=== PATIENT | female | born 1965 | race African-American/Black ===

== ENCOUNTER 2016-07-07 20:03 | Inpatient (IN) | payer MEDICAID, OTHER ==
[~2016-07-07] VITALS: Ht 175.3 cm; Wt 98.4 kg
[~2016-07-07 20:03] MED LIST: 1-ME1LIQ PO; ALBU1AER INH; CARBXR200 PO; ENAL5TAB PO; FURO1TAB93 PO; HYDR100T2 PO; METO50TA PO; SERT-129 PO; SPIRCAP INH; TIOT1AER2 INH; TIZA4CAP PO
[2016-07-07 20:05] VITALS: BP 166/93; PULSE 116; RESP 16; TEMP 98.5; O2SAT 96
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
[2016-07-07 20:49] LABS: AUTOMATED NEUTROPHIL # 5.2 TH/MM3 (1.8-7.7); BASOPHIL # 0.1 TH/MM3 (0-0.2); BASOPHIL % 0.9 % (0.0-2.0); EOSINOPHIL # 0.9 TH/MM3 (0-0.4); EOSINOPHIL % 11.1 % (0.0-4.0); HEMATOCRIT 39.7 % (35.0-46.0); HEMO FLAGS DIFF FINAL; LYMPH % 19.1 % (9.0-44.0); LYMPHOCYTE # 1.6 TH/MM3 (1.0-4.8); MEAN CELL VOLUME 88.8 FL (80.0-100.0); MEAN CORPUSCULAR HEMOGLOBIN 29.5 PG (27.0-34.0); MEAN CORPUSCULAR HGB CONC 33.2 % (32.0-36.0); MONO % 7.2 % (0.0-8.0); NEUT % 61.7 % (16.0-70.0); PLATELET COUNT 237 TH/MM3 (150-450); RED BLOOD COUNT 4.47 MIL/MM3 (4.00-5.30); RED CELL DISTRIBUTION WIDTH 17.1 % (11.6-17.2); WHITE BLOOD COUNT 8.5 TH/MM3 (4.0-11.0)
[2016-07-07 21:16] LABS: ALT (GPT) 31 U/L (10-53); ANION GAP 8 MEQ/L (5-15); AST (GOT) 27 U/L (15-37); BICARBONATE 28.1 MEQ/L (21.0-32.0); BLOOD UREA NITROGEN 19 MG/DL (7-18); CHLORIDE 108 MEQ/L (98-107); GLOMERULAR FILTRATION RATE 41 ML/MIN (>89); POTASSIUM 3.5 MEQ/L (3.5-5.1); SODIUM (NA) 144 MEQ/L (136-145)
[2016-07-07 21:19] LABS: ALKALINE PHOSPHATASE 90 U/L (45-117); TOTAL BILIRUBIN ADULT 0.5 MG/DL (0.2-1.0)
[2016-07-07 21:24] VITALS: BP 157/102; PULSE 110; RESP 16; O2SAT 97
[2016-07-07] MEDS ORDERED: ASPI1TAB91 PO (21:36)
[2016-07-07] MEDS ORDERED: ALBUAER3 INH (21:36)
[2016-07-07] MEDS ORDERED: METO100T9 PO (21:36)
[2016-07-07] MEDS ORDERED: HYDR25TA35 PO (21:36)
[2016-07-07] MEDS ORDERED: POTA10TA8 PO (21:36)
[2016-07-07] MEDS ORDERED: FURO40TA PO (21:36)
[2016-07-07] MEDS ORDERED: SERT-129 PO (21:36)
[2016-07-07] MEDS ORDERED: ASPI81TA81 (21:36)
[2016-07-07] MEDS ORDERED: TRAZ50TA12 PO (21:36)
[2016-07-07] MEDS ORDERED: ENAL5TAB PO (21:36)
[2016-07-07] MEDS ORDERED: LEVO500T3 PO (21:36)
[2016-07-07 21:43] LABS: AMPHETAMINE, URINE NEG (NEG); BARBITURATES, URINE NEG (NEG); COCAINE, URINE POS (NEG)
[2016-07-08] VITALS (8 sets, daily range): BP systolic 151–180; BP diastolic 98–122; PULSE 104–112; RESP 16–24; TEMP 97.6–98.3; O2SAT 95–98
[2016-07-08] MEDS ORDERED: ALBU0.08 NEB (13:33)
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
[2016-07-08] MEDS ORDERED: ALUMINUM/MAGNESIUM/SIMETH 30 ML CUP PO PRN (16:00)
[2016-07-08] MEDS ORDERED: hydrALAZINE HCL 25 MG TAB PO ONE (16:00)
[2016-07-08] MEDS ORDERED: ALBUTEROL SULFATE 90 MCG/ACT HFA 8 GM INHALER INH ONE (16:00)
[2016-07-08] MEDS ORDERED: ACETAMINOPHEN 325 MG TAB PO PRN (16:00)
[2016-07-08] MEDS ORDERED: MAGNESIUM HYDROXIDE SUSP 30 ML CUP PO PRN (16:00)
[2016-07-08] MEDS ORDERED: ALBUTEROL SULFATE 90 MCG/ACT HFA 18 GM INHALER INH ONE (16:15)
[2016-07-08] MEDS ORDERED: cloNIDine HCL 0.2 MG TAB PO ONE (18:15)
[2016-07-09] MEDS: FUROSEMIDE 40 MG TAB PO SCH ×2 (05:50→09:45)
[2016-07-09] MEDS: hydrALAZINE HCL 25 MG TAB PO SCH ×3 (05:50→21:32)
[2016-07-09] MEDS: ENALAPRIL MALEATE 5 MG TAB PO SCH ×3 (05:50→21:32)
[2016-07-09] MEDS: METOPROLOL SUCCINATE 50 MG EXTENDED RELEASE TAB PO SCH ×2 (05:51→09:45)
[2016-07-09 06:00] VITALS: PULSE 104; RESP 20; TEMP 97.4
[2016-07-09 07:03] VITALS: BP 158/115; PULSE 94
[2016-07-09 08:00] VITALS: BP 144/95; PULSE 90; TEMP 98
[2016-07-09] MEDS ORDERED: ALUMINUM/MAGNESIUM/SIMETH 30 ML CUP PO PRN (08:45)
[2016-07-09] MEDS ORDERED: MAGNESIUM HYDROXIDE SUSP 30 ML CUP PO PRN (08:45)
[2016-07-09] MEDS ORDERED: ACETAMINOPHEN 325 MG TAB PO PRN (08:45)
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
[2016-07-09] MEDS ORDERED: NON-FORMULARY DRUG (Metoprolol Succinate ER 24 HR 100 MG) PO SCH (09:00)
[2016-07-09] MEDS ORDERED: ENALAPRIL MALEATE 5 MG TAB PO SCH (09:00)
[2016-07-09] MEDS ORDERED: hydrALAZINE HCL 25 MG TAB PO SCH (09:00)
[2016-07-09] MEDS ORDERED: FUROSEMIDE 40 MG TAB PO SCH (09:00)
[2016-07-09] MEDS: risperiDONE ODT 1 MG TAB PO SCH ×2 (09:45→21:31)
[2016-07-09] MEDS: SERTRALINE HCL 100 MG TAB PO SCH (09:45)
[2016-07-09 10:46] LABS: ANION GAP 8 MEQ/L (5-15); BICARBONATE 28.1 MEQ/L (21.0-32.0); BLOOD UREA NITROGEN 17 MG/DL (7-18); CHLORIDE 107 MEQ/L (98-107); GLOMERULAR FILTRATION RATE 52 ML/MIN (>89); HDL CHOLESTEROL 50.1 MG/DL (40.0-60.0); LDL CHOLESTEROL 74 MG/DL (0-99); POTASSIUM 3.9 MEQ/L (3.5-5.1); SODIUM (NA) 143 MEQ/L (136-145)
[2016-07-09 11:15] LABS: HEMOGLOBIN A1a 1.1 %; HEMOGLOBIN A1b 1.4 %; HEMOGLOBIN Ao 86.3 %; HEMOGLOBIN P3 4.9 %
[2016-07-09] MEDS: ASPIRIN EC 81 MG TABEC PO SCH (13:30)
--- NOTE | 2016-07-09 13:38 | PD.CONS ---
HPI Service [facility] Consult Requested By Dr. Renner Reason for Consult Medical management Primary Care Physician Tony Goldstein Diagnoses: History of Present Illness The patient is a 50-year-old female with a past medical history of CAD and CHF who is presenting to the hospital after her son was concerned about her well- being. The patient says she has been feeling very depressed and has generally been having low energy. Per report she was having homicidal ideation. The patient also states that she is often short of breath when walking around. She says she has heart failure and has been hospitalized for heart failure multiple times in the past. The most recent hospitalization was a few months ago. She says she was also hospitalized for kidney failure. She has not been keeping track of her weight that she has noticed swelling in her lower extremities. She does believe she has some fluid around her lungs. She does not have salt in her diet. She says she has not been good about taking her medications recently. She says she intermittently has chest pain from time to time. She denies any acute symptoms. Review of Systems Except as stated in HPI: all other systems reviewed are Neg Past Family Social History Allergies: Coded Allergies: No Known Allergies (Verified , 07/07/16) Past Medical History Bipolar disorder CAD CHF COPD HTN Poor circulation Chronic kidney disease Past Surgical History Tubal ligation Active Ordered Medications Current Medications Medications (Trade) Dose Ordered Sig/Stanislaw Route Start Time Stop Time Status Last Admin (Tylenol) 650 mg Q4H PRN PO 07/08/16 16:00 (Milk Of Magnesia Liq) 30 ml DAILY PRN PO 07/08/16 16:00 (Mag-Al Plus Susp Liq) 30 ml Q6H PRN PO 07/08/16 16:00 07/09/16 02:55 (Pneumovax-23 Inj) 25 mcg ONCE ONCE IM 07/10/16 10:00 07/10/16 10:01 (Vasotec) 10 mg BID PO 07/09/16 05:45 07/09/16 09:44 (Lasix) 40 mg DAILY PO 07/09/16 05:45 07/09/16 09:45 (Apresoline) 25 mg BID PO 07/09/16 05:45 07/09/16 09:45 (Toprol Xl) 100 mg DAILY PO 07/09/16 05:45 07/09/16 09:45 (Zoloft) 100 mg DAILY PO 07/09/16 09:00 07/09/16 09:45 (risperDAL M-TAB) 1 mg Q12HR PO 07/09/16 09:00 07/09/16 09:45 (Ventolin Hfa Inh) 2 puff Q4H PRN INH 07/09/16 13:30 (Ecotrin Ec) 81 mg DAILY PO 07/09/16 13:30 (KCl) 10 meq DAILY PO 07/10/16 09:00 Family History HTN CKD Social History She smokes 1 PPD. She does not drink. She uses cocaine twice a week. Physical Exam Vital Signs Vital Signs Date Time Temp Pulse Resp B/P Pulse Ox O2 Delivery O2 Flow Rate FiO2 07/09/16 07:03 94 158/115 07/09/16 06:00 97.4 104 20 07/08/16 23:49 105 151/108 07/08/16 23:47 98.3 106 20 167/115 07/08/16 20:15 110 20 154/98 07/08/16 17:35 112 24 165/115 95 Room Air 07/08/16 15:50 110 22 179/122 97 Room Air Physical Exam GENERAL: Middle-aged female in no acute distress. SKIN: Focused skin assessment warm/dry. HEAD: Normocephalic. EYES: No scleral icterus. No injection or drainage. ENT: Mucous membranes pink and moist. CARDIOVASCULAR: Distant heart sounds. No murmur appreciated. RESPIRATORY: No accessory muscle use. Poor respiratory effort. GASTROINTESTINAL: Nontender to palpation. No guarding or rebound. MUSCULOSKELETAL: 1+ bilateral lower extremity edema. NEUROLOGICAL: Awake and alert. Normal speech. PSYCHIATRIC: Flat affect. Laboratory Laboratory Tests Test 07/09/16 09:16 Sodium Level 143 Potassium Level 3.9 Chloride Level 107 Carbon Dioxide Level 28.1 Anion Gap 8 Blood Urea Nitrogen 17 Creatinine 1.31 Estimat Glomerular Filtration 52 Rate Random Glucose 89 Hemoglobin A1c 5.2 Calcium Level 8.4 Triglycerides Level 47 Cholesterol Level 133 LDL Cholesterol 74 HDL Cholesterol 50.1 Cholesterol/HDL Ratio 2.65 Result Diagram: 07/07/16203907/09/1616 Assessment and Plan Assessment and Plan Depression The patient has been depressed recently and was brought in by her family members who were concerned. - Management per psychiatry. CHF/ CAD The patient has a history of CAD. She has a reported ejection fraction of 25-30 % with moderate to severe tricuspid regurgitation. She endorses dyspnea on exertion as well as lower extremity edema. She also endorses intermittent chest pain. - Check an EKG and troponins. - Check a BNP. - Continue by mouth Lasix. - Fluid restriction. - Follow Is and Os. - CXR pending. COPD The pt has WEINSTEIN. - CXR pending. - albuterol and oxygen as needed. - IS. - smoking cessation instruction. HTN Blood pressure has been elevated. - continue home regimen. - clonidine as needed. CKD Creatinine improved overnight. Slightly above baseline. - monitor BMP. Nicotine and cocaine abuse The pt smokes a pack daily and uses cocaine twice per week. - cessation instruction. PPx: Ambulation. Discussed Condition With Pt, nurse. Michael Barboza DO July 09, 2016 13:38
--- NOTE | 2016-07-09 13:41 | RADRPT ---
EXAM DATE/TIME: 07/09/2016 13:30 [place] COMPARISON: No previous studies available for comparison. INDICATIONS : Dyspnea. MEDICAL HISTORY : None. SURGICAL HISTORY : None. ENCOUNTER: Initial ACUITY: 1 day PAIN SCORE: 0/10 LOCATION: Bilateral chest FINDINGS: A single view of the chest demonstrates the lungs to be symmetrically aerated without evidence of mas s, infiltrate or effusion. Moderate cardiomegaly with central pulmonary vascular congestion. The car diomediastinal contours are unremarkable. Osseous structures are intact. CONCLUSION: Cardiomegaly with central pulmonary vascular congestion. Diogo Rodriguez MD on July 09, 2016 at 13:39 Board Certified Radiologist. This report was verified electronically.
[2016-07-09] MEDS: ALBUTEROL SULFATE 90 MCG/ACT HFA 18 GM INHALER INH PRN (18:14)
[2016-07-09 18:26] VITALS: BP 141/102; PULSE 75; RESP 18; TEMP 98.7; O2SAT 99
[2016-07-10 06:17] VITALS: BP 151/96; PULSE 83; RESP 19; TEMP 98; O2SAT 98
[2016-07-10] MEDS: ENALAPRIL MALEATE 5 MG TAB PO SCH ×2 (08:59→20:28)
[2016-07-10] MEDS: METOPROLOL SUCCINATE 50 MG EXTENDED RELEASE TAB PO SCH (08:59)
[2016-07-10] MEDS: ASPIRIN EC 81 MG TABEC PO SCH (08:59)
[2016-07-10] MEDS: SERTRALINE HCL 100 MG TAB PO SCH (08:59)
[2016-07-10] MEDS: FUROSEMIDE 40 MG TAB PO SCH ×2 (09:00→18:05)
[2016-07-10] MEDS: POTASSIUM CHLORIDE 10 MEQ CONTROLLED RELEASE TAB PO SCH (09:00)
[2016-07-10] MEDS: risperiDONE ODT 1 MG TAB PO SCH ×2 (09:00→20:28)
[2016-07-10] MEDS: hydrALAZINE HCL 25 MG TAB PO SCH ×2 (09:00→20:28)
[2016-07-10] MEDS ORDERED: PNEUMOCOCCAL POLYVALENT INJ 25 MCG/0.5 ML SYR IM ONE (10:00)
--- NOTE | 2016-07-10 10:43 | HHI.PYPN ---
Subjective Remarks Patient seen in [place] with nurse Aishwarya Ruiz, chart review, patient compliant with the medications. Today paranoia has somewhat decreased states the voices are gone she does denies suicidality stating that she did sleep better last night there is some decrease in her shortness of breath. She shows slightly increased focus discussing discharge plans for now continue treatment Review of Systems Except as stated in HPI: all other systems reviewed are Neg Objective Alert: Yes [place]: Person (ox4) Mood: Depressed Affect: Restricted Memory Intact: Comment (not impaired) Hallucinations: Auditory (hears persons talking) Delusions: No Delusion Type: Paranoid Suicidal: Ideation (deneis) Homicidal: Ideation (her step sisiter) Insight/Judgment Poor Labs Test 07/09/16 07/09/16 14:32 19:33 Troponin I 0.16 NG/ML 0.16 NG/ML Vitals/IOs Vital Signs Date Time Temp Pulse Resp B/P Pulse Ox O2 Delivery O2 Flow Rate FiO2 07/10/16 06:17 98.0 83 19 151/96 98 07/08/16 17:35 Room Air Assessment & Plan Problem List: (1) Cocaine abuse ICD Code: F14.10 (2) Schizoaffective disorder ICD Code: F25.9 Assessment & Plan Estimated LOS: days patient psychosis is softening, showing some slight increase in processing and insight. Compliant medication. For now continue treatment Justification for Cont. Inpt. At this time patient will decompensate if placed in a lower level of care Discharge Planning To be determined Request HC Surrog/Guard Advoc?: No Problem Qualifiers (1) Schizoaffective disorder: Qualified Code: F25.0 - Schizoaffective disorder, bipolar type Reynold Renner MD July 10, 2016 10:43
--- NOTE | 2016-07-10 14:31 | HHI.PR ---
Subjective Remarks The patient was resting comfortably in bed. She said her breathing was a little bit better. She said her legs were still swollen. She says her mood is still depressed but not worse. She had no acute complaints at this time. She denied any chest pain. Objective Vitals Vital Signs Date Time Temp Pulse Resp B/P Pulse Ox O2 Delivery O2 Flow Rate FiO2 07/10/16 06:17 98.0 83 19 151/96 98 07/09/16 18:26 98.7 75 18 141/102 99 Result Diagram: 07/07/160 07/09/16 0916 Imaging Last Impressions Chest X-Ray 07/09/16 0000 Signed Impressions: Service Date/Time: Saturday, July 09, 2016 13:30 - CONCLUSION: Cardiomegaly with central pulmonary vascular congestion. Diogo Rodriguez MD Objective Remarks GENERAL: Middle-aged female in no acute distress. SKIN: Focused skin assessment warm/dry. HEAD: Normocephalic. EYES: No scleral icterus. No injection or drainage. ENT: Mucous membranes pink and moist. CARDIOVASCULAR: Distant heart sounds. No murmur appreciated. RESPIRATORY: No accessory muscle use. Poor respiratory effort. CTAB. GASTROINTESTINAL: Nontender to palpation. No guarding or rebound. MUSCULOSKELETAL: 1+ bilateral lower extremity edema. NEUROLOGICAL: Awake and alert. Normal speech. PSYCHIATRIC: Flat affect. Medications and IVs Current Medications Medications (Trade) Dose Ordered Sig/Stanislaw Route Start Time Stop Time Status Last Admin (Tylenol) 650 mg Q4H PRN PO 07/08/16 16:00 (Milk Of Magnesia Liq) 30 ml DAILY PRN PO 07/08/16 16:00 (Mag-Al Plus Susp Liq) 30 ml Q6H PRN PO 07/08/16 16:00 07/09/16 02:55 (Vasotec) 10 mg BID PO 07/09/16 05:45 07/10/16 08:59 (Apresoline) 25 mg BID PO 07/09/16 05:45 07/10/16 09:00 (Toprol Xl) 100 mg DAILY PO 07/09/16 05:45 07/10/16 08:59 (Zoloft) 100 mg DAILY PO 07/09/16 09:00 07/10/16 08:59 (risperDAL M-TAB) 1 mg Q12HR PO 07/09/16 09:00 07/10/16 09:00 (Ventolin Hfa Inh) 2 puff Q4H PRN INH 07/09/16 13:30 07/09/16 18:14 (Ecotrin Ec) 81 mg DAILY PO 07/09/16 13:30 07/10/16 08:59 (KCl) 10 meq DAILY PO 07/10/16 09:00 07/10/16 09:00 (Catapres) 0.1 mg Q6H PRN PO 07/09/16 13:30 (Lasix) 40 mg BID PO 07/10/16 21:00 A/P Assessment and Plan Depression The patient has been depressed recently and was brought in by her family members who were concerned. - Management per psychiatry. CHF/ CAD The patient has a history of CAD. She has a reported ejection fraction of 25-30 % with moderate to severe tricuspid regurgitation. She endorses dyspnea on exertion as well as lower extremity edema. She also endorses intermittent chest pain. Trops peaked at 0.16. BNP elevated over 1000. EKG without acute ischemic changes. CXR with pulmonary congestion. Symptoms improved 07/11. - Continue by mouth Lasix. Increase to BID. - Fluid restriction. - SCDs. - Follow Is and Os. - check an updated echo. COPD The pt has WEINSTEIN. Improved. - albuterol and oxygen as needed. Standing nebs added. - IS. - smoking cessation instruction. HTN Blood pressure has been elevated. Stable. - continue home regimen. - clonidine as needed. CKD Creatinine improved overnight. Slightly above baseline. - monitor BMP. Nicotine and cocaine abuse The pt smokes a pack daily and uses cocaine twice per week. - cessation instruction. PPx: Ambulation. Michael Barboza DO July 10, 2016 14:30
--- NOTE | 2016-07-10 15:49 | EKG ---
Date Performed: 07/09/2016 Time Performed: 13:56:41 PTAGE: 50 years EKG: Sinus rhythm POSSIBLE LEFT ATRIAL ENLARGEMENT POSSIBLE ANTERIOR MYOCARDIAL INFARCTION , PROBABLY OLD NONSPECIFIC ST CHANGES PRESENT, NO SIGNIFICANT CHANGE FROM PRIOR. BORDERLINE ECGPREVIOUS TRACING : 11/29/19 06 06.32 DOCTOR: Neptali Haney Interpretating Date/Time 07/10/2016 15:48:11
[2016-07-10] MEDS: RESP: ALBUTEROL 2.5 MG/IPRATROPIUM 0.5 MG NEB (SCH) NEB (17:00)
--- NOTE | 2016-07-10 17:01 | EC ---
Study Study Date:07/10/2016 STUDY CONCLUSIONS SUMMARY - Left ventricle: The cavity size was dilated. Wall thickness was normal. Systolic function was severely reduced. The estimated ejection fraction was in the range of 10% to 15%. Diffuse hypokinesis. Hypokinesis of the entire myocardium. - Mitral valve: Severe regurgitation. - Left atrium: The atrium was dilated. - Tricuspid valve: Moderate-severe regurgitation. If LV function is below 40, please consider prescribing an ACEI or ARB or document rationale for non-use. PROCEDURE DATA STUDY STATUS: Elective. Procedure: Transthoracic echocardiography. Image quality was good. Scanning was performed from the parasternal, apical, and subcostal acoustic windows. Study completion: The patient tolerated the procedure well. Transthoracic echocardiography. M-mode, complete 2D, complete spectral Doppler, and color Doppler. Patient status: Inpatient. CARDIAC ANATOMY LEFT VENTRICLE: The cavity size was dilated. Wall thickness was normal. Systolic function was severely reduced. The estimated ejection fraction was in the range of 10% to 15%. Diffuse hypokinesis. Regional wall motion abnormalities: Hypokinesis of the entire myocardium. AORTIC VALVE: Trileaflet; normal thickness leaflets. Doppler: Transvalvular velocity was within the normal range. There was no stenosis. No regurgitation. AORTA: Aortic root: The aortic root was normal in size. MITRAL VALVE: Structurally normal valve. Doppler: Transvalvular velocity was within the normal range. There was no evidence for stenosis. Severe regurgitation. Mean gradient: 2mm Hg (D). Peak gradient: 6mm Hg (D). LEFT ATRIUM: The atrium was dilated. RIGHT VENTRICLE: The cavity size was normal. Wall thickness was normal. PULMONIC VALVE: Doppler: Transvalvular velocity was within the normal range. There was no evidence for stenosis. No regurgitation. TRICUSPID VALVE: Structurally normal valve. Doppler: Transvalvular velocity was within the normal range. Moderate-severe regurgitation. PULMONARY ARTERY: The main pulmonary artery was normal-sized. Systolic pressure was within the normal range. RIGHT ATRIUM: The atrium was normal in size. PERICARDIUM: There was no pericardial effusion. SYSTEMIC VEINS: Inferior vena cava: The vessel was normal in size. BASIC MEASUREMENTS ADULT Normal Left ventricle LV internal dimension, ED, chordal level, *61.5 mm 43-52 PLAX LV internal dimension, ES, chordal level, *55.9 mm 23-38 PLAX Fractional shortening, chordal level, PLAX *9 % >29 LV posterior wall thickness, ED 9.11 mm IVS/LVPW ratio, ED *1.47 <1.3 Ventricular septum Septal thickness, ED 13.4 mm Aortic valve Leaflet separation 19 mm 15-26 Left atrium Anterior-posterior dimension 35 mm Right ventricle RV internal dimension, ED, PLAX 20.9 mm 19-38 BASIC MEASUREMENTS ADULT Normal Aortic valve Leaflet separation 19 mm 15-26 Aorta Root diameter, ED 26 mm 20-37 DOPPLER MEASUREMENTS ADULT Normal Aortic valve Peak velocity, S 124 cm/s VTI, S 26.7 cm Mitral valve Peak E-wave velocity 103 cm/s Peak A-wave velocity 54.3 cm/s Mean velocity, D 60.3 cm/s Mean gradient, D 2 mm Hg Peak gradient, D 6 mm Hg Peak E/A ratio 1.9 Maximal regurgitant velocity 472 cm/s Tricuspid valve Regurgitant peak velocity 361 cm/s Peak RV-RA gradient, S 52 mm Hg Maximal regurgitant velocity 361 cm/s LEGEND: Mean values are shown as u=mean value. Asterisk (*) fields values outside specified normal range. Prepared and signed by Yasmani Barbour [id number]
[2016-07-10 18:00] VITALS: BP 169/105; PULSE 90; RESP 21; TEMP 98.2; O2SAT 97
[2016-07-10] MEDS: cloNIDine HCL 0.1 MG TAB PO PRN (20:28)
[2016-07-10] MEDS ORDERED: FUROSEMIDE 40 MG TAB PO SCH (21:00)
[2016-07-11] MEDS: cloNIDine HCL 0.1 MG TAB PO PRN (03:12)
[2016-07-11] MEDS: ALBUTEROL SULFATE 90 MCG/ACT HFA 18 GM INHALER INH PRN ×2 (03:12→19:43)
[2016-07-11 06:14] VITALS: BP 155/118; PULSE 88; RESP 17; TEMP 97.3; O2SAT 96
[2016-07-11 06:59] LABS: HEMATOCRIT 37.5 % (35.0-46.0); MEAN CELL VOLUME 88.5 FL (80.0-100.0); MEAN CORPUSCULAR HEMOGLOBIN 29.4 PG (27.0-34.0); MEAN CORPUSCULAR HGB CONC 33.2 % (32.0-36.0); PLATELET COUNT 198 TH/MM3 (150-450); RED BLOOD COUNT 4.23 MIL/MM3 (4.00-5.30); RED CELL DISTRIBUTION WIDTH 17.2 % (11.6-17.2); REVIEW FLAG FINAL; WHITE BLOOD COUNT 6.1 TH/MM3 (4.0-11.0)
[2016-07-11 07:50] LABS: BICARBONATE 29.2 MEQ/L (21.0-32.0); MAGNESIUM 2.3 MG/DL (1.5-2.5); POTASSIUM 3.9 MEQ/L (3.5-5.1)
[2016-07-11] MEDS: POTASSIUM CHLORIDE 10 MEQ CONTROLLED RELEASE TAB PO SCH (07:59)
[2016-07-11] MEDS: FUROSEMIDE 40 MG TAB PO SCH ×2 (07:59→18:00)
[2016-07-11] MEDS: SERTRALINE HCL 100 MG TAB PO SCH (07:59)
[2016-07-11] MEDS: ASPIRIN EC 81 MG TABEC PO SCH (07:59)
[2016-07-11] MEDS: risperiDONE ODT 1 MG TAB PO SCH ×2 (08:00→20:10)
[2016-07-11] MEDS: METOPROLOL SUCCINATE 50 MG EXTENDED RELEASE TAB PO SCH (08:00)
[2016-07-11] MEDS: hydrALAZINE HCL 25 MG TAB PO SCH ×2 (08:00→20:10)
[2016-07-11] MEDS: RESP: ALBUTEROL 2.5 MG/IPRATROPIUM 0.5 MG NEB (SCH) NEB ×2 (08:45→16:00)
--- NOTE | 2016-07-11 11:47 | HHI.PYPN ---
Subjective Remarks Patient seen in her room with nurse Ryann, compliant medications, states she is feeling better though there is persistent auditory hallucinations last night of two men with some vague visual component. Patient does deny suicidality at this time. Also feels the swelling in her legs is also diminishing. Will continue treatment no change Review of Systems Except as stated in HPI: all other systems reviewed are Neg Objective Alert: Yes [place]: Person (ox4) Mood: Depressed Affect: Restricted Memory Intact: Comment (not impaired) Hallucinations: Auditory (hears persons talking) Delusions: No Delusion Type: Paranoid Suicidal: Ideation (deneis) Homicidal: Ideation (her step sisiter) Insight/Judgment Poor Labs Test 07/10/16 07/11/16 13:18 06:20 Troponin I 0.09 NG/ML White Blood Count 6.1 TH/MM3 Red Blood Count 4.23 MIL/MM3 Hemoglobin 12.4 GM/DL Hematocrit 37.5 % Mean Corpuscular Volume 88.5 FL Mean Corpuscular Hemoglobin 29.4 PG Mean Corpuscular Hemoglobin 33.2 % Concent Red Cell Distribution Width 17.2 % Platelet Count 198 TH/MM3 Mean Platelet Volume 8.9 FL Sodium Level 145 MEQ/L Potassium Level 3.9 MEQ/L Chloride Level 108 MEQ/L Carbon Dioxide Level 29.2 MEQ/L Anion Gap 8 MEQ/L Blood Urea Nitrogen 23 MG/DL Creatinine 1.48 MG/DL Estimat Glomerular Filtration 45 ML/MIN Rate Random Glucose 81 MG/DL Calcium Level 8.2 MG/DL Magnesium Level 2.3 MG/DL Vitals/IOs Vital Signs Date Time Temp Pulse Resp B/P Pulse Ox O2 Delivery O2 Flow Rate FiO2 07/11/16 06:14 97.3 88 17 155/118 96 07/08/16 17:35 Room Air Assessment & Plan Problem List: (1) Cocaine abuse ICD Code: F14.10 (2) Schizoaffective disorder ICD Code: F25.9 Assessment & Plan Estimated LOS: days patient psychosis continues but softening, compliant medications, for now continue treatment Justification for Cont. Inpt. This time patient will decompensate if placed in the lower level of care Discharge Planning To be determined Request HC Surrog/Guard Advoc?: No Problem Qualifiers (1) Schizoaffective disorder: Qualified Code: F25.0 - Schizoaffective disorder, bipolar type Reynold Renner MD July 11, 2016 11:47
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
--- NOTE | 2016-07-11 16:37 | MB ---
cc: QUINCY LAI MD DATE OF CONSULTATION 07/11/16 REASON FOR CONSULTATION Cardiomyopathy. HISTORY OF PRESENT ILLNESS Ms. Helen Llanos is a 50-year-old female who has a known history of a nonischemic cardiomyopathy. She in fact underwent cardiac catheterization in May of 2015 at which time she had normal coronary arteries. She has had subsequent issues with polysubstance abuse and was admitted to psychiatry. She has been stabilized from a psychiatric perspective but is now complaining of PND. ALLERGIES NO KNOWN DRUG ALLERGIES. PAST MEDICAL HISTORY Significant for a nonischemic cardiomyopathy with a known EF of less than 20%, CHF, COPD, hypertension and bipolar disorder. CURRENT MEDICATIONS Per the record include: 1. Lasix. 2. Potassium. 3. Albuterol. 4. Aspirin. 5. Sertraline. 6. Risperidone. 7. Enalapril. 8. Hydralazine. 9. Metoprolol. REVIEW OF SYSTEMS Except as mentioned in the HPI all 12 systems are negative. FAMILY HISTORY Negative for CAD. SOCIAL HISTORY The patient does smoke and has used cocaine recently. PHYSICAL EXAMINATION VITAL SIGNS: On physical examination vital signs are 97.3, 88, 17, 155/118. GENERAL: In general she is a morbidly obese female who is in no apparent distress. NECK: Her neck is free from JVD. LUNGS: The lungs are bilaterally clear to auscultation. CARDIOVASCULAR: On examination she has a normal S1-S2. There is a 3/6 systolic murmur. No rubs or gallops are appreciated. ABDOMEN: The abdomen is soft. EXTREMITIES: The extremities are free from edema. CARDIOLOGY STUDIES Echocardiogram from 07/10/2016 does show an EF of 10-15%. There is severe mitral regurgitation and moderate to severe tricuspid regurgitation. LABORATORY FINDINGS Significant for positive cocaine screen. Her BNP is 1953 with serial troponins of 0.16/0.16/0.09 and a creatinine of 1.48. IMPRESSION Acute on chronic systolic failure: The patient has a documented history of nonischemic cardiomyopathy. I suspect that this is secondary to uncontrolled hypertension and/or drug abuse. In any case the patient does report that she has been consistent with her cardiac medications since the beginning of the year. She has a documented nonischemic cardiomyopathy with a persistent low EF. I am going to consult Dr. Gale to consider ICD implantation. In the interim I would like to optimize her medications, cap her fluids at 1.5 liters and cap her sodium at 2000 milligrams a day. Uncontrolled hypertension: I am going to increase her enalapril. Quincy Lai M.D. BAB/EO /3:42 PM /4:27 PM
--- NOTE | 2016-07-11 16:45 | HHI.PR ---
Subjective Remarks The patient was resting comfortably in bed. She said her legs are less swollen. She did have some shortness of breath at times. She said she knew her ejection fraction was 10% for quite some time. She said she had a LifeVest for a while but the insurance company took it back. Objective Vitals Vital Signs Date Time Temp Pulse Resp B/P Pulse Ox O2 Delivery O2 Flow Rate FiO2 07/11/16 06:14 97.3 88 17 155/118 96 07/10/16 18:00 98.2 90 21 169/105 97 Result Diagram: 07/11/16 0620 07/11/16 0620 Imaging Last Impressions Chest X-Ray 07/09/16 0000 Signed Impressions: Service Date/Time: Saturday, July 09, 2016 13:30 - CONCLUSION: Cardiomegaly with central pulmonary vascular congestion. Diogo Rodriguez MD Objective Remarks GENERAL: Middle-aged female in no acute distress. SKIN: Focused skin assessment warm/dry. HEAD: Normocephalic. EYES: No scleral icterus. No injection or drainage. ENT: Mucous membranes pink and moist. CARDIOVASCULAR: Distant heart sounds. No murmur appreciated. RESPIRATORY: No accessory muscle use. Poor respiratory effort. CTAB. GASTROINTESTINAL: Nontender to palpation. No guarding or rebound. MUSCULOSKELETAL: 1+ bilateral lower extremity edema. NEUROLOGICAL: Awake and alert. Normal speech. PSYCHIATRIC: Flat affect. Medications and IVs Current Medications Medications (Trade) Dose Ordered Sig/Stanislaw Route Start Time Stop Time Status Last Admin (Tylenol) 650 mg Q4H PRN PO 07/08/16 16:00 07/11/16 03:13 (Milk Of Magnesia Liq) 30 ml DAILY PRN PO 07/08/16 16:00 (Mag-Al Plus Susp Liq) 30 ml Q6H PRN PO 07/08/16 16:00 07/09/16 02:55 (Apresoline) 25 mg BID PO 07/09/16 05:45 07/11/16 08:00 (Toprol Xl) 100 mg DAILY PO 07/09/16 05:45 07/11/16 08:00 (Zoloft) 100 mg DAILY PO 07/09/16 09:00 07/11/16 07:59 (risperDAL M-TAB) 1 mg Q12HR PO 07/09/16 09:00 07/11/16 08:00 (Ventolin Hfa Inh) 2 puff Q4H PRN INH 07/09/16 13:30 07/11/16 03:12 (Ecotrin Ec) 81 mg DAILY PO 07/09/16 13:30 07/11/16 07:59 (KCl) 10 meq DAILY PO 07/10/16 09:00 07/11/16 07:59 (Catapres) 0.1 mg Q6H PRN PO 07/09/16 13:30 07/11/16 03:12 (Lasix) 40 mg BID@,18 PO 07/10/16 18:00 07/11/16 07:59 (Vasotec) 20 mg BID PO 07/11/16 21:00 A/P Assessment and Plan Depression The patient has been depressed recently and was brought in by her family members who were concerned. - Management per psychiatry. CHF/ CAD The patient has a history of CAD. She has a reported ejection fraction of 25-30 % with moderate to severe tricuspid regurgitation. She endorses dyspnea on exertion as well as lower extremity edema. She also endorses intermittent chest pain. Trops peaked at 0.16. BNP elevated over 1000. EKG without acute ischemic changes. CXR with pulmonary congestion. Symptoms improved. Echo 07/10 shows EF of 10-15%; diffuse hypokinesis; severe mitral regurgitation; moderate to severe tricuspid regurgitation. - Continue by mouth Lasix. Increase to BID. - Fluid restriction. - SCDs. - Follow Is and Os. - Cardial to consult requested. - Transfuse patient to medical floor and monitor on telemetry. COPD The pt has WEINSTEIN. Improved. - albuterol and oxygen as needed. Standing nebs added. - IS. - smoking cessation instruction. HTN Blood pressure has been elevated. Stable. - continue home regimen. Enalapril added by cardiology. - clonidine as needed. CKD Creatinine improved overnight. Slightly above baseline. - monitor BMP. Nicotine and cocaine abuse The pt smokes a pack daily and uses cocaine twice per week. - cessation instruction. PPx: Ambulation. Discharge Planning Transfer to medical floor. Discussed with Dr. Renner. Michael Barboza DO July 11, 2016 16:45
[2016-07-11 20:45] VITALS: BP 142/96; PULSE 82; RESP 18; TEMP 97.6; O2SAT 96
[2016-07-11] MEDS ORDERED: ENALAPRIL MALEATE 10 MG TAB PO SCH (21:00)
[2016-07-12] MEDS ORDERED: ACET325T PO (01:39)
[2016-07-12] MEDS ORDERED: CLON0.1T PO (01:42)
[2016-07-12] MEDS ORDERED: HYDR25TA35 PO (01:45)
[2016-07-12] MEDS ORDERED: RISP1TAB2 PO (01:46)
[2016-07-12] MEDS ORDERED: MILKSUS PO (01:50)
== END 2016-07-11 22:28 | disposition admitted as inpatient to this hospital (09) | DRG 885 ==
LOC: NEPD 20:03 → NEDA 07-08 16:06 → H270 07-08 23:41
PROVIDERS: ADMIT Psychiatry & Neurology Psychiatry; ATTEND Psychiatry & Neurology Psychiatry
DX: F25.1 Schizoaffective disorder, depressive type (principal); I50.23 Acute on chronic systolic (congestive) heart failure; I42.9 Cardiomyopathy, unspecified; I08.1 Rheumatic disorders of both mitral and tricuspid valves; I13.0 Hypertensive heart and chronic kidney disease with heart failure and stage 1 through stage 4 chronic kidney disease, or unspecified chronic kidney disease; F14.10 Cocaine abuse, uncomplicated; J44.9 Chronic obstructive pulmonary disease, unspecified; F17.210 Nicotine dependence, cigarettes, uncomplicated; I25.10 Atherosclerotic heart disease of native coronary artery without angina pectoris; N18.9 Chronic kidney disease, unspecified; Z91.14 Patient's other noncompliance with medication regimen
CPT/HCPCS: 71010; 80048; 80053; 80061; 80307; 83036; 83735; 83880; 84484; 85025; 85027; 93005; 93306; 94640; 94664; 99285

== ENCOUNTER 2016-07-11 23:13 | Inpatient (IN) | payer MEDICAID ==
[~2016-07-11 23:13] MED LIST changes: -1-ME1LIQ PO; +ALBU0.08 NEB; -ALBU1AER INH; +ALBUAER3 INH; +ASPI1TAB91 PO; -CARBXR200 PO; -FURO1TAB93 PO; +FURO40TA PO; -HYDR100T2 PO; +HYDR25TA35 PO; +METO100T9 PO; -METO50TA PO; +POTA10TA8 PO; -SPIRCAP INH; -TIOT1AER2 INH; -TIZA4CAP PO; +TRAZ50TA12 PO
[2016-07-12] VITALS (21 sets, daily range): BP systolic 122–149; BP diastolic 85–113; PULSE 63–94; RESP 16–18; TEMP 97.5–98.1; O2SAT 95–100
[2016-07-12] MEDS ORDERED: ACETAMINOPHEN 325 MG TAB PO PRN (01:00)
[2016-07-12] MEDS ORDERED: ONDANSETRON HCL 4 MG/2 ML VIAL IVP PRN (01:00)
[2016-07-12] MEDS ORDERED: SENNOSIDES 8.6 MG TAB PO PRN (01:00)
[2016-07-12] MEDS ORDERED: SODIUM CHLORIDE 0.9% FLUSH 10 ML FLUSH IV FLUSH PRN (01:00)
[2016-07-12] MEDS ORDERED: NALOXONE HCL 0.4 MG/ML AMP IV PRN (01:00)
[2016-07-12 01:38] LABS: AUTOMATED NEUTROPHIL # 4.5 TH/MM3 (1.8-7.7); BASOPHIL % 0.5 % (0.0-2.0); EOSINOPHIL # 0.5 TH/MM3 (0-0.4); EOSINOPHIL % 6.6 % (0.0-4.0); HEMATOCRIT 37.9 % (35.0-46.0); HEMO FLAGS DIFF FINAL; LYMPH % 26.1 % (9.0-44.0); LYMPHOCYTE # 1.9 TH/MM3 (1.0-4.8); MEAN CELL VOLUME 88.5 FL (80.0-100.0); MEAN CORPUSCULAR HEMOGLOBIN 29.2 PG (27.0-34.0); MONO % 6.6 % (0.0-8.0); NEUT % 60.2 % (16.0-70.0); PLATELET COUNT 222 TH/MM3 (150-450); RED BLOOD COUNT 4.28 MIL/MM3 (4.00-5.30); RED CELL DISTRIBUTION WIDTH 16.9 % (11.6-17.2); WHITE BLOOD COUNT 7.4 TH/MM3 (4.0-11.0)
[2016-07-12] MEDS ORDERED: ACET325T PO (01:39)
[2016-07-12] MEDS ORDERED: CLON0.1T PO (01:42)
[2016-07-12] MEDS ORDERED: HYDR25TA35 PO (01:45)
[2016-07-12] MEDS ORDERED: RISP1TAB2 PO (01:46)
[2016-07-12] MEDS ORDERED: MILKSUS PO (01:50)
[2016-07-12 02:00] LABS: BICARBONATE 30.3 MEQ/L (21.0-32.0); POTASSIUM 3.7 MEQ/L (3.5-5.1)
--- NOTE | 2016-07-12 07:18 | PD.CARD.PN ---
Subjective Subjective Remarks PT reports persistent SHOB, better with N/C and head of bed elevation Objective Medications Current Medications Medications (Trade) Dose Ordered Sig/Stanislaw Route Start Time Stop Time Status Last Admin (NS Flush) 2 ml UNSCH PRN IV FLUSH 07/12/16 01:00 (NS Flush) 2 ml BID IV FLUSH 07/12/16 09:00 (Tylenol) 650 mg Q4H PRN PO 07/12/16 01:00 (Zofran Inj) 4 mg Q6H PRN IVP 07/12/16 01:00 (Senokot) 17.2 mg Q12H PRN PO 07/12/16 01:00 (Narcan Inj) 0.4 mg UNSCH PRN IV 07/12/16 01:00 (Vasotec) 20 mg BID PO 07/12/16 09:00 Vital Signs / I&O Vital Signs Date Time Temp Pulse Resp B/P Pulse Ox O2 Delivery O2 Flow Rate FiO2 07/12/16 06:01 98.1 94 16 135/101 95 07/12/16 02:55 72 07/12/16 02:39 97.5 86 16 149/113 97 07/12/16 02:00 77 07/12/16 01:00 80 07/12/16 00:00 75 I/O 07/11/16 07/11/16 07/11/16 07/12/16 07/12/16 07/12/16 06:59 14:59 22:59 06:59 14:59 22:59 Intake Total 480 ml Output Total 1200 ml Balance -720 ml Intake Oral 480 ml Output Urine Total 1200 ml Physical Exam GENERAL: Well developed, well nourished. No acute distress. HEENT: CHEST: Lungs clear to auscultation bilaterally. Unlabored respiratory effort. CARDIAC: Regular rate and rhythm without S3, S4, or murmur. ABDOMEN: Soft, nontender, no hepatosplenomegaly. Bowel sounds present. EXTREMITIES: No clubbing, cyanosis, or edema. Laboratory Laboratory Tests Test 07/12/16 01:33 White Blood Count 7.4 TH/MM3 Red Blood Count 4.28 MIL/MM3 Hemoglobin 12.5 GM/DL Hematocrit 37.9 % Mean Corpuscular Volume 88.5 FL Mean Corpuscular Hemoglobin 29.2 PG Mean Corpuscular Hemoglobin 33.0 % Concent Red Cell Distribution Width 16.9 % Platelet Count 222 TH/MM3 Mean Platelet Volume 8.6 FL Neutrophils (%) (Auto) 60.2 % Lymphocytes (%) (Auto) 26.1 % Monocytes (%) (Auto) 6.6 % Eosinophils (%) (Auto) 6.6 % Basophils (%) (Auto) 0.5 % Neutrophils # (Auto) 4.5 TH/MM3 Lymphocytes # (Auto) 1.9 TH/MM3 Monocytes # (Auto) 0.5 TH/MM3 Eosinophils # (Auto) 0.5 TH/MM3 Basophils # (Auto) 0.0 TH/MM3 CBC Comment DIFF FINAL Differential Comment Sodium Level 143 MEQ/L Potassium Level 3.7 MEQ/L Chloride Level 106 MEQ/L Carbon Dioxide Level 30.3 MEQ/L Anion Gap 7 MEQ/L Blood Urea Nitrogen 26 MG/DL Creatinine 1.52 MG/DL Estimat Glomerular Filtration 44 ML/MIN Rate Random Glucose 86 MG/DL Calcium Level 8.6 MG/DL Troponin I 0.07 NG/ML Assessment and Plan Assessment and Plan Acute on chronic CHF- -restart meds, -fluid and sodium restrict -consult with EPS pending for ICD eval Hx cocaine use, but compliant with CV meds -BB use controversial, but bene felt to outweigh risk HTN- restart meds Chantell Henderson MD July 12, 2016 07:18
[2016-07-12] MEDS: RESP: ALBUTEROL 2.5 MG/IPRATROPIUM 0.5 MG NEB (SCH) NEB ×3 (07:33→22:36)
[2016-07-12] MEDS ORDERED: MAGNESIUM HYDROXIDE SUSP 30 ML CUP PO PRN (08:30)
[2016-07-12] MEDS: POTASSIUM CHLORIDE 8 MEQ CONTROLLED RELEASE TAB PO SCH ×2 (09:00→21:41)
[2016-07-12] MEDS ORDERED: risperiDONE 1 MG TAB PO SCH (09:00)
[2016-07-12] MEDS: ASPIRIN EC 81 MG TABEC PO SCH (09:00)
[2016-07-12] MEDS: SODIUM CHLORIDE 0.9% FLUSH 10 ML FLUSH IV FLUSH SCH ×2 (09:00→21:41)
[2016-07-12] MEDS: SERTRALINE HCL 100 MG TAB PO SCH (09:00)
[2016-07-12] MEDS: hydrALAZINE HCL 25 MG TAB PO SCH ×2 (09:00→21:41)
[2016-07-12] MEDS ORDERED: ENALAPRIL MALEATE 10 MG TAB PO SCH (09:00)
[2016-07-12] MEDS: ENALAPRIL MALEATE 10 MG TAB PO SCH ×2 (09:05→21:41)
[2016-07-12] MEDS: FUROSEMIDE 40 MG TAB PO SCH ×2 (09:05→18:01)
[2016-07-12] MEDS: METOPROLOL SUCCINATE 50 MG EXTENDED RELEASE TAB PO SCH (09:05)
[2016-07-12] MEDS: cloNIDine HCL 0.1 MG TAB PO SCH ×2 (12:00→18:01)
--- NOTE | 2016-07-12 13:20 | HHI.PYPN ---
Subjective Remarks Patient was seen today for psychiatric reevaluation in the medical floor. Patient reports good mood, denies depressive symptoms, she denies anxiety. She is still endorses visual hallucinations "I am sees stars in the roof right now" , but she denies auditory hallucinations, she denies suicidal and homicidal ideation. Patient is oriented 3, no delirium observed. Patient is compliant with her medications, no significant side effects. Patient clarifies that she has been having visual hallucinations and hearing voices for a long time now. No aggressive behavior, hostility agitation reported. Review of Systems Other No somatic complaints at this moment Objective Alert: Yes [place]: Person, Place, Date, Situation Mood: Calm Affect: Euthymic Memory Intact: Immediate, Recent, Remote Hallucinations: Visual Delusions: No Delusion Type: Other (none elicited) Suicidal: Ideation (she denies) Homicidal: Ideation (she denies) Insight/Judgment Improved Labs Test 07/12/16 01:33 White Blood Count 7.4 TH/MM3 Red Blood Count 4.28 MIL/MM3 Hemoglobin 12.5 GM/DL Hematocrit 37.9 % Mean Corpuscular Volume 88.5 FL Mean Corpuscular Hemoglobin 29.2 PG Mean Corpuscular Hemoglobin 33.0 % Concent Red Cell Distribution Width 16.9 % Platelet Count 222 TH/MM3 Mean Platelet Volume 8.6 FL Neutrophils (%) (Auto) 60.2 % Lymphocytes (%) (Auto) 26.1 % Monocytes (%) (Auto) 6.6 % Eosinophils (%) (Auto) 6.6 % Basophils (%) (Auto) 0.5 % Neutrophils # (Auto) 4.5 TH/MM3 Lymphocytes # (Auto) 1.9 TH/MM3 Monocytes # (Auto) 0.5 TH/MM3 Eosinophils # (Auto) 0.5 TH/MM3 Basophils # (Auto) 0.0 TH/MM3 CBC Comment DIFF FINAL Differential Comment Sodium Level 143 MEQ/L Potassium Level 3.7 MEQ/L Chloride Level 106 MEQ/L Carbon Dioxide Level 30.3 MEQ/L Anion Gap 7 MEQ/L Blood Urea Nitrogen 26 MG/DL Creatinine 1.52 MG/DL Estimat Glomerular Filtration 44 ML/MIN Rate Random Glucose 86 MG/DL Calcium Level 8.6 MG/DL Troponin I 0.07 NG/ML Vitals/IOs Vital Signs Date Time Temp Pulse Resp B/P Pulse Ox O2 Delivery O2 Flow Rate FiO2 07/12/16 08:00 97.9 67 18 122/87 100 07/12/16 07:33 Nasal Cannula 1.50 Assessment & Plan Problem List: (1) Cocaine abuse ICD Code: F14.10 (2) Schizoaffective disorder Assessment & Plan: Patient continues endorsing visual hallucinations. However patient clarifies that she has been having visual hallucination for a long time now. This visual hallucinations does not seem to be dangerous or anxiety provoking. She denies auditory hallucinations, she denies depression, she denies anxiety, she denies suicidal and homicidal ideation. I will increase the Risperdal to 2 mg twice a day to try to decrease this perceptual disturbance. Brief supportive psychotherapy and psychoeducation provided. ICD Code: F25.9 Assessment & Plan Estimated LOS: days Justification for Cont. Inpt. Patient does not meet psychiatric hospitalization at this moment. Sebastian Sun MD July 12, 2016 13:20
--- NOTE | 2016-07-12 15:20 | HHI.HP ---
HPI Service [facility] Primary Care Physician Tony Goldstein Admission Diagnosis Diagnoses: (1) significant cardiac history Diagnosis: Principal Chief Complaint: Shortness of breath Travel History International Travel<30 Days: No Contact w/Intl Traveler <30 Da: No History of Present Illness The patient is a 50-year-old female with a past medical history of CAD and CHF who is presenting to the hospital after her son was concerned about her well- being. The patient says she has been feeling very depressed and has generally been having low energy. Per report she was having homicidal ideation. The patient also states that she is often short of breath when walking around. She says she has heart failure and has been hospitalized for heart failure multiple times in the past. The most recent hospitalization was a few months ago. She says she was also hospitalized for kidney failure. She has not been keeping track of her weight that she has noticed swelling in her lower extremities. She does believe she has some fluid around her lungs. She does not have salt in her diet. She says she has not been good about taking her medications recently. She says she intermittently has chest pain from time to time. She denies any acute symptoms. She was discharged to the medical floor in the setting of an echocardiogram revealing an EF of 10-15% with severe MR and mod-severe. Cardiology saw the pt in psychiatry and recommended an AICD evaluation. The pt's symptoms have improved on her medication regimen. She said the nebulizers were helping and that her legs were no longer swollen. 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 She wanted to know if that would effect the pacemaker placement. Review of Systems Except as stated in HPI: all other systems reviewed are Neg Past Family Social History Past Medical History Bipolar disorder CAD CHF COPD HTN Poor circulation Chronic kidney disease Genital herpes Past Surgical History Tubal ligation Allergies: Coded Allergies: No Known Allergies (Verified , 07/07/16) Active Ordered Medications Current Medications Medications (Trade) Dose Ordered Sig/Stanislaw Route Start Time Stop Time Status Last Admin (NS Flush) 2 ml UNSCH PRN IV FLUSH 07/12/16 01:00 (NS Flush) 2 ml BID IV FLUSH 07/12/16 09:00 07/12/16 09:00 (Tylenol) 650 mg Q4H PRN PO 07/12/16 01:00 (Zofran Inj) 4 mg Q6H PRN IVP 07/12/16 01:00 (Senokot) 17.2 mg Q12H PRN PO 07/12/16 01:00 (Narcan Inj) 0.4 mg UNSCH PRN IV 07/12/16 01:00 (Lasix) 40 mg BID@,18 PO 07/12/16 09:00 07/12/16 09:05 (KCl) 16 meq Q12HR PO 07/12/16 09:00 07/12/16 09:00 (Vasotec) 10 mg BID PO 07/12/16 09:00 07/12/16 09:05 (Toprol Xl) 100 mg DAILY PO 07/12/16 09:00 07/12/16 09:05 (Ecotrin Ec) 81 mg DAILY PO 07/12/16 09:00 07/12/16 09:00 (Catapres) 0.1 mg Q6HR PO 07/12/16 12:00 07/12/16 12:00 (Apresoline) 25 mg BID PO 07/12/16 09:00 07/12/16 09:00 (Milk Of Magnesia Liq) 30 ml DAILY PRN PO 07/12/16 08:30 (Zoloft) 100 mg DAILY PO 07/12/16 09:00 07/12/16 09:00 (risperDAL) 2 mg Q12HR PO 07/12/16 21:00 Family History HTN CKD Social History She smokes 1 PPD. She does not drink. She uses cocaine twice a week. Physical Exam Vital Signs Vital Signs Date Time Temp Pulse Resp B/P Pulse Ox O2 Delivery O2 Flow Rate FiO2 07/12/16 08:00 97.9 67 18 122/87 100 07/12/16 07:33 98 Nasal Cannula 1.50 07/12/16 06:01 98.1 94 16 135/101 95 07/12/16 02:55 72 07/12/16 02:39 97.5 86 16 149/113 97 07/12/16 02:00 77 07/12/16 01:00 80 07/12/16 00:00 75 Physical Exam GENERAL: Middle-aged female in no acute distress. SKIN: Focused skin assessment warm/dry. HEAD: Normocephalic. EYES: No scleral icterus. No injection or drainage. ENT: Mucous membranes pink and moist. CARDIOVASCULAR: Distant heart sounds. No murmur appreciated. RESPIRATORY: No accessory muscle use. Poor respiratory effort. CTAB. GASTROINTESTINAL: Nontender to palpation. No guarding or rebound. MUSCULOSKELETAL: TR lower extremity edema. NEUROLOGICAL: Awake and alert. Normal speech. PSYCHIATRIC: Flat affect. Laboratory Laboratory Tests Test 07/12/16 01:33 White Blood Count 7.4 Red Blood Count 4.28 Hemoglobin 12.5 Hematocrit 37.9 Mean Corpuscular Volume 88.5 Mean Corpuscular Hemoglobin 29.2 Mean Corpuscular Hemoglobin 33.0 Concent Red Cell Distribution Width 16.9 Platelet Count 222 Mean Platelet Volume 8.6 Neutrophils (%) (Auto) 60.2 Lymphocytes (%) (Auto) 26.1 Monocytes (%) (Auto) 6.6 Eosinophils (%) (Auto) 6.6 Basophils (%) (Auto) 0.5 Neutrophils # (Auto) 4.5 Lymphocytes # (Auto) 1.9 Monocytes # (Auto) 0.5 Eosinophils # (Auto) 0.5 Basophils # (Auto) 0.0 CBC Comment DIFF FINAL Differential Comment Sodium Level 143 Potassium Level 3.7 Chloride Level 106 Carbon Dioxide Level 30.3 Anion Gap 7 Blood Urea Nitrogen 26 Creatinine 1.52 Estimat Glomerular Filtration 44 Rate Random Glucose 86 Calcium Level 8.6 Troponin I 0.07 Result Diagram: 07/12/1613207/12/16 0133 Assessment and Plan Assessment and Plan CHF/ CAD The patient has a history of CAD. She has a reported ejection fraction of 25-30 % with moderate to severe tricuspid regurgitation. She endorses dyspnea on exertion as well as lower extremity edema. She also endorses intermittent chest pain. Trops peaked at 0.16. BNP elevated over 1000. EKG without acute ischemic changes. CXR with pulmonary congestion. Symptoms improved. Echo 07/10 shows EF of 10-15%; diffuse hypokinesis; severe mitral regurgitation; moderate to severe tricuspid regurgitation. Cardiology consult appreciated. - Continue by mouth Lasix. Increased to BID. - Continue cardiac regimen and follow-up with cardiology. - Fluid restriction. - SCDs. - Follow Is and Os. - AICD evaluation pending. - Monitor on telemetry. Depression The patient has been depressed recently and was brought in by her family members who were concerned. She was recently admitted to the psychiatry unit however was transferred for further cardiac evaluation. - psychiatry following. COPD The pt has WEINSTEIN. Improved. - albuterol and oxygen as needed. Standing nebs added. - IS. - smoking cessation instruction. HTN Blood pressure has been elevated. - continue cardiac regimen. Enalapril added by cardiology. - clonidine as needed. CKD Creatinine improved overnight. Slightly above baseline. - monitor BMP. Nicotine and cocaine abuse The pt smokes a pack daily and uses cocaine twice per week. - cessation instruction. PPx: Heparin. Discussed Condition With Pt. Physician Certification 2 Midnight Certification Type: Admission for Inpatient Services Order for Inpatient Services The services are ordered in accordance with Medicare regulations or non- Medicare payer requirements, as applicable. In the case of services not specified as inpatient-only, they are appropriately provided as inpatient services in accordance with the 2-midnight benchmark. Estimated LOS (days): 2 days is the estimated time the patient will need to remain in the hospital, assuming treatment plan goals are met and no additional complications. Post-Hospital Plan: Home Michael Barboza DO July 12, 2016 15:20
[2016-07-12] MEDS: HEPARIN SODIUM - SQ 10,000 UNITS/ML VIAL SQ SCH ×2 (15:30→21:40)
[2016-07-12] MEDS: risperiDONE 1 MG TAB PO SCH (21:41)
[2016-07-13] VITALS (17 sets, daily range): BP systolic 108–127; BP diastolic 60–91; PULSE 59–82; RESP 14–18; TEMP 98–98.3; O2SAT 90–100
[2016-07-13] MEDS: cloNIDine HCL 0.1 MG TAB PO SCH ×3 (06:00→12:00)
[2016-07-13] MEDS: HEPARIN SODIUM - SQ 10,000 UNITS/ML VIAL SQ SCH ×3 (06:00→21:48)
[2016-07-13] MEDS: RESP: ALBUTEROL 2.5 MG/IPRATROPIUM 0.5 MG NEB (SCH) NEB ×3 (07:52→23:42)
[2016-07-13] MEDS: ENALAPRIL MALEATE 10 MG TAB PO SCH ×2 (09:00→21:47)
[2016-07-13] MEDS: POTASSIUM CHLORIDE 8 MEQ CONTROLLED RELEASE TAB PO SCH ×2 (09:00→21:48)
[2016-07-13] MEDS: hydrALAZINE HCL 25 MG TAB PO SCH ×2 (09:00→21:47)
[2016-07-13] MEDS: SERTRALINE HCL 100 MG TAB PO SCH (09:00)
[2016-07-13] MEDS: SODIUM CHLORIDE 0.9% FLUSH 10 ML FLUSH IV FLUSH SCH ×2 (09:14→21:00)
[2016-07-13] MEDS: ASPIRIN EC 81 MG TABEC PO SCH (09:30)
[2016-07-13] MEDS: risperiDONE 1 MG TAB PO SCH ×2 (09:30→21:47)
[2016-07-13] MEDS: METOPROLOL SUCCINATE 50 MG EXTENDED RELEASE TAB PO SCH (09:30)
[2016-07-13] MEDS: FUROSEMIDE 40 MG TAB PO SCH (09:31)
[2016-07-13] MEDS ORDERED: DEXTROSE 50% IN WATER 50 ML SYRINGE ONE (11:46)
--- NOTE | 2016-07-13 14:55 | HHI.PR ---
Subjective Remarks Patient denies cp/ sob much improved denies fevers/chills vital signs stable Objective Vitals Vital Signs Date Time Temp Pulse Resp B/P Pulse Ox O2 Delivery O2 Flow Rate FiO2 07/13/16 12:16 98.3 66 18 127/60 98 07/13/16 09:14 98.0 80 16 116/91 96 07/13/16 07:52 99 Nasal Cannula 1.00 07/13/16 06:00 72 07/13/16 05:55 98.3 72 14 124/91 100 07/13/16 05:00 66 07/13/16 04:00 59 07/13/16 03:00 72 07/13/16 02:00 72 07/13/16 01:00 74 07/13/16 00:00 98.0 78 14 108/72 97 07/13/16 00:00 69 07/12/16 23:00 72 07/12/16 22:37 Nasal Cannula 1.50 07/12/16 22:00 64 07/12/16 21:00 78 07/12/16 20:00 66 18 122/85 100 07/12/16 20:00 63 07/12/16 19:00 78 07/12/16 18:00 76 07/12/16 17:00 68 07/12/16 16:00 72 07/12/16 15:00 66 I/O 07/12/16 07/12/16 07/12/16 07/13/16 07/13/16 07/13/16 07:00 15:00 23:00 07:00 15:00 23:00 Intake Total 480 ml 720 ml 0 ml Output Total 1200 ml 500 ml Balance -720 ml 220 ml 0 ml Intake Oral 480 ml 720 ml 0 ml Output Urine Total 1200 ml 500 ml # Bowel Movements 0 Result Diagram: 07/12/16 0133 07/12/16 0133 Objective Remarks GENERAL: Middle-aged female in no acute distress. SKIN: Focused skin assessment warm/dry. HEAD: Normocephalic. EYES: No scleral icterus. No injection or drainage. ENT: Mucous membranes pink and moist. CARDIOVASCULAR: Distant heart sounds. No murmur appreciated. RESPIRATORY: No accessory muscle use. Poor respiratory effort. CTAB. GASTROINTESTINAL: Nontender to palpation. No guarding or rebound. MUSCULOSKELETAL: TR lower extremity edema. NEUROLOGICAL: Awake and alert. Normal speech. PSYCHIATRIC: Flat affect. Medications and IVs Current Medications Medications (Trade) Dose Ordered Sig/Stanislaw Route Start Time Stop Time Status Last Admin (NS Flush) 2 ml UNSCH PRN IV FLUSH 07/12/16 01:00 (NS Flush) 2 ml BID IV FLUSH 07/12/16 09:00 07/13/16 09:14 (Tylenol) 650 mg Q4H PRN PO 07/12/16 01:00 (Zofran Inj) 4 mg Q6H PRN IVP 07/12/16 01:00 (Senokot) 17.2 mg Q12H PRN PO 07/12/16 01:00 (Narcan Inj) 0.4 mg UNSCH PRN IV 07/12/16 01:00 (Lasix) 40 mg BID@,18 PO 07/12/16 09:00 07/13/16 09:31 (KCl) 16 meq Q12HR PO 07/12/16 09:00 07/12/16 21:41 (Vasotec) 10 mg BID PO 07/12/16 09:00 07/12/16 21:41 (Toprol Xl) 100 mg DAILY PO 07/12/16 09:00 07/13/16 09:30 (Ecotrin Ec) 81 mg DAILY PO 07/12/16 09:00 07/13/16 09:30 (Catapres) 0.1 mg Q6HR PO 07/12/16 12:00 07/13/16 06:00 (Apresoline) 25 mg BID PO 07/12/16 09:00 07/12/16 21:41 (Milk Of Magnesia Liq) 30 ml DAILY PRN PO 07/12/16 08:30 (Zoloft) 100 mg DAILY PO 07/12/16 09:00 07/12/16 09:00 (risperDAL) 2 mg Q12HR PO 07/12/16 21:00 07/13/16 09:30 (Heparin Inj) 5,000 units Q8HR SQ 07/12/16 15:30 07/13/16 06:00 Urinary Catheter: No Vascular Central Line Catheter: No A/P Assessment and Plan Acute on chronic systolic CHF exacerbation/ CAD The patient has a history of CAD. She has a reported ejection fraction of 25-30 % with moderate to severe tricuspid regurgitation. She endorses dyspnea on exertion as well as lower extremity edema. She also endorses intermittent chest pain. Trops peaked at 0.16. BNP elevated over 1000. EKG without acute ischemic changes. CXR with pulmonary congestion. Symptoms improved. Echo 07/10 shows EF of 10-15%; diffuse hypokinesis; severe mitral regurgitation; moderate to severe tricuspid regurgitation. Cardiology consult appreciated. - Continue by mouth Lasix. - Continue cardiac regimen and follow-up with cardiology. - Fluid restriction. - SCDs. - Follow Is and Os. - AICD evaluation pending. - Monitor on telemetry. Depression The patient has been depressed recently and was brought in by her family members who were concerned. She was recently admitted to the psychiatry unit however was transferred for further cardiac evaluation. - psychiatry following. COPD The pt has WEINSTEIN. Improved. - albuterol and oxygen as needed. Standing nebs added. - Incentive spirometry. - Advised smoking cessation. HTN BP initially elevated. Enalapril added by cardiology with improvement of the blood pressure. - Continue with clonidine as needed. CKD Creatinine improved overnight. Slightly above baseline. Patient's baseline around 1.4. - monitor BMP. Nicotine and cocaine abuse The pt smokes a pack daily and uses cocaine twice per week. - cessation instruction. PPx: Heparin. Discharge Planning Continue to monitor on the medical floor. Pending AICD placement. Douglas Moralez MD July 13, 2016 14:55
[2016-07-13] MEDS ORDERED: ceFAZolin INJ 1,000 MG VIAL ONE (16:38)
[2016-07-13] MEDS ORDERED: VANCOMYCIN HCL 1000 MG VIAL ONE (16:38)
[2016-07-13] MEDS ORDERED: VANCOMYCIN 500 MG VIAL ONE (16:38)
[2016-07-13] MEDS ORDERED: LIDOCAINE HCL 2% 50 ML VIAL ONE (16:38)
--- NOTE | 2016-07-13 17:26 | CATHPROC ---
[employer] HIS Report Study Information Study Number Scheduled Start Study Start [id number] 07/13/2016 Jul 13 2016 2:10PM Referring Institution Admit Source Facility Department [address] [facility] - Welding Technician Physician and Clinical Staff Initial Judi Mireles Traveling Sales Executive Olivia Robison,RT(R) TECH2 Other Anesthesia, TRAIN BRAKE OPERATOR Recorder Munira Singh,RN Scrub Rey Rangel,RT(R) Procedures Performed Procedure Lead Insertion Equipment Time Boom Tender Description Size Mfg Part Number Used/Scraped DEFIBRILLATOR, Mobile Service Pros 7 VR-T 17:10 BIOTRONIK [id number] Used DX MRI 17:05 BIOTRONIK LEAD, LINOX SMART S DX 65/17 * [id number] Used DERMABOND, ADHESIVE SKIN [id number] 14:13 CORDIS/PACER * Used GLUE MINI *[id number] TP-1103 14:13 MEDLINE INDUSTRIES SUTURE, STRIP PLUS 1/2" * Used *[id number] 14:13 MEDLINE PACER PORTILLO, LIMB * 2530 Used [id number] 14:13 MEDLINE PACER PACK, PACER CUSTOM * Used *[id number] 16:23 Physician Practice [employer] PACER SAFE SHEATH, FR8, 13CM FR 8 [id number] Used 16:50 Needle Sponge Count 2 2 Used 16:50 Needle Sponge Count 2 22 Used 16:50 Needle Sponge Count 20 200 Used SUTURE, 0 ETHIBOND [CT1] (CX21D), 8pk SUTURE, 2-0 VICRYL [CT1] ([id number]) SUTURE, 2-0 VICRYL [CT1] ([id number]) [id number] 14:13 [place] [facility],WARM AIR CCL * Used *[id number] [facility] PAD, ELECTROSURGICAL 14:13 * [id number] Used SURGICAL GROUNDING ORANGE 14:13 [employer] TIFFANIE. ELECTRODE, PRO-PADZ BIPHASIC * [id number] Used Equipment Model, Serial, Lot Number and Expiration Data Description Model Number Serial Number Lot Number Expiration Da te DEFIBRILLATOR, Mobile Service Pros 7 VR-T [id number] 08-25-2017 DX MRI LEAD, LINOX SMART S DX 65/17 [id number] 06-25-2018 Medication Medication Total Dose (Bolus/Oral) Medication Total Dosage/Unit 2% XYLOCAINE 5 mL Medications (Bolus/Oral) Medication Time Given Dosage/Unit Administered By Reason 2% XYLOCAINE 07/13/2016 5:01:46 PM 5 mL Judi Gale 5 mL 2% XYLOCAINE given in lab by Judi Gale via Subcutaneous. Ordered by Judi Gale. left uppe r chest Medication (Drip) Medication Time Given Dosage/Unit Concentration/Unit Diluent (ml) Solution ANCEF 07/13/2016 4:48:00 PM 2 g 2 g ANCEF given in lab by Anesthesia, TRAIN BRAKE OPERATOR via Peripheral IV. Ordered by Judi Gale. VANCOMYCIN DRIP 07/13/2016 4:42:00 PM 1 g 1 g VANCOMYCIN DRIP given in lab by Anesthesia, TRAIN BRAKE OPERATOR via Peripheral IV. Ordered by Judi Gale. Initial Case Assessment Cardiovascular HR Rhythm NIBP Chest Pain 81 regular 134/97 0 Edema Present Skin color Skin Mild Normal Warm Dry Neurological State Oriented to time-place- Alert Moves all extremities person Respiration - General Respiration Rate SpO2 (%) (B/min) 16 91 Final Case Assessment Cardiovascular HR Rhythm NIBP Chest Pain 82 SR 115/70 0 Edema Present Skin color Skin None Normal Warm Dry Circulatory - Right Pulses Dorsalis Pedis 1 Scale (0,1,2,3,4,d) Circulatory - Left Pulses Dorsalis Pedis 1 Scale (0,1,2,3,4,d) Neurological State Oriented to time-place- Alert Moves all extremities person Respiration - General Respiration Rate SpO2 (%) O2 (lpm) (B/min) 18 98 4 Chronological Log Time Study Chronological Log 16:21:23 Patient arrived via Bed. 16:21:45 Patient Name, D.O.B, / Armband Verified By R.N. 16:21:46 Consent signed by the physician and the patient and verified by the Welding Technician staff. 16:21:48 Pre-op and post- op instructions given; patient acknowledges understanding of instructions. 16:22:57 Verbal Stimulation=2 Physical Stimulation=2 Airway=2 Respiration=2 TOTAL=8. (0=absent, 1=li mited, 2=present) 16:23:15 Anesthesia at bedside. Assumes care of patient. 16:23:20 Presedation assessment performed by Welding Technician RN. 16:23:22 Patient has been NPO for More than 6Hrs. 16:32:38 2% CHLORHEXIDINE GLUCONATE WASH AND NASAL SWIPE DONE PRIOR TO PROCEDURE. 16:34:05 Skin Breakdown-none per pt 16:34:29 Patient Warmer Placed on the Table. 16:34:30 Disposable Defibrillator Pads Placed On Patient. 16:34:31 Real Prominences Protected 16:34:36 A # 20 IV was noted in the Forearm (right). Grade = 0 16:34:40 A # 18 IV was noted in the Wrist (left). Grade = 0 16:34:55 History and physical on the chart or being dictated. Assessment: Initial Case, HR=81 BPM, Rhythm=regular, LYEM=581/97 mmhg, Chest Pain=0, Edema=Mild , Color=Normal, Skin = Warm, Dry 16:34:59 Neurological: State=Alert, Ox3, BRISENO Respiration: Resp=16 B/min, SpO2=91 % 16:35:53 Table restraints applied according to hospital policy 16:36:03 Disposable Defibrillator Pads Placed On Patient. 16:36:12 Bovie ground pad applied to: right thigh 16:42:00 1 g VANCOMYCIN DRIP given in lab by Anesthesia, TRAIN BRAKE OPERATOR via Peripheral IV. Ordered by Jeremy Gale. 16:45:11 Left Upper Chest Prepped Times Two. 16:48:00 2 g ANCEF given in lab by Anesthesia, TRAIN BRAKE OPERATOR via Peripheral IV. Ordered by Judi Gale. First Sponge And Instrument Count Done by Rey Rangel, RT(R). 16:49:03 Hypo's: 2, Sponges: 20, Bovie/scratch: 2 Sutures: 10, Blades: 1, Instruments: 26, Syveck Patches: 0 verified with olivia Time Out. Correct patient, procedure, procedure equipment, site and side verified with physicia n present. Time 17:00:10 concurred by MD, individual staff and TRAIN BRAKE OPERATOR. Time Out #2 - Consents verified, patient in correct position, all results are labled and displa yed, safety precautions 17:00:15 taken, antibiotics administered. Time out concurred by , individual staff and TRAIN BRAKE OPERATOR in procedu re 17:00:30 Case Start 17:01:46 5 mL 2% XYLOCAINE given in lab by Judi Gale via Subcutaneous. Ordered by Judi Gale. left upper chest 17:02:06 Vascular access was obtained in the Subclav. Vein (Lft. 17:04:28 Wire inserted 17:06:38 A SAFE SHEATH, FR8, 13CM FR 8 was advanced into the Subclav. Vein (Lft using the Modified S eldinger technique. 17:07:04 A LEAD, LINOX SMART S DX 65/17 * was inserted and positioned in the RV. 17:08:32 Lead placement verified under fluoroscopy 17:08:36 The RV lead impedance and threshold being tested. 17:08:45 The RV lead was sutured to the fascia. 17:13:35 A DEFIBRILLATOR, IMPERIA 7 VR-T DX MRI was connected and placed in the pocket. Second Sponge And Instrument Count Done by Rey Rangel RT(R). 17:14:34 Hypo's: 2, Sponges: 20, Bovie/scratch: 2 Sutures: 10, Blades: 1, Instruments: 26, Syveck Patches: 0 verified with BA Infante 17:15:01 Pocket flushed with antibiotic solution 17:15:13 The pocket was closed. 17:18:31 Case End FINAL Sponge And Instrument Count Done by Rey Rangel RT(R). 17:23:34 Hypo's: 2, Sponges: 20, Bovie/scratch: 2 Sutures: 10, Blades: 1, Instruments: 26, Syveck Patches: 0 verified with olivia 17:23:50 CIC called. Spoke to SAMPLE CHECKER 17:24:41 Steri-strips and a sterile dressing applied to site. Assessment: Final Case, HR=82 BPM, Rhythm=SR, NPWT=712/70 mmhg, Chest Pain=0, Edema=None, Hudson r=Normal, Skin = Warm, Dry Right Pulses: Jorge Ped=1 17:24:47 Left Pulses: Jorge Ped=1 Neurological: State=Alert, Ox3, BRISENO Respiration: Resp=18 B/min, SpO2=98 %, O2=4 lpm 17:25:25 Sterile dressing applied to site 17:25:27 No case complications noted. 17:25:29 Bedside Report will be given. 17:25:30 Implantable Device card placed in patient's chart. 17:25:33 Defibrillator and ground pads removed. Skin intact. 17:29:35 Patient moved to stretcher End Study - Contrast Media Used In Study Contrast Total Opened (mL) Total Used (mL) Total Wasted (mL) Unspecified 0 0 0 End Study - Radiation Exposure Fluoro Time (minutes) 1.6 End Study - Patient Disposition Complications Transferred To Interventional Outcome No Telemetry Bed successful
[2016-07-13] MEDS ORDERED: PROPOFOL 200 MG/20 ML AMP IV PUSH ONE (17:30)
[2016-07-13] MEDS ORDERED: SODIUM CHLOR 0.9% 250 ML INJ 250 ML IV ONE (17:30)
[2016-07-13] MEDS ORDERED: ONDANSETRON HCL 4 MG/2 ML VIAL IV PRN (17:30)
[2016-07-13] MEDS ORDERED: ACETAMINOPHEN/CODEINE 300 MG/30 MG TAB PO PRN (17:30)
[2016-07-13] MEDS ORDERED: MIDAZOLAM HCL 2 MG/2 ML VIAL ONE (17:48)
[2016-07-13] MEDS ORDERED: fentaNYL CITRATE 250 MCG/5 ML AMP ONE (17:48)
--- NOTE | 2016-07-13 17:56 | MB ---
cc: PETRONA HITCHCOCK M.D. DATE OF CONSULTATION 07/13/16 REASON FOR CONSULTATION congestive heart failure for defibrillator implantation. HISTORY OF PRESENT ILLNESS Mrs. Llanos is a 50-year-old -[place] female with history of coronary artery disease, congestive heart failure, cardiomyopathy, renal insufficiency, multiple hospitalization in the past for heart failure. Ejection fraction is around 10-15%. He was admitted due to heart failure. I was consulted for evaluation and device implantation. The chart was reviewed. The patient was evaluated. ALLERGIES None. SOCIAL HISTORY The patient smokes a pack of cigarettes a day, uses to use cocaine twice a week. FAMILY HISTORY Noncontributory to her current medical condition. MEDICATIONS Currently - 1. Acetaminophen. 2. Aspirin. 3. Enalapril 10 mg twice a day 4. Lasix 40 mg twice a day. 5. Apresoline 25 mg twice a day. 6. Metoprolol XL 100 mg a day. 7. Potassium. 8. Risperdal. 9. Zoloft. REVIEW OF SYSTEMS No chest pain, no chest discomfort. No fever. PHYSICAL EXAMINATION GENERAL: Alert, fully oriented in bed. VITAL SIGNS: Blood pressure on evaluation 116/91, pulse 80, respiratory rate 18 LUNGS: Ventilated. CARDIOVASCULAR: S1-S2, no gallop. No murmur. ABDOMEN: Soft. No mass. No bruit. EXTREMITIES: With no edema. CARDIOLOGY STUDIES Electrocardiogram - There was none at this office, but telemetry shows sinus rhythm, diffuse ST changes. LABORATORY DATA Hemoglobin is 12.5, white blood cell 7.4, potassium 3.7, creatinine 1.52, troponin 0.07. ASSESSMENT AND RECOMMENDATIONS Mrs. Llanos has congestive heart failure, cardiomyopathy. She is on optimal medical treatment. The previous echo in November 2015 indicated ejection fraction of 18%. Last echo recently indicated ejection fraction of around 10-15%. I had a long conversation with her, also I discussed the case with Dr. Henderson. The patient has congestive heart failure, cardiomyopathy on optimum medical treatment, high risk of sudden . She will need a defibrillator for sudden prevention. The risks, the nature and the benefit of the procedure are clearly stated to her. Risks include pneumothorax, cardiac perforation, stroke, need for open heart surgery and even . The patient understood and agreed to proceed. Procedure will be performed during hospitalization. MD ROYER Pichardo /4:56 PM /5:44 PM
--- NOTE | 2016-07-13 18:03 | RADRPT ---
EXAM DATE/TIME: 07/13/2016 17:46 [place] COMPARISON: CHEST SINGLE AP, July 09, 2016, 13:30. INDICATIONS : Pneumothorax, post pacemaker. MEDICAL HISTORY : None. SURGICAL HISTORY : None. ENCOUNTER: Initial ACUITY: 1 day PAIN SCORE: 0/10 LOCATION: Bilateral chest FINDINGS: A single view of the chest demonstrates the lungs to be symmetrically aerated without evidence of mas s, infiltrate or effusion. The cardiac silhouette remains enlarged. Left subclavian single lead devic e in good position Osseous structures are intact. CONCLUSION: Heart remains enlarged. Single lead device in good position Ivan Velarde MD on July 13, 2016 at 18:01 Board Certified Radiologist. This report was verified electronically.
[2016-07-13] MEDS ORDERED: GLUCAGON 1 MG/ML VIAL OTHER PRN (19:00)
[2016-07-13] MEDS ORDERED: DEXTROSE 50% IN WATER 50 ML VIAL(D50) IV PRN (19:00)
[2016-07-13] MEDS: ACETAMINOPHEN/CODEINE 300 MG/30 MG TAB PO PRN (21:47)
[2016-07-14] VITALS (25 sets, daily range): BP systolic 105–144; BP diastolic 68–95; PULSE 66–94; RESP 18; TEMP 97.8–99.2; O2SAT 95–98
[2016-07-14] MEDS: cloNIDine HCL 0.1 MG TAB PO SCH ×4 (01:28→18:00)
[2016-07-14] MEDS: ceFAZolin 2 GM PREMIX 50 ML IV SCH ×3 (01:28→18:10)
[2016-07-14] MEDS: HEPARIN SODIUM - SQ 10,000 UNITS/ML VIAL SQ SCH ×3 (06:22→21:24)
[2016-07-14] MEDS: RESP: ALBUTEROL 2.5 MG/IPRATROPIUM 0.5 MG NEB (SCH) NEB ×2 (07:38→16:33)
--- NOTE | 2016-07-14 08:19 | PD.CARD.PN ---
Subjective Subjective Remarks Feels okay Objective Medications Current Medications Medications (Trade) Dose Ordered Sig/Stanislaw Route Start Time Stop Time Status Last Admin (NS Flush) 2 ml UNSCH PRN IV FLUSH 07/12/16 01:00 (NS Flush) 2 ml BID IV FLUSH 07/12/16 09:00 07/13/16 21:00 (Tylenol) 650 mg Q4H PRN PO 07/12/16 01:00 (Senokot) 17.2 mg Q12H PRN PO 07/12/16 01:00 (Narcan Inj) 0.4 mg UNSCH PRN IV 07/12/16 01:00 (Lasix) 40 mg BID@09,18 PO 07/12/16 09:00 07/13/16 09:31 (KCl) 16 meq Q12HR PO 07/12/16 09:00 07/13/16 21:48 (Vasotec) 10 mg BID PO 07/12/16 09:00 07/13/16 21:47 (Toprol Xl) 100 mg DAILY PO 07/12/16 09:00 07/13/16 09:30 (Ecotrin Ec) 81 mg DAILY PO 07/12/16 09:00 07/13/16 09:30 (Catapres) 0.1 mg Q6HR PO 07/12/16 12:00 07/14/16 06:22 (Apresoline) 25 mg BID PO 07/12/16 09:00 07/13/16 21:47 (Milk Of Magnesia Liq) 30 ml DAILY PRN PO 07/12/16 08:30 (Zoloft) 100 mg DAILY PO 07/12/16 09:00 07/12/16 09:00 (risperDAL) 2 mg Q12HR PO 07/12/16 21:00 07/13/16 21:47 Heparin Sodium (Porcine) 5000 units 5,000 units Q8HR SQ 07/12/16 15:30 07/14/16 06:22 (Ancef 2 Gm Premix) 50 ml @ 100 mls/hr Q8H IV 07/14/16 01:00 07/14/16 17:29 07/14/16 01:28 (Zofran Inj) 4 mg Q4H PRN IV 07/13/16 17:30 (Tylenol-Codeine #3) 1 tab Q4H PRN PO 07/13/16 17:30 07/13/16 21:47 (Tylenol-Codeine #3) 2 tab Q4H PRN PO 07/13/16 17:30 (D50w (Vial) Inj) 50 ml UNSCH PRN IV 07/13/16 19:00 (Glucagon Inj) 1 mg UNSCH PRN OTHER 07/13/16 19:00 Vital Signs / I&O Vital Signs Date Time Temp Pulse Resp B/P Pulse Ox O2 Delivery O2 Flow Rate FiO2 07/14/16 07:38 98 21 07/14/16 06:00 75 07/14/16 05:00 83 07/14/16 04:00 98.0 76 18 131/68 96 07/14/16 04:00 68 07/14/16 03:00 74 07/14/16 02:00 69 07/14/16 01:00 82 07/14/16 00:00 88 07/14/16 00:00 97.8 88 18 120/75 97 07/13/16 23:00 82 07/13/16 22:00 76 07/13/16 21:00 77 07/13/16 20:34 90 07/13/16 20:00 98.0 80 18 122/85 95 07/13/16 20:00 81 07/13/16 19:00 78 07/13/16 12:16 98.3 66 18 127/60 98 07/13/16 09:14 98.0 80 16 116/91 96 I/O 07/13/16 07/13/16 07/13/16 07/14/16 07/14/16 07/14/16 07:00 15:00 23:00 07:00 15:00 23:00 Intake Total 720 ml 0 ml 0 ml 350 ml Output Total 500 ml 1400 ml Balance 220 ml 0 ml 0 ml -1050 ml Intake Oral 720 ml 0 ml 0 ml 240 ml IV Total 110 ml Output Urine Total 500 ml 1400 ml # Bowel Movements 0 0 Physical Exam GENERAL: Well-nourished, well-developed patient. SKIN: Warm and dry. Left chest wall incision well approximated without erythema or drainage. HEAD: Normocephalic. EYES: No scleral icterus. No injection or drainage. NECK: Supple, trachea midline. No JVD or lymphadenopathy. CARDIOVASCULAR: Regular rate and rhythm without murmurs, gallops, or rubs. RESPIRATORY: Breath sounds equal bilaterally. No accessory muscle use. GASTROINTESTINAL: Abdomen soft, non-tender, nondistended. EXTREMITIES: No cyanosis, or edema. NEUROLOGICAL: Awake, alert, and oriented x 3. Non-focal. Laboratory Laboratory Tests Test 07/13/16 20:14 Random Glucose 118 MG/DL Imaging Last Impressions Chest X-Ray 07/13/16 0000 Signed Impressions: Service Date/Time: June 17:46 - CONCLUSION: Heart remains enlarged. Single lead device in good position Ivan Velarde MD Assessment and Plan Problem List: (1) S/P ICD (internal cardiac defibrillator) procedure Assessment and Plan: Chest x-ray stable, device will functioning. Stable from electrophysiology standpoint for discharge home. Follow-up with Dr. Gale in 2 weeks, per my discussion with him. (2) Non-ischemic cardiomyopathy Assessment and Plan: Medications optimize with metoprolol and enalapril. Cocaine cessation encouraged. Rolanda Sung July 14, 2016 08:19
[2016-07-14] MEDS: METOPROLOL SUCCINATE 50 MG EXTENDED RELEASE TAB PO SCH (09:00)
[2016-07-14] MEDS: SODIUM CHLORIDE 0.9% FLUSH 10 ML FLUSH IV FLUSH SCH ×2 (09:00→21:25)
[2016-07-14] MEDS: FUROSEMIDE 40 MG TAB PO SCH ×3 (10:09→18:10)
[2016-07-14] MEDS: risperiDONE 1 MG TAB PO SCH ×2 (10:10→21:24)
[2016-07-14] MEDS: SERTRALINE HCL 100 MG TAB PO SCH (10:10)
[2016-07-14] MEDS: POTASSIUM CHLORIDE 8 MEQ CONTROLLED RELEASE TAB PO SCH ×2 (10:10→21:24)
[2016-07-14] MEDS: ASPIRIN EC 81 MG TABEC PO SCH (10:10)
[2016-07-14] MEDS: ENALAPRIL MALEATE 10 MG TAB PO SCH ×2 (10:10→21:23)
[2016-07-14] MEDS: hydrALAZINE HCL 25 MG TAB PO SCH ×2 (10:10→21:23)
[2016-07-14 11:15] LABS: HEMATOCRIT 39.1 % (35.0-46.0); MEAN CORPUSCULAR HEMOGLOBIN 29.1 PG (27.0-34.0); MEAN CORPUSCULAR HGB CONC 33.1 % (32.0-36.0); PLATELET COUNT 210 TH/MM3 (150-450); RED BLOOD COUNT 4.44 MIL/MM3 (4.00-5.30); RED CELL DISTRIBUTION WIDTH 16.8 % (11.6-17.2); REVIEW FLAG FINAL
[2016-07-14] MEDS ORDERED: CEPH500C PO (11:16)
--- NOTE | 2016-07-14 11:17 | HHI.DCPOC ---
Discharge Care Plan Diagnosis: (1) Non-ischemic cardiomyopathy (2) significant cardiac history (3) Schizoaffective disorder (4) Cocaine abuse (5) Depression (6) Bipolar 1 disorder (7) HTN (hypertension) (8) cocaine addiction (9) S/P ICD (internal cardiac defibrillator) procedure (10) chronic mental illness Goals to Promote Your Health * To prevent worsening of your condition and complications * To maintain your health at the optimal level Directions to Meet Your Goals Take your medications as prescribed Follow your dietary instruction Follow activity as directed Keep your appointments as scheduled Take your immunizations and boosters as scheduled If your symptoms worsen call your PCP, if no PCP go to Urgent Care Center or Emergency Room Smoking is Dangerous to Your Health. Avoid second hand smoke Call the 24-hour hour crisis hotline for domestic abuse at Douglas Moralez MD July 14, 2016 11:17
[2016-07-14] MEDS ORDERED: RISP1 PO (11:19)
[2016-07-14 11:44] LABS: BICARBONATE 27.3 MEQ/L (21.0-32.0); MAGNESIUM 2.6 MG/DL (1.5-2.5); POTASSIUM 4.3 MEQ/L (3.5-5.1)
--- NOTE | 2016-07-14 15:54 | HHI.PR ---
Subjective Remarks Patient states that she feels weak States she hasn't gotten out of bed by herself Denies chest pain or shortness of breath Patient status post AICD placement Stable vital signs Objective Vitals Vital Signs Date Time Temp Pulse Resp B/P Pulse Ox O2 Delivery O2 Flow Rate FiO2 07/14/16 12:00 98.5 72 18 105/69 95 07/14/16 08:00 98.7 82 18 125/89 96 07/14/16 07:38 98 21 07/14/16 06:00 75 07/14/16 05:00 83 07/14/16 04:00 98.0 76 18 131/68 96 07/14/16 04:00 68 07/14/16 03:00 74 07/14/16 02:00 69 07/14/16 01:00 82 07/14/16 00:00 88 07/14/16 00:00 97.8 88 18 120/75 97 07/13/16 23:00 82 07/13/16 22:00 76 07/13/16 21:00 77 07/13/16 20:34 90 07/13/16 20:00 98.0 80 18 122/85 95 07/13/16 20:00 81 07/13/16 19:00 78 I/O 07/13/16 07/13/16 07/13/16 07/14/16 07/14/16 07/14/16 07:00 15:00 23:00 07:00 15:00 23:00 Intake Total 720 ml 0 ml 0 ml 350 ml Output Total 500 ml 1400 ml Balance 220 ml 0 ml 0 ml -1050 ml Intake Oral 720 ml 0 ml 0 ml 240 ml IV Total 110 ml Output Urine Total 500 ml 1400 ml # Bowel Movements 0 0 Result Diagram: 07/14/16 1056 07/14/16 1056 Imaging Last Impressions Chest X-Ray 07/13/16 0000 Signed Impressions: Service Date/Time: June 17:46 - CONCLUSION: Heart remains enlarged. Single lead device in good position Ivan Velarde MD Objective Remarks GENERAL: Middle-aged female in no acute distress. SKIN: Focused skin assessment warm/dry. HEAD: Normocephalic. EYES: No scleral icterus. No injection or drainage. ENT: Mucous membranes pink and moist. CARDIOVASCULAR: Distant heart sounds. No murmur appreciated. RESPIRATORY: No accessory muscle use. Poor respiratory effort. CTAB. GASTROINTESTINAL: Nontender to palpation. No guarding or rebound. MUSCULOSKELETAL: No edema in bilateral lower extremities, good pulses in all extremities. There is tenderness to palpation over the left chest with the ICD has been implanted. NEUROLOGICAL: Awake and alert. Normal speech. PSYCHIATRIC: Flat affect. Procedures Status post ICD placement. Medications and IVs Current Medications Medications (Trade) Dose Ordered Sig/Stanislaw Route Start Time Stop Time Status Last Admin (NS Flush) 2 ml UNSCH PRN IV FLUSH 07/12/16 01:00 (NS Flush) 2 ml BID IV FLUSH 07/12/16 09:00 07/14/16 09:00 (Tylenol) 650 mg Q4H PRN PO 07/12/16 01:00 (Senokot) 17.2 mg Q12H PRN PO 07/12/16 01:00 (Narcan Inj) 0.4 mg UNSCH PRN IV 07/12/16 01:00 (Lasix) 40 mg BID@,18 PO 07/12/16 09:00 07/14/16 10:09 (KCl) 16 meq Q12HR PO 07/12/16 09:00 07/14/16 10:10 (Vasotec) 10 mg BID PO 07/12/16 09:00 07/14/16 10:10 (Toprol Xl) 100 mg DAILY PO 07/12/16 09:00 07/13/16 09:30 (Ecotrin Ec) 81 mg DAILY PO 07/12/16 09:00 07/14/16 10:10 (Catapres) 0.1 mg Q6HR PO 07/12/16 12:00 07/14/16 06:22 (Apresoline) 25 mg BID PO 07/12/16 09:00 07/14/16 10:10 (Milk Of Magnesia Liq) 30 ml DAILY PRN PO 07/12/16 08:30 (Zoloft) 100 mg DAILY PO 07/12/16 09:00 07/14/16 10:10 (risperDAL) 2 mg Q12HR PO 07/12/16 21:00 07/14/16 10:10 Heparin Sodium (Porcine) 5000 units 5,000 units Q8HR SQ 07/12/16 15:30 07/14/16 06:22 (Ancef 2 Gm Premix) 50 ml @ 100 mls/hr Q8H IV 07/14/16 01:00 07/14/16 17:29 07/14/16 09:00 (Zofran Inj) 4 mg Q4H PRN IV 07/13/16 17:30 (Tylenol-Codeine #3) 1 tab Q4H PRN PO 07/13/16 17:30 07/13/16 21:47 (Tylenol-Codeine #3) 2 tab Q4H PRN PO 07/13/16 17:30 (D50w (Vial) Inj) 50 ml UNSCH PRN IV 07/13/16 19:00 (Glucagon Inj) 1 mg UNSCH PRN OTHER 07/13/16 19:00 (Keflex) 500 mg Q8H PO 07/15/16 01:00 07/17/16 00:59 Urinary Catheter: No Vascular Central Line Catheter: No A/P Problem List: (1) significant cardiac history Status: Acute Assessment and Plan Acute on chronic systolic CHF exacerbation/ CAD The patient has a history of CAD. She has a reported ejection fraction of 25-30 % with moderate to severe tricuspid regurgitation. She endorses dyspnea on exertion as well as lower extremity edema. She also endorses intermittent chest pain. Trops peaked at 0.16. BNP elevated over 1000. EKG without acute ischemic changes. CXR with pulmonary congestion. Symptoms improved. Echo 07/10 shows EF of 10-15%; diffuse hypokinesis; severe mitral regurgitation; moderate to severe tricuspid regurgitation. Cardiology consult appreciated. - Continue by mouth Lasix. - Continue cardiac regimen and follow-up with cardiology. - Fluid restriction. - SCDs. - Follow Is and Os. Patient is status post ICD placement cleared to be discharged by cardiology, however the patient feels weak. Will consult physical therapy. Depression The patient has been depressed recently and was brought in by her family members who were concerned. She was recently admitted to the psychiatry unit however was transferred for further cardiac evaluation. - psychiatry following. COPD The pt has WEINSTEIN. Improved. - albuterol and oxygen as needed. Standing nebs added. - Incentive spirometry. - Advised smoking cessation. HTN BP initially elevated. Enalapril added by cardiology with improvement of the blood pressure. - Continue with clonidine as needed. CKD Creatinine improved overnight. Slightly above baseline. Patient's baseline around 1.4. - monitor BMP. Nicotine and cocaine abuse The pt smokes a pack daily and uses cocaine twice per week. - cessation instruction. PPx: Heparin. Discharge Planning Discharge pending PT evaluation and recommendations. Douglas Moralez MD July 14, 2016 15:54
--- NOTE | 2016-07-14 20:58 | EKG ---
Date Performed: 07/14/2016 Time Performed: 05:27:40 PTAGE: 50 years EKG: Sinus rhythm Possible left atrial abnormality Left ventricular hypertrophy Lateral T wave changes may be due to h ypertrophy and/or ischemia Abnormal ECG PREVIOUS TRACING : 07/13/2016 19.09 Compared to prior tracing no significant change DOCTOR: Tomás Mariano Interpretating Date/Time 07/14/2016 20:56:38
--- NOTE | 2016-07-14 21:36 | EKG ---
Date Performed: 07/13/2016 Time Performed: 19:09:48 PTAGE: 50 years EKG: Sinus rhythm Possible left atrial abnormality Left ventricular hypertrophy Lateral T wave abnormalities Low QRS v oltages in precordial leads Abnormal ECG PREVIOUS TRACING : 07/09/2016 13.56 Compared to prior tracing no significant change DOCTOR: Tomás Mariano Interpretating Date/Time 07/14/2016 21:34:51
[2016-07-15] VITALS (15 sets, daily range): BP systolic 113–129; BP diastolic 63–69; PULSE 70–93; RESP 18; TEMP 97.6–98.6; O2SAT 93–98
[2016-07-15] MEDS: CEPHALEXIN MONOHYDRATE 500 MG CAP PO SCH ×2 (00:23→08:20)
[2016-07-15] MEDS: RESP: ALBUTEROL 2.5 MG/IPRATROPIUM 0.5 MG NEB (SCH) NEB ×3 (00:29→11:52)
[2016-07-15] MEDS: ACETAMINOPHEN/CODEINE 300 MG/30 MG TAB PO PRN (00:32)
[2016-07-15 04:56] LABS: HEMATOCRIT 43.7 % (35.0-46.0); MEAN CELL VOLUME 89.3 FL (80.0-100.0); MEAN CORPUSCULAR HEMOGLOBIN 28.3 PG (27.0-34.0); MEAN CORPUSCULAR HGB CONC 31.7 % (32.0-36.0); PLATELET COUNT 195 TH/MM3 (150-450); RED CELL DISTRIBUTION WIDTH 16.4 % (11.6-17.2); REVIEW FLAG FINAL; WHITE BLOOD COUNT 7.8 TH/MM3 (4.0-11.0)
[2016-07-15 05:14] LABS: BICARBONATE 26.8 MEQ/L (21.0-32.0)
[2016-07-15] MEDS: cloNIDine HCL 0.1 MG TAB PO SCH ×3 (05:16→10:58)
[2016-07-15] MEDS: HEPARIN SODIUM - SQ 10,000 UNITS/ML VIAL SQ SCH (06:13)
[2016-07-15] MEDS: risperiDONE 1 MG TAB PO SCH (08:20)
[2016-07-15] MEDS: FUROSEMIDE 40 MG TAB PO SCH (08:20)
[2016-07-15] MEDS: POTASSIUM CHLORIDE 8 MEQ CONTROLLED RELEASE TAB PO SCH (08:20)
[2016-07-15] MEDS: ASPIRIN EC 81 MG TABEC PO SCH (08:20)
[2016-07-15] MEDS: SERTRALINE HCL 100 MG TAB PO SCH (08:20)
[2016-07-15] MEDS: ENALAPRIL MALEATE 10 MG TAB PO SCH (08:21)
[2016-07-15] MEDS: METOPROLOL SUCCINATE 50 MG EXTENDED RELEASE TAB PO SCH (08:21)
[2016-07-15] MEDS: hydrALAZINE HCL 25 MG TAB PO SCH (08:21)
[2016-07-15] MEDS: SODIUM CHLORIDE 0.9% FLUSH 10 ML FLUSH IV FLUSH SCH (08:21)
--- NOTE | 2016-07-15 12:27 | HHI.DS ---
Discharge Summary Admission Date July 11, 2016 at 23:13 Discharge Date: July 15, 2016 Admitting Diagnosis (1) Non-ischemic cardiomyopathy ICD Code: I42.8 Diagnosis: Principal (2) HTN (hypertension) ICD Code: I10 Diagnosis: Secondary (3) chronic mental illness Diagnosis: Secondary (4) Cocaine addiction ICD Code: F14.20 Diagnosis: Secondary (5) Bipolar 1 disorder ICD Code: F31.9 Diagnosis: Principal (6) Cocaine abuse ICD Code: F14.10 Diagnosis: Principal (7) Depression ICD Code: F32.9 Diagnosis: Principal (8) CHF (congestive heart failure) ICD Code: I50.9 Diagnosis: Principal (9) S/P ICD (internal cardiac defibrillator) procedure ICD Code: Z95.810 Diagnosis: Principal Procedures Status post ICD placement. Brief History - From Admission The patient is a 50-year-old female with a past medical history of CAD and CHF who is presenting to the hospital after her son was concerned about her well- being. The patient says she has been feeling very depressed and has generally been having low energy. Per report she was having homicidal ideation. The patient also states that she is often short of breath when walking around. She says she has heart failure and has been hospitalized for heart failure multiple times in the past. The most recent hospitalization was a few months ago. She says she was also hospitalized for kidney failure. She has not been keeping track of her weight that she has noticed swelling in her lower extremities. She does believe she has some fluid around her lungs. She does not have salt in her diet. She says she has not been good about taking her medications recently. She says she intermittently has chest pain from time to time. She denies any acute symptoms. She was discharged to the medical floor in the setting of an echocardiogram revealing an EF of 10-15% with severe MR and mod-severe. Cardiology saw the pt in psychiatry and recommended an AICD evaluation. The pt's symptoms have improved on her medication regimen. She said the nebulizers were helping and that her legs were no longer swollen. 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 She wanted to know if that would effect the pacemaker placement. CBC/BMP: 07/15/16 0344 07/15/16 0344 Significant Findings Laboratory Tests Test 07/13/16 07/14/16 07/15/16 20:14 10:56 03:44 Random Glucose 118 MG/DL 116 MG/DL (74-106) (74-106) Blood Urea Nitrogen 19 MG/DL (7-18) Creatinine 1.56 MG/DL 1.56 MG/DL (0.50-1.00) (0.50-1.00) Estimat Glomerular Filtration 43 ML/MIN (>89) 43 ML/MIN (>89) Rate Magnesium Level 2.6 MG/DL (1.5-2.5) Mean Corpuscular Hemoglobin 31.7 % Concent (32.0-36.0) Imaging Last Impressions Chest X-Ray 07/13/16 0000 Signed Impressions: Service Date/Time: June 17:46 - CONCLUSION: Heart remains enlarged. Single lead device in good position Ivan Velarde MD PE at Discharge GENERAL: Middle-aged female in no acute distress. SKIN: Focused skin assessment warm/dry. HEAD: Normocephalic. EYES: No scleral icterus. No injection or drainage. ENT: Mucous membranes pink and moist. CARDIOVASCULAR: Distant heart sounds. No murmur appreciated. RESPIRATORY: No accessory muscle use. Poor respiratory effort. CTAB. GASTROINTESTINAL: Nontender to palpation. No guarding or rebound. MUSCULOSKELETAL: No edema in bilateral lower extremities, good pulses in all extremities. There is tenderness to palpation over the left chest with the ICD has been implanted. NEUROLOGICAL: Awake and alert. Normal speech. PSYCHIATRIC: Flat affect. Pt update on day of discharge The patient denies shortness of breath, mild chest pain over the left chest at the ICD insertion site. Denies fevers or chills, denies cough. Hospital Course 1. Acute on chronic systolic CHF exacerbation/CAD Patient has history of CAD and cardiomyopathy. Echocardiogram done on 07/10/16 showed an EF of 10-15% with diffuse hypokinesis, severe mitral regurgitation, moderate to severe tricuspid regurgitation. Cardiology consulted and patient treated with oral Lasix for diureses, cardiac regimen continued which included aspirin, metoprolol, enalapril, Lasix. Patient was also placed on fluid restriction. Cardiology recommended ICD placement. Patient is status post ICD placement and cleared to discharge by cardiology. Acute on chronic systolic CHF exacerbation/ CAD The patient has a history of CAD. She has a reported ejection fraction of 25-30 % with moderate to severe tricuspid regurgitation. She endorses dyspnea on exertion as well as lower extremity edema. She also endorses intermittent chest pain. Trops peaked at 0.16. BNP elevated over 1000. EKG without acute ischemic changes. CXR with pulmonary congestion. Symptoms improved. Echo 07/10 shows EF of 10-15%; diffuse hypokinesis; severe mitral regurgitation; moderate to severe tricuspid regurgitation. Cardiology consult appreciated. 2. Depression. Patient depressed recently and brought in by family members were concerned. Recently admitted to psychiatric unit however was transferred to the medical floor for cardiac evaluation. Psychiatry was consulted and deemed that the patient did not meet criteria for psychiatric hospitalization. Patient's home medications including sertraline were continued, risperidone dose was increased from 1 mg by mouth every 12 hours to 2 mg by mouth every 12 hours as per psychiatry recommendations 3. COPD COPD seems to be stable during hospitalization. Patient was placed on incentive spirometry, DuoNeb's as needed and standing, advised smoking cessation. The pt has WEINSTEIN. Improved. 4. HTN BP initially elevated. Enalapril added by cardiology with improvement of the blood pressure. - Continue with clonidine as needed. 5. CKD Abdomen seems to be at baseline which is 1.4-1.5. BMP monitored throughout hospital stay. 6. Nicotine and cocaine abuse The pt smokes a pack daily and uses cocaine twice per week. - cessation instruction. PPx: Heparin. Pt Condition on Discharge: Stable Discharge Disposition: Disch w/ Home Health Serv Discharge Time: > 30 minutes Discharge Instructions DIET: Follow Instructions for: Heart Healthy Diet Activities you can perform: Regular-No Restrictions Activities to Avoid: Strenuous Activity Follow up Referrals: Cardiology - 2 Weeks with Judi Gale MD PCP Follow-up - 1 Week New Medications: Cephalexin (Cephalexin) 500 Mg Cap 500 MG PO Q8H infection prevention #9 CAP Risperidone (Risperdal) 1 Mg Tab 2 MG PO Q12HR bipolas dis #62 TAB Continued Medications: Acetaminophen (Acetaminophen) 325 Mg Tab 650 MG PO Q4-6H PRN Pain 1-5 and/or temp >101F Ref 0 TAB Albuterol 8.5 GM Inh (Proair Hfa 8.5 GM Inh) 90 Mcg/Act Aer 2 PUFF INH Q4-6H 108 mcg/actuation PRN SHORTNESS OF BREATH #1 Ref 0 INHALER Albuterol Neb (Albuterol Neb) 2.5 Mg/3 Ml Neb 2.5 MG NEB ONCE Shortness Of Breath #1 Ref [address] (Aspirin Adult Low Strength) 81 Mg Tabdr 81 MG PO DAILY TAB Clonidine (Clonidine) 0.1 Mg Tab 0.1 MG PO Q6HR SBP>OR =180 DBP > SE=139 #60 Ref 0 TAB Enalapril (Enalapril) 5 Mg Tab 10 MG PO BID #60 Ref 0 TAB Furosemide (Furosemide) 40 Mg Tab 40 MG PO DAILY #30 Ref 0 TAB Magnesium Hydroxide Liq (Milk of Magnesia Liq) 400 Mg/5 Ml Susp 30 ML PO DAILY PRN INDIGESTION OR UPSET STOMACH #1 Ref 0 BOTTLE Metoprolol Succinate ER 24 HR (Metoprolol Succinate ER 24 HR) 100 Mg Tab 100 MG PO DAILY #30 Ref 0 TAB Potassium Chloride ER (Potassium Chloride CR) 10 Meq Tab 10 MEQ PO DAILY TAB Sertraline (Sertraline) 100 Mg Tab 100 MG PO DAILY #30 Ref 0 TAB Trazodone (Trazodone) 50 Mg Tab 50 MG PO HS Control Depression #30 Ref 0 TAB Discontinued Medications: Hydralazine (Hydralazine) 25 Mg Tab 25 MG PO BID Take with a meal Blood Pressure Management #60 Ref 0 TAB Risperidone (Risperidone) 1 Mg Tab 1 MG PO Q12HR #60 Ref 0 TAB Douglas Moralez MD July 15, 2016 12:27
--- NOTE | 2016-07-15 12:27 | HHI.FF ---
Face to Face Verification Diagnosis: (1) chronic mental illness (2) Cocaine abuse (3) Depression (4) Schizoaffective disorder (5) HTN (hypertension) (6) S/P ICD (internal cardiac defibrillator) procedure (7) Non-ischemic cardiomyopathy (8) CHF (congestive heart failure) Physical Therapy Order: Improve ambulation, Strength and gait training Home Health Nursing Order: CHF education Wound care and dressing changes Nursing assessment with vital signs I have seen patient Helen Llanos on 07/15/16. My clinical findings support the need for the requested home health care services because: Patient has SOB Deconditioned w/ increased weakness Need for psychosocial assistance Impaired cognition/judgement High risk of falls I certify that my clinical findings support that this patient is homebound because: Hx COPD- exertion dyspnea/weakness Unsteady gait/balance Unsafe to leave home unassisted Unable to use public transportation Douglas Moralez MD July 15, 2016 12:27
--- NOTE | 2016-07-17 10:17 | PD.CARD ---
SINGLE CHAMBER DEFIB IMPLANT PROCEDURE DATE: July 13, 2016 NYHA Classification: Class III (Moderate) Prevention: Primary Single Chamber Defib Implant PROCEDURE: Single chamber defibrillator implantation and device testing. INDICATIONS: Ms. Llanos is a 50 -year-old female hx of with congestive heart failure, ejection fraction 10-15%, coronary artery disease, who undergo defibrillator implantation for sudden primary prevention. The risks, the nature and the benefit of the procedure are clearly stated to her . Risks include pneumothorax, cardiac perforation, stroke and even . She understood and agreed to proceed. PROCEDURE: After written, informed consent was obtained, the patient was brought to the EP Lab where she was prepped and draped in the sterile fashion. Conscious sedation was initiated and maintained throughout the procedure by anesthesiologist. Once sedation was verified, the left infraclavicular area was anesthetized with 2% Xylocaine. Using modified Seldinger technique, the left subclavian vein was cannulated on one occasion and one guide wire was advanced. Then, using #11 blade scalpel, a 3-cm incision was made two fingerbreadths below left clavicle. This incision was then taken down to the deep fascial layer using Bovie cautery and blunt dissection. Into the inferomedial direction, a device pocket was dissected, then the wire was dissected into the pocket. A 2-0 Vicryl suture was placed around the wires to prevent bleeding. At this point, over the wire, the 8- Togolese dilator and introducer was advanced. As dilator and wire were removed, an active fixation right ventricular pacing, sensing and defibrillatory lead was advanced. After adequate pacing and sensing thresholds were obtained, the lead was secured in the pocket with #2 Ethibond suture. At that point, the pocket was copiously irrigated with antibiotic solution. The leads were connected to the generator and placed into the pocket. I decided not to proceed with NIPS. I did proceed with wound closure. The deep fascial layer was approximated with 2-0 Vicryl suture in a continuous fashion. The subcutaneous layer was approximated with 2-0 Vicryl suture in a continuous fashion. The subcuticular layer was approximated with 2-0 Vicryl suture in a continuous fashion. Dermabond adhesive was applied to the wound, followed by a sterile pressure dressing. There was no complication. The patient tolerated procedure. Blood loss minimal. 1. Implanted Hardware: The implanted defibrillator generator is a [employer], model number 073243, serial number [id number]. The right ventricular pacing, sensing and defibrillatory lead is a [employer] model number 082641, serial number [id number]. 2. Thresholds: The right ventricular pacing threshold in the bipolar mode was .6 volts at 0.5 milliseconds, lead impedance 660 ohms and R-wave at 4.6 mV. 3. Settings: The device set in VVI40 defibrillatory portion for two zones, one zone for ventricular tachycardia between 160 and 240 beats per minute. Initial therapy consists of one burst of ATP, one ramp, 81%, 10 pulse, 10 millisecond decremental, followed by 20, then 30 and all subsequent shocks at 40 joules defibrillatory shock, the second zone for ventricular fibrillation above 240 beats per minute, first therapy at 30 and all subsequent shocks at 40 joules defibrillatory shock. CONCLUSIONS: Successful defibrillator implantation. COMMENT AND RECOMMENDATIONS: The patient will be transferred to the telemetry unit, will be observed and when stable can be discharged home. Judi Gale MD July 17, 2016 10:17
== END 2016-07-15 14:11 | disposition home health service (06) | DRG 226 ==
LOC: HCIS 23:13
PROVIDERS: ADMIT Hospitalist; ATTEND Hospitalist
PROC: 02HK3KZ Insertion of Defibrillator Lead into Right Ventricle, Percutaneous Approach (ICD-10-PCS; 2016-07-13)
PROC: 0JH608Z Insertion of Defibrillator Generator into Chest Subcutaneous Tissue and Fascia, Open Approach (ICD-10-PCS; principal; 2016-07-13 14:15)
DX: I13.0 Hypertensive heart and chronic kidney disease with heart failure and stage 1 through stage 4 chronic kidney disease, or unspecified chronic kidney disease (principal); I50.23 Acute on chronic systolic (congestive) heart failure; I42.9 Cardiomyopathy, unspecified; F14.20 Cocaine dependence, uncomplicated; I08.1 Rheumatic disorders of both mitral and tricuspid valves; J44.9 Chronic obstructive pulmonary disease, unspecified; I25.10 Atherosclerotic heart disease of native coronary artery without angina pectoris; F17.210 Nicotine dependence, cigarettes, uncomplicated; N18.9 Chronic kidney disease, unspecified; F25.9 Schizoaffective disorder, unspecified; F31.9 Bipolar disorder, unspecified; A60.00 Herpesviral infection of urogenital system, unspecified
CPT/HCPCS: 33249; 71010; 76937; 80048; 82947; 82948; 83735; 84100; 84484; 85025; 85027; 93005; 94640; 94664; C1722; C1777; J0690; J1644; J2250; J3010; J3370; J7050

== ENCOUNTER 2017-04-19 19:21 | Inpatient (IN) | payer MEDICAID, OTHER ==
[~2017-04-19] VITALS: Ht 175.3 cm; Wt 85.5 kg
[~2017-04-19 19:21] MED LIST changes: +ACET325T PO; +AMLO5 PO; -ASPI1TAB91 PO; +ASPI81 CHEW; +ASPI81TA16 PO; +Albuterol Hfa Inh INH; +CEPH-460 PO; +CEPH500C PO; +CLON0.1T PO; +DOCU1CAP66; +HYDR-3799 PO; -HYDR25TA35 PO; +KLOR10TA PO; -METO100T9 PO; +METO1TAB43 PO; +METO1TAB9 PO; +MILKSUS PO; +MULT1TAB46; +RISP1 PO; +RISP2TAB2 PO; +RISP2TAB37 PO; +SPIR25 PO; +SPIRCAP INH; +ZOLO25TA PO
[2017-04-19 19:24] VITALS: BP 171/103; PULSE 65; RESP 20; O2SAT 97
--- NOTE | 2017-04-19 19:26 | PD ---
HPI Chief Complaint: Chest Pain Time Seen by Provider: 19:22 Travel History International Travel<30 days: No Contact w/Intl Traveler<30days: No History of Present Illness HPI 51-year-old female complains of shortness of breath for 2-3 days in a very intermittent brief sharp left-sided chest pain. She reports a history of fluid along the patient might have the same today. She denies fever and cough however was diaphoretic at one point. Severity moderate. Location of chest pain is in left chest. No cough. EMS reports pt has history of cocaine abuse. PFSH Past Medical History Arthritis: No Asthma: Yes Autoimmune Disease: No Blood Disorders: No Bipolar Disorder: Yes Anxiety: Yes Depression: Yes Heart Rhythm Problems: Yes Cancer: No (per pt) Cardiovascular Problems: Yes (per pt heart pacemaker in 09/11) Chemotherapy: No Chest Pain: Yes Congestive Heart Failure: Yes COPD: Yes Cerebrovascular Accident: Yes Diabetes: No (per pt) Diminished Hearing: Yes Endocrine: No Genitourinary: Yes Headaches: No (per pt) Hiatal Hernia: No Hypertension: Yes Immune Disorder: No Kidney Stones: No Musculoskeletal: No Neurologic: No Psychiatric: Yes (Schizoaffective D/O) Reproductive: No Respiratory: Yes Migraines: No Radiation Therapy: No Renal Failure: No Seizures: No (per pt) Sickle Cell Disease: No Sleep Apnea: Yes Thyroid Disease: No Ulcer: No Tubal Ligation: Yes Past Surgical History Abdominal Surgery: No AICD: Yes Arteriovenous Shunt: No Cardiac Surgery: No Ear Surgery: No Endocrine Surgery: No Eye Surgery: No Gynecologic Surgery: Yes (TUBAL LIGATION) Insulin Pump: No Joint Replacement: No Neurologic Surgery: No Oral Surgery: No Pacemaker: No Thoracic Surgery: No Social History Alcohol Use: No Tobacco Use: Yes Substance Use: Yes (HX of cocaine) Allergies-Medications (Allergen,Severity, Reaction): Coded Allergies: No Known Allergies (Verified Allergy, Unknown, 04/19/17) Reported Meds & Prescriptions Reported Meds & Active Scripts Active Spiriva Handihaler (Tiotropium Inh) 18 Mcg Cap 18 Mcg INH DAILY 1 capsule = 18 mcg Aldactone (Spironolactone) 25 Mg Tab 25 Mg PO BIDPC Klor-Con 10 (Potassium Chloride) 10 Meq Tab 10 Meq PO DAILY Hydralazine HCl 25 Mg Tablet 25 Mg PO BID Norvasc (Amlodipine Besylate) 5 Mg Tab 5 Mg PO DAILY [Albuterol Hfa Inh] 60 PUFF/8 GM Aero 2 Puff INH Q6HR Risperdal (Risperidone) 1 Mg Tab 2 Mg PO Q12HR Reported Sertraline (Sertraline HCl) 100 Mg Tab 100 Mg PO DAILY Multi Vitamin Daily (Multiple Vitamin) 1 Tab Tab DAILY Stool Softener (Docusate Sodium) 100 Mg Cap PRN Milk of Magnesia Liq (Magnesium Hydroxide) 400 Mg/5 Ml Susp 30 Ml PO DAILY PRN Clonidine (Clonidine HCl) 0.1 Mg Tab 0.1 Mg PO Q6HR Albuterol Neb (Albuterol Sulfate) 2.5 Mg/3 Ml Neb 2.5 Mg NEB ONCE Proair Hfa 8.5 GM Inh (Albuterol Sulfate) 90 Mcg/Act Aer 2 Puff INH Q4-6H PRN 108 mcg/actuation Aspirin Adult Low Strength (Aspirin) 81 Mg Tabdr 81 Mg PO DAILY Enalapril (Enalapril Maleate) 5 Mg Tab 10 Mg PO BID Metoprolol Succinate ER 24 HR (Metoprolol Succinate) 100 Mg Tab 100 Mg PO DAILY Trazodone (Trazodone HCl) 50 Mg Tab 50 Mg PO HS Furosemide 40 Mg Tab 40 Mg PO DAILY Review of Systems Except as stated in HPI: all other systems reviewed are Neg General / Constitutional: No: Fever Physical Exam Narrative GENERAL: 51 yo F, mild distress 2/2 pain and/or anxiety SKIN: Warm and dry. HEAD: Atraumatic. Normocephalic. EYES: Pupils equal and round. No scleral icterus. No injection or drainage. ENT: No nasal bleeding or discharge. Mucous membranes pink and moist. NECK: Trachea midline. No JVD. CARDIOVASCULAR: Regular rate and rhythm. RESPIRATORY: No accessory muscle use. Clear to auscultation. Breath sounds equal bilaterally. GASTROINTESTINAL: Abdomen soft, non-tender, nondistended. Hepatic and splenic margins not palpable. MUSCULOSKELETAL: Extremities without clubbing, cyanosis, or edema. No obvious deformities. NEUROLOGICAL: Awake and alert. No obvious cranial nerve deficits. Motor grossly within normal limits. Five out of 5 muscle strength in the arms and legs. Normal speech. PSYCHIATRIC: Appropriate mood and affect; insight and judgment normal. Data Data Last Documented VS Vital Signs Date Time Temp Pulse Resp B/P (MAP) Pulse Ox O2 Delivery O2 Flow Rate FiO2 2/22/18 19:28 100 Nasal Cannula 2.00 04/19/17 19:24 65 20 171/103 (125) Orders Orders Electrocardiogram (04/19/17:) Basic Metabolic Panel (Bmp) (04/19/17 19:22) Ckmb (Isoenzyme) Profile (04/19/17:) Complete Blood Count With Diff (04/19/17:) Magnesium (Mg) (04/19/17:) Prothrombin Time / Inr (Pt) (04/19/17:) Act Partial Throm Time (Ptt) (04/19/17:) Troponin I (04/19/17:) Ecg Monitoring (04/19/17:) Iv Access Insert/Monitor (04/19/17:) Oximetry (04/19/17:) Oxygen Administration (04/19/17:) Aspirin (Aspirin) (04/19/17 19:30) Sodium Chloride 0.9% Flush (Ns Flush) (04/19/17 19:30) Nitroglycerin Sl (Nitrostat Sl) (04/19/17 19:30) Chest, Single Ap (04/19/17 ) B-Type Natriuretic Peptide (04/19/17 19:26) Drug Screen, Random Urine (04/19/17 19:26) CKMB (04/19/17 19:30) CKMB% (04/19/17 19:30) Admit Order (Ed Use Only) (04/19/17 ) Road Service Locksmith / Telemetry [id number] (04/19/17 21:38) Vital Signs (Adult) Q4H (04/19/17 21:38) Activity Bed Rest (04/19/17 21:38) Labs Laboratory Tests Test 04/19/17 19:30 White Blood Count 7.5 TH/MM3 Red Blood Count 4.93 MIL/MM3 Hemoglobin 14.6 GM/DL Hematocrit 42.9 % Mean Corpuscular Volume 87.0 FL Mean Corpuscular Hemoglobin 29.6 PG Mean Corpuscular Hemoglobin Concent 34.0 % Red Cell Distribution Width 15.3 % Platelet Count 184 TH/MM3 Mean Platelet Volume 8.8 FL Neutrophils (%) (Auto) 56.1 % Lymphocytes (%) (Auto) 26.6 % Monocytes (%) (Auto) 8.5 % Eosinophils (%) (Auto) 8.1 % Basophils (%) (Auto) 0.7 % Neutrophils # (Auto) 4.2 TH/MM3 Lymphocytes # (Auto) 2.0 TH/MM3 Monocytes # (Auto) 0.6 TH/MM3 Eosinophils # (Auto) 0.6 TH/MM3 Basophils # (Auto) 0.1 TH/MM3 CBC Comment DIFF FINAL Differential Comment Prothrombin Time 12.3 SEC Prothromb Time International Ratio 1.2 RATIO Activated Partial Thromboplast Time 23.1 SEC Blood Urea Nitrogen 34 MG/DL Creatinine 2.26 MG/DL Random Glucose 92 MG/DL Calcium Level 8.3 MG/DL Magnesium Level 2.0 MG/DL Sodium Level 141 MEQ/L Potassium Level 3.3 MEQ/L Chloride Level 107 MEQ/L Carbon Dioxide Level 24.1 MEQ/L Anion Gap 10 MEQ/L Estimat Glomerular Filtration Rate 28 ML/MIN Total Creatine Kinase 333 U/L Creatine Kinase MB 9.8 NG/ML Creatine Kinase MB % 2.9 % Troponin I 0.58 NG/ML B-Type Natriuretic Peptide 2719 PG/ML MDM Medical Decision Making Medical Screen Exam Complete: Yes Emergency Medical Condition: Yes Medical Record Reviewed: Yes Differential Diagnosis NSTEMI, unstable angina, coronary vasospasm, PE, PTX, aortic dissection, pericarditis, myocarditis, endocarditis, PNA, esophageal disease, aneurysm, musculoskeletal etiologies, anxiety, cocaine/sympathomimetic abuse Narrative Course CBC & BMP Diagram 04/19/17 19:30 Calcium Level 8.3 L, Magnesium Level 2.0 EKG: Sinus, rate 106, no ST elevation BNP 2719 Tn 0.58 CXR: cardiomegaly with minimal central pulmonary vascular congestion admission for CHF exacerbation d/w Dr Gerard for [facility] elevated troponin consider to be nonspecific in the setting of CHF exacerbation with a BNP of 2719 Diagnosis Primary Impression: CHF (congestive heart failure) Qualified Codes: I50.9 - Heart failure, unspecified Admitting Information Admitting Physician Requests: Admit Duy Logan MD Apr 19, 2017 19:26
[2017-04-19] MEDS ORDERED: ASPIRIN 325 MG TAB PO ONE (19:30)
[2017-04-19] MEDS ORDERED: SODIUM CHLORIDE 0.9% FLUSH 10 ML FLUSH IVF PRN (19:30)
[2017-04-19] MEDS: NITROGLYCERIN 0.4 MG SL 25 TABS/BTL SL SCH ×3 (19:49→20:06)
--- NOTE | 2017-04-19 20:02 | RADRPT ---
EXAM DATE/TIME: 04/19/2017 19:28 [facility] COMPARISON: CHEST SINGLE AP, January 30, 2017, 11:17. INDICATIONS : Chest pain MEDICAL HISTORY : Congestive heart failure. Chronic obstructive pulmonary disease. SURGICAL HISTORY : Pacemaker. ENCOUNTER: Initial ACUITY: 2 days PAIN SCORE: 3/10 LOCATION: Bilateral chest FINDINGS: Single lead AICD device with battery pack obscuring portion of the left hemithorax. Cardiac silhouett e is enlarged and central pulmonary vascularity is prominent. No new focal pleural or parenchymal opa cities. Remainder of the exam is unchanged. CONCLUSION: 1. Cardiomegaly with minimal central pulmonary vascular congestion. Per Diallo MD on April 19, 2017 at 19:59 Board Certified Radiologist. This report was verified electronically.
[2017-04-19 20:09] LABS: AUTOMATED NEUTROPHIL # 4.2 TH/MM3 (1.8-7.7); BASOPHIL # 0.1 TH/MM3 (0-0.2); BASOPHIL % 0.7 % (0.0-2.0); EOSINOPHIL # 0.6 TH/MM3 (0-0.4); EOSINOPHIL % 8.1 % (0.0-4.0); HEMATOCRIT 42.9 % (35.0-46.0); HEMOGLOBIN 14.6 GM/DL (11.6-15.3); LYMPH % 26.6 % (9.0-44.0); MEAN CORPUSCULAR HEMOGLOBIN 29.6 PG (27.0-34.0); MEAN PLATELET VOLUME 8.8 FL (7.0-11.0); MONO % 8.5 % (0.0-8.0); MONOCYTE # 0.6 TH/MM3 (0-0.9); NEUT % 56.1 % (16.0-70.0); PLATELET COUNT 184 TH/MM3 (150-450); RED BLOOD COUNT 4.93 MIL/MM3 (4.00-5.30); RED CELL DISTRIBUTION WIDTH 15.3 % (11.6-17.2); WHITE BLOOD COUNT 7.5 TH/MM3 (4.0-11.0)
[2017-04-19 20:18] LABS: INTERNATIONAL NORMALIZED RATIO 1.2 RATIO; PROTHROMBIN TIME - PATIENT 12.3 SEC (9.8-11.6)
[2017-04-19 20:34] LABS: BICARBONATE 24.1 MEQ/L (21.0-32.0); CALCIUM 8.3 MG/DL (8.5-10.1); CREATININE 2.26 MG/DL (0.50-1.00)
[2017-04-19 20:39] LABS: TROPONIN I 0.58 NG/ML (0.02-0.05)
[2017-04-19] MEDS ORDERED: MORPHINE SULFATE 4 MG/ML INJ IV PUSH PRN (22:45)
[2017-04-19] MEDS ORDERED: POTASSIUM CHLORIDE 20 MEQ CONTROLLED RELEASE TAB PO ONE ×2 (22:45)
[2017-04-19] MEDS ORDERED: RESP: ALBUTEROL 2.5 MG/IPRATROPIUM 0.5 MG NEB (PRN) NEB ×2 (22:45)
[2017-04-19] MEDS ORDERED: FUROSEMIDE 40 MG/4 ML VIAL IV PUSH ONE (22:45)
[2017-04-19] MEDS ORDERED: SODIUM CHLORIDE 0.9% FLUSH 10 ML FLUSH IV FLUSH PRN (22:45)
[2017-04-19] MEDS ORDERED: NITROGLYCERIN 0.4 MG SL 25 TABS/BTL SL PRN (22:45)
--- NOTE | 2017-04-19 22:51 | HHI.HP ---
HPI Service [facility] Primary Care Physician Tony Goldstein D.O. Admission Diagnosis CHF; CRI; Nonspecific Tn elevation Diagnoses: Travel History International Travel<30 Days: No Contact w/Intl Traveler <30 Da: No Traveled to Known Affected Are: No History of Present Illness 51-year-old female with a past medical history significant for hypertension, COPD, chronic kidney disease, hyperlipidemia and CHF (last echo 07/10/16 showed an EF of 10-15%) and AICD presents to the emergency department with a chief complaint of chest pain. The patient reports that her chest pain started 2-3 days ago and is substernal. She describes it as a "hard pressure." She also endorses shortness of breath with exertion. She denies any lower extremity edema. Patient also states that she feels as though she may have a urinary tract infection. She denies any nausea/vomiting. Review of Systems Except as stated in HPI: all other systems reviewed are Neg Past Family Social History Past Medical History CHF (EF of 10-15%) Hypertension excellent COPD Chronic kidney disease Hyperlipidemia CHF Past Surgical History AICD placement Bilateral tubal ligation Reported Medications Reported Meds & Active Scripts Active Risperdal (Risperidone) 1 Mg Tab 2 Mg PO Q12HR Cephalexin 500 Mg Cap 500 Mg PO Q8H Trazodone (Trazodone HCl) 50 Mg Tab 50 Mg PO HS Spiriva Handihaler (Tiotropium Inh) 18 Mcg Cap 18 Mcg INH DAILY 1 capsule = 18 mcg Aldactone (Spironolactone) 25 Mg Tab 25 Mg PO BIDPC Zoloft (Sertraline HCl) 25 Mg Tab 25 Mg PO DAILY Risperdal (Risperidone) 2 Mg Tab 2 Mg PO BID Klor-Con 10 (Potassium Chloride) 10 Meq Tab 10 Meq PO DAILY Metoprolol Succinate ER 24 HR (Metoprolol Succinate) 50 Mg Tab 100 Mg PO 2 PO DAILY Hydralazine HCl 25 Mg Tablet 25 Mg PO BID Furosemide 40 Mg Tab 40 Mg PO DAILY Enalapril (Enalapril Maleate) 5 Mg Tab 5 Mg PO BID Cephalexin 500 Mg Cap 500 Mg PO Q8HR Tgt Aspirin (Aspirin) 81 Mg Chw 81 Mg CHEW DAILY Norvasc (Amlodipine Besylate) 5 Mg Tab 5 Mg PO DAILY [Albuterol Hfa Inh] 60 PUFF/8 GM Aero 2 Puff INH Q6HR Keflex (Cephalexin) 500 Mg Capsule 500 Mg PO Q8H 7 Days Reported Milk of Magnesia Liq (Magnesium Hydroxide) 400 Mg/5 Ml Susp 30 Ml PO DAILY PRN Clonidine (Clonidine HCl) 0.1 Mg Tab 0.1 Mg PO Q6HR Acetaminophen 325 Mg Tab 650 Mg PO Q4-6H PRN Albuterol Neb (Albuterol Sulfate) 2.5 Mg/3 Ml Neb 2.5 Mg NEB ONCE Proair Hfa 8.5 GM Inh (Albuterol Sulfate) 90 Mcg/Act Aer 2 Puff INH Q4-6H PRN 108 mcg/actuation Aspirin Adult Low Strength (Aspirin) 81 Mg Tabdr 81 Mg PO DAILY Potassium Chloride CR (Potassium Chloride) 10 Meq Tab 10 Meq PO DAILY Enalapril (Enalapril Maleate) 5 Mg Tab 10 Mg PO BID Metoprolol Succinate ER 24 HR (Metoprolol Succinate) 100 Mg Tab 100 Mg PO DAILY Trazodone (Trazodone HCl) 50 Mg Tab 50 Mg PO HS Furosemide 40 Mg Tab 40 Mg PO DAILY Sertraline (Sertraline HCl) 100 Mg Tab 100 Mg PO DAILY Sertraline (Sertraline HCl) 100 Mg Tab 100 Mg PO DAILY Risperidone 2 Mg Tab 2 Mg PO DAILY Multi Vitamin Daily (Multiple Vitamin) 1 Tab Tab DAILY Stool Softener (Docusate Sodium) 100 Mg Cap PRN Allergies: Coded Allergies: No Known Allergies (Verified , 07/07/16) Family History Father with kidney disease Social History Smokes approximately 4 cigarettes per day. Denies alcohol. Smokes crack cocaine "as often as possible," last use 4 days ago. Physical Exam Vital Signs Vital Signs Date Time Temp Pulse Resp B/P (MAP) Pulse Ox O2 Delivery O2 Flow Rate FiO2 04/19/17 19:28 100 Nasal Cannula 2.00 04/19/17 19:24 65 20 171/103 (125) 97 Physical Exam GENERAL: female, lying in bed, shaking back and forth SKIN: No rashes, ecchymoses or lesions. Cool and dry. HEAD: Atraumatic. Normocephalic. No temporal or scalp tenderness. EYES: Pupils equal round and reactive. Extraocular motions intact. No scleral icterus. No injection or drainage. ENT: Nose without bleeding, purulent drainage or septal hematoma. Throat without erythema, tonsillar hypertrophy or exudate. Uvula midline. Airway patent. NECK: Trachea midline. No JVD or lymphadenopathy. Supple, nontender, no meningeal signs. CARDIOVASCULAR: Regular rate and rhythm without murmurs, gallops, or rubs. RESPIRATORY: Bilateral crackles in the bases. GASTROINTESTINAL: Abdomen soft, non-tender, nondistended. No hepato-splenomegaly , or palpable masses. No guarding. MUSCULOSKELETAL: Extremities without clubbing, cyanosis, or edema. No joint tenderness, effusion, or edema noted. No calf tenderness. NEUROLOGICAL: Awake and alert. Cranial nerves II through XII intact. Motor and sensory grossly within normal limits. Normal speech. Laboratory Laboratory Tests Test 04/19/17 19:30 White Blood Count 7.5 Red Blood Count 4.93 Hemoglobin 14.6 Hematocrit 42.9 Mean Corpuscular Volume 87.0 Mean Corpuscular Hemoglobin 29.6 Mean Corpuscular Hemoglobin Concent 34.0 Red Cell Distribution Width 15.3 Platelet Count 184 Mean Platelet Volume 8.8 Neutrophils (%) (Auto) 56.1 Lymphocytes (%) (Auto) 26.6 Monocytes (%) (Auto) 8.5 Eosinophils (%) (Auto) 8.1 Basophils (%) (Auto) 0.7 Neutrophils # (Auto) 4.2 Lymphocytes # (Auto) 2.0 Monocytes # (Auto) 0.6 Eosinophils # (Auto) 0.6 Basophils # (Auto) 0.1 CBC Comment DIFF FINAL Differential Comment Prothrombin Time 12.3 Prothromb Time International Ratio 1.2 Activated Partial Thromboplast Time 23.1 Blood Urea Nitrogen 34 Creatinine 2.26 Random Glucose 92 Calcium Level 8.3 Magnesium Level 2.0 Sodium Level 141 Potassium Level 3.3 Chloride Level 107 Carbon Dioxide Level 24.1 Anion Gap 10 Estimat Glomerular Filtration Rate 28 Total Creatine Kinase 333 Creatine Kinase MB 9.8 Creatine Kinase MB % 2.9 Troponin I 0.58 B-Type Natriuretic Peptide 2719 Result Diagram: 04/19/17192904/19/171929 Caprini VTE Risk Assessment Caprini VTE Risk Assessment: No/Low Risk (score <= 1) Caprini Risk Assessment Model Point Value = 1 Point Value = 2 Point Value = 3 Point Value = 5 Age 41-60 Minor surgery BMI > 25 kg/m2 Swollen legs Varicose veins or History of unexplained or recurrent spontaneous Oral contraceptives or hormone replacement Sepsis (< 1 month) Serious lung disease, including pneumonia (< 1 month) Abnormal pulmonary function Acute myocardial infarction Congestive heart failure (< 1 month) History of inflammatory bowel disease Medical patient at bed rest Age 61-74 Arthroscopic surgery Major open surgery (> 45 min) Laparoscopic surgery (> 45 min) Malignancy Confined to bed (> 72 hours) Immobilizing plaster cast Central venous access Age >= 75 History of VTE Family history of VTE Factor V Leiden Prothrombin [id number] Lupus anticoagulant Anticardiolipin antibodies Elevated serum homocysteine Heparin-induced thrombocytopenia Other congenital or acquired thrombophilia Stroke (< 1 month) Elective arthroplasty Hip, pelvis, or leg fracture Acute spinal cord injury (< 1 month) Prophylaxis Regimen Total Risk Factor Score Risk Level Prophylaxis Regimen 0-1 Low Early ambulation 2 Moderate Order ONE of the following: *Sequential Compression Device (SCD) *Heparin 5000 units SQ BID 3-4 Higher Order ONE of the following medications: *Heparin 5000 units SQ TID *Enoxaparin/Lovenox 40 mg SQ daily (WT < 150 kg, CrCl > 30 mL/min) *Enoxaparin/Lovenox 30 mg SQ daily (WT < 150 kg, CrCl > 10-29 mL/min) *Enoxaparin/Lovenox 30 mg SQ BID (WT < 150 kg, CrCl > 30 mL/min) AND/OR *Sequential Compression Device (SCD) 5 or more Highest Order ONE of the following medications: *Heparin 5000 units SQ TID (Preferred with Epidurals) *Enoxaparin/Lovenox 40 mg SQ daily (WT < 150 kg, CrCl > 30 mL/min) *Enoxaparin/Lovenox 30 mg SQ daily (WT < 150 kg, CrCl > 10-29 mL/min) *Enoxaparin/Lovenox 30 mg SQ BID (WT < 150 kg, CrCl > 30 mL/min) AND *Sequential Compression Device (SCD) Assessment and Plan Assessment and Plan Assessment/plan: 1. CHF exacerbation BNP 2719, chest x-ray with prominent pulmonary vasculature, personally reviewed IV Lasix Supplemental oxygen as needed 2. Acute on chronic renal insufficiency BUN/creatinine 34/2.26, baseline 1.5-2.0 Monitor renal function 3. Chest pain/elevated troponin EKG significant for sinus tachycardia without ST segment elevations or depressions, personally reviewed Troponin elevated at 0.58 - may be secondary to renal function ACS rule out pending; serial troponin/EKGs 4. Hypertension/hyperlipidemia/COPD DuoNeb's Continue home medications once reconciled 5. Cocaine abuse Cessation counseling provided FEN Heart healthy diet Electrolytes: PO potassium given, f/u BMP Heparin Physician Certification 2 Midnight Certification Type: Admission for Inpatient Services Order for Inpatient Services The services are ordered in accordance with Medicare regulations or non- Medicare payer requirements, as applicable. In the case of services not specified as inpatient-only, they are appropriately provided as inpatient services in accordance with the 2-midnight benchmark. Estimated LOS (days): 2 2 days is the estimated time the patient will need to remain in the hospital, assuming treatment plan goals are met and no additional complications. Post-Hospital Plan: Not yet determined Teodora Gerard MD Apr 19, 2017 22:51
[2017-04-19 22:55] VITALS: O2SAT 98
[2017-04-19] MEDS: HEPARIN SODIUM - SQ 10,000 UNITS/ML VIAL SQ SCH (23:04)
[2017-04-19 23:09] VITALS: BP 176/125; PULSE 100; RESP 22; O2SAT 98
[2017-04-19 23:58] VITALS: BP 167/121; PULSE 100; RESP 20; O2SAT 98
[2017-04-20] VITALS (26 sets, daily range): BP systolic 101–157; BP diastolic 82–120; PULSE 78–141; RESP 14–22; TEMP 96.8–99; O2SAT 93–99
[2017-04-20] MEDS ORDERED: cloNIDine HCL 0.1 MG TAB PO PRN (00:15)
[2017-04-20] MEDS ORDERED: cloNIDine HCL 0.1 MG TAB PO ONE (00:15)
[2017-04-20] MEDS: SPIRONOLACTONE 25 MG TAB PO SCH ×3 (00:37→17:30)
[2017-04-20] MEDS: hydrALAZINE HCL 25 MG TAB PO SCH ×3 (00:38→20:34)
[2017-04-20] MEDS: traZODone HCL 50 MG TAB PO SCH ×2 (00:39→20:34)
[2017-04-20] MEDS: risperiDONE 1 MG TAB PO SCH ×3 (00:39→20:34)
[2017-04-20 02:23] LABS: BACTERIA, URINE RARE /hpf; BILIRUBIN, URINE NEG (NEG); BLOOD, URINE SMALL (NEG); GLUCOSE,URINE NEG (NEG); HYALINE CAST, URINE 1 /lpf (RARE); KETONE, URINE NEG (NEG); NITRITE,URINE NEG (NEG); PH, URINE 5.5 (5.0-8.5); SQUAMOUS EPITHELIAL CELL URINE 1 /hpf (0-5); URINE COLOR COLORLESS (YELLW/STRAW); URINE LEUKOCYTE ESTERASE LARGE (NEG)
[2017-04-20 03:14] LABS: TROPONIN I 2.07 NG/ML (0.02-0.05)
[2017-04-20] MEDS ORDERED: HEPARIN SODIUM - IV 10,000 UNITS/10 ML VIAL IV PUSH ONE (03:30)
[2017-04-20] MEDS: HEPARIN-D5W 25,000 U/250 ML 250 ML IV PRN (04:41)
[2017-04-20] MEDS: HEPARIN SODIUM - SQ 10,000 UNITS/ML VIAL SQ SCH ×2 (04:42→11:27)
--- NOTE | 2017-04-20 07:36 | HHI.PR ---
Subjective Remarks f/u; NSTEMI/ CHF in no acute distress. denies chest pain or sob. d/w the RN. Objective Vitals Vital Signs Date Time Temp Pulse Resp B/P (MAP) Pulse Ox O2 Delivery O2 Flow Rate FiO2 04/20/17 06:34 97 16 153/93 (113) 99 04/20/17 05:13 85 04/20/17 04:19 97.5 78 16 133/97 (109) 95 04/20/17 04:00 97.5 78 16 133/97 (109) 95 04/20/17 03:19 96.9 106 22 157/120 (132) 98 04/20/17 03:00 141 04/20/17 01:30 04/20/17 01:20 96.8 104 20 157/102 (120) 98 04/19/17 23:58 100 20 167/121 (136) 98 Nasal Cannula 2.00 04/19/17 23:09 100 22 176/125 (142) 98 Nasal Cannula 2.00 04/19/17 22:55 98 Nasal Cannula 2.00 04/19/17 19:28 100 Nasal Cannula 2.00 04/19/17 19:24 65 20 171/103 (125) 97 I/O 04/19/17 04/19/17 04/19/17 04/20/17 04/20/17 04/20/17 07:00 15:00 23:00 07:00 15:00 23:00 Intake Total 118.5 ml Output Total 450 ml Balance -331.5 ml Intake Oral 100 ml IV Total 18.5 ml Output Urine Total 450 ml Result Diagram: 04/19/17192904/19/171929 Imaging Last Impressions Chest X-Ray 04/19/17 0000 Signed Impressions: Service Date/Time: March 19:28 - CONCLUSION: 1. Cardiomegaly with minimal central pulmonary vascular congestion. Per Diallo MD Objective Remarks GENERAL: This is a well-nourished, well-developed patient, in no apparent distress. CARDIOVASCULAR: Regular rate and regular rhythm without murmurs, gallops, or rubs. RESPIRATORY: Clear to auscultation. Breath sounds equal bilaterally. No wheezes , rales, or rhonchi. GASTROINTESTINAL: Abdomen soft, non-tender, nondistended. Normal, active bowel sounds MUSCULOSKELETAL: Extremities without clubbing, cyanosis, or edema. NEURO: Alert & Oriented x4 to person, place, time, situation. Moves all ext x4 Medications and IVs Inpatient Medications Albuterol/ Ipratropium (Duoneb Neb) 1 ampule Q4HR NEB PRN NEB SOB/WHEEZING; Start 04/19/17 at 22:45 Amlodipine Besylate (Norvasc) 5 mg DAILY PO ; Start 04/20/17 at 09:00 Aspirin (Aspirin) 325 mg DAILY PO ; Start 04/20/17 at 09:00 Aspirin (Ecotrin Ec) 81 mg DAILY PO ; Start 04/20/17 at 09:00 Clonidine (Catapres) 0.1 mg Q6H PRN PO SEE LABEL COMMENTS; Start 04/20/17 at 00 :15 Furosemide (Lasix Inj) 40 mg ONCE ONCE IV PUSH Last administered on 04/19/17at 23:03; Start 04/19/17 at 22:45; Stop 04/19/17 at 22:53; Status DC Furosemide (Lasix) 40 mg DAILY PO ; Start 04/20/17 at 09:00 Heparin Sodium (Porcine) (Heparin Inj) 2,500 units UNSCH PRN IV PUSH APTT 25 TO 39; Start 04/20/17 at 09:30 Heparin Sodium/ Dextrose 250 ml @ 10 mls/hr TITRATE PRN IV Coagulation Management Last administered on 04/20/17at 04:41; Start 04/20/17 at 03:30 Hydralazine HCl (Apresoline) 25 mg BID PO Last administered on 04/20/17at 00:38 ; Start 04/20/17 at 00:15 Morphine Sulfate (Morphine Inj) 2 mg Q3H PRN IV PUSH PAIN SCALE 6 TO 10; Start 04/19/17 at 22:45 Nitroglycerin (Nitrostat Sl) 0.4 mg Q5M PRN SL ANGINA; Start 04/19/17 at 22:45 Potassium Chloride (KCl) 10 meq DAILY PO ; Start 04/20/17 at 09:00 Risperidone (risperDAL) 2 mg Q12HR PO Last administered on 04/20/17at 00:39; Start 04/20/17 at 00:15 Sertraline HCl (Zoloft) 100 mg DAILY PO ; Start 04/20/17 at 09:00 Sodium Chloride (NS Flush) 2 ml UNSCH PRN IV FLUSH FLUSH AFTER USING IV ACCESS ; Start 04/19/17 at 22:45 Spironolactone (Aldactone) 25 mg BIDPC PO Last administered on 04/20/17at 00:37 ; Start 04/20/17 at 00:15 Tiotropium [place] (Spiriva Inh) 18 mcg DAILY INH ; Start 04/20/17 at 09:00 Trazodone HCl (Desyrel) 50 mg HS PO Last administered on 04/20/17at 00:39; Start 04/20/17 at 00:15 A/P Assessment and Plan 1. acute on chronic systolic CHF BNP 2719, chest x-ray with prominent pulmonary vasculature, personally reviewed continue IV Lasix no JANETH-I at this time due to renal insufficiency. Supplemental oxygen as needed monitor I/O and renal function. 2. Acute on chronic renal insufficiency BUN/creatinine 34/2.26, baseline 1.5-2.0 Monitor renal function 3. NSTEMI continue with heparin drip and aspirin- no BB due to cocaine abuse NPO for now. awaiting cardiology evaluation. 4. Hypertension/hyperlipidemia/COPD DuoNeb's Continue home medications once reconciled 5. Cocaine abuse Cessation counseling provided DVT prophylaxis; on Heparin drip. Discharge Planning awaiting cardiology evaluation. Yahir Hathaway MD Apr 20, 2017 07:36
[2017-04-20] MEDS: POTASSIUM CHLORIDE 10 MEQ CONTROLLED RELEASE TAB PO SCH (08:02)
[2017-04-20] MEDS: FUROSEMIDE 40 MG/4 ML VIAL IV PUSH SCH ×2 (08:02→17:30)
[2017-04-20] MEDS: ASPIRIN 325 MG TAB PO SCH (08:03)
[2017-04-20] MEDS: amLODIPine BESYLATE 5 MG TAB PO SCH (08:03)
[2017-04-20] MEDS: SODIUM CHLORIDE 0.9% FLUSH 10 ML FLUSH IV FLUSH SCH ×2 (08:04→20:31)
[2017-04-20] MEDS ORDERED: POTASSIUM CHLORIDE 20 MEQ CONTROLLED RELEASE TAB PO SCH (09:00)
[2017-04-20] MEDS ORDERED: FUROSEMIDE 40 MG TAB PO SCH (09:00)
[2017-04-20] MEDS: TIOTROPIUM BROMIDE 18 MCG INH INH SCH (09:00)
[2017-04-20] MEDS ORDERED: ASPIRIN EC 81 MG TABEC PO SCH (09:00)
[2017-04-20] MEDS ORDERED: HEPARIN SODIUM - IV 10,000 UNITS/10 ML VIAL IV PUSH PRN (09:30)
[2017-04-20 09:59] LABS: HEMATOCRIT 47.6 % (35.0-46.0); HEMOGLOBIN 15.6 GM/DL (11.6-15.3); MEAN CELL VOLUME 88.4 FL (80.0-100.0); MEAN CORPUSCULAR HGB CONC 32.8 % (32.0-36.0); MEAN PLATELET VOLUME 8.8 FL (7.0-11.0); PLATELET COUNT 207 TH/MM3 (150-450); RED BLOOD COUNT 5.39 MIL/MM3 (4.00-5.30); RED CELL DISTRIBUTION WIDTH 15.6 % (11.6-17.2); WHITE BLOOD COUNT 7.1 TH/MM3 (4.0-11.0)
[2017-04-20 10:04] LABS: INTERNATIONAL NORMALIZED RATIO 1.2 RATIO; PROTHROMBIN TIME - PATIENT 12.3 SEC (9.8-11.6)
[2017-04-20 10:30] LABS: TROPONIN I 3.49 NG/ML (0.02-0.05)
[2017-04-20] MEDS: SERTRALINE HCL 100 MG TAB PO SCH (11:38)
--- NOTE | 2017-04-20 14:31 | EKG ---
Date Performed: 04/19/2017 Time Performed: 19:25:27 PTAGE: 51 years EKG: SINUS TACHYCARDIA WITH OCCASIONAL VENTRICULAR PREMATURE COMPLEXES LEFT ATRIAL ENLARGEMENT P OSSIBLE LEFT VENTRICULAR HYPERTROPHY POSSIBLE ANTERIOR MYOCARDIAL INFARCTION MODERATE T-WAVE ABNORMAL ITY, CONSIDER LATERAL ISCHEMIA ABNORMAL ECG PREVIOUS TRACING : 01/30/2017 10.39 Since the previous tracing, there has been a reduction in l ateral R-wave voltage, but improvement in the lateral T-wave abnormalities. The frequent PVCs are new . DOCTOR: Yelena Mayers Interpretating Date/Time 04/20/2017 14:30:46
--- NOTE | 2017-04-20 15:02 | MB ---
cc: BHUPINDER PAZ M.D. DATE OF CONSULTATION 04/20/2017 HISTORY OF PRESENT ILLNESS Helen is a 51-year-old lady who presents to the emergency room complaining of 2-3 days of shortness of breath and sharp left-sided chest pain. She is a poor historian. I had to ask her simple questions multiple times to get responses and many times she does not respond. She does know she is at [facility]. Otherwise denies any fevers, chills, cough, GI or bleeding, PND, orthopnea, syncope or dizziness. PAST MEDICAL HISTORY 1. Per history of present illness. 2. Asthma. 3. Bipolar disorder. 4. Depression. 5. Arrhythmia. 6. Pacemaker August 2016. 7. Congestive heart failure. 8. History of CVA. 9. Schizoaffective affective disorder. SOCIAL HISTORY She smokes tobacco. She uses cocaine. Denies alcohol use. ALLERGIES None. MEDICATIONS Medications prior to admission: 1. Spiriva. 2. Aldactone. 3. Klor-Con, 10. 4. Hydralazine 25, b.i.d. 5. Norvasc 5, daily. 6. Albuterol. 7. Risperdal. 8. Sertraline. 9. Multivitamin. 10.Stool sotener. 11.Milk of Magnesia. 12.Clonidine 0.1, q.6h. 13.ProAir. 14.Aspirin 81 mg daily. 15.Enalapril 5 mg b.i.d. 16.Metoprolol extended release 100 mg daily. 17.Trazodone 50 mg h.s. 18.Lasix 40 mg daily. Medications in the hospital: 1. IV heparin. 2. Aspirin 325 daily. 3. Furosemide 40, IV b.i.d. 4. Amlodipine 5 mg daily. 5. Potassium 10 mEq daily. 6. Sertraline 100 mg daily. 7. Spiriva. 8. Risperidone 2 mg q.12h. 9. Aldactone 25, b.i.d. PHYSICAL EXAMINATION VITAL SIGNS: Blood pressure 153/93, pulse 97, respiratory rate 16, temperature 97.5. GENERAL: She is alert and oriented x3, in no acute distress. NECK: Supple. No JVD. No bruit. CARDIOVASCULAR: S1, S2. No murmurs, rubs or gallops. LUNGS: Clear to auscultation bilaterally. ABDOMEN: Soft, nontender, nondistended. Positive bowel sounds. EXTREMITIES: No lower extremity edema. IMAGING Chest x-ray: Cardiomegaly with minimal central pulmonary vascular congestion. EKG EKG with sinus tachycardia at 106 beats per minute, PVCs, late R-wave transition. LABORATORY White count 7.1, hemoglobin 15.6, hematocrit 47.6, platelet count 207. Sodium 141, potassium 3.3, chloride 107, bicarb 24.1, BUN 34, creatinine 2.26, calcium 8.3, magnesium 2.0. Troponin is 0.58 followed by 2.07 and 3.49. BNP is 2719. Urine tox screen is positive for cocaine. DIAGNOSIS 1. Non-STEMI. 2. Acute renal failure. 3. Chronic renal insufficiency. 4. Cocaine abuse. 5. Tobacco abuse. 6. Hypokalemia. 7. Decompensated congestive heart failure. 8. History of CVA. 9. Bipolar disorder. 10.Status post permanent pacemaker placement. 11.Schizoaffective disorder. DISCUSSION At this point the patient is having active chest pain with elevated troponin that has not peaked yet, therefore I have recommended left heart catheterization to the patient. I do think the patient understands what I am telling her. I have explained to her the details of the procedure. The patient is uncertain about doing the procedure. Will get a neurology consult and also a case management consult to determine if she has a surrogate decision-maker. Otherwise agree with aspirin, heparin and diuresis. I have explained to the patient that she has a potentially life-threatening condition and without revascularization her risk of mortality is higher than without revascularization. MD ADIS Mcknight/NIC /11:00 AM /2:36 PM
[2017-04-20] MEDS ORDERED: amLODIPine BESYLATE 5 MG TAB PO ONE (16:15)
--- NOTE | 2017-04-20 16:36 | EKG ---
Date Performed: 04/20/2017 Time Performed: 03:50:02 PTAGE: 51 years EKG: Sinus rhythm with PVC(s) Leftward axis Left ventricular hypertrophy Lateral T wave changes are nonspecific Abnorm al ECG PREVIOUS TRACING : 04/19/2017 19.25 No significant change from previous tracing noted. DOCTOR: Geovanny Sykes Interpretating Date/Time 04/20/2017 16:34:18
--- NOTE | 2017-04-20 16:42 | MB ---
cc: VIKKI STOCK M.D. DATE OF CONSULTATION: 04/20/2017. REASON FOR CONSULTATION: She is a 51-year-old seen in neurological consultation in regards to altered mentation. HISTORY OF PRESENT ILLNESS: She came in because of shortness of breath and chest pain. She has a history of some chronic kidney disease, congestive heart failure with a low ejection fraction, AICD. She apparently has a history of cocaine abuse as well. She is in need of a heart catheterization. There is a question about consenting. NEUROLOGICAL EXAMINATION: The neurological exam showed the patient to be asleep. With strong stimulation, she awakened briefly and followed simple commands and verbalized simple matters. She knows she is in the hospital and says she came in for tests. She cannot stay awake. She moves all four extremities. There is a hint of some right facial weakness. Pupils are about the same size and reactive. Unable to stay away for more detailed exam. Reflexes are trace versus absent throughout. Plantar responses appears to be flexor. LABORATORY DATA: CBC with white count 7.1, hemoglobin 15.6, platelets 207,000. BUN 34, creatinine 2.26, sodium 141, glucose 92. Troponin elevation. Positive cocaine in the urine toxicology. ASSESSMENT: Encephalopathy, acute, possibly related to multiple medical problems and cocaine use. The possibility of associated ischemic stroke are considerations. Unfortunately an MRI is not feasible. Therefore as discussed with the staff, a CT brain without contrast will be obtained. At this point, due to her obtundation, she is not capable of providing a full consent for the procedure. I will follow the patient with you. Thank you for asking us to assist in her care. MD ARA Walter/STEPHANIE /3:03 PM /4:30 PM
[2017-04-20] MEDS: HEPARIN SODIUM - IV 10,000 UNITS/10 ML VIAL IV PUSH PRN (20:34)
[2017-04-20] MEDS ORDERED: EPINEPHrine HCL (1:10,000) 1 MG/10 ML SYRINGE ONE (21:06)
[2017-04-20] MEDS ORDERED: ATROPINE SULFATE 1 MG/10 ML SYRINGE ONE (21:07)
--- NOTE | 2017-04-20 22:03 | RADRPT ---
EXAM DATE/TIME: 04/20/2017 21:20 [place] COMPARISON: No previous studies available for comparison. INDICATIONS : General weakness and lethargic. RADIATION DOSE: 47.12 CTDIvol (mGy) MEDICAL HISTORY : Cardiovascular disease. Cerebrovascular disease. Hypertension.CHF SURGICAL HISTORY : Tubal ligation. ENCOUNTER: Initial ACUITY: 1 day PAIN SCALE: 2/10 LOCATION: Bilateral cranial TECHNIQUE: Multiple contiguous axial images were obtained of the head. Using automated exposure control and adj ustment of the mA and/or kV according to patient size, radiation dose was kept as low as reasonably a chievable to obtain optimal diagnostic quality images. DICOM format image data is available electro nically for review and comparison. FINDINGS: CEREBRUM: Mild encephalomalacia of the right medial occipital mid convexities. The ventricles are normal for ag e. No evidence of midline shift, mass lesion, hemorrhage or acute infarction. No extra-axial fluid collections are seen. POSTERIOR FOSSA: The cerebellum and brainstem are intact. The 4th ventricle is midline. The cerebellopontine angle i s unremarkable. EXTRACRANIAL: The visualized portion of the orbits is intact. SKULL: The calvaria is intact. No evidence of skull fracture. CONCLUSION: 1. Mild focal encephalomalacia defect in the right medial occipital mid convexities consistent with p rior [employer] territory infarction. 2. No acute intracranial normality. Per Diallo MD on April 20, 2017 at 22:01 Board Certified Radiologist. This report was verified electronically.
[2017-04-21] VITALS (30 sets, daily range): BP systolic 101–142; BP diastolic 58–87; PULSE 82–108; RESP 16–18; TEMP 98.1–98.7; O2SAT 91–98
[2017-04-21 03:48] LABS: BICARBONATE 30.4 MEQ/L (21.0-32.0); CALCIUM 8.1 MG/DL (8.5-10.1); CREATININE 2.08 MG/DL (0.50-1.00)
[2017-04-21 03:50] LABS: CHOLESTEROL/ HDL RATIO 3.79 RATIO; HDL CHOLESTEROL 32.9 MG/DL (40.0-60.0)
--- NOTE | 2017-04-21 07:40 | HHI.PR ---
Subjective Remarks in no acute distress. is more alert today. denies chest pain. complaining of some dysuria. Objective Vitals Vital Signs Date Time Temp Pulse Resp B/P (MAP) Pulse Ox O2 Delivery O2 Flow Rate FiO2 04/21/17 06:00 89 04/21/17 05:00 104 04/21/17 04:00 90 04/21/17 04:00 98.4 97 16 101/73 (82) 97 04/21/17 03:00 92 04/21/17 02:00 106 04/21/17 01:00 106 04/21/17 00:23 82 04/21/17 00:00 98.5 98 18 118/58 (78) 98 04/20/17 23:00 93 04/20/17 22:00 92 04/20/17 21:00 92 04/20/17 20:20 93 Nasal Cannula 2.00 04/20/17 20:20 93 04/20/17 20:00 97.9 90 18 101/82 (88) 96 04/20/17 19:00 101 04/20/17 19:00 95 Nasal Cannula 2.00 04/20/17 18:00 92 04/20/17 18:00 118/97 (104) 04/20/17 17:00 104 04/20/17 16:00 96 04/20/17 16:00 98.6 89 22 155/110 (125) 95 04/20/17 16:00 Nasal Cannula 2.00 04/20/17 15:00 110 04/20/17 14:00 96 04/20/17 13:00 94 04/20/17 12:00 100 04/20/17 12:00 100 04/20/17 12:00 98.4 95 16 147/107 (120) 94 04/20/17 11:00 94 04/20/17 10:00 90 04/20/17 09:00 86 04/20/17 08:23 95 Nasal Cannula 2.00 04/20/17 08:00 99.0 92 14 150/108 (122) 98 04/20/17 08:00 92 I/O 04/20/17 04/20/17 04/20/17 04/21/17 04/21/17 04/21/17 07:00 15:00 23:00 07:00 15:00 23:00 Intake Total 118.5 ml 704 ml 599.4 ml Output Total 450 ml 2200 ml 650 ml Balance -331.5 ml -1496 ml -50.6 ml Intake Oral 100 ml 620 ml 520 ml IV Total 18.5 ml 84 ml 79.4 ml Output Urine Total 450 ml 2200 ml 650 ml # Voids 1 # Bowel Movements 0 0 Result Diagram: 04/20/17 0857 04/21/17 0312 Imaging Last Impressions Head CT 04/20/17 0000 Signed Impressions: Service Date/Time: Thursday, April 20, 2017 21:20 - CONCLUSION: 1. Mild focal encephalomalacia defect in the right medial occipital mid convexities consistent with prior ELECT[employer]IC[employer] territory infarction. 2. No acute intracranial normality. Per Diallo MD Chest X-Ray 04/19/17 0000 Signed Impressions: Service Date/Time: March 19:28 - CONCLUSION: 1. Cardiomegaly with minimal central pulmonary vascular congestion. Per Diallo MD Objective Remarks GENERAL: This is a well-nourished, well-developed patient, in no apparent distress. CARDIOVASCULAR: Regular rate and regular rhythm without murmurs, gallops, or rubs. RESPIRATORY: Clear to auscultation. Breath sounds equal bilaterally. No wheezes , rales, or rhonchi. GASTROINTESTINAL: Abdomen soft, non-tender, nondistended. Normal, active bowel sounds MUSCULOSKELETAL: Extremities without clubbing, cyanosis, or edema. NEURO: Alert & Oriented x4 to person, place, time, situation. Moves all ext x4 Medications and IVs Inpatient Medications Albuterol/ Ipratropium (Duoneb Neb) 1 ampule Q4HR NEB PRN NEB SOB/WHEEZING; Start 04/19/17 at 22:45 Amlodipine Besylate (Norvasc) 5 mg ONCE ONCE PO Last administered on at 16:15; Start 04/20/17 at 16:15; Stop 04/20/17 at 16:16; Status DC Aspirin (Aspirin) 325 mg DAILY PO Last administered on 04/20/17at 08:03; Start 04/20/17 at 09:00 Aspirin (Ecotrin Ec) 81 mg DAILY PO ; Start 04/20/17 at 09:00; Status Future Hold Clonidine (Catapres) 0.1 mg Q6H PRN PO SEE LABEL COMMENTS Last administered on 04/20/17 12:16; Start 04/20/17 at 00:15 Furosemide (Lasix Inj) 40 mg ONCE ONCE IV PUSH Last administered on 04/19/17 23:03; Start 04/19/17 at 22:45; Stop 04/19/17 at 22:53; Status DC Furosemide (Lasix) 40 mg DAILY PO ; Start 04/20/17 at 09:00; Status Future Hold Heparin Sodium (Porcine) (Heparin Inj) 2,500 units UNSCH PRN IV PUSH APTT 25 TO 39 Last administered on 04/20/17 20:34; Start 04/20/17 at 09:30 Heparin Sodium/ Dextrose 250 ml @ 10 mls/hr TITRATE PRN IV Coagulation Management Last administered on 04/20/17 04:41; Start 04/20/17 at 03:30 Hydralazine HCl (Apresoline) 25 mg BID PO Last administered on 04/20/17 20:34 ; Start 04/20/17 at 00:15 Morphine Sulfate (Morphine Inj) 2 mg Q3H PRN IV PUSH PAIN SCALE 6 TO 10; Start 04/19/17 at 22:45 Nitroglycerin (Nitrostat Sl) 0.4 mg Q5M PRN SL ANGINA; Start 04/19/17 at 22:45 Potassium Chloride (KCl) 10 meq DAILY PO Last administered on 04/20/17 08:02; Start 04/20/17 at 09:00 Risperidone (risperDAL) 2 mg Q12HR PO Last administered on 04/20/17 20:34; Start 04/20/17 at 00:15 Sertraline HCl (Zoloft) 100 mg DAILY PO Last administered on 04/20/17 11:38; Start 04/20/17 at 09:00 Sodium Chloride (NS Flush) 2 ml UNSCH PRN IV FLUSH FLUSH AFTER USING IV ACCESS ; Start 04/19/17 at 22:45 Spironolactone (Aldactone) 25 mg BIDPC PO Last administered on 04/20/17 17:30 ; Start 04/20/17 at 00:15 Tiotropium [place] (Spiriva Inh) 18 mcg DAILY INH Last administered on 2/23/ 18at 09:00; Start 04/20/17 at 09:00 Trazodone HCl (Desyrel) 50 mg HS PO Last administered on 04/20/17at 20:34; Start 04/20/17 at 00:15 A/P Assessment and Plan 1. acute on chronic systolic CHF BNP 2719, chest x-ray with prominent pulmonary vasculature, personally reviewed continue IV Lasix no JANETH-I at this time due to renal insufficiency. Supplemental oxygen as needed monitor I/O and renal function. 2. Acute on chronic renal insufficiency Monitor renal function 3. NSTEMI continue with heparin drip and aspirin- no BB due to cocaine abuse cardiology following- patient reportedly refused the cardiac cath. 4- acute encephalopathy- due to cocaine?- improving CT head with no acute abnormality. neurology consult appreciated. 5-UTI start on antibiotic- follow the UC. 6. Hypertension/hyperlipidemia/COPD DuoNeb's Continue home medications once reconciled 7. Cocaine abuse Cessation counseling provided DVT prophylaxis; on Heparin drip. Discharge Planning awaiting cardiology follow-up and recommendations. Yahir Hathaway MD Apr 21, 2017 07:40
[2017-04-21] MEDS ORDERED: POTASSIUM CHLORIDE 20 MEQ CONTROLLED RELEASE TAB PO ONE (07:45)
[2017-04-21] MEDS: POTASSIUM CHLORIDE 10 MEQ CONTROLLED RELEASE TAB PO SCH (08:44)
[2017-04-21] MEDS: cefTRIAXone INJ 1,000 MG in SODIUM CHLORIDE 0.9% INJ 100 ML IV SCH (08:44)
[2017-04-21] MEDS: hydrALAZINE HCL 25 MG TAB PO SCH ×2 (08:45→21:14)
[2017-04-21] MEDS: risperiDONE 1 MG TAB PO SCH ×2 (08:45→21:15)
[2017-04-21] MEDS: SPIRONOLACTONE 25 MG TAB PO SCH ×2 (08:46→18:20)
[2017-04-21] MEDS: ASPIRIN 325 MG TAB PO SCH (08:46)
[2017-04-21] MEDS: FUROSEMIDE 40 MG/4 ML VIAL IV PUSH SCH ×2 (08:46→18:25)
[2017-04-21] MEDS: SERTRALINE HCL 100 MG TAB PO SCH (08:46)
[2017-04-21] MEDS: SODIUM CHLORIDE 0.9% FLUSH 10 ML FLUSH IV FLUSH SCH ×2 (08:47→21:15)
[2017-04-21] MEDS: amLODIPine BESYLATE 5 MG TAB PO SCH (10:32)
--- NOTE | 2017-04-21 10:35 | PD.CARD.PN ---
Subjective Subjective Remarks more lucid, denies chest pain Objective Medications Current Medications Medications (Trade) Dose Ordered Sig/Stanislaw Route Start Time Stop Time Status Last Admin (NS Flush) 2 ml BID IV FLUSH 04/20/17 09:00 04/21/17 08:47 (NS Flush) 2 ml UNSCH PRN IV FLUSH 04/19/17 22:45 (Aspirin) 325 mg DAILY PO 04/20/17 09:00 04/21/17 08:46 (Nitrostat Sl) 0.4 mg Q5M PRN SL 04/19/17 22:45 (Morphine Inj) 2 mg Q3H PRN IV PUSH 04/19/17 22:45 (Lasix Inj) 40 mg BID@ IV PUSH 04/20/17 09:00 04/21/17 08:46 (Duoneb Neb) 1 ampule Q4HR NEB PRN NEB 04/19/17 22:45 (Catapres) 0.1 mg Q6H PRN PO 04/20/17 00:15 04/20/17 12:16 (Norvasc) 5 mg DAILY PO 04/20/17 09:00 04/20/17 08:03 (Ecotrin Ec) 81 mg DAILY PO 04/20/17 09:00 Future Hold (Lasix) 40 mg DAILY PO 04/20/17 09:00 Future Hold (Apresoline) 25 mg BID PO 04/20/17 00:15 04/21/17 08:45 (KCl) 10 meq DAILY PO 04/20/17 09:00 04/21/17 08:44 (risperDAL) 2 mg Q12HR PO 04/20/17 00:15 04/21/17 08:45 (Zoloft) 100 mg DAILY PO 04/20/17 09:00 04/21/17 08:46 (Aldactone) 25 mg BIDPC PO 04/20/17 00:15 04/21/17 08:46 (Spiriva Inh) 18 mcg DAILY INH 04/20/17 09:00 04/20/17 09:00 (Desyrel) 50 mg HS PO 04/20/17 00:15 04/20/17 20:34 (Heparin Inj) 5,000 units UNSCH PRN IV PUSH 04/20/17 09:30 (Heparin Inj) 2,500 units UNSCH PRN IV PUSH 04/20/17 09:30 04/20/17 20:34 Heparin Sodium/ Dextrose 250 ml @ 10 mls/hr TITRATE PRN IV 04/20/17 03:30 04/20/17 04:41 Ceftriaxone Sodium 1000 mg/ Sodium Chloride 100 ml @ 200 mls/hr Q24H IV 04/21/17 08:00 04/21/17 08:44 Vital Signs / I&O Vital Signs Date Time Temp Pulse Resp B/P (MAP) Pulse Ox O2 Delivery O2 Flow Rate FiO2 04/21/17 09:13 96 04/21/17 08:57 98.5 98 18 135/79 (97) 94 04/21/17 08:57 98 Nasal Cannula 2.00 04/21/17 08:57 98 04/21/17 06:00 89 04/21/17 05:00 104 04/21/17 04:00 90 04/21/17 04:00 98.4 97 16 101/73 (82) 97 04/21/17 03:00 92 04/21/17 02:00 106 04/21/17 01:00 106 04/21/17 00:23 82 04/21/17 00:00 98.5 98 18 118/58 (78) 98 04/20/17 23:00 93 04/20/17 22:00 92 04/20/17 21:00 92 04/20/17 20:20 93 Nasal Cannula 2.00 04/20/17 20:20 93 04/20/17 20:00 97.9 90 18 101/82 (88) 96 04/20/17 19:00 101 04/20/17 19:00 95 Nasal Cannula 2.00 04/20/17 18:00 92 04/20/17 18:00 118/97 (104) 04/20/17 17:00 104 04/20/17 16:00 96 04/20/17 16:00 98.6 89 22 155/110 (125) 95 04/20/17 16:00 Nasal Cannula 2.00 04/20/17 15:00 110 04/20/17 14:00 96 04/20/17 13:00 94 04/20/17 12:00 100 04/20/17 12:00 100 04/20/17 12:00 98.4 95 16 147/107 (120) 94 04/20/17 11:00 94 I/O 04/20/17 04/20/17 04/20/17 04/21/17 04/21/17 04/21/17 07:00 15:00 23:00 07:00 15:00 23:00 Intake Total 118.5 ml 704 ml 599.4 ml Output Total 450 ml 2200 ml 650 ml Balance -331.5 ml -1496 ml -50.6 ml Intake Oral 100 ml 620 ml 520 ml IV Total 18.5 ml 84 ml 79.4 ml Output Urine Total 450 ml 2200 ml 650 ml # Voids 1 # Bowel Movements 0 0 Physical Exam GENERAL: SKIN: Warm and dry. HEAD: Normocephalic. EYES: No scleral icterus. No injection or drainage. NECK: Supple, trachea midline. No JVD or lymphadenopathy. CARDIOVASCULAR: Regular rate and rhythm without murmurs, gallops, or rubs. RESPIRATORY: Breath sounds equal bilaterally. No accessory muscle use. GASTROINTESTINAL: Abdomen soft, non-tender, nondistended. MUSCULOSKELETAL: No cyanosis, or edema. BACK: Nontender without obvious deformity. No CVA tenderness. Laboratory Laboratory Tests Test 04/20/17 13:25 04/20/17 18:56 04/21/17 03:12 Activated Partial Thromboplast Time 41.1 SEC 34.5 SEC 40.9 SEC Blood Urea Nitrogen 33 MG/DL Creatinine 2.08 MG/DL Random Glucose 116 MG/DL Calcium Level 8.1 MG/DL Sodium Level 143 MEQ/L Potassium Level 3.4 MEQ/L Chloride Level 105 MEQ/L Carbon Dioxide Level 30.4 MEQ/L Anion Gap 8 MEQ/L Estimat Glomerular Filtration Rate 30 ML/MIN Triglycerides Level 46 MG/DL Cholesterol Level 125 MG/DL LDL Cholesterol 83 MG/DL HDL Cholesterol 32.9 MG/DL Cholesterol/HDL Ratio 3.79 RATIO Assessment and Plan Problem List: (1) NSTEMI (non-ST elevated myocardial infarction) ICD Codes: I21.4 - Non-ST elevation (NSTEMI) myocardial infarction (2) CRI (chronic renal insufficiency) ICD Codes: N18.9 - Chronic kidney disease, unspecified (3) ARF (acute renal failure) ICD Codes: N17.9 - Acute kidney failure, unspecified (4) Cocaine abuse ICD Codes: F14.10 - Cocaine abuse Status: Acute (5) Schizoaffective disorder ICD Codes: F25.9 - Schizoaffective disorder, unspecified Status: Acute (6) Non-ischemic cardiomyopathy ICD Codes: I42.8 - Other cardiomyopathies Status: Acute (7) Cocaine addiction ICD Codes: F14.20 - Cocaine addiction Status: Acute (8) Bipolar 1 disorder ICD Codes: F31.9 - Bipolar I disorder Status: Acute (9) Schizoaffective disorder, bipolar type ICD Codes: F25.0 - Schizoaffective disorder, bipolar type (10) S/P ICD (internal cardiac defibrillator) procedure ICD Codes: Z95.810 - Presence of automatic (implantable) cardiac defibrillator Status: Acute (11) CHF (congestive heart failure) ICD Codes: I50.9 - Heart failure, unspecified Status: Acute Assessment and Plan 1.) NSTEMI - assymptomatic, continue aspirin, heparin drip; rec cath if cleared by renal, neuro and patient consents; check lfts 2.) Cardiomyopathy - beta eleni held due to cocaine use, jono held due to arf/ cri, clinically improving on lasix and aldactone 3.) Advised patient to dc cocaine and tobacco Problem Qualifiers (1) CHF (congestive heart failure): Qualified Codes: I50.9 - Heart failure, unspecified Joao Archibald MD Apr 21, 2017 10:35
[2017-04-21] MEDS: HEPARIN SODIUM - IV 10,000 UNITS/10 ML VIAL IV PUSH PRN (13:37)
[2017-04-21] MEDS: TIOTROPIUM BROMIDE 18 MCG INH INH SCH (15:41)
--- NOTE | 2017-04-21 21:09 | MB ---
cc: INO KENNEY MD DATE OF CONSULTATION: 04/21/2017. REASON FOR CONSULTATION: Acute on chronic kidney disease management. HISTORY OF PRESENT ILLNESS: This is a 51-year-old female with a history of hypertension, COPD and apparent chronic kidney disease as well as CHF with an ejection fraction of 10% to 15% in June of 2016. The patient had been scheduled to see a special education preschool teacher as an outpatient; however, never followed up with this. The patient presented here with symptoms of chest pain and positive cocaine use. She last used cocaine five days ago. The patient was admitted and was seen with cardiology. She was assessed with a non-S-T elevation VT and the patient was started on medical treatment with heparin drip. Beta blockers were held given cocaine use and the patient was also given Lasix for apparent CHF exacerbation. The patient had some initial confusion and somnolence and encephalopathy. She was seen with neurology and symptoms have been attributed to possible cocaine use. Her symptoms apparently have improved today. At this point, the patient is resting in bed comfortably and is awake and alert. Nephrology was consulted for further evaluation of renal issues. Her creatinine has ranged between 1.9 and 2.1 over the last three months. She presented here with a creatinine level of 2.2, which improved to a level of 2.0 today. Nephrology was consulted for further evaluation. REVIEW OF SYSTEMS: The patient reports no chest pains at this time; however, had significant chest pains yesterday. No nausea. No vomiting. No diarrhea. No dizziness. No loss of consciousness. Otherwise, the review of systems is negative. PAST MEDICAL HISTORY: The past medical history includes: 1. Congestive heart failure with an ejection fraction of 10% to 15% with AICD. 2. Hypertension. 3. COPD. 4. Chronic kidney disease. 5. Dyslipidemia. 6. Congestive heart failure. PAST SURGICAL HISTORY: The past surgical history includes: 1. AICD. 2. Bilateral tubal ligation. MEDICATIONS AT HOME: 1. Risperdal. 2. Cephalexin. 3. Trazodone. 4. Spiriva. 5. Aldactone. 6. Zoloft. 7. Potassium with Klor-Con 10. 8. Metoprolol 100 milligrams p.o. twice a day. 9. Hydralazine. 10. Lasix 40 milligrams daily. 11. Enalapril. 12. Cephalexin. 13. Norvasc. 14. Keflex. ALLERGIES: NO KNOWN DRUG ALLERGIES. FAMILY HISTORY: Father with kidney disease. SOCIAL HISTORY: The patient smokes four cigarettes per day. No alcohol use. The patient smokes crack cocaine frequently, and last used it five days ago. PHYSICAL EXAMINATION: VITAL SIGNS: At the time of evaluation, temperature 98.7, pulse 108, blood pressure 139/72, pulse oximetry 97% on two liters nasal cannula. GENERAL: Awake, alert and oriented and in no apparent distress. HEAD, EYES, EARS, NOSE, THROAT: Neck soft supple. CARDIAC: Regular rate and rhythm. PULMONARY: Lungs clear to auscultation. ABDOMEN: The abdomen is soft, nontender and nondistended. EXTREMITIES: No edema. LABORATORY FINDINGS: Sodium 143, potassium 3.4, chloride 105, bicarbonate 30, BUN 33, creatinine 2.08, glucose of 116. Troponin trended up to 3.49. ASSESSMENT AND PLAN: 1. Chronic kidney disease stage III: The patient has a baseline creatinine between 1.9 and 2.1 corresponding to chronic kidney disease stage III. She has no significant findings of any proteinuria on her urinalysis. She likely has chronic kidney disease secondary to hypertension. At this point, I will go ahead and order a renal ultrasound to further evaluate the kidneys. The urinalysis was negative for any protein. There is a question here if the patient needs possible cardiac interventions with a cardiac catheterization. Should a cardiac catheterization be necessary, would recommend to start IV fluids with normal saline at 75 cc per hour for 24-48 hours prior to a cardiac catheterization to help minimize any contrast nephrotoxicity. I discussed this at length with the patient and discussed the pros and cons of possible cardiac catheterization with risks of possible kidney issues. Should cardiac catheterization not be necessary, continue with current medical management as it appears that her creatinine is otherwise stabilizing. 2. Congestive heart failure exacerbation: The patient presented with initial congestive heart failure exacerbation in the setting of non-S-T myocardial infarction. She is on Lasix and Aldactone. She has had good urine output and her renal function is stable. Continue at this point unless cardiac catheterization is needed - then can stop diuretics and continue with IV fluids to prepare for any potential contrast nephropathy. 3. Non-S-T elevation myocardial infarction: The patient is currently on a heparin drip and is being treated with diuretics. Continue to follow up with cardiology. Patient with non-S-T myocardial infarction in the setting of cocaine use. 4. Encephalopathy. The patient had some initial encephalopathy. Clinically it appears to be improved now. This may have been secondary to cocaine. The patient was seen with neurology. Continue to monitor. MD MAGUE Daniels/STEPHANIE /8:43 PM /8:52 PM MTDMat
[2017-04-21] MEDS: traZODone HCL 50 MG TAB PO SCH (21:15)
--- NOTE | 2017-04-21 22:31 | RADRPT ---
EXAM DATE/TIME: 04/21/2017 22:10 [facility] COMPARISON: No previous studies available for comparison. INDICATIONS : Increased BUN/creatinine. MEDICAL HISTORY : Stroke. Myocardial infarction. Hypertension. Hearing loss. Glasses. Congestive heart failure. COPD. A sthma. Sleep apnea. Dyspnea. Renal disease. Anxiety. Depression. SURGICAL HISTORY : Pacemaker. Tubal ligation. ENCOUNTER: Initial ACUITY: 1 day PAIN SCORE: 0/10 LOCATION: Bilateral flank MEASUREMENTS: RIGHT KIDNEY: 10.1 x 3.5 x 3.8 cm LEFT KIDNEY: 10.0 x 3.6 x 3.8 cm FINDINGS: RIGHT KIDNEY: Renal cortex is normal in thickness and echotexture. No hydronephrosis, stone, or mass. LEFT KIDNEY: Renal cortex is normal in thickness and echotexture. No hydronephrosis, stone, or mass. BLADDER: Within normal limits given the degree of distension. CONCLUSION: No hydronephrosis or other abnormality is identified to explain the elevated laboratory values. Reynold Bolton MD on April 21, 2017 at 22:29 Board Certified Radiologist. This report was verified electronically.
[2017-04-22] VITALS (26 sets, daily range): BP systolic 114–136; BP diastolic 75–88; PULSE 87–106; RESP 16–20; TEMP 98–99.1; O2SAT 94–99
[2017-04-22 03:44] LABS: ALBUMIN 2.5 GM/DL (3.4-5.0); BICARBONATE 30.6 MEQ/L (21.0-32.0); CALCIUM 8.5 MG/DL (8.5-10.1); CREATININE 1.9 MG/DL (0.50-1.00); DIRECT BILIRUBIN ADULT 0.1 MG/DL (0.0-0.2)
[2017-04-22 03:47] LABS: INDIRECT BILIRUBIN 0.4 MG/DL (0.0-0.8); TOTAL BILIRUBIN ADULT 0.5 MG/DL (0.2-1.0); TOTAL PROTEIN 6.1 GM/DL (6.4-8.2)
[2017-04-22] MEDS ORDERED: CARVEDILOL 3.125 MG TAB PO ONE (08:00)
[2017-04-22] MEDS ORDERED: ATORVASTATIN 10 MG TAB PO ONE (08:00)
[2017-04-22] MEDS: cefTRIAXone INJ 1,000 MG in SODIUM CHLORIDE 0.9% INJ 100 ML IV SCH (08:11)
--- NOTE | 2017-04-22 08:43 | HHI.PR ---
Review/Management Daily Summary 04/22 alert and oriented this am stable neuro ct brain old right medial infarct improved encephalopathy prn neuro Subjective Active Medications Current Medications Medications (Trade) Dose Ordered Sig/Stanislaw Route Start Time Stop Time Status Last Admin (NS Flush) 2 ml BID IV FLUSH 04/20/17 09:00 04/21/17 21:15 (NS Flush) 2 ml UNSCH PRN IV FLUSH 04/19/17 22:45 (Aspirin) 325 mg DAILY PO 04/20/17 09:00 04/21/17 08:46 (Nitrostat Sl) 0.4 mg Q5M PRN SL 04/19/17 22:45 (Morphine Inj) 2 mg Q3H PRN IV PUSH 04/19/17 22:45 (Lasix Inj) 40 mg BID@ IV PUSH 04/20/17 09:00 04/21/17 18:25 (Duoneb Neb) 1 ampule Q4HR NEB PRN NEB 04/19/17 22:45 (Catapres) 0.1 mg Q6H PRN PO 04/20/17 00:15 04/20/17 12:16 (Norvasc) 5 mg DAILY PO 04/20/17 09:00 04/21/17 10:32 (Ecotrin Ec) 81 mg DAILY PO 04/20/17 09:00 Future Hold (Lasix) 40 mg DAILY PO 04/20/17 09:00 Future Hold (Apresoline) 25 mg BID PO 04/20/17 00:15 04/21/17 21:14 (KCl) 10 meq DAILY PO 04/20/17 09:00 04/21/17 08:44 (risperDAL) 2 mg Q12HR PO 04/20/17 00:15 04/21/17 21:15 (Zoloft) 100 mg DAILY PO 04/20/17 09:00 04/21/17 08:46 (Aldactone) 25 mg BIDPC PO 04/20/17 00:15 04/21/17 18:20 (Spiriva Inh) 18 mcg DAILY INH 04/20/17 09:00 04/21/17 15:41 (Desyrel) 50 mg HS PO 04/20/17 00:15 04/21/17 21:15 (Heparin Inj) 5,000 units UNSCH PRN IV PUSH 04/20/17 09:30 (Heparin Inj) 2,500 units UNSCH PRN IV PUSH 04/20/17 09:30 04/21/17 13:37 Heparin Sodium/ Dextrose 250 ml @ 10 mls/hr TITRATE PRN IV 04/20/17 03:30 04/20/17 04:41 Ceftriaxone Sodium 1000 mg/ Sodium Chloride 100 ml @ 200 mls/hr Q24H IV 04/21/17 08:00 04/22/17 08:11 (Lipitor) 10 mg HS PO 04/22/17 21:00 (Coreg) 3.125 mg Q12HR PO 04/22/17 09:00 Allergies Allergies Coded Allergies No Known Allergies (Verified Allergy, Unknown, 04/19/17) Exam I&O / VS Vital Signs Date Time Temp Pulse Resp B/P (MAP) Pulse Ox O2 Delivery O2 Flow Rate FiO2 04/22/17 08:00 98.2 92 18 129/88 (102) 96 04/22/17 08:00 93 04/22/17 07:52 99 Nasal Cannula 2.00 04/22/17 07:29 93 Room Air 04/22/17 07:00 92 04/22/17 06:00 93 04/22/17 06:00 98.2 93 16 122/85 (97) 96 04/22/17 05:00 88 04/22/17 04:00 92 04/22/17 03:00 93 04/22/17 02:00 94 04/22/17 01:00 96 04/22/17 00:00 92 04/22/17 00:00 98.2 90 16 121/75 (90) 94 04/21/17 23:00 99 04/21/17 22:00 98 04/21/17 21:00 98 04/21/17 20:00 98.1 91 16 142/87 (105) 91 04/21/17 20:00 92 Nasal Cannula 04/21/17 20:00 98 04/21/17 19:40 97 Nasal Cannula 2.00 04/21/17 19:00 103 04/21/17 18:30 139/72 (94) 04/21/17 18:00 108 04/21/17 17:00 98 04/21/17 16:10 98 04/21/17 16:10 98.7 97 18 112/74 (87) 95 04/21/17 16:00 90 04/21/17 15:02 90 04/21/17 14:00 96 04/21/17 13:00 95 04/21/17 12:00 98.1 94 18 105/74 (84) 94 04/21/17 12:00 98 04/21/17 11:36 98 04/21/17 11:00 98 04/21/17 10:00 108 04/21/17 09:13 96 04/21/17 08:57 98.5 98 18 135/79 (97) 94 04/21/17 08:57 98 Nasal Cannula 2.00 04/21/17 08:57 98 Objective Radiology Results Laboratory Tests Test 04/19/17 19:30 04/20/17 02:10 04/20/17 02:13 04/20/17 08:57 Monocytes (%) (Auto) 8.5 % (0.0-8.0) Eosinophils (%) (Auto) 8.1 % (0.0-4.0) Eosinophils # (Auto) 0.6 TH/MM3 (0-0.4) Prothrombin Time 12.3 SEC (9.8-11.6) 12.3 SEC (9.8-11.6) Activated Partial Thromboplast Time 23.1 SEC (24.3-30.1) 114.3 SEC (24.3-30.1) Blood Urea Nitrogen 34 MG/DL (7-18) Creatinine 2.26 MG/DL (0.50-1.00) Calcium Level 8.3 MG/DL (8.5-10.1) Potassium Level 3.3 MEQ/L (3.5-5.1) Estimat Glomerular Filtration Rate 28 ML/MIN (>89) Total Creatine Kinase 333 U/L (26-192) 365 U/L (26-192) 308 U/L (26-192) Creatine Kinase MB 9.8 NG/ML (0.5-3.6) 17.6 NG/ML (0.5-3.6) 17.4 NG/ML (0.5-3.6) Troponin I 0.58 NG/ML (0.02-0.05) 2.07 NG/ML (0.02-0.05) 3.49 NG/ML (0.02-0.05) B-Type Natriuretic Peptide 2719 PG/ML (0-100) Urine Occult Blood SMALL (NEG) Urine Leukocyte Esterase LARGE (NEG) Urine RBC 15 /hpf (0-3) Urine WBC 32 /hpf (0-5) Urine Bacteria RARE /hpf (NONE) Urine Cocaine Screen POS (NEG) Creatine Kinase MB % 4.8 % (0.0-4.0) 5.6 % (0.0-4.0) Red Blood Count 5.39 MIL/MM3 (4.00-5.30) Hemoglobin 15.6 GM/DL (11.6-15.3) Hematocrit 47.6 % (35.0-46.0) Test 04/20/17 13:25 04/20/17 18:56 04/21/17 03:12 04/21/17 11:48 Activated Partial Thromboplast Time 41.1 SEC (24.3-30.1) 34.5 SEC (24.3-30.1) 40.9 SEC (24.3-30.1) 34.7 SEC (24.3-30.1) Blood Urea Nitrogen 33 MG/DL (7-18) Creatinine 2.08 MG/DL (0.50-1.00) Random Glucose 116 MG/DL (74-106) Calcium Level 8.1 MG/DL (8.5-10.1) Potassium Level 3.4 MEQ/L (3.5-5.1) Estimat Glomerular Filtration Rate 30 ML/MIN (>89) HDL Cholesterol 32.9 MG/DL (40.0-60.0) Test 04/21/17 19:23 04/22/17 02:50 Activated Partial Thromboplast Time 44.7 SEC (24.3-30.1) 42.2 SEC (24.3-30.1) Blood Urea Nitrogen 27 MG/DL (7-18) Creatinine 1.90 MG/DL (0.50-1.00) Total Protein 6.1 GM/DL (6.4-8.2) Albumin 2.5 GM/DL (3.4-5.0) Estimat Glomerular Filtration Rate 34 ML/MIN (>89) Last 48 hours Impressions Renal Ultrasound 04/21/17 0000 Signed Impressions: Service Date/Time: Friday, April 21, 2017 22:10 - CONCLUSION: No hydronephrosis or other abnormality is identified to explain the elevated laboratory values. Reynold Bolton MD Micro and Labs Laboratory Tests Test 04/21/17 11:48 04/21/17 19:23 04/22/17 02:50 Activated Partial Thromboplast Time 34.7 44.7 42.2 Potassium Level 3.8 3.7 Blood Urea Nitrogen 27 Creatinine 1.90 Random Glucose 91 Total Protein 6.1 Albumin 2.5 Calcium Level 8.5 Alkaline Phosphatase 80 Aspartate Amino Transf (AST/SGOT) 26 Alanine Aminotransferase (ALT/SGPT) 33 Total Bilirubin 0.5 Direct Bilirubin 0.1 Sodium Level 139 Chloride Level 100 Carbon Dioxide Level 30.6 Anion Gap 8 Estimat Glomerular Filtration Rate 34 Indirect Bilirubin 0.4 Total Creatine Kinase 91 Date/Time Source Procedure Growth Status 04/20/17 02:10 Urine Clean Catch Urine Culture - Final 50-100,000 CFU/ML MIXED ARMIN... Complete Abraham Perry MD Apr 22, 2017 08:43
--- NOTE | 2017-04-22 09:26 | PD.CARD.PN ---
Subjective Subjective Remarks more lucid, denies chest pain Objective Medications Current Medications Medications (Trade) Dose Ordered Sig/Stanislaw Route Start Time Stop Time Status Last Admin (NS Flush) 2 ml BID IV FLUSH 04/20/17 09:00 04/21/17 21:15 (NS Flush) 2 ml UNSCH PRN IV FLUSH 04/19/17 22:45 (Aspirin) 325 mg DAILY PO 04/20/17 09:00 04/21/17 08:46 (Nitrostat Sl) 0.4 mg Q5M PRN SL 04/19/17 22:45 (Morphine Inj) 2 mg Q3H PRN IV PUSH 04/19/17 22:45 (Lasix Inj) 40 mg BID@ IV PUSH 04/20/17 09:00 04/21/17 18:25 (Duoneb Neb) 1 ampule Q4HR NEB PRN NEB 04/19/17 22:45 (Catapres) 0.1 mg Q6H PRN PO 04/20/17 00:15 04/20/17 12:16 (Norvasc) 5 mg DAILY PO 04/20/17 09:00 04/21/17 10:32 (Ecotrin Ec) 81 mg DAILY PO 04/20/17 09:00 Future Hold (Lasix) 40 mg DAILY PO 04/20/17 09:00 Future Hold (Apresoline) 25 mg BID PO 04/20/17 00:15 04/21/17 21:14 (KCl) 10 meq DAILY PO 04/20/17 09:00 04/21/17 08:44 (risperDAL) 2 mg Q12HR PO 04/20/17 00:15 04/21/17 21:15 (Zoloft) 100 mg DAILY PO 04/20/17 09:00 04/21/17 08:46 (Aldactone) 25 mg BIDPC PO 04/20/17 00:15 04/21/17 18:20 (Spiriva Inh) 18 mcg DAILY INH 04/20/17 09:00 04/21/17 15:41 (Desyrel) 50 mg HS PO 04/20/17 00:15 04/21/17 21:15 (Heparin Inj) 5,000 units UNSCH PRN IV PUSH 04/20/17 09:30 (Heparin Inj) 2,500 units UNSCH PRN IV PUSH 04/20/17 09:30 04/21/17 13:37 Heparin Sodium/ Dextrose 250 ml @ 10 mls/hr TITRATE PRN IV 04/20/17 03:30 04/20/17 04:41 Ceftriaxone Sodium 1000 mg/ Sodium Chloride 100 ml @ 200 mls/hr Q24H IV 04/21/17 08:00 04/22/17 08:11 (Lipitor) 10 mg HS PO 04/22/17 21:00 (Coreg) 3.125 mg Q12HR PO 04/22/17 09:00 Vital Signs / I&O Vital Signs Date Time Temp Pulse Resp B/P (MAP) Pulse Ox O2 Delivery O2 Flow Rate FiO2 04/22/17 08:00 98.2 92 18 129/88 (102) 96 04/22/17 08:00 93 04/22/17 07:52 99 Nasal Cannula 2.00 04/22/17 07:29 93 Room Air 04/22/17 07:00 92 04/22/17 06:00 93 04/22/17 06:00 98.2 93 16 122/85 (97) 96 04/22/17 05:00 88 04/22/17 04:00 92 04/22/17 03:00 93 04/22/17 02:00 94 04/22/17 01:00 96 04/22/17 00:00 92 04/22/17 00:00 98.2 90 16 121/75 (90) 94 04/21/17 23:00 99 04/21/17 22:00 98 04/21/17 21:00 98 04/21/17 20:00 98.1 91 16 142/87 (105) 91 04/21/17 20:00 92 Nasal Cannula 04/21/17 20:00 98 04/21/17 19:40 97 Nasal Cannula 2.00 04/21/17 19:00 103 04/21/17 18:30 139/72 (94) 04/21/17 18:00 108 04/21/17 17:00 98 04/21/17 16:10 98 04/21/17 16:10 98.7 97 18 112/74 (87) 95 04/21/17 16:00 90 04/21/17 15:02 90 04/21/17 14:00 96 04/21/17 13:00 95 04/21/17 12:00 98.1 94 18 105/74 (84) 94 04/21/17 12:00 98 04/21/17 11:36 98 04/21/17 11:00 98 04/21/17 10:00 108 I/O 04/21/17 04/21/17 04/21/17 04/22/17 04/22/17 04/22/17 07:00 15:00 23:00 07:00 15:00 23:00 Intake Total 599.4 ml 159 ml 800 ml 600 ml Output Total 650 ml 1800 ml 980 ml Balance -50.6 ml 159 ml -1000 ml -380 ml Intake Oral 520 ml 700 ml 600 ml IV Total 79.4 ml 159 ml 100 ml Output Urine Total 650 ml 1800 ml 980 ml Stool Total 0 ml 0 ml # Voids 1 # Bowel Movements 0 Physical Exam GENERAL: SKIN: Warm and dry. HEAD: Normocephalic. EYES: No scleral icterus. No injection or drainage. NECK: Supple, trachea midline. No JVD or lymphadenopathy. CARDIOVASCULAR: Regular rate and rhythm without murmurs, gallops, or rubs. RESPIRATORY: Breath sounds equal bilaterally. No accessory muscle use. GASTROINTESTINAL: Abdomen soft, non-tender, nondistended. MUSCULOSKELETAL: No cyanosis, or edema. BACK: Nontender without obvious deformity. No CVA tenderness. Laboratory Laboratory Tests Test 04/21/17 11:48 04/21/17 19:23 04/22/17 02:50 Activated Partial Thromboplast Time 34.7 SEC 44.7 SEC 42.2 SEC Potassium Level 3.8 MEQ/L 3.7 MEQ/L Blood Urea Nitrogen 27 MG/DL Creatinine 1.90 MG/DL Random Glucose 91 MG/DL Total Protein 6.1 GM/DL Albumin 2.5 GM/DL Calcium Level 8.5 MG/DL Alkaline Phosphatase 80 U/L Aspartate Amino Transf (AST/SGOT) 26 U/L Alanine Aminotransferase (ALT/SGPT) 33 U/L Total Bilirubin 0.5 MG/DL Direct Bilirubin 0.1 MG/DL Sodium Level 139 MEQ/L Chloride Level 100 MEQ/L Carbon Dioxide Level 30.6 MEQ/L Anion Gap 8 MEQ/L Estimat Glomerular Filtration Rate 34 ML/MIN Indirect Bilirubin 0.4 MG/DL Total Creatine Kinase 91 U/L Assessment and Plan Problem List: (1) NSTEMI (non-ST elevated myocardial infarction) ICD Codes: I21.4 - Non-ST elevation (NSTEMI) myocardial infarction (2) CRI (chronic renal insufficiency) ICD Codes: N18.9 - Chronic kidney disease, unspecified (3) ARF (acute renal failure) ICD Codes: N17.9 - Acute kidney failure, unspecified (4) Cocaine abuse ICD Codes: F14.10 - Cocaine abuse Status: Acute (5) Schizoaffective disorder ICD Codes: F25.9 - Schizoaffective disorder, unspecified Status: Acute (6) Non-ischemic cardiomyopathy ICD Codes: I42.8 - Other cardiomyopathies Status: Acute (7) Cocaine addiction ICD Codes: F14.20 - Cocaine addiction Status: Acute (8) Bipolar 1 disorder ICD Codes: F31.9 - Bipolar I disorder Status: Acute (9) Schizoaffective disorder, bipolar type ICD Codes: F25.0 - Schizoaffective disorder, bipolar type (10) S/P ICD (internal cardiac defibrillator) procedure ICD Codes: Z95.810 - Presence of automatic (implantable) cardiac defibrillator Status: Acute (11) CHF (congestive heart failure) ICD Codes: I50.9 - Heart failure, unspecified Status: Acute Assessment and Plan 1.) NSTEMI - assymptomatic, continue aspirin, heparin drip; start lipitor 10 mg hs, cath tomorrow, start ns @ 100 cc/hr, hold diuretics 2.) Cardiomyopathy - start coreg 3.125 mg bid, jono held due to arf/cri, clinically improving on lasix and aldactone 3.) Advised patient to dc cocaine and tobacco Problem Qualifiers (1) CHF (congestive heart failure): Qualified Codes: I50.9 - Heart failure, unspecified Joao Archibald MD Apr 22, 2017 09:26
[2017-04-22] MEDS: POTASSIUM CHLORIDE 10 MEQ CONTROLLED RELEASE TAB PO SCH (10:34)
[2017-04-22] MEDS: amLODIPine BESYLATE 5 MG TAB PO SCH (10:34)
[2017-04-22] MEDS: ASPIRIN 325 MG TAB PO SCH (10:34)
[2017-04-22] MEDS: hydrALAZINE HCL 25 MG TAB PO SCH ×2 (10:34→20:37)
[2017-04-22] MEDS: SERTRALINE HCL 100 MG TAB PO SCH (10:34)
[2017-04-22] MEDS: risperiDONE 1 MG TAB PO SCH ×2 (10:34→20:37)
[2017-04-22] MEDS: SODIUM CHLORIDE 0.9% FLUSH 10 ML FLUSH IV FLUSH SCH ×2 (10:35→20:38)
--- NOTE | 2017-04-22 10:35 | HHI.PR ---
Subjective Remarks in no acute distress. more alert today. denies chest pain or sob. d/w the RN and no acute issues over night. Objective Vitals Vital Signs Date Time Temp Pulse Resp B/P (MAP) Pulse Ox O2 Delivery O2 Flow Rate FiO2 04/22/17 08:00 98.2 92 18 129/88 (102) 96 04/22/17 08:00 93 04/22/17 07:52 99 Nasal Cannula 2.00 04/22/17 07:29 93 Room Air 04/22/17 07:00 92 04/22/17 06:00 93 04/22/17 06:00 98.2 93 16 122/85 (97) 96 04/22/17 05:00 88 04/22/17 04:00 92 04/22/17 03:00 93 04/22/17 02:00 94 04/22/17 01:00 96 04/22/17 00:00 92 04/22/17 00:00 98.2 90 16 121/75 (90) 94 04/21/17 23:00 99 04/21/17 22:00 98 04/21/17 21:00 98 04/21/17 20:00 98.1 91 16 142/87 (105) 91 04/21/17 20:00 92 Nasal Cannula 04/21/17 20:00 98 04/21/17 19:40 97 Nasal Cannula 2.00 04/21/17 19:00 103 04/21/17 18:30 139/72 (94) 04/21/17 18:00 108 04/21/17 17:00 98 04/21/17 16:10 98 04/21/17 16:10 98.7 97 18 112/74 (87) 95 04/21/17 16:00 90 04/21/17 15:02 90 04/21/17 14:00 96 04/21/17 13:00 95 04/21/17 12:00 98.1 94 18 105/74 (84) 94 04/21/17 12:00 98 04/21/17 11:36 98 04/21/17 11:00 98 I/O 04/21/17 04/21/17 04/21/17 04/22/17 04/22/17 04/22/17 07:00 15:00 23:00 07:00 15:00 23:00 Intake Total 599.4 ml 159 ml 800 ml 600 ml Output Total 650 ml 1800 ml 980 ml Balance -50.6 ml 159 ml -1000 ml -380 ml Intake Oral 520 ml 700 ml 600 ml IV Total 79.4 ml 159 ml 100 ml Output Urine Total 650 ml 1800 ml 980 ml Stool Total 0 ml 0 ml # Voids 1 # Bowel Movements 0 Result Diagram: 04/20/17 0857 04/22/17 0250 Imaging Last Impressions Renal Ultrasound 04/21/17 0000 Signed Impressions: Service Date/Time: Friday, April 21, 2017 22:10 - CONCLUSION: No hydronephrosis or other abnormality is identified to explain the elevated laboratory values. Reynold Bolton MD Head CT 04/20/17 0000 Signed Impressions: Service Date/Time: Thursday, April 20, 2017 21:20 - CONCLUSION: 1. Mild focal encephalomalacia defect in the right medial occipital mid convexities consistent with prior [employer]ER[employer]AIL [employer] territory infarction. 2. No acute intracranial normality. Per Diallo MD Chest X-Ray 04/19/17 0000 Signed Impressions: Service Date/Time: March 19:28 - CONCLUSION: 1. Cardiomegaly with minimal central pulmonary vascular congestion. Per Diallo MD Objective Remarks GENERAL: This is a well-nourished, well-developed patient, in no apparent distress. CARDIOVASCULAR: Regular rate and regular rhythm without murmurs, gallops, or rubs. RESPIRATORY: Clear to auscultation. Breath sounds equal bilaterally. No wheezes , rales, or rhonchi. GASTROINTESTINAL: Abdomen soft, non-tender, nondistended. Normal, active bowel sounds MUSCULOSKELETAL: Extremities without clubbing, cyanosis, or edema. NEURO: Alert & Oriented x4 to person, place, time, situation. Moves all ext x4 Medications and IVs Inpatient Medications Albuterol/ Ipratropium (Duoneb Neb) 1 ampule Q4HR NEB PRN NEB SOB/WHEEZING; Start 04/19/17 at 22:45 Amlodipine Besylate (Norvasc) 5 mg ONCE ONCE PO Last administered on at 16:15; Start 04/20/17 at 16:15; Stop 04/20/17 at 16:16; Status DC Aspirin (Aspirin) 325 mg DAILY PO Last administered on 04/21/17at 08:46; Start 04/20/17 at 09:00 Aspirin (Ecotrin Ec) 81 mg DAILY PO ; Start 04/20/17 at 09:00; Status Future Hold Atorvastatin Calcium (Lipitor) 10 mg HS PO ; Start 04/22/17 at 21:00 Carvedilol (Coreg) 3.125 mg Q12HR PO ; Start 04/22/17 at 09:00 Ceftriaxone Sodium 1000 mg/ Sodium Chloride 100 ml @ 200 mls/hr Q24H IV Last administered on 04/22/17at 08:11; Start 04/21/17 at 08:00 Clonidine (Catapres) 0.1 mg Q6H PRN PO SEE LABEL COMMENTS Last administered on 04/20/17at 12:16; Start 04/20/17 at 00:15 Furosemide (Lasix Inj) 40 mg ONCE ONCE IV PUSH Last administered on 04/19/17at 23:03; Start 04/19/17 at 22:45; Stop 04/19/17 at 22:53; Status DC Furosemide (Lasix) 40 mg DAILY PO ; Start 04/20/17 at 09:00; Status Future Hold Heparin Sodium (Porcine) (Heparin Inj) 2,500 units UNSCH PRN IV PUSH APTT 25 TO 39 Last administered on 04/21/17at 13:37; Start 04/20/17 at 09:30 Heparin Sodium/ Dextrose 250 ml @ 10 mls/hr TITRATE PRN IV Coagulation Management Last administered on 04/20/17at 04:41; Start 04/20/17 at 03:30 Hydralazine HCl (Apresoline) 25 mg BID PO Last administered on 04/21/17at 21:14 ; Start 04/20/17 at 00:15 Morphine Sulfate (Morphine Inj) 2 mg Q3H PRN IV PUSH PAIN SCALE 6 TO 10; Start 04/19/17 at 22:45 Nitroglycerin (Nitrostat Sl) 0.4 mg Q5M PRN SL ANGINA; Start 04/19/17 at 22:45 Potassium Chloride (KCl) 20 meq ONCE ONCE PO Last administered on 04/21/17at 08 :44; Start 04/21/17 at 07:45; Stop 04/21/17 at 07:46; Status DC Risperidone (risperDAL) 2 mg Q12HR PO Last administered on 04/21/17 21:15; Start 04/20/17 at 00:15 Sertraline HCl (Zoloft) 100 mg DAILY PO Last administered on 04/21/17at 08:46; Start 04/20/17 at 09:00 Sodium Chloride (NS Flush) 2 ml UNSCH PRN IV FLUSH FLUSH AFTER USING IV ACCESS ; Start 04/19/17 at 22:45 Spironolactone (Aldactone) 25 mg BIDPC PO Last administered on 04/21/17 18:20 ; Start 04/20/17 at 00:15 Tiotropium [place] (Spiriva Inh) 18 mcg DAILY INH Last administered on 15:41; Start 04/20/17 at 09:00 Trazodone HCl (Desyrel) 50 mg HS PO Last administered on 04/21/17 21:15; Start 04/20/17 at 00:15 A/P Assessment and Plan 1. acute on chronic systolic CHF BNP 2719, chest x-ray with prominent pulmonary vasculature, personally reviewed hold IV Lasix today in preparation for cardiac cath. no JANETH-I at this time due to renal insufficiency. Supplemental oxygen as needed monitor I/O and renal function. 2. Acute on chronic renal insufficiency- improving. kidney US with no hydronephrosis start on gentle IV hydration and hold diuretics today for cardiac cath tomorrow. nephrology consult appreciated. Monitor renal function 3. NSTEMI continue with heparin drip and aspirin- started on Coreg. cardiology following- for cardiac cath tomorrow. 4- acute encephalopathy- due to cocaine?- improving CT head with no acute abnormality. neurology consult appreciated. 5-abnormal UA- UC with mixed lovely. stop antibiotics. 6. Hypertension/hyperlipidemia/COPD started on Coreg- continue statin and neb treatments. 7. Cocaine abuse Cessation counseling provided DVT prophylaxis; on Heparin drip. Discharge Planning awaiting cardiac cath. Yahir Hathaway MD Apr 22, 2017 10:35
[2017-04-22] MEDS: CARVEDILOL 3.125 MG TAB PO SCH ×2 (10:36→22:42)
[2017-04-22] MEDS: TIOTROPIUM BROMIDE 18 MCG INH INH SCH (10:36)
[2017-04-22] MEDS: SODIUM CHLOR 0.9% 1000 ML INJ 1,000 ML IV SCH ×2 (10:58→20:49)
--- NOTE | 2017-04-22 11:48 | HHI.NPPN ---
Subjective Additional Remarks No acute complaints Objective Data Data Vital Signs Date Time Temp Pulse Resp B/P (MAP) Pulse Ox O2 Delivery O2 Flow Rate FiO2 04/22/17 08:00 98.2 92 18 129/88 (102) 96 04/22/17 08:00 93 04/22/17 07:52 99 Nasal Cannula 2.00 04/22/17 07:29 93 Room Air 04/22/17 07:00 92 04/22/17 06:00 93 04/22/17 06:00 98.2 93 16 122/85 (97) 96 04/22/17 05:00 88 04/22/17 04:00 92 04/22/17 03:00 93 04/22/17 02:00 94 04/22/17 01:00 96 04/22/17 00:00 92 04/22/17 00:00 98.2 90 16 121/75 (90) 94 04/21/17 23:00 99 04/21/17 22:00 98 04/21/17 21:00 98 04/21/17 20:00 98.1 91 16 142/87 (105) 91 04/21/17 20:00 92 Nasal Cannula 04/21/17 20:00 98 04/21/17 19:40 97 Nasal Cannula 2.00 04/21/17 19:00 103 04/21/17 18:30 139/72 (94) 04/21/17 18:00 108 04/21/17 17:00 98 04/21/17 16:10 98 04/21/17 16:10 98.7 97 18 112/74 (87) 95 04/21/17 16:00 90 04/21/17 15:02 90 04/21/17 14:00 96 04/21/17 13:00 95 04/21/17 12:00 98.1 94 18 105/74 (84) 94 04/21/17 12:00 98 -: 04/20/17 0857 04/22/17 0250 Physical Exam General Appearance: Well Developed, Well Nourished, No Acute Distress Throat Throat Exam: Oral Mucosa [place] & Moist Neck Neck Exam: Neck Supple Pulmonary Resp Exam: Decreased Bases Cardiology CV Exam: Regular, Normal Sinus Rhythm Gastrointestinal/Abdomen GI Exam: Soft, Non-Tender, Bowel Sounds Present Extremeties Extremities Exam: No Edema Neurologic Neuro Exam: Alert, Awake, Oriented, Speech Clear Assessment/Plan Problem List: (1) ARF (acute renal failure) ICD Codes: N17.9 - Acute kidney failure, unspecified Plan: Baseline creatinine 1.9 - 2.1 corresponding to chronic kidney disease stage III. CKD likely due to HTN, no proteinuria. Creatinine improved to 1.9 today. On IVFs with NS @100cc/hour in preparation for cardiac cath. Continue IVFs for 24 hours post cath I discussed this at length with the patient and discussed the pros and cons of possible cardiac catheterization with risks of possible kidney issues. 2. Congestive heart failure exacerbation: The patient presented with initial congestive heart failure exacerbation in the setting of non-S-T myocardial infarction. Diuretics on hold now, in preparation for cardiac cath. 3. Non-S-T elevation myocardial infarction: The patient is currently on a heparin drip and planned cardiac cath tomorrow. NSTMI in setting of cocaine use - encouraged cessation. (2) NSTEMI (non-ST elevated myocardial infarction) ICD Codes: I21.4 - Non-ST elevation (NSTEMI) myocardial infarction (3) Cocaine abuse ICD Codes: F14.10 - Cocaine abuse, uncomplicated Duy Joseph MD Apr 22, 2017 11:48
[2017-04-22] MEDS: ATORVASTATIN 10 MG TAB PO SCH (20:37)
[2017-04-22] MEDS: traZODone HCL 50 MG TAB PO SCH (20:37)
[2017-04-22] MEDS: HEPARIN-D5W 25,000 U/250 ML 250 ML IV PRN (22:51)
[2017-04-23] VITALS (26 sets, daily range): BP systolic 93–147; BP diastolic 60–91; PULSE 71–101; RESP 18–20; TEMP 98–98.9; O2SAT 93–96
[2017-04-23 05:52] LABS: HEMOGLOBIN 14.7 GM/DL (11.6-15.3); MEAN CELL VOLUME 87.5 FL (80.0-100.0); MEAN CORPUSCULAR HEMOGLOBIN 29.2 PG (27.0-34.0); MEAN CORPUSCULAR HGB CONC 33.3 % (32.0-36.0); MEAN PLATELET VOLUME 8.4 FL (7.0-11.0); PLATELET COUNT 203 TH/MM3 (150-450); RED BLOOD COUNT 5.02 MIL/MM3 (4.00-5.30); RED CELL DISTRIBUTION WIDTH 15.2 % (11.6-17.2); WHITE BLOOD COUNT 5.1 TH/MM3 (4.0-11.0)
[2017-04-23 06:16] LABS: BICARBONATE 25.7 MEQ/L (21.0-32.0); CALCIUM 8.4 MG/DL (8.5-10.1); CREATININE 1.53 MG/DL (0.50-1.00)
[2017-04-23] MEDS: SODIUM CHLOR 0.9% 1000 ML INJ 1,000 ML IV SCH ×2 (06:17→21:19)
[2017-04-23] MEDS: TIOTROPIUM BROMIDE 18 MCG INH INH SCH (08:54)
[2017-04-23] MEDS: hydrALAZINE HCL 25 MG TAB PO SCH ×2 (08:55→21:17)
[2017-04-23] MEDS: cefTRIAXone INJ 1,000 MG in SODIUM CHLORIDE 0.9% INJ 100 ML IV SCH (08:55)
[2017-04-23] MEDS: ASPIRIN 325 MG TAB PO SCH (08:56)
[2017-04-23] MEDS: CARVEDILOL 3.125 MG TAB PO SCH ×2 (08:56→21:17)
[2017-04-23] MEDS: SODIUM CHLORIDE 0.9% FLUSH 10 ML FLUSH IV FLUSH SCH ×2 (08:56→21:20)
[2017-04-23] MEDS: SERTRALINE HCL 100 MG TAB PO SCH (08:57)
[2017-04-23] MEDS: amLODIPine BESYLATE 5 MG TAB PO SCH (08:57)
[2017-04-23] MEDS: risperiDONE 1 MG TAB PO SCH ×2 (08:57→21:17)
[2017-04-23] MEDS: POTASSIUM CHLORIDE 10 MEQ CONTROLLED RELEASE TAB PO SCH (08:57)
--- NOTE | 2017-04-23 10:08 | HHI.PR ---
Subjective Remarks in no acute distress. denies chest pain or sob. d/w the RN and no acute issues over night. awaiting cardiac cath. Objective Vitals Vital Signs Date Time Temp Pulse Resp B/P (MAP) Pulse Ox O2 Delivery O2 Flow Rate FiO2 04/23/17 09:00 97 04/23/17 08:00 85 04/23/17 08:00 96 Room Air 04/23/17 08:00 98.9 74 20 147/91 (109) 96 04/23/17 07:00 82 04/23/17 06:00 85 04/23/17 05:00 81 04/23/17 04:00 83 04/23/17 03:00 98.4 90 18 128/82 (97) 95 04/23/17 03:00 82 04/23/17 02:00 84 04/23/17 01:00 82 04/23/17 00:00 90 04/22/17 23:00 99 04/22/17 23:00 99.0 99 19 136/80 (98) 94 04/22/17 22:00 102 04/22/17 21:00 96 04/22/17 20:59 96 Nasal Cannula 2.00 04/22/17 20:00 96 04/22/17 19:00 96 Room Air 04/22/17 19:00 99.1 101 20 122/86 (98) 96 04/22/17 19:00 91 04/22/17 18:00 96 04/22/17 17:00 93 04/22/17 16:00 91 04/22/17 15:00 97 04/22/17 15:00 98.0 87 20 114/84 (94) 98 04/22/17 14:00 96 04/22/17 13:00 88 04/22/17 12:00 92 04/22/17 11:00 98.4 95 16 123/85 (98) 98 04/22/17 11:00 96 I/O 04/22/17 04/22/17 04/22/17 04/23/17 04/23/17 04/23/17 07:00 15:00 23:00 07:00 15:00 23:00 Intake Total 600 ml 100 ml 1491 ml 480 ml Output Total 980 ml 500 ml 400 ml Balance -380 ml 100 ml 991 ml 80 ml Intake Oral 600 ml 720 ml 480 ml IV Total 100 ml 771 ml Output Urine Total 980 ml 500 ml 400 ml Stool Total 0 ml # Bowel Movements 0 Result Diagram: 04/23/17 0451 04/23/17 0451 Imaging Last Impressions Renal Ultrasound 04/21/17 0000 Signed Impressions: Service Date/Time: Friday, April 21, 2017 22:10 - CONCLUSION: No hydronephrosis or other abnormality is identified to explain the elevated laboratory values. Reynold Bolton MD Head CT 04/20/17 0000 Signed Impressions: Service Date/Time: Thursday, April 20, 2017 21:20 - CONCLUSION: 1. 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 2. No acute intracranial normality. Per Diallo MD Chest X-Ray 04/19/17 0000 Signed Impressions: Service Date/Time: March 19:28 - CONCLUSION: 1. Cardiomegaly with minimal central pulmonary vascular congestion. Per Diallo MD Objective Remarks GENERAL: This is a well-nourished, well-developed patient, in no apparent distress. CARDIOVASCULAR: Regular rate and regular rhythm without murmurs, gallops, or rubs. RESPIRATORY: Clear to auscultation. Breath sounds equal bilaterally. No wheezes , rales, or rhonchi. GASTROINTESTINAL: Abdomen soft, non-tender, nondistended. Normal, active bowel sounds MUSCULOSKELETAL: Extremities without clubbing, cyanosis, or edema. NEURO: Alert & Oriented x4 to person, place, time, situation. Moves all ext x4 Medications and IVs Inpatient Medications Albuterol/ Ipratropium (Duoneb Neb) 1 ampule Q4HR NEB PRN NEB SOB/WHEEZING; Start 04/19/17 at 22:45 Amlodipine Besylate (Norvasc) 5 mg ONCE ONCE PO Last administered on at 16:15; Start 04/20/17 at 16:15; Stop 04/20/17 at 16:16; Status DC Aspirin (Aspirin) 325 mg DAILY PO Last administered on 04/23/17at 08:56; Start 04/20/17 at 09:00 Aspirin (Ecotrin Ec) 81 mg DAILY PO ; Start 04/20/17 at 09:00; Status Future Hold Atorvastatin Calcium (Lipitor) 10 mg HS PO Last administered on 04/22/17 20:37 ; Start 04/22/17 at 21:00 Carvedilol (Coreg) 3.125 mg Q12HR PO Last administered on 04/23/17 08:56; Start 04/22/17 at 09:00 Ceftriaxone Sodium 1000 mg/ Sodium Chloride 100 ml @ 200 mls/hr Q24H IV Last administered on 04/23/17 08:55; Start 04/21/17 at 08:00 Clonidine (Catapres) 0.1 mg Q6H PRN PO SEE LABEL COMMENTS Last administered on 04/20/17 12:16; Start 04/20/17 at 00:15 Furosemide (Lasix Inj) 40 mg ONCE ONCE IV PUSH Last administered on 04/19/17at 23:03; Start 04/19/17 at 22:45; Stop 04/19/17 at 22:53; Status DC Furosemide (Lasix) 40 mg DAILY PO ; Start 04/20/17 at 09:00; Status Future Hold Heparin Sodium (Porcine) (Heparin Inj) 2,500 units UNSCH PRN IV PUSH APTT 25 TO 39 Last administered on 04/21/17 13:37; Start 04/20/17 at 09:30 Heparin Sodium/ Dextrose 250 ml @ 10 mls/hr TITRATE PRN IV Coagulation Management Last administered on 04/22/17 22:51; Start 04/20/17 at 03:30 Hydralazine HCl (Apresoline) 25 mg BID PO Last administered on 04/23/17 08:55 ; Start 04/20/17 at 00:15 Morphine Sulfate (Morphine Inj) 2 mg Q3H PRN IV PUSH PAIN SCALE 6 TO 10; Start 04/19/17 at 22:45 Nitroglycerin (Nitrostat Sl) 0.4 mg Q5M PRN SL ANGINA; Start 04/19/17 at 22:45 Potassium Chloride (KCl) 20 meq ONCE ONCE PO Last administered on 04/21/17 08 :44; Start 04/21/17 at 07:45; Stop 04/21/17 at 07:46; Status DC Risperidone (risperDAL) 2 mg Q12HR PO Last administered on 04/23/17at 08:57; Start 04/20/17 at 00:15 Sertraline HCl (Zoloft) 100 mg DAILY PO Last administered on 04/23/17at 08:57; Start 04/20/17 at 09:00 Sodium Chloride 1,000 ml @ 100 mls/hr Q10H IV Last administered on 04/22/17at 20:49; Start 04/22/17 at 10:30 Sodium Chloride (NS Flush) 2 ml UNSCH PRN IV FLUSH FLUSH AFTER USING IV ACCESS ; Start 04/19/17 at 22:45 Spironolactone (Aldactone) 25 mg BIDPC PO Last administered on 04/21/17at 18:20 ; Start 04/20/17 at 00:15; Status Future Hold Tiotropium [place] (Spiriva Inh) 18 mcg DAILY INH Last administered on at 08:54; Start 04/20/17 at 09:00 Trazodone HCl (Desyrel) 50 mg HS PO Last administered on 04/22/17at 20:37; Start 04/20/17 at 00:15 A/P Assessment and Plan 1. acute on chronic systolic CHF BNP 2719, chest x-ray with prominent pulmonary vasculature, personally reviewed hold IV Lasix today in preparation for cardiac cath. no JANETH-I at this time due to renal insufficiency. Supplemental oxygen as needed monitor I/O and renal function. 2. Acute on chronic renal insufficiency- improving. kidney US with no hydronephrosis started on gentle IV hydration and hold diuretics today for cardiac cath. will continue with IV fluid- 24 hrs post-cath. Monitor renal function. nephrology following. 3. NSTEMI continue with heparin drip and aspirin- started on Coreg. cardiology following- for cardiac cath tomorrow. 4- acute encephalopathy- due to cocaine?- improving CT head with no acute abnormality. neurology consult appreciated. 5-abnormal UA- UC with mixed lovely. stop antibiotics. 6. Hypertension/hyperlipidemia/COPD started on Coreg- continue statin and neb treatments. 7. Cocaine abuse Cessation counseling provided DVT prophylaxis; on Heparin drip. Discharge Planning awaiting cardiac cath/ cardiology recommendations. Yahir Hathwaay MD Apr 23, 2017 10:08
[2017-04-23] MEDS ORDERED: HEPARIN-NS/PF FLUSH BAG 2,000 ML IV FLUSH ONE (14:35)
[2017-04-23] MEDS ORDERED: MIDAZOLAM HCL 2 MG/2 ML VIAL ONE (15:20)
[2017-04-23] MEDS ORDERED: MIDAZOLAM HCL 2 MG/2 ML VIAL IV ONE (15:20)
[2017-04-23] MEDS ORDERED: FUROSEMIDE 40 MG/4 ML VIAL ONE (15:43)
[2017-04-23] MEDS ORDERED: FUROSEMIDE 40 MG/4 ML VIAL IV PUSH ONE (15:48)
[2017-04-23] MEDS ORDERED: SODIUM CHLORIDE 0.9% FLUSH 10 ML FLUSH IV FLUSH PRN (16:00)
[2017-04-23] MEDS ORDERED: MISC INFORMATION XX ONE (16:00)
[2017-04-23] MEDS ORDERED: BACITRACIN OINT 0.9 GM PKT TOP ONE (16:00)
--- NOTE | 2017-04-23 16:10 | CATHPROC ---
[employer] HIS Report Study Information Study Number Admission Scheduled Start Study Start [id number] Apr 19 2017 9:40PM 04/23/2017 Apr 23 2017 2:46PM [place] [facility] Cardiac Catheterization Admit Source Facility Department Other [facility] - Research Rn Spec Physician and Clinical Staff Initial MD Archibald, Joao Packaging Assembler Soto Landin,RN Recorder Daniel MICHAELS, Terrance Morrow, Sherin,TUBE COREMAKER TECH2 Procedures Performed Procedure Location (Site) Vessel Name Coronary Angiograms LCA Left Coronary Coronary Angiograms RCA Right Coronary Equipment Time Developer Relations Manager Description Size Mfg Part Number Used/Scraped CATHETER, FR5 SWAN CAMERON 14:52 [employer] CRABTREE FR 5 [id number] *[id number] Used MONITOR TRANSDUCER, TRUWAVE [id number] 14:52 EVANS CRABTREE * Used W/STOCKCOCK *[id number] [id number] *[id number] [id number] *[id number] 14:52 MEDLINE [employer] PACK, CCL CUSTOM * Used *[id number] 14:52 [employer] Systems PACER PEN, SKIN DUAL W/ RULER * Used *[id number] 14:52 June [employer] MEDICAL SHEATH, FR5.5 PRELUDE 11CM FR 5.5 Used 038ACT# [id number] 14:52 June [employer] MEDICAL WIRE, 3MMJ .035 180CM 180CM Used *[id number] 14:52 NAMIC MANIFOLD, 4 PORT * Used *[id number] 14:52 NYCOMED OMNIPAQUE, 350 MG, 150ML 150ML [id number] Used [id number] 14:52 YIN MEDICAL BLANKET,WARM AIR CCL * Used *[id number] 14:52 TERUMO MEDICAL SHEATH, FR4 TERUMO (10CM) FR 4 Used *[id number] 15:27 TERUMO MEDICAL SHEATH, FR6 TERUMO (10CM) FR 6 Used *[id number] History: Current Medications Medication Dosage/Unit Route Frequency Last Date/Time Taken Statins (any) 04/23/2017 ASA 04/23/2017 NORVASC 04/23/2017 CARVEDILOL 04/23/2017 History: Allergies Allergy Reaction NKDA History: Risk Factors Family History of Hypertension Dyslipidemia Previous AL Previous Heart Failure Premature CAD Yes Yes No Yes Yes Prior Valve Prior PCI Prior CABG Surgery No No No Cerebrovascular Peripheral Artery Chronic Lung On Dialysis Diabetes Disease Disease Disease No Yes No Yes No History: Risk Factors Selection Items Current Smoker History: Stress Tests Stress or Imaging Studies Performed No History: Other Current Smoker Method Packs a Day Years Used Pack Years Yes Cigarettes 1 25 25 Labs Hgb (g/dl) Hct (%) WBC (l/cumm) Platelets (thousands) 11.60-17.00 35.00-51.00 4.00-11.00 150.00-450.00 14.7 44 5.1 203 Glucose (mg/dl) BUN (mg/dl) Creatinine (mg/dl) BUN:Creatinine (1:x) 74.00-106.00 7.00-18.00 0.50-1.30 10.00-20.00 83 21 1.5 14 Na (meq/l) K (meq/l) 136.00-145.00 3.50-5.10 140 3.9 INR (PTT:PT) 0.90-1.10 1.2 Troponin I (ng/ml) CPK (u/l) CPK-MB (ng/ML) 0.02-0.05 26.00-308.00 0.50-3.60 3.49 308 17.4 Medication Medication Total Dose (Bolus/Oral) Medication Total Dosage/Unit 1% XYLOCAINE 20 mL LASIX 40 mg VERSED 1 mg Medications (Bolus/Oral) Medication Time Given Dosage/Unit Administered By Reason VERSED 04/23/2017 3:20:20 PM 1 mg Soto Landin For sedation 1 mg VERSED given in lab by Soto Landin RN via Peripheral IV. Ordered by Joao Archibald. Reason: For sedation. 1% XYLOCAINE 04/23/2017 3:21:04 PM 20 mL Joao Archibald 20 mL 1% XYLOCAINE given in lab by Joao Archibald in Right Groin via Subcutaneous. LASIX 04/23/2017 3:48:30 PM 40 mg Soto Landin 40 mg LASIX given in lab by Soto Landin, RN via Peripheral IV. Ordered by Joao Archibald. Initial Case Assessment Cardiovascular HR NIBP Chest Pain 82 98/77 0 Edema Present Skin color Skin None Normal Warm Dry Circulatory - Right Pulses Dorsalis Pedis Femoral 1 2 Scale (0,1,2,3,4,d) Circulatory - Left Pulses Dorsalis Pedis Femoral 1 2 Scale (0,1,2,3,4,d) Neurological State Oriented to time-place- Alert Moves all extremities person Respiration - General Respiration Rate SpO2 (%) (B/min) 18 97 Chronological Log Time Study Chronological Log 14:46:14 Patient arrived via Bed. 14:47:09 Patient Name, D.O.B, / Armband Verified By R.N. 14:47:45 Consent signed by the physician and the patient and verified by the Research Rn Spec staff. 14:47:46 Pre-op and post- op instructions given; patient acknowledges understanding of instructions. Vitals capture started with the following parameters, Patient=Adult, Interval=5 min, Initial Pr cltsgu=545 mmHg, 14:52:20 Deflation Rate=5 mmHg, Cuff placed on Left Arm 14:52:29 Patient has been NPO for More than 6Hrs. 14:52:51 NIBP=98/77 mmhg, SpO2=98.0 %, Pain=0, Maxime=10, Nelson=2 14:58:23 CS=385 bpm, MOPQ=466/102 mmhg, SpO2=95.0 %, Resp=16 B/min, Pain=0, Nelson=2 15:03:30 ID=455 bpm, IMNF=080/105 mmhg, SpO2=97 %, Resp=16 B/min, Pain=0, Nelson=2 15:07:00 Skin Breakdown- 15:07:33 Real Prominences Protected 15:07:37 A # 20 IV was noted in the Wrist (left). Grade = 0 15:08:21 HR=97 bpm, MAPW=424/117 mmhg, SpO2=96.0 %, Resp=16 B/min, Pain=0, Nelson=2 15:08:33 A # 20 IV was noted in the Hand (right). Grade = 0 15:08:50 History and physical on the chart or being dictated. 15:08:54 Bilateral groins prepped with 2% chlorhexidine, and draped after a 3 min. waiting time. Assessment: Initial Case, HR=82 BPM, NIBP=98/77 mmhg, Chest Pain=0, Edema=None, Color=Normal, S kin = Warm, Dry Right Pulses: Jorge Ped=1, Femoral=2 15:09:10 Left Pulses: Jorge Ped=1, Femoral=2 Neurological: State=Alert, Ox3, BRISENO Respiration: Resp=18 B/min, SpO2=97 % 15:10:16 Pressure channel 1 zeroed. 15:11:54 MD paged 15:12:55 RB=826 bpm, KBHL=598/107 mmhg, SpO2=95.0 %, Resp=15 B/min, Pain=0, Nelson=2 15:17:56 HR=80 bpm, ZPXE=621/98 mmhg, SpO2=98.0 %, Resp=20 B/min, Pain=0, Nelson=2 15:19:23 MD arrived. Time Out. Correct patient, correct procedure, correct physician, power injector loaded, or not loaded with contrast with 15:19:34 surgical team present. Time Out Concurred by MD and individual staff in procedure. 15:20:20 1 mg VERSED given in lab by Soto Landin RN via Peripheral IV. Ordered by Koki Archibald Reason: For sedation. 15:21:00 Case Start 15:21:04 20 mL 1% XYLOCAINE given in lab by Joao Archibald in Right Groin via Subcutaneous. 15:22:18 Access site was Right Femoral Artery. 15:22:28 A SHEATH, FR4 TERUMO (10CM) FR 4 was advanced into the Fem Art (right) using the Modified S eldinger technique. 15:22:57 OL=652 bpm, BNPJ=737/104 mmhg, SpO2=95.0 %, Resp=15 B/min, Pain=0, Nelson=2 A SHEATH, FR5.5 PRELUDE 11CM FR 5.5 was advanced into the Fem Vein (right) using the Modified S eldinger 15:23:07 technique. 15:23:21 A CATHETER, FR5 SWAN CAMERON MONITOR FR 5 was inserted via Fem Vein (right) 15:24:59 Saturation: Site=Ao (Aorta) , O2=93.4 %, Hgb=14.7 gm/dl, Condition=Condition 1. Used in jazlyn culation. 15:25:29 Saturation: Site=PA (Pulmonary Artery) , O2=70.7 %, Hgb=14.7 gm/dl, Condition=Condition 1. Used in calculation. A SHEATH, FR6 TERUMO (10CM) FR 6 was exchanged in the Fem Vein (right). This was necessary in o rder to 15:27:12 accomodate a larger catheter. 15:28:01 KT=157 bpm, NYBX=491/94 mmhg, SpO2=94.0 %, Resp=15 B/min, Pain=0, Nelson=2 Recorded Pressure: MPA, HR=86, Condition=Condition 1 15:29:44 (Main Pulmonary Artery) MPA 60/32/42 Recorded Pressure: PCW, HR=99, Condition=Condition 1 15:30:00 (Pulmonary Capillary Wedge) PCW 56/62/47 Recorded Pressure: RV, HR=94, Condition=Condition 1 15:31:18 (Right Ventricle) RV 58/8/12 Recorded Pressure: RA, HR=97, Condition=Condition 1 15:31:32 (Right Atrium) RA 15/11 15:32:04 Saturation: Site=RA (Right Atrium) , O2=72.2 %, Hgb=14.7 gm/dl, Condition=Condition 1. Used in calculation. 15:32:21 [place] Catheter Removed A JR 4.0 INFINITI CATHETER FR 4 was advanced over a wire. OMNIPAQUE, 350 MG, 150ML 150ML was us ed for 15:32:34 injections. 15:33:00 HR=98 bpm, BILL=068/101 mmhg, SpO2=95.0 %, Resp=20 B/min, Pain=0, Nelson=2 Recorded Pressure: LV, HR=86, Condition=Condition 1 15:33:20 (Left Ventricle) LV 117/14/17 Recorded Pressure: LV, Ao, TZ=056, Condition=Condition 1 15:33:39 (Left Ventricle) LV 123/22/32, (Aorta) Ao 124/101/111 15:34:21 The RCA was injected and visualized at various angles. OMNIPAQUE, 350 MG, 150ML 150ML used . After removing the current catheter a JL 4.0 INFINITI CATHETER FR 4 was advanced over a WIRE, 3 MMJ .035 180CM 15:34:32 180CM. 15:36:03 The LCA was injected and visualized at various angles. OMNIPAQUE, 350 MG, 150ML 150ML used . 15:37:31 Catheter was removed ::36 Case End 15:38:29 HR=92 bpm, KJBN=745/94 mmhg, SpO2=95.0 %, Resp=16 B/min, Pain=0, Nelson=2 15:40:55 Arterial Sheath removed; pressure applied to access site. 15:42:58 HR=84 bpm, YDVB=382/93 mmhg, SpO2=94.0 %, Resp=19 B/min, Pain=0, Nelson=2 15:47:59 SO=903 bpm, RZIE=712/99 mmhg, SpO2=97.0 %, Resp=21 B/min, Pain=0, Nelson=2 15:48:30 40 mg LASIX given in lab by Soto Landin, RN via Peripheral IV. Ordered by Koki Archibald 15:53:04 OE=956 bpm, PKUC=436/94 mmhg, SpO2=97.0 %, Resp=16 B/min, Pain=0, Nelson=2 15:53:51 Right Femoral Venous Sheath removed; pressure applied to access site. 15:57:59 HR=97 bpm, HILB=102/102 mmhg, SpO2=98.0 %, Resp=15 B/min, Pain=0, Nelson=2 16:03:00 HR=95 bpm, CAZM=003/95 mmhg, SpO2=98.0 %, Resp=16 B/min, Pain=0, Nelson=2 16:03:41 Sterile dressing applied to site 16:03:45 No case complications noted. 16:03:55 Cine recording checked. 16:04:01 Bedside Report will be given. 16:04:05 A Left and Right Heart Cath was performed. 16:05:43 Vitals capture stopped. 16:07:53 [facility] called. Spoke to RN 16:11:43 Patient moved to carrier clinic End Study - Contrast Media Used In Study Contrast Total Opened (mL) Total Used (mL) Total Wasted (mL) Omnipaque 50 25 25 End Study - Maximum Contrast Load Max Contrast Load (mL) 286.7 End Study - Radiation Exposure Fluoro Time (minutes) 3.5 End Study - Patient Disposition Complications Transferred To Interventional Outcome No Telemetry Bed No attempt made
[2017-04-23] MEDS ORDERED: IOHEXOL 350 MG/ML 50 ML BTL (for Cath Lab) OTHER ONE (16:57)
--- NOTE | 2017-04-23 17:16 | HHI.NPPN ---
Subjective Additional Remarks No acute complaints Objective Data Data 04/23/17 04/24/17 19:00 07:00 Intake Total 100 ml Balance 100 ml IV Total 100 ml Vital Signs Date Time Temp Pulse Resp B/P (MAP) Pulse Ox O2 Delivery O2 Flow Rate FiO2 04/23/17 16:48 98.4 74 20 145/88 (107) 96 04/23/17 16:00 88 04/23/17 14:00 78 04/23/17 13:00 96 04/23/17 12:00 88 04/23/17 11:12 98.6 74 20 121/88 (99) 96 04/23/17 11:00 79 04/23/17 10:20 96 21 04/23/17 10:00 88 04/23/17 09:00 97 04/23/17 08:00 85 04/23/17 08:00 96 Room Air 04/23/17 08:00 98.9 74 20 147/91 (109) 96 04/23/17 07:00 82 04/23/17 06:00 85 04/23/17 05:00 81 04/23/17 04:00 83 04/23/17 03:00 98.4 90 18 128/82 (97) 95 04/23/17 03:00 82 04/23/17 02:00 84 04/23/17 01:00 82 04/23/17 00:00 90 04/22/17 23:00 99 04/22/17 23:00 99.0 99 19 136/80 (98) 94 04/22/17 22:00 102 04/22/17 21:00 96 04/22/17 20:59 96 Nasal Cannula 2.00 04/22/17 20:00 96 04/22/17 19:00 96 Room Air 04/22/17 19:00 99.1 101 20 122/86 (98) 96 04/22/17 19:00 91 04/22/17 18:00 96 -: 04/23/17 0451 04/23/17 0451 Physical Exam General Appearance: Well Developed, Well Nourished, No Acute Distress Throat Throat Exam: Oral Mucosa [place] & Moist Neck Neck Exam: Neck Supple Pulmonary Resp Exam: Decreased Bases Cardiology CV Exam: Regular, Normal Sinus Rhythm Gastrointestinal/Abdomen GI Exam: Soft, Non-Tender, Bowel Sounds Present Extremeties Extremities Exam: No Edema Neurologic Neuro Exam: Alert, Awake, Oriented, Speech Clear Assessment/Plan Problem List: (1) ARF (acute renal failure) ICD Codes: N17.9 - Acute kidney failure, unspecified Plan: Baseline creatinine 1.9 - 2.1 corresponding to chronic kidney disease stage III. CKD likely due to HTN, no proteinuria. Creatinine improved to 1.5 today. On IVFs with NS @100cc/hour Continue IVFs for 24 hours post cath post cath today 2. Congestive heart failure exacerbation: The patient presented with initial congestive heart failure exacerbation in the setting of non-S-T myocardial infarction. Diuretics on hold now, in preparation for cardiac cath. 3. Non-S-T elevation myocardial infarction: T NSTMI in setting of cocaine use - encouraged cessation. (2) NSTEMI (non-ST elevated myocardial infarction) ICD Codes: I21.4 - Non-ST elevation (NSTEMI) myocardial infarction (3) Cocaine abuse ICD Codes: F14.10 - Cocaine abuse, uncomplicated Nancy Turcios MD Apr 23, 2017 17:16
--- NOTE | 2017-04-23 17:51 | MR ---
cc: Joao Archibald MD 04/23/2017 Right heart catheterization, left heart catheterization, left ventriculography, coronary angiography. INDICATION: Cardiomyopathy, non-STEMI, pulmonary hypertension. Patient was brought to the cardiac catheterization laboratory, prepped and draped in the usual sterile fashion. Ten mL of 1% lidocaine was used locally anesthetize the right common femoral artery. A 4 [place] Islander sheath placed in the right common femoral artery. A 6 [place] Island[place] sheath placed in the right common femoral vein as there was no 5.5 [place] Islander sheath available in inventory. Right heart catheterization was performed first with the following findings. I was not able to wedge a balloon tipped catheter. The PA pressure was 60/32-42, RV pressure 56/8-12, RA pressure 15/12-11. On room air, the femoral artery sat was 93.4%, PA sat 70.7%, RA sat 72.2%. Cardiac output by Constantine is 5.6 L/minute, cardiac index by Constantine is 2.8 L/m2 per minute, SVR is 1467 dynes. Left heart catheterization was then performed with a 4 [place] Island[place] JR4 and JL4 catheter with the following findings. LV pressure was 120/18-19, ejection fraction was 25%. The left ventricle appears to be at least moderately dilated fluoroscopically, global hypokinesis. Right coronary artery is dominant. No significant obstructive disease. The left main coronary artery has mild disease, up to 20% angiographically. LAD is large and transapical with no significant obstructive disease. Left circumflex vessel has no significant obstructive disease. First obtuse marginal vessel has a high takeoff. It is a medium to large sized vessel with a proximal bifurcation with no significant disease. CONCLUSION: 1. Mild left main disease as detailed above. 2. Nonischemic cardiomyopathy of 25%. 3. Moderate to severe pulmonary hypertension. 4. Intravenous Lasix 40 given in the record label internship. 5. Recommend continue beta eleni, diuresed until patient euvolemic. Optimally, the patient should be on an anterior cruciate ligament inhibitor if her renal function is stabilized and she is cleared by renal to be on an JANETH inhibitor. I have strongly advised her to abstain from any tobacco, cocaine use or illicit drug use in the future. Patient understands and agrees. MD ADIS Mcknight/MAGED , 03:45 PM , 05:50 PM
[2017-04-23] MEDS: ATORVASTATIN 10 MG TAB PO SCH (21:17)
[2017-04-23] MEDS: traZODone HCL 50 MG TAB PO SCH (21:17)
[2017-04-24] VITALS (30 sets, daily range): BP systolic 104–123; BP diastolic 66–95; PULSE 68–102; RESP 14–18; TEMP 97.8–99.3; O2SAT 96–98
[2017-04-24 06:58] LABS: AUTOMATED NEUTROPHIL # 3.1 TH/MM3 (1.8-7.7); BASOPHIL % 0.6 % (0.0-2.0); EOSINOPHIL # 0.6 TH/MM3 (0-0.4); EOSINOPHIL % 10.7 % (0.0-4.0); HEMATOCRIT 45.1 % (35.0-46.0); HEMOGLOBIN 14.8 GM/DL (11.6-15.3); LYMPH % 23.3 % (9.0-44.0); LYMPHOCYTE # 1.3 TH/MM3 (1.0-4.8); MEAN CELL VOLUME 87.5 FL (80.0-100.0); MEAN CORPUSCULAR HEMOGLOBIN 28.6 PG (27.0-34.0); MEAN CORPUSCULAR HGB CONC 32.7 % (32.0-36.0); MEAN PLATELET VOLUME 8.4 FL (7.0-11.0); MONO % 10.8 % (0.0-8.0); MONOCYTE # 0.6 TH/MM3 (0-0.9); NEUT % 54.6 % (16.0-70.0); PLATELET COUNT 211 TH/MM3 (150-450); RED BLOOD COUNT 5.16 MIL/MM3 (4.00-5.30); WHITE BLOOD COUNT 5.7 TH/MM3 (4.0-11.0)
[2017-04-24 07:27] LABS: BICARBONATE 25.6 MEQ/L (21.0-32.0); CALCIUM 8.7 MG/DL (8.5-10.1); CREATININE 1.58 MG/DL (0.50-1.00)
[2017-04-24] MEDS: ASPIRIN 325 MG TAB PO SCH (08:48)
[2017-04-24] MEDS: SERTRALINE HCL 100 MG TAB PO SCH (08:48)
[2017-04-24] MEDS: POTASSIUM CHLORIDE 10 MEQ CONTROLLED RELEASE TAB PO SCH (08:48)
[2017-04-24] MEDS: risperiDONE 1 MG TAB PO SCH ×2 (08:48→20:13)
[2017-04-24] MEDS: hydrALAZINE HCL 25 MG TAB PO SCH ×2 (08:48→20:13)
[2017-04-24] MEDS: amLODIPine BESYLATE 5 MG TAB PO SCH (08:49)
[2017-04-24] MEDS: CARVEDILOL 3.125 MG TAB PO SCH ×2 (08:49→20:14)
[2017-04-24] MEDS: TIOTROPIUM BROMIDE 18 MCG INH INH SCH (08:49)
[2017-04-24] MEDS: SODIUM CHLOR 0.9% 1000 ML INJ 1,000 ML IV SCH ×2 (08:54→12:49)
[2017-04-24] MEDS: SODIUM CHLORIDE 0.9% FLUSH 10 ML FLUSH IV FLUSH SCH ×2 (08:54→20:16)
--- NOTE | 2017-04-24 12:02 | HHI.PR ---
Subjective Remarks Follow up CHF exacerbation/NSTEMI/CKD 04/24/17-patient seen and examined, denies SOB/CP. s/p C Objective Vitals Vital Signs Date Time Temp Pulse Resp B/P (MAP) Pulse Ox O2 Delivery O2 Flow Rate FiO2 04/24/17 11:00 85 04/24/17 11:00 97.8 84 14 107/66 (80) 98 04/24/17 10:13 88 04/24/17 10:00 87 04/24/17 09:26 90 04/24/17 09:00 94 04/24/17 08:32 100 04/24/17 08:11 96 21 04/24/17 08:00 91 04/24/17 07:52 99.3 93 17 110/80 (90) 96 04/24/17 07:00 96 Room Air 04/24/17 07:00 85 04/24/17 06:00 102 04/24/17 05:00 82 04/24/17 04:00 82 04/24/17 03:00 78 04/24/17 03:00 98.3 85 18 108/72 (84) 98 04/24/17 02:30 83 04/24/17 01:00 87 04/24/17 00:00 82 04/23/17 23:00 82 04/23/17 23:00 98.1 71 20 93/60 (71) 93 04/23/17 22:00 82 04/23/17 21:00 82 04/23/17 20:00 86 04/23/17 19:00 101 04/23/17 19:00 93 Room Air 04/23/17 19:00 98.0 86 18 99/65 (76) 93 04/23/17 18:00 88 04/23/17 17:22 94 04/23/17 16:48 98.4 74 20 145/88 (107) 96 04/23/17 16:00 88 04/23/17 14:00 78 04/23/17 13:00 96 04/23/17 12:00 88 I/O 04/23/17 04/23/17 04/23/17 04/24/17 04/24/17 04/24/17 07:00 15:00 23:00 07:00 15:00 23:00 Intake Total 480 ml 100 ml 1838 ml 1580 ml 156 ml Output Total 400 ml 1280 ml 1150 ml Balance 80 ml 100 ml 558 ml 430 ml 156 ml Intake Oral 480 ml 875 ml 460 ml IV Total 100 ml 963 ml 1120 ml 156 ml Output Urine Total 400 ml 1280 ml 1150 ml # Bowel Movements 0 1 0 Result Diagram: 04/24/17 0616 04/24/17 0616 Imaging Last Impressions Renal Ultrasound 04/21/17 0000 Signed Impressions: Service Date/Time: Friday, April 21, 2017 22:10 - CONCLUSION: No hydronephrosis or other abnormality is identified to explain the elevated laboratory values. Reynold Bolton MD Head CT 04/20/17 0000 Signed Impressions: Service Date/Time: Thursday, April 20, 2017 21:20 - CONCLUSION: 1. Mild focal encephalomalacia defect in the right medial occipital mid convexities consistent with prior MANAGER CONTINUOUS IMPROVEMENT territory infarction. 2. No acute intracranial normality. Per Diallo MD Chest X-Ray 04/19/17 0000 Signed Impressions: Service Date/Time: March 19:28 - CONCLUSION: 1. Cardiomegaly with minimal central pulmonary vascular congestion. Per Diallo MD Objective Remarks GENERAL: NAD SKIN: Warm and dry. HEAD: Normocephalic. EYES: No scleral icterus. No injection or drainage. NECK: Supple, trachea midline. No JVD or lymphadenopathy. CARDIOVASCULAR: Regular rate and rhythm without murmurs, gallops, or rubs. RESPIRATORY: Breath sounds equal bilaterally. No accessory muscle use. GASTROINTESTINAL: Abdomen soft, non-tender, nondistended. MUSCULOSKELETAL: No cyanosis, or edema. BACK: Nontender without obvious deformity. No CVA tenderness. A/P Problem List: (1) NSTEMI (non-ST elevated myocardial infarction) ICD Code: I21.4 - Non-ST elevation (NSTEMI) myocardial infarction (2) Cocaine addiction ICD Code: F14.20 - Cocaine addiction Status: Acute (3) CRI (chronic renal insufficiency) ICD Code: N18.9 - Chronic kidney disease, unspecified (4) HTN (hypertension) ICD Code: I10 - Hypertension Status: Acute (5) Schizoaffective disorder, bipolar type ICD Code: F25.0 - Schizoaffective disorder, bipolar type Assessment and Plan 51-year-old female with 1. Acute on chronic systolic CHF Resume Lasix 40 mg IV every 12 hours Secondary to elevated creatinine, JANETH inhibitor on hold 2. Acute on chronic renal insufficiency- improving. kidney US with no hydronephrosis Continue fluid- 24 hrs post-cath. Monitor BUN and creatinine, appreciate input from nephrology 3. NSTEMI Status post left heart catheterization Continue with Coreg 3.125 mg twice a day, aspirin 81 mg daily, Lipitor 10 mg at bedtime. JANETH inhibitor on hold secondary to elevated creatinine 4- acute toxic encephalopathy-secondary to cocaine. Improved CT head with no acute abnormality. neurology consult appreciated. 5-Abnormal UA- UC with mixed lovely. 6. Hypertension/hyperlipidemia/COPD Continue with outpatient medications, except Norvasc due to low BP 7. Cocaine abuse Cessation counseling provided DVT prophylaxis; on Heparin Diogo Browne MD Apr 24, 2017 12:02
--- NOTE | 2017-04-24 12:56 | PD.CARD.PN ---
Subjective Subjective Remarks alert in nad Objective Medications Current Medications Medications (Trade) Dose Ordered Sig/Stanislaw Route Start Time Stop Time Status Last Admin (Aspirin) 325 mg DAILY PO 04/20/17 09:00 04/24/17 08:48 (Nitrostat Sl) 0.4 mg Q5M PRN SL 04/19/17 22:45 (Morphine Inj) 2 mg Q3H PRN IV PUSH 04/19/17 22:45 (Lasix Inj) 40 mg BID@18 IV PUSH 04/20/17 09:00 Future hold 04/21/17 18:25 (Duoneb Neb) 1 ampule Q4HR NEB PRN NEB 04/19/17 22:45 (Catapres) 0.1 mg Q6H PRN PO 04/20/17 00:15 04/20/17 12:16 (Norvasc) 5 mg DAILY PO 04/20/17 09:00 Future Hold 04/24/17 08:49 (Ecotrin Ec) 81 mg DAILY PO 04/20/17 09:00 Future Hold (Lasix) 40 mg DAILY PO 04/20/17 09:00 Future Hold (Apresoline) 25 mg BID PO 04/20/17 00:15 04/24/17 08:48 (KCl) 10 meq DAILY PO 04/20/17 09:00 04/24/17 08:48 (risperDAL) 2 mg Q12HR PO 04/20/17 00:15 04/24/17 08:48 (Zoloft) 100 mg DAILY PO 04/20/17 09:00 04/24/17 08:48 (Aldactone) 25 mg BIDPC PO 04/20/17 00:15 Future Hold 04/21/17 18:20 (Spiriva Inh) 18 mcg DAILY INH 04/20/17 09:00 04/24/17 08:49 (Desyrel) 50 mg HS PO 04/20/17 00:15 04/23/17 21:17 (Lipitor) 10 mg HS PO 04/22/17 21:00 04/23/17 21:17 (Coreg) 3.125 mg Q12HR PO 04/22/17 09:00 04/24/17 08:49 Sodium Chloride 1,000 ml @ 100 mls/hr Q10H IV 04/22/17 10:30 04/24/17 08:54 (NS Flush) 2 ml BID IV FLUSH 04/23/17 21:00 04/24/17 08:54 (NS Flush) 2 ml UNSCH PRN IV FLUSH 04/23/17 16:00 Vital Signs / I&O Vital Signs Date Time Temp Pulse Resp B/P (MAP) Pulse Ox O2 Delivery O2 Flow Rate FiO2 04/24/17 12:12 68 04/24/17 12:00 85 04/24/17 11:00 85 04/24/17 11:00 97.8 84 14 107/66 (80) 98 04/24/17 10:13 88 04/24/17 10:00 87 04/24/17 09:26 90 04/24/17 09:00 94 04/24/17 08:32 100 04/24/17 08:11 96 21 04/24/17 08:00 91 04/24/17 07:52 99.3 93 17 110/80 (90) 96 04/24/17 07:00 96 Room Air 04/24/17 07:00 85 04/24/17 06:00 102 04/24/17 05:00 82 04/24/17 04:00 82 04/24/17 03:00 78 04/24/17 03:00 98.3 85 18 108/72 (84) 98 04/24/17 02:30 83 04/24/17 01:00 87 04/24/17 00:00 82 04/23/17 23:00 82 04/23/17 23:00 98.1 71 20 93/60 (71) 93 04/23/17 22:00 82 04/23/17 21:00 82 04/23/17 20:00 86 04/23/17 19:00 101 04/23/17 19:00 93 Room Air 04/23/17 19:00 98.0 86 18 99/65 (76) 93 04/23/17 18:00 88 04/23/17 17:22 94 04/23/17 16:48 98.4 74 20 145/88 (107) 96 04/23/17 16:00 88 04/23/17 14:00 78 04/23/17 13:00 96 I/O 04/23/17 04/23/17 04/23/17 04/24/17 04/24/1704/24/18 07:00 15:00 23:00 07:00 15:00 23:00 Intake Total 480 ml 100 ml 1838 ml 1580 ml 156 ml Output Total 400 ml 1280 ml 1150 ml Balance 80 ml 100 ml 558 ml 430 ml 156 ml Intake Oral 480 ml 875 ml 460 ml IV Total 100 ml 963 ml 1120 ml 156 ml Output Urine Total 400 ml 1280 ml 1150 ml # Bowel Movements 0 1 0 Physical Exam GENERAL: SKIN: Warm and dry. HEAD: Normocephalic. EYES: No scleral icterus. No injection or drainage. NECK: Supple, trachea midline. No JVD or lymphadenopathy. CARDIOVASCULAR: Regular rate and rhythm without murmurs, gallops, or rubs. RESPIRATORY: Breath sounds equal bilaterally. No accessory muscle use. GASTROINTESTINAL: Abdomen soft, non-tender, nondistended. MUSCULOSKELETAL: No cyanosis, or edema. BACK: Nontender without obvious deformity. No CVA tenderness. Laboratory Laboratory Tests Test 04/24/17 06:16 White Blood Count 5.7 TH/MM3 Red Blood Count 5.16 MIL/MM3 Hemoglobin 14.8 GM/DL Hematocrit 45.1 % Mean Corpuscular Volume 87.5 FL Mean Corpuscular Hemoglobin 28.6 PG Mean Corpuscular Hemoglobin Concent 32.7 % Red Cell Distribution Width 15.0 % Platelet Count 211 TH/MM3 Mean Platelet Volume 8.4 FL Neutrophils (%) (Auto) 54.6 % Lymphocytes (%) (Auto) 23.3 % Monocytes (%) (Auto) 10.8 % Eosinophils (%) (Auto) 10.7 % Basophils (%) (Auto) 0.6 % Neutrophils # (Auto) 3.1 TH/MM3 Lymphocytes # (Auto) 1.3 TH/MM3 Monocytes # (Auto) 0.6 TH/MM3 Eosinophils # (Auto) 0.6 TH/MM3 Basophils # (Auto) 0.0 TH/MM3 CBC Comment DIFF FINAL Differential Comment Blood Urea Nitrogen 18 MG/DL Creatinine 1.58 MG/DL Random Glucose 83 MG/DL Calcium Level 8.7 MG/DL Sodium Level 139 MEQ/L Potassium Level 4.0 MEQ/L Chloride Level 106 MEQ/L Carbon Dioxide Level 25.6 MEQ/L Anion Gap 7 MEQ/L Estimat Glomerular Filtration Rate 42 ML/MIN Assessment and Plan Problem List: (1) NSTEMI (non-ST elevated myocardial infarction) ICD Codes: I21.4 - Non-ST elevation (NSTEMI) myocardial infarction (2) CRI (chronic renal insufficiency) ICD Codes: N18.9 - Chronic kidney disease, unspecified (3) ARF (acute renal failure) ICD Codes: N17.9 - Acute kidney failure, unspecified (4) Cocaine abuse ICD Codes: F14.10 - Cocaine abuse Status: Acute (5) Schizoaffective disorder ICD Codes: F25.9 - Schizoaffective disorder, unspecified Status: Acute (6) Non-ischemic cardiomyopathy ICD Codes: I42.8 - Other cardiomyopathies Status: Acute (7) Cocaine addiction ICD Codes: F14.20 - Cocaine addiction Status: Acute (8) Bipolar 1 disorder ICD Codes: F31.9 - Bipolar I disorder Status: Acute (9) Schizoaffective disorder, bipolar type ICD Codes: F25.0 - Schizoaffective disorder, bipolar type (10) S/P ICD (internal cardiac defibrillator) procedure ICD Codes: Z95.810 - Presence of automatic (implantable) cardiac defibrillator Status: Acute (11) CHF (congestive heart failure) ICD Codes: I50.9 - Heart failure, unspecified Status: Acute Assessment and Plan 1.) NSTEMI - assymptomatic, continue aspirin, heparin drip; start lipitor 10 mg hs, cath tomorrow, start ns @ 100 cc/hr, hold diuretics 2.) Cardiomyopathy - start coreg 3.125 mg bid, jono held due to arf/cri, clinically improving on lasix and aldactone, recheck bnp 3.) Advised patient to dc cocaine and tobacco Problem Qualifiers (1) CHF (congestive heart failure): Qualified Codes: I50.9 - Heart failure, unspecified Joao Archibald MD Apr 24, 2017 12:56
--- NOTE | 2017-04-24 14:51 | HHI.NPPN ---
Subjective Additional Remarks No acute complaints Objective Data Data 04/24/17 04/25/17 19:00 07:00 Intake Total 156 ml Balance 156 ml IV Total 156 ml Vital Signs Date Time Temp Pulse Resp B/P (MAP) Pulse Ox O2 Delivery O2 Flow Rate FiO2 04/24/17 14:00 78 04/24/17 13:00 94 04/24/17 12:12 68 04/24/17 12:00 85 04/24/17 11:00 85 04/24/17 11:00 97.8 84 14 107/66 (80) 98 04/24/17 10:13 88 04/24/17 10:00 87 04/24/17 09:26 90 04/24/17 09:00 94 04/24/17 08:32 100 04/24/17 08:11 96 21 04/24/17 08:00 91 04/24/17 07:52 99.3 93 17 110/80 (90) 96 04/24/17 07:00 96 Room Air 04/24/17 07:00 85 04/24/17 06:00 102 04/24/17 05:00 82 04/24/17 04:00 82 04/24/17 03:00 78 04/24/17 03:00 98.3 85 18 108/72 (84) 98 04/24/17 02:30 83 04/24/17 01:00 87 04/24/17 00:00 82 04/23/17 23:00 82 04/23/17 23:00 98.1 71 20 93/60 (71) 93 04/23/17 22:00 82 04/23/17 21:00 82 04/23/17 20:00 86 04/23/17 19:00 101 04/23/17 19:00 93 Room Air 04/23/17 19:00 98.0 86 18 99/65 (76) 93 04/23/17 18:00 88 04/23/17 17:22 94 04/23/17 16:48 98.4 74 20 145/88 (107) 96 04/23/17 16:00 88 -: 04/24/17 0616 04/24/17 0616 Physical Exam General Appearance: Well Developed, Well Nourished, No Acute Distress Throat Throat Exam: Oral Mucosa Tatums & Moist Neck Neck Exam: Neck Supple Pulmonary Resp Exam: Decreased Bases Cardiology CV Exam: Regular, Normal Sinus Rhythm Gastrointestinal/Abdomen GI Exam: Soft, Non-Tender, Bowel Sounds Present Extremeties Extremities Exam: No Edema Neurologic Neuro Exam: Alert, Awake, Oriented, Speech Clear Assessment/Plan Problem List: (1) ARF (acute renal failure) ICD Codes: N17.9 - Acute kidney failure, unspecified Plan: Baseline creatinine 1.9 - 2.1 corresponding to chronic kidney disease stage III. CKD likely due to HTN, no proteinuria. Creatinine stable 1.5 today. post cath yesterday stop IVF restart Lasix , ACEI, follow BMP has EF 25% Pum HTN 2. Congestive heart failure exacerbation: The patient presented with initial congestive heart failure exacerbation in the setting of non-S-T myocardial infarction. Diuretics on hold now, can restart 3. Non-S-T elevation myocardial infarction: NSTMI in setting of cocaine use - encouraged cessation. (2) NSTEMI (non-ST elevated myocardial infarction) ICD Codes: I21.4 - Non-ST elevation (NSTEMI) myocardial infarction (3) Cocaine abuse ICD Codes: F14.10 - Cocaine abuse, uncomplicated Nancy Turcios MD Apr 24, 2017 14:51
[2017-04-24] MEDS: ATORVASTATIN 10 MG TAB PO SCH (20:13)
[2017-04-24] MEDS: traZODone HCL 50 MG TAB PO SCH (20:13)
--- NOTE | 2017-04-24 22:03 | EKG ---
Date Performed: 04/24/2017 Time Performed: 05:53:06 PTAGE: 51 years EKG: Sinus rhythm Poor R wave progression - probable normal variant Lateral T wave changes may be due to myocardial is chemia Abnormal ECG PREVIOUS TRACING : 04/23/2017 17.53 Since the prior tracing, there has been no significant bojoruqez DOCTOR: Paris Peguero Interpretating Date/Time 04/24/2017 22:02:29
--- NOTE | 2017-04-24 22:38 | EKG ---
Date Performed: 04/23/2017 Time Performed: 17:53:44 PTAGE: 51 years EKG: Sinus rhythm . Possible left atrial abnormality Poor R wave progression - probable normal variant Lateral T wave c hanges Abnormal ECG PREVIOUS TRACING : 04/20/2017 03.50 Since the prior tracing, there has been no significant bojorquez DOCTOR: Paris Peguero Interpretating Date/Time 04/24/2017 22:36:44
[2017-04-25] VITALS (10 sets, daily range): BP systolic 101–128; BP diastolic 68–95; PULSE 73–101; RESP 16–18; TEMP 96.1–97.5; O2SAT 96–98
[2017-04-25 07:17] LABS: AUTOMATED NEUTROPHIL # 2.5 TH/MM3 (1.8-7.7); BASOPHIL % 0.8 % (0.0-2.0); EOSINOPHIL # 0.7 TH/MM3 (0-0.4); EOSINOPHIL % 13.1 % (0.0-4.0); HEMATOCRIT 44.8 % (35.0-46.0); HEMOGLOBIN 14.7 GM/DL (11.6-15.3); LYMPH % 29.5 % (9.0-44.0); LYMPHOCYTE # 1.6 TH/MM3 (1.0-4.8); MEAN CELL VOLUME 88.6 FL (80.0-100.0); MEAN CORPUSCULAR HEMOGLOBIN 29.1 PG (27.0-34.0); MEAN CORPUSCULAR HGB CONC 32.9 % (32.0-36.0); MEAN PLATELET VOLUME 8.4 FL (7.0-11.0); MONO % 9.4 % (0.0-8.0); MONOCYTE # 0.5 TH/MM3 (0-0.9); NEUT % 47.2 % (16.0-70.0); PLATELET COUNT 206 TH/MM3 (150-450); RED BLOOD COUNT 5.06 MIL/MM3 (4.00-5.30); RED CELL DISTRIBUTION WIDTH 15.5 % (11.6-17.2); WHITE BLOOD COUNT 5.4 TH/MM3 (4.0-11.0)
[2017-04-25 07:33] LABS: BICARBONATE 26.6 MEQ/L (21.0-32.0); CALCIUM 9.1 MG/DL (8.5-10.1); CREATININE 1.46 MG/DL (0.50-1.00)
[2017-04-25] MEDS: FUROSEMIDE 40 MG/4 ML VIAL IV PUSH SCH ×3 (09:00→18:07)
[2017-04-25] MEDS: ASPIRIN 325 MG TAB PO SCH (09:17)
[2017-04-25] MEDS: CARVEDILOL 3.125 MG TAB PO SCH ×2 (09:17→19:52)
[2017-04-25] MEDS: SERTRALINE HCL 100 MG TAB PO SCH (09:17)
[2017-04-25] MEDS: hydrALAZINE HCL 25 MG TAB PO SCH ×2 (09:18→21:00)
[2017-04-25] MEDS: risperiDONE 1 MG TAB PO SCH ×2 (09:18→19:52)
[2017-04-25] MEDS: POTASSIUM CHLORIDE 10 MEQ CONTROLLED RELEASE TAB PO SCH (09:18)
[2017-04-25] MEDS: SODIUM CHLORIDE 0.9% FLUSH 10 ML FLUSH IV FLUSH SCH ×2 (09:20→19:54)
[2017-04-25] MEDS: RAMIPRIL 2.5 MG CAP PO SCH (10:54)
[2017-04-25] MEDS: TIOTROPIUM BROMIDE 18 MCG INH INH SCH (10:55)
--- NOTE | 2017-04-25 14:09 | HHI.PR ---
Subjective Remarks Follow up CHF exacerbation/NSTEMI/CKD 04/24/17-patient seen and examined, denies SOB/CP. s/p LHC 04/25/17-patient seen and examined, no acute event overnight. states SOB has improved currently on IV Lasix Objective Vitals Vital Signs Date Time Temp Pulse Resp B/P (MAP) Pulse Ox O2 Delivery O2 Flow Rate FiO2 04/25/17 11:32 96.2 87 18 111/74 (86) 96 04/25/17 07:41 97.4 101 18 128/95 (106) 98 04/25/17 04:25 96.9 94 18 117/85 (96) 98 04/25/17 00:35 80 04/25/17 00:00 97.4 84 18 117/82 (94) 97 04/24/17 23:00 Room Air 04/24/17 22:00 86 04/24/17 21:00 92 04/24/17 20:10 98 21 04/24/17 20:00 96 Room Air 04/24/17 20:00 98.0 96 17 123/95 (104) 96 04/24/17 20:00 94 04/24/17 19:00 94 04/24/17 18:00 93 04/24/17 17:00 82 04/24/17 16:00 84 04/24/17 15:00 98.0 77 16 104/72 (83) 98 04/24/17 15:00 82 I/O 04/24/17 04/24/17 04/24/17 04/25/17 04/25/17 04/25/17 07:00 15:00 23:00 07:00 15:00 23:00 Intake Total 1580 ml 156 ml 1210 ml 240 ml 800 ml Output Total 1150 ml Balance 430 ml 156 ml 1210 ml 240 ml 800 ml Intake Oral 460 ml 1210 ml 240 ml 800 ml IV Total 1120 ml 156 ml Output Urine Total 1150 ml # Voids 2 1 4 # Bowel Movements 0 0 Result Diagram: 04/25/17 0647 04/25/17 0647 Objective Remarks GENERAL: NAD SKIN: Warm and dry. HEAD: Normocephalic. EYES: No scleral icterus. No injection or drainage. NECK: Supple, trachea midline. No JVD or lymphadenopathy. CARDIOVASCULAR: Regular rate and rhythm without murmurs, gallops, or rubs. RESPIRATORY: Breath sounds equal bilaterally. No accessory muscle use. GASTROINTESTINAL: Abdomen soft, non-tender, nondistended. MUSCULOSKELETAL: No cyanosis, or edema. BACK: Nontender without obvious deformity. No CVA tenderness. A/P Problem List: (1) NSTEMI (non-ST elevated myocardial infarction) ICD Code: I21.4 - Non-ST elevation (NSTEMI) myocardial infarction (2) Cocaine addiction ICD Code: F14.20 - Cocaine addiction Status: Acute (3) CRI (chronic renal insufficiency) ICD Code: N18.9 - Chronic kidney disease, unspecified (4) HTN (hypertension) ICD Code: I10 - Hypertension Status: Acute (5) Schizoaffective disorder, bipolar type ICD Code: F25.0 - Schizoaffective disorder, bipolar type Assessment and Plan 51-year-old female with 1. Acute on chronic systolic CHF Continue Lasix 40 mg IV every 12 hours. Will change to by mouth Lasix in a.m. Continue JANETH inhibitor 2. Acute on chronic renal insufficiency- renal indices improving. kidney US with no hydronephrosis Monitor BUN and creatinine, appreciate input from nephrology 3. NSTEMI Status post left heart catheterization Continue with Coreg 3.125 mg twice a day, aspirin 81 mg daily, Lipitor 10 mg at bedtime and JANETH inhibitor 4- acute toxic encephalopathy-secondary to cocaine. Improved CT head with no acute abnormality. neurology consult appreciated. 5-Abnormal UA- UC with mixed lovely. 6. Hypertension/hyperlipidemia/COPD Continue with outpatient medications, 7. Cocaine abuse Cessation counseling provided DVT prophylaxis; on Heparin Diogo Browne MD Apr 25, 2017 14:08
--- NOTE | 2017-04-25 19:37 | PD.CARD.PN ---
Subjective Subjective Remarks alert in nad Objective Medications Current Medications Medications (Trade) Dose Ordered Sig/Stanislaw Route Start Time Stop Time Status Last Admin (Aspirin) 325 mg DAILY PO 04/20/17 09:00 04/25/17 09:17 (Nitrostat Sl) 0.4 mg Q5M PRN SL 04/19/17 22:45 (Morphine Inj) 2 mg Q3H PRN IV PUSH 04/19/17 22:45 (Lasix Inj) 40 mg BID@,18 IV PUSH 04/20/17 09:00 Future hold 04/25/17 18:07 (Duoneb Neb) 1 ampule Q4HR NEB PRN NEB 04/19/17 22:45 (Catapres) 0.1 mg Q6H PRN PO 04/20/17 00:15 04/20/17 12:16 (Norvasc) 5 mg DAILY PO 04/20/17 09:00 Future Hold 04/24/17 08:49 (Ecotrin Ec) 81 mg DAILY PO 04/20/17 09:00 Future Hold (Lasix) 40 mg DAILY PO 04/20/17 09:00 Future Hold (Apresoline) 25 mg BID PO 04/20/17 00:15 04/25/17 09:18 (KCl) 10 meq DAILY PO 04/20/17 09:00 04/25/17 09:18 (risperDAL) 2 mg Q12HR PO 04/20/17 00:15 04/25/17 09:18 (Zoloft) 100 mg DAILY PO 04/20/17 09:00 04/25/17 09:17 (Aldactone) 25 mg BIDPC PO 04/20/17 00:15 Future Hold 04/21/17 18:20 (Spiriva Inh) 18 mcg DAILY INH 04/20/17 09:00 04/25/17 10:55 (Desyrel) 50 mg HS PO 04/20/17 00:15 04/24/17 20:13 (Lipitor) 10 mg HS PO 04/22/17 21:00 04/24/17 20:13 (Coreg) 3.125 mg Q12HR PO 04/22/17 09:00 04/25/17 09:17 (NS Flush) 2 ml BID IV FLUSH 04/23/17 21:00 04/25/17 09:20 (NS Flush) 2 ml UNSCH PRN IV FLUSH 04/23/17 16:00 (Altace) 2.5 mg DAILY PO 04/25/17 09:00 04/25/17 10:54 Vital Signs / I&O Vital Signs Date Time Temp Pulse Resp B/P (MAP) Pulse Ox O2 Delivery O2 Flow Rate FiO2 04/25/17 17:48 98 21 04/25/17 15:45 96.1 73 18 106/76 (86) 98 04/25/17 11:32 96.2 87 18 111/74 (86) 96 04/25/17 07:41 97.4 101 18 128/95 (106) 98 04/25/17 04:25 96.9 94 18 117/85 (96) 98 04/25/17 00:35 80 04/25/17 00:00 97.4 84 18 117/82 (94) 97 04/24/17 23:00 Room Air 04/24/17 22:00 86 04/24/17 21:00 92 04/24/17 20:10 98 21 04/24/17 20:00 96 Room Air 04/24/17 20:00 98.0 96 17 123/95 (104) 96 04/24/17 20:00 94 I/O 04/24/17 04/24/17 04/24/17 04/25/17 04/25/17 04/25/17 06:59 14:59 22:59 06:59 14:59 22:59 Intake Total 1580 ml 156 ml 1210 ml 240 ml 800 ml Output Total 1150 ml Balance 430 ml 156 ml 1210 ml 240 ml 800 ml Intake Oral 460 ml 1210 ml 240 ml 800 ml IV Total 1120 ml 156 ml Output Urine Total 1150 ml # Voids 2 1 4 # Bowel Movements 0 0 Physical Exam GENERAL: SKIN: Warm and dry. HEAD: Normocephalic. EYES: No scleral icterus. No injection or drainage. NECK: Supple, trachea midline. No JVD or lymphadenopathy. CARDIOVASCULAR: Regular rate and rhythm without murmurs, gallops, or rubs. RESPIRATORY: Breath sounds equal bilaterally. No accessory muscle use. GASTROINTESTINAL: Abdomen soft, non-tender, nondistended. MUSCULOSKELETAL: No cyanosis, or edema. BACK: Nontender without obvious deformity. No CVA tenderness. Laboratory Laboratory Tests Test 04/25/17 06:47 White Blood Count 5.4 TH/MM3 Red Blood Count 5.06 MIL/MM3 Hemoglobin 14.7 GM/DL Hematocrit 44.8 % Mean Corpuscular Volume 88.6 FL Mean Corpuscular Hemoglobin 29.1 PG Mean Corpuscular Hemoglobin Concent 32.9 % Red Cell Distribution Width 15.5 % Platelet Count 206 TH/MM3 Mean Platelet Volume 8.4 FL Neutrophils (%) (Auto) 47.2 % Lymphocytes (%) (Auto) 29.5 % Monocytes (%) (Auto) 9.4 % Eosinophils (%) (Auto) 13.1 % Basophils (%) (Auto) 0.8 % Neutrophils # (Auto) 2.5 TH/MM3 Lymphocytes # (Auto) 1.6 TH/MM3 Monocytes # (Auto) 0.5 TH/MM3 Eosinophils # (Auto) 0.7 TH/MM3 Basophils # (Auto) 0.0 TH/MM3 CBC Comment DIFF FINAL Differential Comment Blood Urea Nitrogen 18 MG/DL Creatinine 1.46 MG/DL Random Glucose 89 MG/DL Calcium Level 9.1 MG/DL Sodium Level 140 MEQ/L Potassium Level 4.4 MEQ/L Chloride Level 109 MEQ/L Carbon Dioxide Level 26.6 MEQ/L Anion Gap 4 MEQ/L Estimat Glomerular Filtration Rate 46 ML/MIN B-Type Natriuretic Peptide 333 PG/ML Assessment and Plan Problem List: (1) NSTEMI (non-ST elevated myocardial infarction) ICD Codes: I21.4 - Non-ST elevation (NSTEMI) myocardial infarction (2) CRI (chronic renal insufficiency) ICD Codes: N18.9 - Chronic kidney disease, unspecified (3) ARF (acute renal failure) ICD Codes: N17.9 - Acute kidney failure, unspecified (4) Cocaine abuse ICD Codes: F14.10 - Cocaine abuse Status: Acute (5) Schizoaffective disorder ICD Codes: F25.9 - Schizoaffective disorder, unspecified Status: Acute (6) Non-ischemic cardiomyopathy ICD Codes: I42.8 - Other cardiomyopathies Status: Acute (7) Cocaine addiction ICD Codes: F14.20 - Cocaine addiction Status: Acute (8) Bipolar 1 disorder ICD Codes: F31.9 - Bipolar I disorder Status: Acute (9) Schizoaffective disorder, bipolar type ICD Codes: F25.0 - Schizoaffective disorder, bipolar type (10) S/P ICD (internal cardiac defibrillator) procedure ICD Codes: Z95.810 - Presence of automatic (implantable) cardiac defibrillator Status: Acute (11) CHF (congestive heart failure) ICD Codes: I50.9 - Heart failure, unspecified Status: Acute Assessment and Plan 1.) NSTEMI - assymptomatic, continue aspirin, normal coros, suspect due to spasm from cocaine and/or cardiomyopathy 2.) Cardiomyopathy - start coreg 3.125 mg bid, altace 2.5 mg qd, clinically improving on lasix and aldactone, recheck bnp 3.) Advised patient to dc cocaine and tobacco Problem Qualifiers (1) CHF (congestive heart failure): Qualified Codes: I50.9 - Heart failure, unspecified Joao Archibald MD Apr 25, 2017 19:36
[2017-04-25] MEDS: traZODone HCL 50 MG TAB PO SCH (19:52)
[2017-04-25] MEDS: ATORVASTATIN 10 MG TAB PO SCH (19:52)
[2017-04-26] VITALS: PULSE 76
[2017-04-26 04:00] VITALS: PULSE 67
[2017-04-26 06:39] VITALS: BP 108/84; PULSE 81; RESP 16; TEMP 98.3; O2SAT 96
[2017-04-26 06:56] LABS: HEMATOCRIT 45.9 % (35.0-46.0); HEMOGLOBIN 15.1 GM/DL (11.6-15.3); MEAN CELL VOLUME 87.5 FL (80.0-100.0); MEAN CORPUSCULAR HEMOGLOBIN 28.9 PG (27.0-34.0); MEAN PLATELET VOLUME 8.6 FL (7.0-11.0); PLATELET COUNT 218 TH/MM3 (150-450); RED BLOOD COUNT 5.24 MIL/MM3 (4.00-5.30); WHITE BLOOD COUNT 5.7 TH/MM3 (4.0-11.0)
[2017-04-26 07:31] VITALS: BP 113/86; PULSE 87; RESP 18; TEMP 95.8; O2SAT 97
[2017-04-26] MEDS: TIOTROPIUM BROMIDE 18 MCG INH INH SCH (09:00)
[2017-04-26] MEDS: SODIUM CHLORIDE 0.9% FLUSH 10 ML FLUSH IV FLUSH SCH (09:00)
[2017-04-26] MEDS: FUROSEMIDE 40 MG/4 ML VIAL IV PUSH SCH (09:00)
[2017-04-26] MEDS: ASPIRIN 325 MG TAB PO SCH (09:02)
[2017-04-26] MEDS: RAMIPRIL 2.5 MG CAP PO SCH (09:02)
[2017-04-26] MEDS: SERTRALINE HCL 100 MG TAB PO SCH (09:03)
[2017-04-26] MEDS: POTASSIUM CHLORIDE 10 MEQ CONTROLLED RELEASE TAB PO SCH (09:03)
[2017-04-26] MEDS: risperiDONE 1 MG TAB PO SCH (09:03)
[2017-04-26] MEDS: hydrALAZINE HCL 25 MG TAB PO SCH (09:04)
[2017-04-26] MEDS: CARVEDILOL 3.125 MG TAB PO SCH (09:04)
[2017-04-26 11:43] VITALS: BP 110/74; PULSE 80; RESP 18; TEMP 95.9; O2SAT 98
--- NOTE | 2017-04-26 12:15 | HHI.PR ---
Subjective Remarks Follow up CHF exacerbation/NSTEMI/CKD 04/24/17-patient seen and examined, denies SOB/CP. s/p LHC 04/25/17-patient seen and examined, no acute event overnight. states SOB has improved currently on IV Lasix 04/26/17-patient seen and examined, reports significant improvement of shortness of breath, patient ambulated without any complication. Objective Vitals Vital Signs Date Time Temp Pulse Resp B/P (MAP) Pulse Ox O2 Delivery O2 Flow Rate FiO2 04/26/17 11:43 95.9 80 18 110/74 (86) 98 04/26/17 07:31 95.8 87 18 113/86 (95) 97 04/26/17 06:39 98.3 81 16 108/84 (92) 96 04/26/17 04:00 67 04/26/17 00:00 76 04/25/17 23:18 97.5 73 18 101/68 (79) 97 04/25/17 20:42 84 04/25/17 20:20 96.8 81 16 108/86 (93) 97 04/25/17 20:00 Room Air 04/25/17 17:48 98 21 04/25/17 15:45 96.1 73 18 106/76 (86) 98 I/O 04/25/17 04/25/17 04/25/17 04/26/17 04/26/17 04/26/17 07:00 15:00 23:00 07:00 15:00 23:00 Intake Total 240 ml 800 ml Output Total 2 ml Balance 240 ml 800 ml -2 ml Intake Oral 240 ml 800 ml Output Urine Total 2 ml # Voids 1 4 # Bowel Movements 0 Result Diagram: 04/26/17 0610 04/25/17 0647 Imaging Last Impressions Renal Ultrasound 04/21/17 0000 Signed Impressions: Service Date/Time: Friday, April 21, 2017 22:10 - CONCLUSION: No hydronephrosis or other abnormality is identified to explain the elevated laboratory values. Reynold Bolton MD Head CT 04/20/17 0000 Signed Impressions: Service Date/Time: Thursday, April 20, 2017 21:20 - CONCLUSION: 1. Mild focal encephalomalacia defect in the right medial occipital mid convexities consistent with prior ROOF TILE LAYER territory infarction. 2. No acute intracranial normality. Per Diallo MD Chest X-Ray 04/19/17 0000 Signed Impressions: Service Date/Time: March 19:28 - CONCLUSION: 1. Cardiomegaly with minimal central pulmonary vascular congestion. Per Diallo MD Objective Remarks GENERAL: NAD SKIN: Warm and dry. HEAD: Normocephalic. EYES: No scleral icterus. No injection or drainage. NECK: Supple, trachea midline. No JVD or lymphadenopathy. CARDIOVASCULAR: Regular rate and rhythm without murmurs, gallops, or rubs. RESPIRATORY: Breath sounds equal bilaterally. No accessory muscle use. GASTROINTESTINAL: Abdomen soft, non-tender, nondistended. MUSCULOSKELETAL: No cyanosis, or edema. BACK: Nontender without obvious deformity. No CVA tenderness. A/P Problem List: (1) NSTEMI (non-ST elevated myocardial infarction) ICD Code: I21.4 - Non-ST elevation (NSTEMI) myocardial infarction (2) Cocaine addiction ICD Code: F14.20 - Cocaine addiction Status: Acute (3) CRI (chronic renal insufficiency) ICD Code: N18.9 - Chronic kidney disease, unspecified (4) HTN (hypertension) ICD Code: I10 - Hypertension Status: Acute (5) Schizoaffective disorder, bipolar type ICD Code: F25.0 - Schizoaffective disorder, bipolar type Assessment and Plan 51-year-old female with 1. Acute on chronic systolic CHF Continue Lasix 40 mg IV every 12 hours. Change to by mouth Lasix in a.m. 20mg PO BID Continue JANETH inhibitor 2. Acute on chronic renal insufficiency- renal indices improving. kidney US with no hydronephrosis Monitor BUN and creatinine, appreciate input from nephrology 3. NSTEMI Status post left heart catheterization Continue with Coreg 3.125 mg twice a day, aspirin 81 mg daily, Lipitor 10 mg at bedtime and JANETH inhibitor 4- acute toxic encephalopathy-secondary to cocaine. Improved CT head with no acute abnormality. neurology consult appreciated. 5-Abnormal UA- UC with mixed lovely. 6. Hypertension/hyperlipidemia/COPD Continue with outpatient medications, 7. Cocaine abuse Cessation counseling provided DVT prophylaxis; on Heparin Diogo Browne MD Apr 26, 2017 12:15
[2017-04-26] MEDS ORDERED: CARV3.125 PO (12:20)
[2017-04-26] MEDS ORDERED: LIPI10TA PO (12:20)
[2017-04-26] MEDS ORDERED: ASA325 PO (12:20)
[2017-04-26] MEDS ORDERED: RAMI2.5C PO (12:20)
[2017-04-26] MEDS ORDERED: FURO20TA PO (12:20)
[2017-04-26] MEDS ORDERED: HYDR-3799 PO (12:20)
--- NOTE | 2017-04-26 12:23 | HHI.DS ---
Discharge Summary Admission Date Apr 19, 2017 at 21:40 Discharge Date: Apr 26, 2017 Admitting Diagnosis CHF; CRI; Nonspecific Tn elevation (1) NSTEMI (non-ST elevated myocardial infarction) ICD Code: I21.4 - Non-ST elevation (NSTEMI) myocardial infarction (2) Cocaine addiction ICD Code: F14.20 - Cocaine addiction Status: Acute (3) CRI (chronic renal insufficiency) ICD Code: N18.9 - Chronic kidney disease, unspecified (4) HTN (hypertension) ICD Code: I10 - Hypertension Status: Acute (5) Schizoaffective disorder, bipolar type ICD Code: F25.0 - Schizoaffective disorder, bipolar type Procedures Left heart catheterization Brief History - From Admission 51-year-old female with a past medical history significant for hypertension, COPD, chronic kidney disease, hyperlipidemia and CHF (last echo 07/10/16 showed an EF of 10-15%) and AICD presents to the emergency department with a chief complaint of chest pain. The patient reports that her chest pain started 2-3 days ago and is substernal. She describes it as a "hard pressure." She also endorses shortness of breath with exertion. She denies any lower extremity edema. Patient also states that she feels as though she may have a urinary tract infection. She denies any nausea/vomiting. CBC/BMP: 04/26/17 0610 04/25/17 0647 Significant Findings Laboratory Tests Test 04/24/17 06:16 04/25/17 06:47 04/26/17 06:10 Monocytes (%) (Auto) 10.8 % (0.0-8.0) 9.4 % (0.0-8.0) Eosinophils (%) (Auto) 10.7 % (0.0-4.0) 13.1 % (0.0-4.0) Eosinophils # (Auto) 0.6 TH/MM3 (0-0.4) 0.7 TH/MM3 (0-0.4) Creatinine 1.58 MG/DL (0.50-1.00) 1.46 MG/DL (0.50-1.00) Estimat Glomerular Filtration Rate 42 ML/MIN (>89) 46 ML/MIN (>89) Chloride Level 109 MEQ/L (98-107) Anion Gap 4 MEQ/L (5-15) B-Type Natriuretic Peptide 333 PG/ML (0-100) 227 PG/ML (0-100) Imaging Last Impressions Renal Ultrasound 04/21/17 0000 Signed Impressions: Service Date/Time: Friday, April 21, 2017 22:10 - CONCLUSION: No hydronephrosis or other abnormality is identified to explain the elevated laboratory values. Reynold Bolton MD Head CT 04/20/17 0000 Signed Impressions: Service Date/Time: Thursday, April 20, 2017 21:20 - CONCLUSION: 1. Mild focal encephalomalacia defect in the right medial occipital mid convexities consistent with prior [employer] territory infarction. 2. No acute intracranial normality. Per Diallo MD Chest X-Ray 04/19/17 0000 Signed Impressions: Service Date/Time: March 19:28 - CONCLUSION: 1. Cardiomegaly with minimal central pulmonary vascular congestion. Per Diallo MD PE at Discharge GENERAL: NAD SKIN: Warm and dry. HEAD: Normocephalic. EYES: No scleral icterus. No injection or drainage. NECK: Supple, trachea midline. No JVD or lymphadenopathy. CARDIOVASCULAR: Regular rate and rhythm without murmurs, gallops, or rubs. RESPIRATORY: Breath sounds equal bilaterally. No accessory muscle use. GASTROINTESTINAL: Abdomen soft, non-tender, nondistended. MUSCULOSKELETAL: No cyanosis, or edema. BACK: Nontender without obvious deformity. No CVA tenderness. Hospital Course While in the hospital, patient was treated for: 1. Acute on chronic systolic CHF Initially treated with Lasix 40 mg IV every 12 hours however was switched to by mouth Lasix in a.m. 20mg PO BID Continued on JANETH inhibitor 2. Acute on chronic renal insufficiency- renal indices improving. kidney US with no hydronephrosis Monitor BUN and creatinine, appreciate input from nephrology 3. NSTEMI Status post left heart catheterization performed by cardiology Treated with Coreg 3.125 mg twice a day, aspirin 81 mg daily, Lipitor 10 mg at bedtime and JANETH inhibitor 4- acute toxic encephalopathy-secondary to cocaine. Improved CT head with no acute abnormality. neurology consult appreciated. 5-Abnormal UA- UC with mixed lovely. 6. Hypertension/hyperlipidemia/COPD Continued with outpatient medications, 7. Cocaine abuse Cessation counseling provided DVT prophylaxis; on Heparin Pt Condition on Discharge: Good Discharge Disposition: Discharge Home Discharge Time: <= 30 minutes Discharge Instructions DIET: Follow Instructions for: Heart Healthy Diet Activities you can perform: Regular-No Restrictions Follow up Referrals: Cardiology PCP Follow-up - 1 Week New Medications: Aspirin (Px Aspirin) 325 Mg Tab 325 MG PO DAILY for Prevent Blood Clot, #30 TAB Atorvastatin (Lipitor) 10 Mg Tab 10 MG PO HS for Cholesterol Management, #30 TAB 3 Refills Carvedilol (Coreg) 3.125 Mg Tab 3.125 MG PO Q12HR for Blood Pressure Management, #60 TAB 3 Refills Furosemide (Furosemide) 20 Mg Tab 20 MG PO BID@09,18 for Prevent Heart Failure, #60 TAB 3 Refills Hydralazine HCl (Hydralazine HCl) 25 Mg Tablet 25 MG PO BID for Bowel Management, #60 MG 3 Refills Ramipril (Ramipril) 2.5 Mg Cap 2.5 MG PO DAILY for Blood Pressure Management, #30 CAP 3 Refills Continued Medications: Albuterol 8.5 GM Inh (Proair Hfa 8.5 GM Inh) 90 Mcg/Act Aer 2 PUFF INH Q4-6H PRN for SHORTNESS OF BREATH, #1 INHALER 0 Refills 108 mcg/actuation Albuterol Neb (Albuterol Neb) 2.5 Mg/3 Ml Neb 2.5 MG NEB ONCE for Shortness Of Breath, #1 NEBULE 0 Refills Clonidine (Clonidine) 0.1 Mg Tab 0.1 MG PO Q6HR for SBP>OR =180 DBP > SR=044, #60 TAB 0 Refills Multiple Vitamin (Multi Vitamin Daily) 1 Tab Tab DAILY Potassium Chloride ER (Klor-Con 10) 10 Meq Tab 10 MEQ PO DAILY for health, #30 TAB 0 Refills Risperidone (Risperdal) 1 Mg Tab 2 MG PO Q12HR for bipolas dis, #62 TAB Sertraline (Sertraline) 100 Mg Tab 100 MG PO DAILY, #30 TAB 0 Refills Tiotropium Inh (Spiriva Handihaler) 18 Mcg Cap 18 MCG INH DAILY for health, #30 CAP 0 Refills 1 capsule = 18 mcg Trazodone (Trazodone) 50 Mg Tab 50 MG PO HS for Control Depression, #30 TAB 0 Refills [Albuterol Hfa Inh] () 60 PUFF/8 GM AERO 2 PUFF INH Q6HR for health, #1 INHALER 0 Refills Discontinued Medications: Amlodipine (Norvasc) 5 Mg Tab 5 MG PO DAILY for health, #31 TAB [address] (Aspirin Adult Low Strength) 81 Mg Tabdr 81 MG PO DAILY, TAB Docusate Sodium (Stool Softener) 100 Mg Cap PRN for PRN Enalapril (Enalapril) 5 Mg Tab 10 MG PO BID, #60 TAB 0 Refills Furosemide (Furosemide) 40 Mg Tab 40 MG PO DAILY, #30 TAB 0 Refills Hydralazine HCl (Hydralazine HCl) 25 Mg Tablet 25 MG PO BID for health, #60 TAB 0 Refills Magnesium Hydroxide Liq (Milk of Magnesia Liq) 400 Mg/5 Ml Susp 30 ML PO DAILY PRN for INDIGESTION OR UPSET STOMACH, #1 BOTTLE 0 Refills Metoprolol Succinate ER 24 HR (Metoprolol Succinate ER 24 HR) 100 Mg Tab 100 MG PO DAILY, #30 TAB 0 Refills Diogo Browne MD Apr 26, 2017 12:23
[2017-04-26] MEDS ORDERED: FUROSEMIDE 20 MG TAB PO SCH (18:00)
== END 2017-04-26 14:35 | disposition home or self-care (01) | DRG 280 ==
LOC: NEPE 19:21 → NEDA 21:40 → N06A 04-20 01:16 → HCPC 04-20 04:23 → N06A 04-24 22:54
PROVIDERS: ADMIT Hospitalist; ATTEND Hospitalist
PROC: B2111ZZ Fluoroscopy of Multiple Coronary Arteries using Low Osmolar Contrast (ICD-10-PCS; 2017-04-23)
PROC: B2151ZZ Fluoroscopy of Left Heart using Low Osmolar Contrast (ICD-10-PCS; 2017-04-23)
PROC: 4A023N8 Measurement of Cardiac Sampling and Pressure, Bilateral, Percutaneous Approach (ICD-10-PCS; principal; 2017-04-23 15:00)
DX: I21.4 Non-ST elevation (NSTEMI) myocardial infarction (principal); I50.23 Acute on chronic systolic (congestive) heart failure; G92 Toxic encephalopathy; N17.9 Acute kidney failure, unspecified; N18.3 Chronic kidney disease, stage 3 (moderate); F14.20 Cocaine dependence, uncomplicated; I42.8 Other cardiomyopathies; I27.20 Pulmonary hypertension, unspecified; I13.0 Hypertensive heart and chronic kidney disease with heart failure and stage 1 through stage 4 chronic kidney disease, or unspecified chronic kidney disease; F25.0 Schizoaffective disorder, bipolar type; J44.9 Chronic obstructive pulmonary disease, unspecified; G47.30 Sleep apnea, unspecified; T40.5X1A Poisoning by cocaine, accidental (unintentional), initial encounter; E78.5 Hyperlipidemia, unspecified; E87.6 Hypokalemia; R29.810 Facial weakness; R30.0 Dysuria; H91.90 Unspecified hearing loss, unspecified ear; F17.210 Nicotine dependence, cigarettes, uncomplicated; Z86.73 Personal history of transient ischemic attack (TIA), and cerebral infarction without residual deficits; Z95.0 Presence of cardiac pacemaker
CPT/HCPCS: 70450; 71045; 76775; 80048; 80061; 80076; 80307; 81001; 82550; 82552; 82810; 83735; 83880; 84132; 84484; 85025; 85027; 85610; 85730; 87086; 93005; 93460; 99152; 99153; 99285; C1769; C1893; J0171; J0461; J0696; J1644; J1940; J2250; J7030; Q9967

== ENCOUNTER 2017-06-29 21:40 | Emergency (ER) | payer MEDICAID ==
[~2017-06-29] VITALS: Ht 175.3 cm; Wt 85.0 kg
[~2017-06-29 21:40] MED LIST changes: -ACET325T PO; -AMLO5 PO; +ASA325 PO; -ASPI81 CHEW; -ASPI81TA16 PO; +CARV3.125 PO; -CEPH-460 PO; -CEPH500C PO; -DOCU1CAP66; -ENAL5TAB PO; +FURO20TA PO; -FURO40TA PO; +LIPI10TA PO; -METO1TAB43 PO; -METO1TAB9 PO; -MILKSUS PO; -POTA10TA8 PO; +RAMI2.5C PO; -RISP2TAB2 PO; -RISP2TAB37 PO; -ZOLO25TA PO
[2017-06-29 22:12] VITALS: BP 132/91; PULSE 88; RESP 18; TEMP 97.5; O2SAT 99
[2017-06-30 00:18] VITALS: BP 152/105; PULSE 86; RESP 18; O2SAT 99
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
[2017-06-30] MEDS ORDERED: CARVEDILOL 3.125 MG TAB PO ONE (00:45)
[2017-06-30] MEDS ORDERED: risperiDONE 1 MG TAB PO ONE (00:45)
[2017-06-30] MEDS ORDERED: traZODone HCL 50 MG TAB PO ONE (00:45)
[2017-06-30 01:14] LABS: AUTOMATED NEUTROPHIL # 2.8 TH/MM3 (1.8-7.7); BASOPHIL % 0.8 % (0.0-2.0); EOSINOPHIL # 0.6 TH/MM3 (0-0.4); EOSINOPHIL % 9.9 % (0.0-4.0); HEMATOCRIT 46.6 % (35.0-46.0); HEMOGLOBIN 15.4 GM/DL (11.6-15.3); LYMPH % 32.4 % (9.0-44.0); MEAN CELL VOLUME 87.7 FL (80.0-100.0); MONO % 11.7 % (0.0-8.0); MONOCYTE # 0.7 TH/MM3 (0-0.9); NEUT % 45.2 % (16.0-70.0); PLATELET COUNT 213 TH/MM3 (150-450); RED BLOOD COUNT 5.31 MIL/MM3 (4.00-5.30); RED CELL DISTRIBUTION WIDTH 16.5 % (11.6-17.2); WHITE BLOOD COUNT 6.1 TH/MM3 (4.0-11.0)
[2017-06-30 01:46] LABS: AST (GOT) 18 U/L (15-37); BICARBONATE 26.1 MEQ/L (21.0-32.0); BLOOD UREA NITROGEN 22 MG/DL (7-18); CHLORIDE 105 MEQ/L (98-107); GLOMERULAR FILTRATION RATE 44 ML/MIN (>89); GLUCOSE,RANDOM 94 MG/DL (74-106); SODIUM (NA) 139 MEQ/L (136-145)
[2017-06-30 01:55] LABS: ACETAMINOPHEN LESS THAN 2.0 MCG/ML (10.0-30.0); ALKALINE PHOSPHATASE 81 U/L (45-117); ALT (GPT) 23 U/L (10-53); TOTAL BILIRUBIN ADULT 0.3 MG/DL (0.2-1.0); TOTAL PROTEIN 6.6 GM/DL (6.4-8.2)
[2017-06-30] MEDS ORDERED: CARV3.125 PO (02:47)
[2017-06-30] MEDS ORDERED: KLOR10TA PO (02:47)
[2017-06-30] MEDS ORDERED: ASA325 PO (02:47)
[2017-06-30] MEDS ORDERED: HYDR-3799 PO (02:47)
[2017-06-30] MEDS ORDERED: SPIRCAP INH (02:47)
[2017-06-30] MEDS ORDERED: LIPI10TA PO (02:47)
[2017-06-30] MEDS ORDERED: RAMI2.5C PO (02:47)
[2017-06-30] MEDS ORDERED: Albuterol Hfa Inh INH (02:47)
[2017-06-30] MEDS ORDERED: FURO20TA PO (02:47)
[2017-06-30 09:33] LABS: BILIRUBIN, URINE NEG (NEG); BLOOD, URINE NEG (NEG); GLUCOSE,URINE NEG (NEG); KETONE, URINE NEG (NEG); NITRITE,URINE NEG (NEG); PH, URINE 7.5 (5.0-8.5); URINE LEUKOCYTE ESTERASE MOD (NEG)
[2017-06-30 09:44] LABS: BACTERIA, URINE OCC /hpf; SQUAMOUS EPITHELIAL CELL URINE 2 /hpf (0-5); URINE COLOR STRAW (YELLW/STRAW)
[2017-06-30 09:57] VITALS: BP 142/82
--- NOTE | 2017-06-30 09:59 | PD ---
Data Data Last Documented VS Vital Signs Date Time Temp Pulse Resp B/P (MAP) Pulse Ox O2 Delivery O2 Flow Rate FiO2 06/30/17 00:18 86 18 152/105 (121) 99 Room Air 06/29/17 22:12 97.5 Orders Orders Complete Blood Count With Diff (06/30/17 00:20) Comprehensive Metabolic Panel (06/30/17 00:20) Thyroid Stimulating Hormone (06/30/17 00:20) Urinalysis - C+S If Indicated (06/30/17 00:20) Psych Screen (06/30/17 00:20) Drug Screen, Random Urine (06/30/17 00:20) Alcohol (Ethanol) (06/30/17 00:20) Salicylates (Aspirin) (06/30/17 00:20) Tylenol (Acetaminophen) (06/30/17 00:20) Carvedilol (Coreg) (06/30/17 00:45) Risperidone (Risperdal) (06/30/17 00:45) Trazodone (Desyrel) (06/30/17 00:45) Diet Regular Basic (06/30/17 Breakfast) Urine Culture (06/30/17 09:00) Labs Laboratory Tests Test 06/30/17 00:56 06/30/17 09:00 White Blood Count 6.1 TH/MM3 Red Blood Count 5.31 MIL/MM3 Hemoglobin 15.4 GM/DL Hematocrit 46.6 % Mean Corpuscular Volume 87.7 FL Mean Corpuscular Hemoglobin 29.0 PG Mean Corpuscular Hemoglobin Concent 33.0 % Red Cell Distribution Width 16.5 % Platelet Count 213 TH/MM3 Mean Platelet Volume 9.0 FL Neutrophils (%) (Auto) 45.2 % Lymphocytes (%) (Auto) 32.4 % Monocytes (%) (Auto) 11.7 % Eosinophils (%) (Auto) 9.9 % Basophils (%) (Auto) 0.8 % Neutrophils # (Auto) 2.8 TH/MM3 Lymphocytes # (Auto) 2.0 TH/MM3 Monocytes # (Auto) 0.7 TH/MM3 Eosinophils # (Auto) 0.6 TH/MM3 Basophils # (Auto) 0.0 TH/MM3 CBC Comment DIFF FINAL Differential Comment Blood Urea Nitrogen 22 MG/DL Creatinine 1.50 MG/DL Random Glucose 94 MG/DL Total Protein 6.6 GM/DL Albumin 3.0 GM/DL Calcium Level 9.0 MG/DL Alkaline Phosphatase 81 U/L Aspartate Amino Transf (AST/SGOT) 18 U/L Alanine Aminotransferase (ALT/SGPT) 23 U/L Total Bilirubin 0.3 MG/DL Sodium Level 139 MEQ/L Potassium Level 4.4 MEQ/L Chloride Level 105 MEQ/L Carbon Dioxide Level 26.1 MEQ/L Anion Gap 8 MEQ/L Estimat Glomerular Filtration Rate 44 ML/MIN Thyroid Stimulating Hormone 3rd Gen 3.110 uIU/ML Salicylates Level LESS THAN 1.7 MG/DL Acetaminophen Level LESS THAN 2.0 MCG/ML Ethyl Alcohol Level LESS THAN 3 MG/DL Urine Color STRAW Urine Turbidity CLEAR Urine pH 7.5 Urine Specific [place] 1.006 Urine Protein NEG mg/dL Urine Glucose (UA) NEG mg/dL Urine Ketones NEG mg/dL Urine Occult Blood NEG Urine Nitrite NEG Urine Bilirubin NEG Urine Urobilinogen 0.2 MG/DL Urine Leukocyte Esterase MOD Urine RBC 2 /hpf Urine WBC 15 /hpf Urine Squamous Epithelial Cells 2 /hpf Urine Bacteria OCC /hpf Microscopic Urinalysis Comment CULTURE INDICATED Urine Opiates Screen NEG Urine Barbiturates Screen NEG Urine Amphetamines Screen NEG Urine Benzodiazepines Screen NEG Urine Cocaine Screen POS Urine Cannabinoids Screen NEG MDM Medical Record Reviewed: Yes Supervised Visit with TAMANNA: No Narrative Course Please see previous providers notes. This patient has been seen by psychiatry and cleared by psychiatry. She has no medical issues that warrant further hospitalization. She is currently calm, cooperative, eating a meal. She will be given outpatient resources for follow-up purposes. Previous provider has written her refills of several of her chronic use medications. Diagnosis Primary Impression: Medical clearance for psychiatric admission Additional Impressions: Schizoaffective disorder, bipolar type HTN (hypertension) Qualified Codes: I10 - Essential (primary) hypertension CRI (chronic renal insufficiency) Qualified Codes: N18.9 - Chronic kidney disease, unspecified Med/Other Pt SpecificInfo: Prescription(s) given Scripts Furosemide (Furosemide) 20 Mg Tab 20 MG PO BID@ for Prevent Heart Failure, #60 TAB 3 Refills Prov: Jessie Wilburn 06/30/17 Aspirin (Px Aspirin) 325 Mg Tab 325 MG PO DAILY for Prevent Blood Clot, #30 TAB Prov: Jessie Wilburn 06/30/17 Ramipril (Ramipril) 2.5 Mg Cap 2.5 MG PO DAILY for Blood Pressure Management, #30 CAP 3 Refills Prov: Jessie Wilburn 06/30/17 Carvedilol (Coreg) 3.125 Mg Tab 3.125 MG PO Q12HR for Blood Pressure Management, #60 TAB 3 Refills Prov: Jessie Wilburn 06/30/17 Hydralazine HCl (Hydralazine HCl) 25 Mg Tablet 25 MG PO BID for Bowel Management, #60 MG 3 Refills Prov: Jessie Wilburn 06/30/17 Atorvastatin (Lipitor) 10 Mg Tab 10 MG PO HS for Cholesterol Management, #30 TAB 3 Refills Prov: Jessie Wilburn 06/30/17 Tiotropium Inh (Spiriva Handihaler) 18 Mcg Cap 18 MCG INH DAILY for health, #30 CAP 0 Refills 1 capsule = 18 mcg Prov: Jessie Wilburn 06/30/17 Potassium Chloride ER (Klor-Con 10) 10 Meq Tab 10 MEQ PO DAILY for health, #30 TAB 0 Refills Prov: Jessie Wilburn 06/30/17 [Albuterol Hfa Inh] 60 PUFF/8 GM AERO No Conflict Check 2 PUFF INH Q6HR for health, #1 INHALER 0 Refills Prov: Jessie Wilburn 06/30/17 Disposition: 01 DISCHARGE HOME Condition: Stable Maxx Joyce June 30, 2017 09:59
--- NOTE | 2017-06-30 10:25 | PD ---
History of Present Illness Chief Complaint: Psychiatric Symptoms Time Seen by Provider: 09:15 Travel History International Travel<30 Days: No Contact w/Intl Traveler<30days: No Known affected area: No Legal Status Legal Status: Voluntary History of Present Illness: This is a 51-year-old -I[place]ian female who presents voluntarily to the emergency room. She states that she is here because she "does not want to hurt her cousin". Patient is well-known to this facility and has had multiple inpatient admissions previously. Reviewed electronic medical record, labs, discuss case with staff. Patient was seen ambulating in the hallway without difficulty. Interviewed patient in her room in the main ED. She is awake, alert, and oriented 4. Her speech is clear , logical, and organized. There is no indication of internal stimulation. She denies being suicidal, homicidal, hearing voices, having visual hallucinations. She reports that she has not used drugs and "5 days". She denies any previous suicide attempts. She states that she has not had her medications for several days now. She advises that she is upset with her cousin and is fearful that she would hurt him. She does state that she is fully aware of the consequences of such action would be fpc time and she admits that she does not want to go to fpc. Patient is homeless presently due to her causing taking her out of her house. She does report that she receives disability. [facility]LY [facility] Past Medical History Asthma: Yes Bipolar Disorder: Yes Anxiety: Yes Depression: Yes Chest Pain: Yes Congestive Heart Failure: Yes COPD: Yes Cerebrovascular Accident: Yes (TIA) Diminished Hearing: Yes Genitourinary: Yes Hypertension: Yes Implanted Vascular Access Dvce: Yes Neurologic: Yes Psychiatric: Yes (Schizoaffective D/O) Renal Failure: No Seizures: No Sickle Cell Disease: No Sleep Apnea: Yes Thyroid Disease: No Ulcer: No Influenza Vaccination: Yes ?: Not Tubal Ligation: Yes Past Surgical History Abdominal Surgery: No AICD: Yes Arteriovenous Shunt: No Cardiac Surgery: No Ear Surgery: No Endocrine Surgery: No Eye Surgery: No Gynecologic Surgery: Yes (TUBAL LIGATION) Insulin Pump: No Joint Replacement: No Neurologic Surgery: No Oral Surgery: No Pacemaker: No Thoracic Surgery: No Psychiatric History Psychiatric History History of multiple inpatient visits and ongoing mental health illness as well as polysubstance abuse. Hx Psychiatric Treatment: Patient reports being here at [facility] 5 months ago. No record was found. Patient also reports being hospitalized for inpatient at [facility] and [facility]. Patient reports also having outpatient services through [facility]. Patient is a poor historian and does not remember names or dates. History of Inpatient Treatment: Yes Social History Hx Alcohol Use: No Hx Tobacco Use: Yes (4 CIG/DAY) Hx Substance Use: Yes (cocaine) Substance Use Type: Crack, Cocaine Other Substances Used: Admits she relapsed 1 week ago Hx of Substance Use Treatment: Yes Allergies-Medications (Allergen,Severity, Reaction): Coded Allergies: No Known Allergies (Verified Allergy, Unknown, 06/30/17) Reported Meds & Prescriptions Reported Meds & Active Scripts Active Furosemide 20 Mg Tab 20 Mg PO BID@,18 Px Aspirin (Aspirin) 325 Mg Tab 325 Mg PO DAILY Ramipril 2.5 Mg Cap 2.5 Mg PO DAILY Coreg (Carvedilol) 3.125 Mg Tab 3.125 Mg PO Q12HR Hydralazine HCl 25 Mg Tablet 25 Mg PO BID Lipitor (Atorvastatin Calcium) 10 Mg Tab 10 Mg PO HS Spiriva Handihaler (Tiotropium Inh) 18 Mcg Cap 18 Mcg INH DAILY 1 capsule = 18 mcg Klor-Con 10 (Potassium Chloride) 10 Meq Tab 10 Meq PO DAILY [Albuterol Hfa Inh] 60 PUFF/8 GM Aero 2 Puff INH Q6HR Aldactone (Spironolactone) 25 Mg Tab 25 Mg PO BIDPC Risperdal (Risperidone) 1 Mg Tab 2 Mg PO Q12HR Reported Sertraline (Sertraline HCl) 100 Mg Tab 100 Mg PO DAILY Multi Vitamin Daily (Multiple Vitamin) 1 Tab Tab DAILY Clonidine (Clonidine HCl) 0.1 Mg Tab 0.1 Mg PO Q6HR Albuterol Neb (Albuterol Sulfate) 2.5 Mg/3 Ml Neb 2.5 Mg NEB ONCE Proair Hfa 8.5 GM Inh (Albuterol Sulfate) 90 Mcg/Act Aer 2 Puff INH Q4-6H PRN 108 mcg/actuation Trazodone (Trazodone HCl) 50 Mg Tab 50 Mg PO HS Mental Status Examination Appearance: Dirty, Disheveled Consciousness: Alert Orientation: x4 Motor Activity: Normal gait Speech: Unremarkable Language: Adequate Fund of Knowledge: Adequate Attention and Concentration: Adequate Memory: Unremarkable Mood: Appropriate, Good Affect: Appropriate, Euthymic Thought Process & Associations: Intact Thought Content: Appropriate Hallucination Type: None Suicidal Ideation: No Suicidal Plan: No Suicidal Intention: No Homicidal Ideation: No Homicidal Plan: No Homicidal Intention: No Insight: Fair Judgment: Impulsive MDM Medical Decision Making Medical Record Reviewed: Yes Assessment/Plan This is a 51-year-old -I[place]ian female who presents voluntarily to this facility for reportedly having thoughts of harming her cousin. Upon examination this morning patient is awake, alert, and oriented 4. She is observed ambulating in hallways without difficulty. Her speech is clear, logical, and organized. There is no indication of internal stimulation or thought blocking. I can elicit no delusional material. She denies being suicidal, homicidal, experiencing auditory or visual hallucinations. She admits that she understands the possible consequences should she harm her cousin. She states "I will go to fpc". When asked if she wanted to go to fpc the patient responded in the negative. At this time patient does not meet inpatient criteria. She will be advised to follow-up with her already established outpatient provider. She is advised that she needs to get back on her medications and continue taking them as prescribed. She will be advised to return to this facility if her condition worsens. Orders Orders Complete Blood Count With Diff (06/30/17:20) Comprehensive Metabolic Panel (06/30/17:20) Thyroid Stimulating Hormone (06/30/17:20) Urinalysis - C+S If Indicated (06/30/17:20) Psych Screen (06/30/17:20) Drug Screen, Random Urine (06/30/17:20) Alcohol (Ethanol) (06/30/17:20) Salicylates (Aspirin) (06/30/17:20) Tylenol (Acetaminophen) (06/30/17:20) Carvedilol (Coreg) (06/30/17:45) Risperidone (Risperdal) (06/30/17:45) Trazodone (Desyrel) (5/5/18 00:45) Diet Regular Basic (06/30/17 Breakfast) Urine Culture (06/30/17 09:00) Ed Discharge Order (06/30/17 09:59) Results Vital Signs Date Time Temp Pulse Resp B/P (MAP) Pulse Ox O2 Delivery O2 Flow Rate FiO2 06/30/17 09:57 74 16 142/82 (102) 99 06/30/17 00:18 86 18 152/105 (121) 99 Room Air 06/29/17 22:12 97.5 88 18 132/91 (105) 99 Laboratory Tests Test 06/30/17 00:56 06/30/17 09:00 White Blood Count 6.1 Red Blood Count 5.31 Hemoglobin 15.4 Hematocrit 46.6 Mean Corpuscular Volume 87.7 Mean Corpuscular Hemoglobin 29.0 Mean Corpuscular Hemoglobin Concent 33.0 Red Cell Distribution Width 16.5 Platelet Count 213 Mean Platelet Volume 9.0 Neutrophils (%) (Auto) 45.2 Lymphocytes (%) (Auto) 32.4 Monocytes (%) (Auto) 11.7 Eosinophils (%) (Auto) 9.9 Basophils (%) (Auto) 0.8 Neutrophils # (Auto) 2.8 Lymphocytes # (Auto) 2.0 Monocytes # (Auto) 0.7 Eosinophils # (Auto) 0.6 Basophils # (Auto) 0.0 CBC Comment DIFF FINAL Differential Comment Blood Urea Nitrogen 22 Creatinine 1.50 Random Glucose 94 Total Protein 6.6 Albumin 3.0 Calcium Level 9.0 Alkaline Phosphatase 81 Aspartate Amino Transf (AST/SGOT) 18 Alanine Aminotransferase (ALT/SGPT) 23 Total Bilirubin 0.3 Sodium Level 139 Potassium Level 4.4 Chloride Level 105 Carbon Dioxide Level 26.1 Anion Gap 8 Estimat Glomerular Filtration Rate 44 Thyroid Stimulating Hormone 3rd Gen 3.110 Salicylates Level LESS THAN 1.7 Acetaminophen Level LESS THAN 2.0 Ethyl Alcohol Level LESS THAN 3 Urine Color STRAW Urine Turbidity CLEAR Urine pH 7.5 Urine Specific [place] 1.006 Urine Protein NEG Urine Glucose (UA) NEG Urine Ketones NEG Urine Occult Blood NEG Urine Nitrite NEG Urine Bilirubin NEG Urine Urobilinogen 0.2 Urine Leukocyte Esterase MOD Urine RBC 2 Urine WBC 15 Urine Squamous Epithelial Cells 2 Urine Bacteria OCC Microscopic Urinalysis Comment CULTURE INDICATED Urine Opiates Screen NEG Urine Barbiturates Screen NEG Urine Amphetamines Screen NEG Urine Benzodiazepines Screen NEG Urine Cocaine Screen POS Urine Cannabinoids Screen NEG Date/Time Source Procedure Growth Status 06/30/17 09:00 Urine Random Urine Urine Culture Pending Received Diagnosis Primary Impression: Cocaine abuse with unspecified cocaine-induced disorder Additional Impression: Malingering Psychiatrically Cleared: Yes Departure Forms: Tests/Procedures Patient Instructions: General Instructions, Chronic Kidney Disease (ED), Schizophrenia (ED), Hypertension (ED) Prescriptions Furosemide (Furosemide) 20 Mg Tab 20 MG PO BID@ for Prevent Heart Failure, #60 TAB 3 Refills Prov: Jessie Wilburn 06/30/17 Aspirin (Px Aspirin) 325 Mg Tab 325 MG PO DAILY for Prevent Blood Clot, #30 TAB Prov: Jessie Wilburn 06/30/17 Ramipril (Ramipril) 2.5 Mg Cap 2.5 MG PO DAILY for Blood Pressure Management, #30 CAP 3 Refills Prov: Jessie Wilburn 06/30/17 Carvedilol (Coreg) 3.125 Mg Tab 3.125 MG PO Q12HR for Blood Pressure Management, #60 TAB 3 Refills Prov: Jessie Wilburn 06/30/17 Hydralazine HCl (Hydralazine HCl) 25 Mg Tablet 25 MG PO BID for Bowel Management, #60 MG 3 Refills Prov: Jessie Wilburn 06/30/17 Atorvastatin (Lipitor) 10 Mg Tab 10 MG PO HS for Cholesterol Management, #30 TAB 3 Refills Prov: Jessie Wilburn 06/30/17 Tiotropium Inh (Spiriva Handihaler) 18 Mcg Cap 18 MCG INH DAILY for health, #30 CAP 0 Refills 1 capsule = 18 mcg Prov: Jessie Wilburn 06/30/17 Potassium Chloride ER (Klor-Con 10) 10 Meq Tab 10 MEQ PO DAILY for health, #30 TAB 0 Refills Prov: Jessie Wilburn 06/30/17 [Albuterol Hfa Inh] 60 PUFF/8 GM AERO No Conflict Check 2 PUFF INH Q6HR for health, #1 INHALER 0 Refills Prov: Jessie Wilburn 06/30/17 Disposition: 01 DISCHARGE HOME Condition: Stable Problem Qualifiers Shanet Muñoz June 30, 2017 10:25
== END 2017-06-30 10:11 | disposition home or self-care (01) ==
LOC: NEPD 21:40
DX: F14.19 Cocaine abuse with unspecified cocaine-induced disorder (principal); J45.909 Unspecified asthma, uncomplicated; F31.9 Bipolar disorder, unspecified; F41.9 Anxiety disorder, unspecified; I11.0 Hypertensive heart disease with heart failure; I50.9 Heart failure, unspecified; J44.9 Chronic obstructive pulmonary disease, unspecified; Z76.5 Malingerer [conscious simulation]; Z59.0 Homelessness
CPT/HCPCS: 80053; 80307; 81001; 84443; 85025; 87086; 99283

== ENCOUNTER 2017-11-26 15:15 | Inpatient (IN) ==
--- NOTE | 2017-11-26 16:30 | XR ---
EXAM DATE: 11/26/2017 3:56 PM EDT AGE/SEX: 52 years / Female INDICATIONS: Shortness of breath. CLINICAL DATA: This is the patient's initial encounter. Patient reports that signs and symptoms have been present for 1 day and indicates a pain score of 0/10. MEDICAL/SURGICAL HISTORY: . Congestive heart failure. Chronic obstructive pulmonary disease. . Pacemaker. COMPARISON: [facility] [place] S[place], 04/19/2017. . FINDINGS: A single AP view of the chest demonstrates cardiomegaly. Increase in pulmonary vascularity. Left-side d pacemaker intact. No pulmonary edema or pleural effusions. The cardiomediastinal contours are unre markable. Osseous structures are intact. CONCLUSION: Cardiomegaly with increase in pulmonary vascularity. Electronically signed by: Diogo Rodriguez MD 11/26/2017 4:28 PM EDT
--- NOTE | 2017-11-26 17:04 | ED ---
HPI General Chief Complaint: Shortness of Breath/Dyspnea Stated Complaint: SOB Time Seen by Provider: 11/26/17 15:39 Source: patient Mode of arrival: ambulatory Limitations: no limitations History of Present Illness 52-year-old female with PMH of MD, CVA, HTN, CHF, bipolar, schizophrenia, current cocaine abuse, current smoker presents to the ED for evaluation of 5- hour history of shortness of breath. Patient states she last smoked cocaine yesterday. She endorses palpitations. She denies chest pain, nausea, vomiting , diaphoresis. She denies history of IVDA. Patient states that she was discharged "a few days ago" from "[facility]." She states that she has not taken any of her medications for the last few days. She does not know what medications she is prescribed. She states that she came to [facility] to " get my son to help me out." Related Data Allergies Allergy/AdvReac Type Severity Reaction Status Date / Time No Known Allergies Allergy Unverified 11/26/17 15:39 Review of Systems ROS: all other systems reviewed are negative [facility] Medical History Medical History CHF (congestive heart failure) (Acute) Chronic kidney disease (CKD) stage G2/A2, mildly decreased glomerular filtration rate (GFR) between 60-89 mL/min/1.73 square meter and albuminuria creatinine ratio between 30-299 mg/g (Acute) History of CVA in adulthood (Acute) History of crack cocaine use (Acute) Hx of myocardial infarction (Acute) Hypertension (Acute) Schizoaffective disorder (Acute) Tobacco abuse (Acute) Surgical History Surgical History History of implantable cardioverter-defibrillator (ICD) placement (Acute) History of tubal ligation (Acute) Family History Family History Father Kidney disease Social History Social History Substance History: Active Abuse Second Hand Smoke Exposure: Yes Smoking Status: Current every day smoker Tobacco Type: Cigarettes How Often Do You Have a Drink Containing Alcohol: 4 or more times a week Recent Travel in [facility] within the Last 8 Weeks: No Recent Out of Country Travel within the Last 8 Weeks: No Exam Narrative Exam Narrative: GENERAL: Well-nourished, well-developed -Malaysian female no acute distress. SKIN: Focused skin assessment warm/dry. HEAD: Atraumatic. Normocephalic. EYES: Pupils equal and round. No scleral icterus. No injection or drainage. ENT: No nasal bleeding or discharge. Mucous membranes pink and moist. NECK: Trachea midline. No JVD. CARDIOVASCULAR: Tachycardic. Regular rate and rhythm. No murmur appreciated. RESPIRATORY: No accessory muscle use. Clear to auscultation. Breath sounds equal bilaterally. GASTROINTESTINAL: Abdomen soft, non-tender, nondistended. Hepatic and splenic margins not palpable. MUSCULOSKELETAL: No obvious deformities. No clubbing. No cyanosis. No edema. NEUROLOGICAL: Awake and alert. No obvious cranial nerve deficits. Motor grossly within normal limits. Normal speech. PSYCHIATRIC: Appropriate mood and affect; insight and judgment normal. Course Initial Documented Vital Signs Pulse Oximetry 100 11/26/17 16:03 Last Documented Vital Signs Temperature 99.2 F 11/26/17 16:29 Pulse Rate 102 H 11/26/17 19:30 Respiratory Rate 24 11/26/17 21:08 Blood Pressure 183/127 H 11/26/17 19:30 Pulse Oximetry 95 11/26/17 19:30 Medical Decision Making TAMANNA Attestation TAMANNA supervised visit: Yes Attestation: I, Dr. Pratt, have reviewed the advance practice practitioner's documentation and am in agreement, met with the patient face to face, made the diagnosis, and the medical decision making was done by me. *My assessment and Findings: Patient seen and examined by me in addition to Alejandro Thrasher, this is a 52-year-old female who has bilateral small volume PEs but does have evidence of right ventricular strain as well of elevated troponin and is in acute pulmonary edema from congestive heart failure. Hypertensive emergency as well. Discussed with Dr. Tafoya for admission to [facility] [place] Narrative Medical decision making narrative: 52-year-old female with PMH of MD, CVA, HTN, CHF, bipolar, schizophrenia, current cocaine abuse, current smoker presents to the ED for evaluation of 5-hour history of shortness of breath. Noncompliant with medications. Patient is hypertensive, tachycardic on presentation. Lung sounds clear and equal bilaterally. No lower extremity edema. Patient was administered an aspirin, 1 dose of sublingual nitroglycerin and 1 inch of nitroglycerin paste was applied to the chest. No acute changes on the EKG. Troponin elevated. BNP 2000+. CTA reveals small PEs bilaterally. Patient was administered 40 mg of Lasix, heparin bolus and drip initiated. I spoke with Dr. Biga who agrees to accept the patient to the ICU. Please see medicine notes for disposition. Medical Screen Exam Complete: Yes Emergency Medical Condition: Yes Differential Diagnosis Differential Diagnosis: CHF exacerbation versus hypertensive urgency versus noncompliance versus PE versus less likely ACS versus other Lab Data Result diagrams: 11/26/17 17:32 11/26/17 17:32 Lab Results 11/26/17 11/26/17 11/26/17 Range/Units 17:32 17:32 17:32 WBC 5.5 (4.0-11.0) th/mm3 RBC 4.83 (4.00-5.30) mil/mm3 Hgb 14.3 (11.6-15.3) gm/dL Hct 42.8 (35.0-46.0) % MCV 88.6 (80.0-100.0) fL MCH 29.6 (27.0-34.0) pg MCHC 33.4 (32.0-36.0) % RDW 17.2 (11.6-17.2) % Plt Count 232 (150-450) th/mm3 MPV 8.8 (7.0-11.0) fL Neut % (Auto) 63.3 (16.0-70.0) % Lymph % (Auto) 22.5 (9.0-44.0) % [place] % (Auto) 10.1 H (0.0-8.0) % Eos % (Auto) 3.3 (0.0-4.0) % Baso % (Auto) 0.8 (0.0-2.0) % Neut # (Auto) 3.5 (1.8-7.7) th/mm3 Lymph # (Auto) 1.2 (1.0-4.8) th/mm3 [place] # (Auto) 0.6 (0.0-0.9) th/mm3 Eos # (Auto) 0.2 (0.0-0.4) th/mm3 Baso # (Auto) 0.0 (0.0-0.2) th/mm3 WBC Differential . Differential Comment Auto diff final PT (9.8-11.6) sec INR Ratio APTT (24.3-30.1) sec Sodium 148 H (136-145) meq/L Potassium 3.3 L (3.5-5.1) meq/L Chloride 111 H (98-107) meq/L Carbon Dioxide 23.9 (21.0-32.0) meq/L Anion Gap 13 (5-15) meq/L BUN 23 H (7-18) mg/dL Creatinine 1.79 H (0.50-1.00) mg/dL Estimated GFR 36 L (>89) mL/min Random Glucose 87 (74-106) mg/dL Calcium 8.6 (8.5-10.1) mg/dL Total Bilirubin 1.1 H (0.2-1.0) mg/dL AST 25 (15-37) U/L ALT 29 (10-53) U/L Alkaline Phosphatase 105 (45-117) U/L Troponin I 0.08 H (0.02-0.05) ng/mL B-Natriuretic Peptide 2827 H (0-100) pg/mL Total Protein 6.3 L (6.4-8.2) g/dL Albumin 2.9 L (3.4-5.0) g/dL Urine Opiates Screen (Neg) Ur Barbiturates Screen (Neg) Ur Amphetamines Screen (Neg) U Benzodiazepines Scrn (Neg) Urine Cocaine Screen (Neg) U Cannabinoids Screen (Neg) Serum Alcohol (0-5) mg/dL 11/26/17 11/26/17 11/26/17 Range/Units 17:32 17:32 19:08 WBC (4.0-11.0) th/mm3 RBC (4.00-5.30) mil/mm3 Hgb (11.6-15.3) gm/dL Hct (35.0-46.0) % MCV (80.0-100.0) fL MCH (27.0-34.0) pg MCHC (32.0-36.0) % RDW (11.6-17.2) % Plt Count (150-450) th/mm3 MPV (7.0-11.0) fL Neut % (Auto) (16.0-70.0) % Lymph % (Auto) (9.0-44.0) % [place] % (Auto) (0.0-8.0) % Eos % (Auto) (0.0-4.0) % Baso % (Auto) (0.0-2.0) % Neut # (Auto) (1.8-7.7) th/mm3 Lymph # (Auto) (1.0-4.8) th/mm3 [place] # (Auto) (0.0-0.9) th/mm3 Eos # (Auto) (0.0-0.4) th/mm3 Baso # (Auto) (0.0-0.2) th/mm3 WBC Differential Differential Comment PT (9.8-11.6) sec INR Ratio APTT (24.3-30.1) sec Sodium (136-145) meq/L Potassium (3.5-5.1) meq/L Chloride (98-107) meq/L Carbon Dioxide (21.0-32.0) meq/L Anion Gap (5-15) meq/L BUN (7-18) mg/dL Creatinine (0.50-1.00) mg/dL Estimated GFR (>89) mL/min Random Glucose (74-106) mg/dL Calcium (8.5-10.1) mg/dL Total Bilirubin (0.2-1.0) mg/dL AST (15-37) U/L ALT (10-53) U/L Alkaline Phosphatase (45-117) U/L Troponin I 0.08 H (0.02-0.05) ng/mL B-Natriuretic Peptide (0-100) pg/mL Total Protein (6.4-8.2) g/dL Albumin (3.4-5.0) g/dL Urine Opiates Screen Neg (Neg) Ur Barbiturates Screen Neg (Neg) Ur Amphetamines Screen Neg (Neg) U Benzodiazepines Scrn Pos H (Neg) Urine Cocaine Screen Pos H (Neg) U Cannabinoids Screen Neg (Neg) Serum Alcohol Less than 3 (0-5) mg/dL 11/26/17 Range/Units 19:38 WBC (4.0-11.0) th/mm3 RBC (4.00-5.30) mil/mm3 Hgb (11.6-15.3) gm/dL Hct (35.0-46.0) % MCV (80.0-100.0) fL MCH (27.0-34.0) pg MCHC (32.0-36.0) % RDW (11.6-17.2) % Plt Count (150-450) th/mm3 MPV (7.0-11.0) fL Neut % (Auto) (16.0-70.0) % Lymph % (Auto) (9.0-44.0) % [place] % (Auto) (0.0-8.0) % Eos % (Auto) (0.0-4.0) % Baso % (Auto) (0.0-2.0) % Neut # (Auto) (1.8-7.7) th/mm3 Lymph # (Auto) (1.0-4.8) th/mm3 [place] # (Auto) (0.0-0.9) th/mm3 Eos # (Auto) (0.0-0.4) th/mm3 Baso # (Auto) (0.0-0.2) th/mm3 WBC Differential Differential Comment PT 12.8 H (9.8-11.6) sec INR 1.3 Ratio APTT 26.1 (24.3-30.1) sec Sodium (136-145) meq/L Potassium (3.5-5.1) meq/L Chloride (98-107) meq/L Carbon Dioxide (21.0-32.0) meq/L Anion Gap (5-15) meq/L BUN (7-18) mg/dL Creatinine (0.50-1.00) mg/dL Estimated GFR (>89) mL/min Random Glucose (74-106) mg/dL Calcium (8.5-10.1) mg/dL Total Bilirubin (0.2-1.0) mg/dL AST (15-37) U/L ALT (10-53) U/L Alkaline Phosphatase (45-117) U/L Troponin I (0.02-0.05) ng/mL B-Natriuretic Peptide (0-100) pg/mL Total Protein (6.4-8.2) g/dL Albumin (3.4-5.0) g/dL Urine Opiates Screen (Neg) Ur Barbiturates Screen (Neg) Ur Amphetamines Screen (Neg) U Benzodiazepines Scrn (Neg) Urine Cocaine Screen (Neg) U Cannabinoids Screen (Neg) Serum Alcohol (0-5) mg/dL Imaging Data Radiologist's impression: Venous Doppler Study 11/26/17 00:00 CONCLUSION: No venous thrombosis of either lower extremity. Chest X-Ray 11/26/17 15:56 CONCLUSION: Cardiomegaly with increase in pulmonary vascularity. Chest CTA 11/26/17 17:00 CONCLUSION: 1. Small bilateral pulmonary emboli. 2. Enlarged left ventricle and left atrium. Mild acute congestive heart failure present. Discharge Plan Discharge Disposition Patient Disposition: 30 Still Patient Physicians Team ED Provider: Anthony Pratt ED Midlevel Provider: Jackie Thrasher Primary Care Provider: Tony Goldstein Attending Provider: Khai Chapa Other Providers: Teodora Gerard Discharge Interventions Interventions: ED Discharge Assessment Last Done: 11/26/17 21:08 Status ED Status: Admitted Patient
[2017-11-26 17:58] LABS: Baso % (Auto) 0.8 % (0.0-2.0); Eos # (Auto) 0.2 th/mm3 (0.0-0.4); Eos % (Auto) 3.3 % (0.0-4.0); Hematocrit 42.8 % (35.0-46.0); Hemoglobin 14.3 gm/dL (11.6-15.3); Lymph # (Auto) 1.2 th/mm3 (1.0-4.8); Lymph % (Auto) 22.5 % (9.0-44.0); Mean Corpuscular HGB Conc 33.4 % (32.0-36.0); Mean Corpuscular Hemoglobin 29.6 pg (27.0-34.0); Mean Corpuscular Volume 88.6 fL (80.0-100.0); Mean Platelet Volume 8.8 fL (7.0-11.0); Mono # (Auto) 0.6 th/mm3 (0.0-0.9); Mono % (Auto) 10.1 % (0.0-8.0); Neut # (Auto) 3.5 th/mm3 (1.8-7.7); Neut % (Auto) 63.3 % (16.0-70.0); Platelet Count 232 th/mm3 (150-450); Red Blood Count 4.83 mil/mm3 (4.00-5.30); Red Cell Distribution Width 17.2 % (11.6-17.2); White Blood Count 5.5 th/mm3 (4.0-11.0)
[2017-11-26 18:18] LABS: Alanine Aminotransferase 29 U/L (10-53); Albumin 2.9 g/dL (3.4-5.0); Anion Gap 13 meq/L (5-15); Aspartate Aminotransferase 25 U/L (15-37); Blood Urea Nitrogen 23 mg/dL (7-18); Calcium 8.6 mg/dL (8.5-10.1); Carbon Dioxide 23.9 meq/L (21.0-32.0); Chloride 111 meq/L (98-107); Glomerular Filtration Rate 36 mL/min (>89); Glucose,Random 87 mg/dL (74-106); Potassium 3.3 meq/L (3.5-5.1); Sodium 148 meq/L (136-145)
[2017-11-26 18:22] LABS: Alkaline Phosphatase 105 U/L (45-117); Total Protein 6.3 g/dL (6.4-8.2); Troponin I 0.08 ng/mL (0.02-0.05)
[2017-11-26] MEDS ORDERED: Aspirin 325 MG Tablet PO ONE (18:26)
--- NOTE | 2017-11-26 19:25 | CT ---
EXAM DATE: 11/26/2017 6:36 PM EDT AGE/SEX: 52 years / Female INDICATIONS: Shortness of breath. CLINICAL DATA: This is the patient's initial encounter. Patient reports that signs and symptoms have been present for 1 day and indicates a pain score of 0/10. MEDICAL/SURGICAL HISTORY: Congestive heart failure. None. RADIATION DOSE: 22.67 CTDI (mGy) COMPARISON: No prior exams available for comparison. TECHNIQUE: Volumetric scanning was performed using a multi-row detector CT scanner during bolus infu michael of 50 ml Visipaque 320 (iodixanol) nonionic water-soluble contrast as a single exam dose. The d javy was post processed with a variety of visualization algorithms including full volume maximum inten sity projection and sliding thin slab reformation. Using automated exposure control and adjustment o f the mA and/or kV according to patient size, radiation dose was kept as low as reasonably achievable to obtain optimal diagnostic quality images. DICOM format image data is available electronically fo r review and comparison. FINDINGS: Small bilateral pulmonary emboli are present, primarily involving the lower lobes but both upper lobe s are also involved. No large/central pulmonary emboli. There is marked enlargement of the left ventricle and left atrium. Mild thickening of the interlobular septa of both lungs with small effusions. No pneumonic infiltrate . No pneumothorax. CONCLUSION: 1. Small bilateral pulmonary emboli. 2. Enlarged left ventricle and left atrium. Mild acute congestive heart failure present. Electronically signed by: Reynold Chapman MD 11/26/2017 7:24 PM EDT
[2017-11-26] MEDS ORDERED: Heparin 10,000 UNITS/10 ML Vial (for IV use) IV.PUSH STA (19:31)
[2017-11-26] MEDS: Heparin Drip 25,000 UNIT/250 ML BAG IV.CONT PRN (19:40)
[2017-11-26 19:49] LABS: Amphetamine Screen,Urine Neg (Neg); Barbiturate Screen,Urine Neg (Neg); Cannabinoid Screen,Urine Neg (Neg); Cocaine Screen,Urine Pos (Neg)
[2017-11-26 19:59] LABS: Opiate Screen,Urine Neg (Neg)
--- NOTE | 2017-11-26 20:04 | P.HPCC ---
History of Present Illness Service: Critical care medicine Primary Care Physician: Tony Goldstein DO Chief Complaint: Shortness of breath History of Present Illness: Is a 52-year-old AA female. Date of admission 11/26/2017. Past medical history includes chronic systolic heart failure ejection of 10-50%. Polysubstance abuse including cocaine at least since 2005, severe TR and MR. Hypertension, history of right PROBATION COUNSELOR CVA, schizoaffective disorder. Patient presents to [facility] with multiple somatic complaint including a swollen left leg which she attributes to sleeping on a table for 2 days, recent crack cocaine use , and shortness of breath and dyspnea. She was discharged from [facility]". She is run out of her medications. She does not know which medication she currently takes. She states that she came to [facility] to "get my son to help me out." Baseline vitals revealed sinus tachycardia and hypertension. Initial troponin was 0.08. BNP is elevated. Creatinine was slightly elevated from baseline of 1.5 at 1.7. Sodium was 140. Potassium 3.3. CT pulmonary revealed bilateral small upper and lower pulmonary was not. Patient started heparin drip. Patient received aspirin and was started on Nitropaste 1 inch x1. We are asked to admit the patient. She is currently medically stable. Denies chest pain or shortness of breath currently. Inpatient Certification: I certify that the inpatient services were ordered in accordance with Medicare regulations governing the order. This includes certification that hospital inpatient services are reasonable and necessary and in the case of services not specified as inpatient-only under 42 CFR 419.22(n), that they are appropriately provided as inpatient services in accordance to with the 2-midnight benchmark under 43 CFR 412.3(e) Estimated Total Length of Stay (Days): 5 Plans for Post Hospital Care: Not yet determined Review of Systems Constitutional: Reports weakness, Denies anorexia, Denies body ache(s), Denies chills, Denies daytime sleepiness Eyes: Denies blurry vision, Denies bulging eyes Ears, Nose, Mouth, and Throat: Denies abnormal hearing, Denies headache(s) Cardiovascular: Denies chest pain, Denies chest pain at rest, Denies chest pain with activity Respiratory: Denies change in phlegm color Gastrointestinal: Denies abdominal pain, Denies change in stools, Denies vomiting Genitourinary: Denies vaginal odor, Denies vaginal itching Musculoskeletal: Reports back pain, Denies abnormal walking, Denies body aches Skin/Breast: Denies acne, Denies bleeding lesions Neurologic: Denies abnormal hearing, Denies abnormal walking Psychiatric: Reports anxiety, Reports irritability, Denies confusion Endocrine: Denies cold intolerance, Denies excessive sweating Hematologic/Lymphatic: Denies easy bleeding Allergic/Immunologic: Denies GI upset with certain foods PMFSH - History History Provided By: Patient - Medical History Medical History: Medical History (Last Updated 11/26/17 @ 20:07 by Khai Chapa MD) CHF (congestive heart failure) Chronic kidney disease (CKD) stage G2/A2, mildly decreased glomerular filtration rate (GFR) between 60-89 mL/min/1.73 square meter and albuminuria creatinine ratio between 30-299 mg/g History of CVA in adulthood History of crack cocaine use Hx of myocardial infarction Hypertension Schizoaffective disorder Tobacco abuse - Surgical History Surgical History: Surgical History (Last Updated 11/26/17 @ 20:07 by Khai Chapa MD) History of implantable cardioverter-defibrillator (ICD) placement History of tubal ligation - Family History Family History: Family History (Last Updated 11/26/17 @ 20:07 by Khai Chapa MD) Father Kidney disease - Tobacco History Second Hand Smoke Exposure: Yes Tobacco Use In Past 30 Days: Yes Smoking Status: Current every day smoker Tobacco Type: Cigarettes - Alcohol History How Often Do You Have a Drink Containing Alcohol: 4 or more times a week - Substance Use History Substance History: Active Abuse - Substance Use Type Crack/Cocaine Route Used: Inhalation - Travel History Recent Travel in the [place] Within the Last 8 Weeks: No Recent Travel Out of the Country Within the Last 8 Weeks: No - Immunization History Tetanus Immunization: <5 Years Hx Influenza Vaccine This Season: No Medications and Allergies Active Medications: Active Medications Heparin Sodium/Dextrose (Heparin/D5w 25,000 U/250 Ml) 25,000 unit in 250 mls @ 0 mls/hr IV.CONT TITRATE PRN; Protocol PRN Reason: Per Protocol Allergies Allergy/AdvReac Type Severity Reaction Status Date / Time No Known Allergies Allergy Unverified 11/26/17 15:39 Results - Labs CBC & Chem 7: 11/26/17 17:32 11/26/17 17:32 Labs: Short CBC 11/26/17 Range/Units 17:32 WBC 5.5 (4.0-11.0) th/mm3 Hgb 14.3 (11.6-15.3) gm/dL Hct 42.8 (35.0-46.0) % Plt Count 232 (150-450) th/mm3 BMP 11/26/17 17:32 Sodium 148 H Potassium 3.3 L Chloride 111 H Carbon Dioxide 23.9 BUN 23 H Creatinine 1.79 H Calcium 8.6 Cardiac Enzymes 11/26/17 11/26/17 Range/Units 17:32 17:32 Troponin I 0.08 H 0.08 H (0.02-0.05) ng/mL Liver Function 11/26/17 Range/Units 17:32 Total Bilirubin 1.1 H (0.2-1.0) mg/dL AST 25 (15-37) U/L ALT 29 (10-53) U/L Alkaline Phosphatase 105 (45-117) U/L Albumin 2.9 L (3.4-5.0) g/dL - Imaging Impressions Chest X-Ray 11/26/17 15:56 CONCLUSION: Cardiomegaly with increase in pulmonary vascularity. Chest CTA 11/26/17 17:00 CONCLUSION: 1. Small bilateral pulmonary emboli. 2. Enlarged left ventricle and left atrium. Mild acute congestive heart failure present. Exam Vital signs: Vital Signs 11/26/17 16:03 11/26/17 16:29 11/26/17 19:30 Temperature 99.2 F Pulse Rate 120 H 102 H Respiratory Rate 28 H 16 Blood Pressure 190/128 H 183/127 H Pulse Oximetry 100 96 95 Intake & Output 11/26/17 11/26/17 11/27/17 06:59 18:59 06:59 Weight 70.307 kg - Constitutional no acute distress - Routine HEENT Exam Head: Present: normocephalic, atraumatic Eye: Present: EOMI, PERRL, normal accommodation ENT: Present: mucous membranes moist - Routine Neck Exam Present: supple, full ROM. Absent: JVD, carotid bruit - Routine Chest/Breast/Axilla Exam Chest wall: Absent: tenderness Breast: Absent: tenderness Axillae: Absent: lymphadenopathy - Routine Respiratory Exam Present: CTA bilaterally. Absent: accessory muscle use, rhonchi, stridor - Routine Cardiovascular Exam Present: S1, S2, murmur, tachycardia - Routine Abdominal Exam Present: soft, normoactive bowel sounds - Routine Extremities Exam Present: edema. Absent: cyanosis, clubbing - Routine Skin Exam Present: intact - Routine Neurological Exam Present: alert, oriented X3, CN II-XII intact. Absent: sensory deficit, motor deficit Septic Shock Reassessment Septic shock perfusion: reassessment completed Caprini VTE Risk Assessment Caprini VTE Risk Assessment: Moderate/High Risk (score >= 2) Caprini Risk Assessment Model: Point Value = 1 Point Value = 2 Point Value = 3 Point Value = 5 Age 41-60 Minor surgery BMI > 25 kg/m2 Swollen legs Varicose veins or History of unexplained or recurrent spontaneous Oral contraceptives or hormone replacement Sepsis (< 1 month) Serious lung disease, including pneumonia (< 1 month) Abnormal pulmonary function Acute myocardial infarction Congestive heart failure (< 1 month) History of inflammatory bowel disease Medical patient at bed rest Age 61-74 Arthroscopic surgery Major open surgery (> 45 min) Laparoscopic surgery (> 45 min) Malignancy Confined to bed (> 72 hours) Immobilizing plaster cast Central venous access Age >= 75 History of VTE Family history of VTE Factor V Leiden Prothrombin [id number] Lupus anticoagulant Anticardiolipin antibodies Elevated serum homocysteine Heparin-induced thrombocytopenia Other congenital or acquired thrombophilia Stroke (< 1 month) Elective arthroplasty Hip, pelvis, or leg fracture Acute spinal cord injury (< 1 month) Prophylaxis Regimen: Total Risk Factor Score Risk Level Prophylaxis Regimen 0-1 Low Early ambulation 2 Moderate Order ONE of the following: *Sequential Compression Device (SCD) *Heparin 5000 units SQ BID 3-4 Higher Order ONE of the following medications: *Heparin 5000 units SQ TID *Enoxaparin/Lovenox 40 mg SQ daily (WT < 150 kg, CrCl > 30 mL/min) *Enoxaparin/Lovenox 30 mg SQ daily (WT < 150 kg, CrCl > 10-29 mL/min) *Enoxaparin/Lovenox 30 mg SQ BID (WT < 150 kg, CrCl > 30 mL/min) AND/OR *Sequential Compression Device (SCD) 5 or more Highest Order ONE of the following medications: *Heparin 5000 units SQ TID (Preferred with Epidurals) *Enoxaparin/Lovenox 40 mg SQ daily (WT < 150 kg, CrCl > 30 mL/min) *Enoxaparin/Lovenox 30 mg SQ daily (WT < 150 kg, CrCl > 10-29 mL/min) *Enoxaparin/Lovenox 30 mg SQ BID (WT < 150 kg, CrCl > 30 mL/min) AND *Sequential Compression Device (SCD) Assessment and Plan - Assessment and Plan Plan: Neuro/Psych: Schizoaffective disorder Crack cocaine use History of right PROBATION COUNSELOR CVA Resume home medications of trazodone 100 mg at night, Risperdal 2 mg daily and sertraline 25 mg daily. Obtain actual home medications Acetaminophen 650 p.o. every 6 hours as needed fever Hydrocodone/acetaminophen 5/325 1 tablet every 4 hours as needed pain 1-5 Morphine sulfate 2 mg IV every 2 hours as needed pain 6 - 10 CV: Sinus tachycardia Essential hypertension Hyperlipidemia Chronic systolic heart failure ejection fraction 10-15 History of hyperlipidemia Elevated troponin History of [place] secondary to coronary vasospasm secondary to cocaine use 2D echocardiogram 07/12 revealed severe TR/MR. EF 10-15%. Diffuse hypokinesis. Resume home medication clonidine 0.1 mg every 6 hours As needed Nitropaste Serial troponins. Currently 0.08 Continue aspirin 81 mg daily Obtain home medications. Previously on furosemide 40 mg daily Aldactone 25 mg daily. Previously on metoprolol succinate 100 mg daily. Resp: Small bilateral upper and lower pulmonary embolism Ongoing tobaccoism Nasal cannula to maintain saturations greater than equal to 92% Incentive spirometry while awake As needed albuterol aerosols every [address] pulmonary revealed small bilateral upper and lower pulmonary lobes. Enlarged left atrium. Currently heparin drip Tobacco cessation self education booklet will be provided GI: Cardiac diet Pantoprazole for GI prophylaxis Docusate sodium/senna 1 tablet twice daily for bowel regimen : Indication for Martinez catheter Endo: Sliding scale insulin Accu-Cheks to maintain euglycemia Check TSH Renal: Chronic kidney disease stage III a Monitor urine output Accurate I's and O's recheck BMP in a.m. 11/27 Most recent 04/15 renal ultrasound revealed no hydronephrosis or medical renal disease. Heme: PT evaluate CBC currently within normal limits No indication for transfusion of blood products at this time ID: Monitor for signs and symptomatology infection MSK: History of L4/L5 and L5/S1 central disc bulging PT evaluate and treat FEN: Hypernatremia Hypokalemia Currently receiving 20 mg potassium chloride. Recheck in a.m. Access -Utilize peripheral IV. Central line if indicated PROphylaxis -GI -pantoprazole -DVT - heparin drip subcu Level 3 admission. Assign care to hospitalist in a.m. 11/27 Code Status: Full code Discussed Condition With: ED physician Dr Canela. Patient. Care plan discussed and all questions answered per
[2017-11-26] MEDS ORDERED: Dextrose 50% in Water 50 ML Vial IV.PUSH PRN (20:21)
[2017-11-26 20:29] LABS: Activated Partial Thrombo Time 26.1 sec (24.3-30.1); INR 1.3 Ratio; Prothrombin Time 12.8 sec (9.8-11.6)
[2017-11-26] MEDS ORDERED: Morphine Sulfate Inj 2 MG/ML Vial IV.PUSH PRN (21:00)
[2017-11-26] MEDS ORDERED: Bisacodyl 10 MG Supp RECTAL PRN (21:00)
--- NOTE | 2017-11-26 21:13 | US ---
EXAM DATE: 11/26/2017 12:00 AM EDT AGE/SEX: 52 years / Female INDICATIONS: Bilateral leg swelling. CLINICAL DATA: This is the patient's initial encounter. Patient reports that signs and symptoms have been present for 1 day and indicates a pain score of 0/10. MEDICAL/SURGICAL HISTORY: Congestive heart failure. Hypertension. Chronic kidney disease. Subs tance use. CVA. Myocardial infarction. Tubal ligation. ICD placement. COMPARISON: No prior exams available for comparison. TECHNIQUE: Venous ultrasound of both lower extremities was performed from the inguinal ligament to t he proximal calf. Real-time, color Doppler and spectral tracing, compression and augmentation techni ques were used. FINDINGS: Right Leg: Normal compression of the deep venous system from the inguinal region to the proximal jazlyn f. No echogenic clot is seen. Normal response of the venous system to augmentation and respiration. Left Leg: Normal compression of the deep venous system from the inguinal region to the proximal calf . No echogenic clot is seen. Normal response of the venous system to augmentation and respiration. Other: None. CONCLUSION: No venous thrombosis of either lower extremity. Electronically signed by: Reynold Chapman MD 11/26/2017 9:11 PM EDT
[2017-11-26] MEDS: Senna/Docusate Sodium 8.6/50 MG Tablet PO SCH (22:03)
[2017-11-26] MEDS: traZODone 100 MG Tablet PO SCH (22:03)
[2017-11-26 22:30] LABS: Chol/HDL Ratio 2.86 Ratio; HDL Cholesterol 53.1 mg/dL (40.0-60.0); Thyroid Stimulating Hormone 0.902 uIU/mL (0.358-3.740)
[2017-11-27] MEDS: Insulin NovoLOG Aspart Correctional Sugar Inj SQ SCH ×5 (01:21→23:26)
[2017-11-27 02:25] LABS: Troponin I 0.1 ng/mL (0.02-0.05)
[2017-11-27] MEDS ORDERED: Chlorhexidine Gluconate 2% 1 Pack (2 Cloths) TOPICAL PRN (04:00)
[2017-11-27] MEDS: Chlorhexidine Gluconate 2% 1 Pack (2 Cloths) TOPICAL SCH (04:20)
[2017-11-27 05:57] LABS: Baso # (Auto) 0.1 th/mm3 (0.0-0.2); Baso % (Auto) 1.6 % (0.0-2.0); Eos # (Auto) 0.3 th/mm3 (0.0-0.4); Eos % (Auto) 5.4 % (0.0-4.0); Hematocrit 41.2 % (35.0-46.0); Hemoglobin 13.6 gm/dL (11.6-15.3); Lymph # (Auto) 2.1 th/mm3 (1.0-4.8); Lymph % (Auto) 33.6 % (9.0-44.0); Mean Corpuscular HGB Conc 32.9 % (32.0-36.0); Mean Corpuscular Hemoglobin 28.7 pg (27.0-34.0); Mean Corpuscular Volume 87.4 fL (80.0-100.0); Mean Platelet Volume 9.2 fL (7.0-11.0); Mono # (Auto) 0.7 th/mm3 (0.0-0.9); Mono % (Auto) 10.8 % (0.0-8.0); Neut % (Auto) 48.6 % (16.0-70.0); Platelet Count 232 th/mm3 (150-450); Red Blood Count 4.72 mil/mm3 (4.00-5.30); Red Cell Distribution Width 17.5 % (11.6-17.2); White Blood Count 6.2 th/mm3 (4.0-11.0)
[2017-11-27 06:11] LABS: Activated Partial Thrombo Time 60.2 sec (24.3-30.1); INR 1.3 Ratio; Prothrombin Time 12.9 sec (9.8-11.6)
[2017-11-27 06:20] LABS: Alanine Aminotransferase 26 U/L (10-53); Albumin 2.4 g/dL (3.4-5.0); Anion Gap 12 meq/L (5-15); Aspartate Aminotransferase 18 U/L (15-37); Blood Urea Nitrogen 22 mg/dL (7-18); Calcium 8.1 mg/dL (8.5-10.1); Carbon Dioxide 25.7 meq/L (21.0-32.0); Chloride 109 meq/L (98-107); Glomerular Filtration Rate 35 mL/min (>89); Glucose,Random 85 mg/dL (74-106); Magnesium 1.8 mg/dL (1.5-2.5); Phosphorus 3.8 mg/dL (2.5-4.9); Potassium 3.3 meq/L (3.5-5.1); Sodium 147 meq/L (136-145)
[2017-11-27 06:25] LABS: Alkaline Phosphatase 93 U/L (45-117); Total Protein 5.7 g/dL (6.4-8.2)
[2017-11-27] MEDS: Sertraline 50 MG Tablet PO SCH (09:00)
[2017-11-27] MEDS: Senna/Docusate Sodium 8.6/50 MG Tablet PO SCH ×2 (09:00→20:33)
[2017-11-27] MEDS ORDERED: Furosemide 40 MG Tablet PO SCH (09:00)
--- NOTE | 2017-11-27 10:45 | ECHRPT ---
Indication: HEART FAILURE CONCLUSIONS Severely dilated left ventricle. The left ventricular systolic function is severely reduced with an estimated ejection fraction less than 10 - 15%.there is diffuse global hypokinesis with distinct regional wall motion abnormalities. [id number] mitral valve regurgitation. There is moderate to severe tricuspid valve regurgitation. The estimated pulmonary arterial pressure is 71 mmHg. Estimated RAP 15+mmHg BP: / HR: Rhythm: MEASUREMENTS (Male / Female) Normal Values Technical Quality: 2D ECHO LV Diastolic Diameter PLAX 6.5 cm 4.2 - 5.9 / 3.9 - 5.3 cm LV Systolic Diameter PLAX 6.2 cm IVS Diastolic Thickness 1.4 cm 0.6 - 1.0 / 0.6 - 0.9 cm LVPW Diastolic Thickness 1.3 cm 0.6 - 1.0 / 0.6 - 0.9 cm LV Relative Wall Thickness 0.4 RV Internal Dim ED PLAX 1.9 cm LVOT Diameter 1.8 cm Aortic Root Diameter 2.8 cm LA Systolic Diameter LX 4.4 cm 3.0 - 4.0 / 2.7 - 3.8 cm LV Ejection Fraction MOD 4C 22.7 % LV Ejection Fraction 4C AL 24.1 % M-MODE Aortic Root Diameter MM 3.3 cm LA Systolic Diameter MM 4.9 cm LA Ao Ratio MM 1.5 AV Cusp Separation MM 2.2 cm DOPPLER AV Peak Velocity 79.5 cm/s AV Peak Gradient 2.5 mmHg LVOT Peak Velocity 50.6 cm/s LVOT Peak Gradient 1.0 mmHg AV Area Cont Eq pk 1.6 cm Mitral E Point Velocity 89.5 cm/s Mitral A Point Velocity 45.0 cm/s Mitral E to A Ratio 2.0 LV E' Lateral Velocity 4.7 cm/s Mitral E to LV E' Lateral Ratio 19.0 LV E' Septal Velocity 2.9 cm/s Mitral E to LV E' Septal Ratio 30.9 TR Peak Velocity 390.0 cm/s TR Peak Gradient 60.8 mmHg Right Atrial Pressure 10.0 mmHg Pulmonary Artery Systolic Pressu 70.8 mmHg Right Ventricular Systolic Press 70.8 mmHg PV Peak Velocity 60.8 cm/s PV Peak Gradient 1.5 mmHg FINDINGS LEFT VENTRICLE Severely dilated left ventricle. The left ventricular systolic function is severely reduced with an estimated ejection fraction less than 10 - 15%.there is diffuse global hypokinesis with distinct regional wall motion abnormalities. RIGHT VENTRICLE Normal right ventricular size and systolic function. LEFT ATRIUM The left atrial size is normal. RIGHT ATRIUM The right atrial size is normal. ATRIAL SEPTUM Normal atrial septal thickness without atrial level shunting by limited color doppler interrogation. AORTA The aortic root and proximal ascending aorta are normal in size on limited imaging. MITRAL VALVE [id number] mitral valve regurgitation. AORTIC VALVE Trileaflet aortic valve. No aortic valve stenosis or regurgitation. TRICUSPID VALVE There is moderate to severe tricuspid valve regurgitation. The estimated pulmonary arterial pressure is 71 mmHg. PULMONARY VALVE No pulmonary valve regurgitation or stenosis. VESSELS IVC measures 2.6 cms. There is less than 50% respiratory change in dimension of the inferior vena ca va (abnormal). Estimated RAP 15+mmHg. PERICARDIUM No pericardial effusion. Darryn Llanos (Electronically Signed) Final Date:27 November 2017 10:44
[2017-11-27] MEDS: Heparin Drip 25,000 UNIT/250 ML BAG IV.CONT PRN (15:17)
--- NOTE | 2017-11-27 17:55 | ECG ---
Date Performed: 11/26/2017 Time Performed: 16:55:15 PTAGE: 52 years EKG: SINUS TACHYCARDIA LEFT ATRIAL ENLARGEMENT POSSIBLE ANTERIOR MYOCARDIAL INFARCTION MODERATE T-WAVE ABNORMALITY, CONSIDER LATERAL ISCHEMIA Compared to previous tracing, sinus rate is faster ABNO RMAL ECG PREVIOUS TRACING : 04/24/2017 05.53 DOCTOR: Neptali Haney Interpretating Date/Time 11/27/2017 17:54:10
--- NOTE | 2017-11-27 18:48 | P.PNIM ---
Subjective Interval history: Patient complains of shortness of breath when she is active. She denies any chest pain. She is speaking in full sentences. Physical Exam Vital signs: Vital Signs 11/26/17 19:30 11/26/17 21:08 11/26/17 21:42 Temperature Pulse Rate 102 H 115 H Respiratory Rate 16 24 20 Blood Pressure 183/127 H Pulse Oximetry 95 11/26/17 21:48 11/26/17 22:00 11/26/17 22:01 Temperature 97.4 F L Pulse Rate 100 H 103 H 118 H Respiratory Rate Blood Pressure 198/126 H 183/132 H Pulse Oximetry 98 99 94 L 11/26/17 22:16 11/26/17 22:30 11/26/17 23:00 Temperature Pulse Rate 106 H 103 H 100 H Respiratory Rate Blood Pressure 160/103 H 144/77 H 115/67 Pulse Oximetry 92 L 93 L 94 L 11/27/17 00:00 11/27/17 01:00 11/27/17 02:00 Temperature 98.6 F Pulse Rate 92 H 94 H 107 H Respiratory Rate 16 Blood Pressure 111/74 130/91 H Pulse Oximetry 96 99 96 11/27/17 02:09 11/27/17 02:12 11/27/17 02:30 Temperature Pulse Rate 108 H 103 H 92 H Respiratory Rate Blood Pressure 149/108 H 151/109 H 136/86 Pulse Oximetry 97 98 98 11/27/17 03:00 11/27/17 03:30 11/27/17 04:00 Temperature Pulse Rate 95 H 100 H 93 H Respiratory Rate 16 Blood Pressure 117/78 128/85 119/78 Pulse Oximetry 94 L 92 L 94 L 11/27/17 04:31 11/27/17 05:00 11/27/17 05:01 Temperature Pulse Rate 86 98 H 97 H Respiratory Rate Blood Pressure 151/98 H 144/96 H Pulse Oximetry 96 95 95 11/27/17 05:30 11/27/17 06:00 11/27/17 07:00 Temperature 98.1 F Pulse Rate 97 H 97 H 105 H Respiratory Rate 17 Blood Pressure 133/101 H 125/90 144/92 H Pulse Oximetry 98 98 99 11/27/17 08:00 11/27/17 08:47 11/27/17 09:00 Temperature Pulse Rate 86 104 H Respiratory Rate 16 17 Blood Pressure 124/90 137/104 H Pulse Oximetry 98 97 99 11/27/17 10:00 11/27/17 11:00 11/27/17 12:00 Temperature 98.2 F Pulse Rate 94 H 87 79 Respiratory Rate 16 16 17 Blood Pressure 115/74 119/76 127/94 H Pulse Oximetry 100 100 100 11/27/17 13:00 11/27/17 14:00 11/27/17 15:00 Temperature Pulse Rate 100 H 91 H 95 H Respiratory Rate 16 17 16 Blood Pressure 133/100 H 125/74 124/88 Pulse Oximetry 99 99 100 11/27/17 16:00 11/27/17 17:00 11/27/17 18:00 Temperature 98.4 F Pulse Rate 93 H 99 H 92 H Respiratory Rate 16 16 17 Blood Pressure 121/80 122/97 H 127/86 Pulse Oximetry 100 100 100 Intake & Output 11/26/17 11/27/17 11/27/17 18:59 06:59 18:59 Intake Total 1200 / 1200 950 / 950 Output Total 1500 / 1500 650 / 650 Balance -300 / -300 300 / 300 Weight 70.307 kg 69.5 kg Intake: IV 250 / 250 Heparin/D5W 25,000 U/250 mL 25, 250 / 250 000 unit In 250 ml @ Per Protocol IV.CONT TITRATE PRN Rx #:[id number] Oral 1200 / 1200 700 / 700 Output: Urine 1500 / 1500 650 / 650 Other: # Bowel Movements 0 Weight On Admission 70 kg Narrative: General patient in no acute distress, no complaints of chest pain. HEENT extraocular movements are intact, clear oropharyngeal mucosa, no JVD Cardiovascular S1-S2 audible Respiratory poor respiratory effort. Bibasilar crackles auscultated. Abdomen soft, nontender, nondistended, normal bowel sounds Extremities 1+ pitting edema bilateral lower extremities. Neuro cranial patient moves all 4 extremities sensation is intact bilaterally Results - Labs CBC & Chem 7: 11/27/17 05:06 11/27/17 05:06 Laboratory Results - last 24 hr 11/26/17 11/26/17 11/26/17 17:32 17:32 19:08 WBC RBC Hgb Hct MCV MCH MCHC RDW Plt Count MPV Neut % (Auto) Lymph % (Auto) Branch % (Auto) Eos % (Auto) Baso % (Auto) Neut # (Auto) Lymph # (Auto) Branch # (Auto) Eos # (Auto) Baso # (Auto) WBC Differential Differential Comment PT INR APTT Sodium Potassium Chloride Carbon Dioxide Anion Gap BUN Creatinine Estimated GFR POC Glucose Random Glucose Lactic Acid Calcium Phosphorus Magnesium Total Bilirubin AST ALT Alkaline Phosphatase Ammonia Total Creatine Kinase Troponin I Total Protein Albumin Triglycerides 72 Cholesterol 152 LDL Cholesterol, Calc 85 HDL Cholesterol 53.1 Cholesterol/HDL Ratio 2.86 TSH 0.902 Cancelled Nasal Screen MRSA (PCR) Urine Opiates Screen Neg Ur Barbiturates Screen Neg Ur Amphetamines Screen Neg U Benzodiazepines Scrn Pos H Urine Cocaine Screen Pos H U Cannabinoids Screen Neg 11/26/17 11/26/17 11/26/17 19:38 21:48 23:07 WBC RBC Hgb Hct MCV MCH MCHC RDW Plt Count MPV Neut % (Auto) Lymph % (Auto) Branch % (Auto) Eos % (Auto) Baso % (Auto) Neut # (Auto) Lymph # (Auto) Branch # (Auto) Eos # (Auto) Baso # (Auto) WBC Differential Differential Comment PT 12.8 H INR 1.3 APTT 26.1 Sodium Potassium Chloride Carbon Dioxide Anion Gap BUN Creatinine Estimated GFR POC Glucose 157 H Random Glucose Lactic Acid Calcium Phosphorus Magnesium Total Bilirubin AST ALT Alkaline Phosphatase Ammonia Total Creatine Kinase Troponin I Total Protein Albumin Triglycerides Cholesterol LDL Cholesterol, Calc HDL Cholesterol Cholesterol/HDL Ratio TSH Nasal Screen MRSA (PCR) Mrsa detected Urine Opiates Screen Ur Barbiturates Screen Ur Amphetamines Screen U Benzodiazepines Scrn Urine Cocaine Screen U Cannabinoids Screen 11/27/17 11/27/17 11/27/17 01:54 01:54 01:54 WBC RBC Hgb Hct MCV MCH MCHC RDW Plt Count MPV Neut % (Auto) Lymph % (Auto) Branch % (Auto) Eos % (Auto) Baso % (Auto) Neut # (Auto) Lymph # (Auto) Branch # (Auto) Eos # (Auto) Baso # (Auto) WBC Differential Differential Comment PT INR APTT 71.6 H D Sodium Potassium Chloride Carbon Dioxide Anion Gap BUN Creatinine Estimated GFR POC Glucose Random Glucose Lactic Acid Calcium Phosphorus Magnesium Total Bilirubin AST ALT Alkaline Phosphatase Ammonia 34 H Total Creatine Kinase 94 Troponin I 0.10 H Total Protein Albumin Triglycerides Cholesterol LDL Cholesterol, Calc HDL Cholesterol Cholesterol/HDL Ratio TSH Nasal Screen MRSA (PCR) Urine Opiates Screen Ur Barbiturates Screen Ur Amphetamines Screen U Benzodiazepines Scrn Urine Cocaine Screen U Cannabinoids Screen 11/27/17 11/27/17 11/27/17 05:06 05:06 05:06 WBC 6.2 RBC 4.72 Hgb 13.6 Hct 41.2 MCV 87.4 MCH 28.7 MCHC 32.9 RDW 17.5 H Plt Count 232 MPV 9.2 Neut % (Auto) 48.6 Lymph % (Auto) 33.6 Branch % (Auto) 10.8 H Eos % (Auto) 5.4 H Baso % (Auto) 1.6 Neut # (Auto) 3.0 Lymph # (Auto) 2.1 Branch # (Auto) 0.7 Eos # (Auto) 0.3 Baso # (Auto) 0.1 WBC Differential . Differential Comment Auto diff final PT 12.9 H INR 1.3 APTT 60.2 H Sodium 147 H Potassium 3.3 L Chloride 109 H Carbon Dioxide 25.7 Anion Gap 12 BUN 22 H Creatinine 1.84 H Estimated GFR 35 L POC Glucose Random Glucose 85 Lactic Acid Calcium 8.1 L Phosphorus 3.8 Magnesium 1.8 Total Bilirubin 0.9 AST 18 ALT 26 Alkaline Phosphatase 93 Ammonia Total Creatine Kinase Troponin I 0.10 H Total Protein 5.7 L D Albumin 2.4 L Triglycerides Cholesterol LDL Cholesterol, Calc HDL Cholesterol Cholesterol/HDL Ratio TSH Nasal Screen MRSA (PCR) Urine Opiates Screen Ur Barbiturates Screen Ur Amphetamines Screen U Benzodiazepines Scrn Urine Cocaine Screen U Cannabinoids Screen 11/27/17 11/27/17 11/27/17 05:06 07:26 12:15 WBC RBC Hgb Hct MCV MCH MCHC RDW Plt Count MPV Neut % (Auto) Lymph % (Auto) Branch % (Auto) Eos % (Auto) Baso % (Auto) Neut # (Auto) Lymph # (Auto) Branch # (Auto) Eos # (Auto) Baso # (Auto) WBC Differential Differential Comment PT INR APTT 57.4 H Sodium Potassium Chloride Carbon Dioxide Anion Gap BUN Creatinine Estimated GFR POC Glucose 100 Random Glucose Lactic Acid 0.9 Calcium Phosphorus Magnesium Total Bilirubin AST ALT Alkaline Phosphatase Ammonia Total Creatine Kinase Troponin I Total Protein Albumin Triglycerides Cholesterol LDL Cholesterol, Calc HDL Cholesterol Cholesterol/HDL Ratio TSH Nasal Screen MRSA (PCR) Urine Opiates Screen Ur Barbiturates Screen Ur Amphetamines Screen U Benzodiazepines Scrn Urine Cocaine Screen U Cannabinoids Screen 11/27/17 18:08 WBC RBC Hgb Hct MCV MCH MCHC RDW Plt Count MPV Neut % (Auto) Lymph % (Auto) Branch % (Auto) Eos % (Auto) Baso % (Auto) Neut # (Auto) Lymph # (Auto) Branch # (Auto) Eos # (Auto) Baso # (Auto) WBC Differential Differential Comment PT INR APTT Sodium Potassium Chloride Carbon Dioxide Anion Gap BUN Creatinine Estimated GFR POC Glucose 81 Random Glucose Lactic Acid Calcium Phosphorus Magnesium Total Bilirubin AST ALT Alkaline Phosphatase Ammonia Total Creatine Kinase Troponin I Total Protein Albumin Triglycerides Cholesterol LDL Cholesterol, Calc HDL Cholesterol Cholesterol/HDL Ratio TSH Nasal Screen MRSA (PCR) Urine Opiates Screen Ur Barbiturates Screen Ur Amphetamines Screen U Benzodiazepines Scrn Urine Cocaine Screen U Cannabinoids Screen - Imaging Impressions Venous Doppler Study 11/26/17 00:00 CONCLUSION: No venous thrombosis of either lower extremity. Chest CTA 11/26/17 17:00 CONCLUSION: 1. Small bilateral pulmonary emboli. 2. Enlarged left ventricle and left atrium. Mild acute congestive heart failure present. Assessment and Plan - Plan This patient is a 52-year-old female with a diagnosis of systolic CHF ejection fraction 10-15%, history of polysubstance abuse, moderate to severe tricuspid and mitral regurg. The patient presented with complaints of shortness of breath and was found to have pulmonary embolus on CTA of the chest. She also admits to using cocaine, last use was a few days ago. 1. Elevated troponin possibly secondary to a pulmonary embolus. 2. Systolics CHF ejection fraction 10-15% The patient did have an elevation in her serum troponin of 0.11. EKG was done which shows normal sinus rhythm left axis deviation with no ST or T wave changes on my evaluation. CTA of the chest shows small bilateral upper and lower pulmonary embolus. She was subsequently started on heparin drip. Cardiology will be consulted to evaluate the patient for the troponin elevation , and the severe mitral and tricuspid regurgitation. Another set of cardiac enzymes and troponins will be ordered. I will follow-up on the recommendations from cardiology. If no other intervention is recommended patient will be started on Coumadin tomorrow with a goal INR of 2-3 for the pulmonary embolus. Continue aspirin, no beta-eleni due to the possibility of recent cocaine use. Continue supplemental oxygen as needed. 3. Chronic kidney disease stage III a We will continue to monitor the patient's serum creatinine. Avoid nephrotoxic agents. The patient will need follow-up with nephrology outpatient after she has been stabilized and discharged. If there is a significant change in the patient's kidney function nephrology will be consulted while in-house. 4. Schizoaffective disorder and crack cocaine use She will be continued on her home medications of trazodone and Risperdal as well as sertraline. Pain medication will be given as needed. The patient was counseled on the dangers of using crack cocaine. She states that she does not want to use any longer and is seeking help. 5. Documented history of right [place] CVA Continue aspirin. The patient should also be started on a statin. DVT prophylaxis: patient on heparin drip currently
[2017-11-27] MEDS: traZODone 100 MG Tablet PO SCH (20:33)
[2017-11-27 20:50] LABS: Troponin I 0.05 ng/mL (0.02-0.05)
[2017-11-27] MEDS: Acetaminophen 325 MG Tablet PO PRN (22:27)
[2017-11-28] MEDS: Chlorhexidine Gluconate 2% 1 Pack (2 Cloths) TOPICAL SCH (05:54)
[2017-11-28] MEDS: Insulin NovoLOG Aspart Correctional Sugar Inj SQ SCH ×3 (05:54→21:36)
[2017-11-28 07:29] LABS: Hematocrit 43.4 % (35.0-46.0); Hemoglobin 13.8 gm/dL (11.6-15.3)
[2017-11-28 07:50] LABS: Calcium 8.2 mg/dL (8.5-10.1); Carbon Dioxide 29.5 meq/L (21.0-32.0); Magnesium 1.8 mg/dL (1.5-2.5); Potassium 4.2 meq/L (3.5-5.1)
--- NOTE | 2017-11-28 07:50 | P.CONCA ---
History of Present Illness Primary Care Provider: Tony Goldstein DO Chief Complaint: Shortness of breath History of Present Illness: 52-year-old female with a long history of severe cardiomyopathy and valvular heart disease who presented with 2 days of shortness of breath. The patient is not a great historian. The patient reports she is currently homeless and ran out of all her medications including a diuretic. She reports she was recently in another hospital for similar complaints. Chest imaging showed small bilateral pulmonary emboli and mild congestive failure, started on heparin gtt and oral Lasix. Looking back at records she has history of ejection fraction of 10-20% with moderate to severe MR/TR going back to 2005 on echocardiograms. She states that she is not following with a art historian. She reports she had a implantable defibrillator placed about 2 years ago here. We are consulted for troponins mildly elevated at 0.08, 0.10, 0.05; which are all actually below her previous troponin baseline. Reported normal coronaries on catheterization March [address] Archibald. Review of Systems All other systems reviewed negative except as stated in HPI PMFSH - History History Provided By: Patient, Medical Record - Medical History Medical History: Medical History (Last Updated 11/26/17 @ 20:07 by Khai Chapa MD) CHF (congestive heart failure) Chronic kidney disease (CKD) stage G2/A2, mildly decreased glomerular filtration rate (GFR) between 60-89 mL/min/1.73 square meter and albuminuria creatinine ratio between 30-299 mg/g History of CVA in adulthood History of crack cocaine use Hx of myocardial infarction Hypertension Schizoaffective disorder Tobacco abuse - Surgical History Surgical History: Surgical History (Last Updated 11/26/17 @ 20:07 by Khai Chapa MD) History of implantable cardioverter-defibrillator (ICD) placement History of tubal ligation - Family History Family History: Family History (Last Updated 11/26/17 @ 20:07 by Khai Chapa MD) Father Kidney disease - Tobacco History Second Hand Smoke Exposure: Yes Tobacco Use In Past 30 Days: Yes Smoking Status: Current every day smoker Tobacco Type: Cigarettes - Alcohol History How Often Do You Have a Drink Containing Alcohol: 4 or more times a week - Substance Use History Substance History: Active Abuse - Substance Use Type Crack/Cocaine Status: Active Route Used: Inhalation - Travel History Recent Travel in the [facility] Within the Last 8 Weeks: No Recent Travel Out of the Country Within the Last 8 Weeks: No - Immunization History Tetanus Immunization: <5 Years Hx Influenza Vaccine This Season: No Medications and Allergies Allergies Allergy/AdvReac Type Severity Reaction Status Date / Time No Known Allergies Allergy Unverified 11/26/17 15:39 Active Medications: Active Medications Acetaminophen (Tylenol) 650 mg PO Q6H PRN PRN Reason: FEVER >101F Last Admin: 11/27/17 22:27 Dose: 650 mg Hydrocodone Bitart/Acetaminophen ([place] 5/325) 1 tab PO Q4H PRN PRN Reason: PAIN SCALE 1 TO 5 Al Hydroxide/Mg Hydroxide (Milk Of Sam Garzon) 30 ml PO Q12H PRN PRN Reason: Mild Constipation Albuterol (Albuterol Neb (Prn)) 2.5 mg NEB Q2HR NEB PRN PRN Reason: SHORTNESS OF BREATH/WHEEZING Aspirin (Aspirin Chew) 81 mg PO DAILY [facility] Last Admin: 11/27/17 09:00 Dose: 81 mg Bisacodyl (Dulcolax Supp) 10 mg RECTAL DAILY PRN PRN Reason: SEVERE CONSITIPATION Chlorhexidine Gluconate (Chlorhexidine 2% Cloth) 3 pack TOPICAL DAILY@0400 [facility] Stop: 12/02/17 03:59 Last Admin: 11/28/17 05:54 Dose: 3 pack Chlorhexidine Gluconate (Chlorhexidine 2% Cloth) 3 pack TOPICAL DAILY@0400 PRN PRN Reason: Extra cloth needed Stop: 12/02/17 03:59 Clonidine HCl (Catapres) 0.1 mg PO Q8HR [facility] Last Admin: 11/28/17 05:54 Dose: 0.1 mg Dextrose (D50w Vial) 50 ml IV.PUSH UNSCH PRN PRN Reason: PER HYPOGLYCEMIA PROTOCOL Furosemide (Lasix) 40 mg PO DAILY [facility] Last Admin: 11/27/17 09:00 Dose: 40 mg Glucagon (Glucagon Inj) 1 mg OTHER PRN PRN PRN Reason: for Hypoglycemia Protocol Heparin Sodium/Dextrose (Heparin/D5w 25,000 U/250 Ml) 25,000 unit in 250 mls @ 0 mls/hr IV.CONT TITRATE PRN; Protocol PRN Reason: Per Protocol Last Admin: 11/27/17 15:17 Dose: 1,300 units/hr, 13 mls/hr Insulin Aspart (Novolog Insulin [employer] Sugar Inj) 0 unit SQ Q6HR [facility]; Protocol Last Admin: 11/28/17 05:54 Dose: Not Given Lactulose (Lactulose Liq) 30 ml PO DAILY PRN PRN Reason: SEVERE CONSITIPATION Morphine Sulfate (Morphine Inj) 2 mg IV.PUSH Q2H PRN PRN Reason: PAIN SCALE 6 TO 10 Nitroglycerin (Nitro-Bid 2% Oint) 2 inch TOPICAL Q6HR PRN PRN Reason: SBP>160, DBP>90 Ondansetron HCl (Zofran Inj) 4 mg IV.PUSH Q6H PRN PRN Reason: NAUSEA OR VOMITING Pantoprazole Sodium (Protonix) 40 mg PO DAILY [facility] Last Admin: 11/27/17 09:00 Dose: 40 mg Risperidone (Risperdal) 1 mg PO DAILY [facility] Last Admin: 11/27/17 09:00 Dose: 1 mg Senna/Docusate Sodium (Jacquelyn-Colace) 1 tab PO BID [facility] Last Admin: 11/27/17 20:33 Dose: 1 tab Sennosides (Senokot) 17.2 mg PO Q12H PRN PRN Reason: Moderate Constipation Sertraline HCl (Zoloft) 25 mg PO DAILY [facility] Last Admin: 11/27/17 09:00 Dose: 25 mg Sodium Chloride (Ns Flush) 2 ml IV.FLUSH BID [facility] Last Admin: 11/27/17 20:33 Dose: 2 ml Sodium Chloride (Ns Flush) 2 ml IV.FLUSH PRN PRN PRN Reason: FLUSH AFTER USING IV ACCESS Trazodone HCl (Desyrel) 100 mg PO HS [facility] Last Admin: 11/27/17 20:33 Dose: 100 mg Exam Vital signs: Vital Signs 11/27/17 08:00 11/27/17 08:47 11/27/17 09:00 Temperature Pulse Rate 86 104 H Respiratory Rate 16 17 Blood Pressure 124/90 137/104 H Pulse Oximetry 98 97 99 11/27/17 09:04 11/27/17 09:30 11/27/17 09:46 Temperature Pulse Rate 97 H 90 92 H Respiratory Rate Blood Pressure 145/104 H 141/107 H 117/78 Pulse Oximetry 95 92 L 92 L 11/27/17 10:00 11/27/17 10:30 11/27/17 11:00 Temperature Pulse Rate 89 90 88 Respiratory Rate 16 16 Blood Pressure 115/74 110/73 119/76 Pulse Oximetry 94 L 97 98 11/27/17 11:30 11/27/17 12:00 11/27/17 12:30 Temperature 98.2 F Pulse Rate 98 H 79 100 H Respiratory Rate 18 28 H Blood Pressure 126/97 H 127/94 H 136/97 H Pulse Oximetry 95 99 98 11/27/17 13:00 11/27/17 13:21 11/27/17 13:30 Temperature Pulse Rate 100 H 90 104 H Respiratory Rate 15 15 Blood Pressure 133/100 H 123/82 133/89 Pulse Oximetry 97 99 97 11/27/17 14:00 11/27/17 14:30 11/27/17 15:00 Temperature Pulse Rate 91 H 93 H 95 H Respiratory Rate 17 61 H 16 Blood Pressure 125/74 126/82 124/88 Pulse Oximetry 99 96 100 11/27/17 15:31 11/27/17 16:00 11/27/17 16:30 Temperature 98.4 F Pulse Rate 101 H 93 H 97 H Respiratory Rate 16 Blood Pressure 133/88 121/80 127/88 Pulse Oximetry 100 99 95 11/27/17 17:00 11/27/17 17:34 11/27/17 17:58 Temperature Pulse Rate 99 H 94 H 93 H Respiratory Rate 16 Blood Pressure 122/97 H 127/102 H 134/93 H Pulse Oximetry 95 100 97 11/27/17 18:00 11/27/17 18:39 11/27/17 19:00 Temperature Pulse Rate 85 107 H 94 H Respiratory Rate 17 Blood Pressure 127/86 157/105 H 133/81 Pulse Oximetry 100 79 L 96 11/27/17 19:30 11/27/17 20:00 11/27/17 20:30 Temperature 98.4 F Pulse Rate 89 83 96 H Respiratory Rate 16 Blood Pressure 122/80 120/86 127/90 Pulse Oximetry 100 95 99 11/27/17 21:00 11/27/17 21:01 11/27/17 21:30 Temperature Pulse Rate 90 89 83 Respiratory Rate Blood Pressure 132/81 128/103 H Pulse Oximetry 100 100 100 11/27/17 22:00 11/27/17 22:30 11/27/17 23:00 Temperature Pulse Rate 81 102 H 75 Respiratory Rate Blood Pressure 119/82 130/93 H 102/70 Pulse Oximetry 100 100 100 11/27/17 23:31 11/28/17 00:00 11/28/17 00:30 Temperature 98.6 F Pulse Rate 73 77 81 Respiratory Rate 7 L 0 L 18 Blood Pressure 110/84 117/81 113/78 Pulse Oximetry 99 100 100 11/28/17 01:00 11/28/17 01:30 11/28/17 02:00 Temperature Pulse Rate 67 65 85 Respiratory Rate 0 L 0 L 0 L Blood Pressure 106/74 107/76 135/87 Pulse Oximetry 100 100 100 11/28/17 02:30 11/28/17 03:00 11/28/17 03:01 Temperature Pulse Rate 66 85 69 Respiratory Rate 0 L Blood Pressure 107/74 138/94 H Pulse Oximetry 98 99 100 11/28/17 03:30 11/28/17 04:00 11/28/17 04:30 Temperature 98.8 F Pulse Rate 101 H 68 75 Respiratory Rate 16 Blood Pressure 142/110 H 113/80 96/59 L Pulse Oximetry 99 100 98 11/28/17 05:00 11/28/17 05:30 11/28/17 06:00 Temperature Pulse Rate 73 76 84 Respiratory Rate Blood Pressure 97/63 L 127/81 105/71 Pulse Oximetry 99 98 98 Intake & Output 11/27/17 11/28/17 11/28/17 18:59 06:59 18:59 Intake Total 950 / 950 960 / 960 Output Total 650 / 650 600 / 600 Balance 300 / 300 360 / 360 Weight 153 lb Intake: IV 250 / 250 Heparin/D5W 25,000 U/250 mL 25, 250 / 250 000 unit In 250 ml @ Per Protocol IV.CONT TITRATE PRN Rx #:[id number] Oral 700 / 700 960 / 960 Output: Urine 650 / 650 600 / 600 Other: # Bowel Movements 0 Narrative: GENERAL: Well-developed well-nourished. In no acute distress. NECK: No carotid bruits. No JVD. CARDIOVASCULAR: Regular rate and rhythm. No murmur appreciated. RESPIRATORY: No accessory muscle use. Diminished breath sounds in the bases. MUSCULOSKELETAL: No clubbing or cyanosis. No edema. NEUROLOGICAL: Awake and alert. Normal speech. Results 11/28/17 06:40 11/28/17 06:40 Cardiac Enzymes 11/26/17 11/26/17 11/26/17 Range/Units 17:32 17:32 17:32 AST 25 (15-37) U/L Troponin I 0.08 H 0.08 H (0.02-0.05) ng/mL B-Natriuretic Peptide 2827 H (0-100) pg/mL 11/27/17 11/27/17 11/27/17 Range/Units 01:54 05:06 19:45 AST 18 (15-37) U/L Troponin I 0.10 H 0.10 H 0.05 (0.02-0.05) ng/mL B-Natriuretic Peptide (0-100) pg/mL Coagulation 11/26/17 11/26/17 11/27/17 Range/Units 17:32 19:38 01:54 PT 12.8 H (9.8-11.6) sec APTT 26.1 71.6 H D (24.3-30.1) sec B-Natriuretic Peptide 2827 H (0-100) pg/mL 11/27/17 11/27/17 Range/Units 05:06 07:26 PT 12.9 H (9.8-11.6) sec APTT 60.2 H 57.4 H (24.3-30.1) sec B-Natriuretic Peptide (0-100) pg/mL Lipids 11/26/17 Range/Units 17:32 Triglycerides 72 (42-150) mg/dL Cholesterol 152 (120-200) mg/dL HDL Cholesterol 53.1 (40.0-60.0) mg/dL Cholesterol/HDL Ratio 2.86 Ratio CBC 11/26/17 11/27/17 11/28/17 Range/Units 17:32 05:06 06:40 WBC 5.5 6.2 (4.0-11.0) th/mm3 RBC 4.83 4.72 (4.00-5.30) mil/mm3 Hgb 14.3 13.6 13.8 (11.6-15.3) gm/dL Hct 42.8 41.2 43.4 (35.0-46.0) % Plt Count 232 232 (150-450) th/mm3 Neut # (Auto) 3.5 3.0 (1.8-7.7) th/mm3 Lymph # (Auto) 1.2 2.1 (1.0-4.8) th/mm3 Pope # (Auto) 0.6 0.7 (0.0-0.9) th/mm3 Eos # (Auto) 0.2 0.3 (0.0-0.4) th/mm3 Baso # (Auto) 0.0 0.1 (0.0-0.2) th/mm3 Comprehensive Metabolic Panel 11/26/17 11/27/17 Range/Units 17:32 05:06 Sodium 148 H 147 H (136-145) meq/L Potassium 3.3 L 3.3 L (3.5-5.1) meq/L Chloride 111 H 109 H (98-107) meq/L Carbon Dioxide 23.9 25.7 (21.0-32.0) meq/L BUN 23 H 22 H (7-18) mg/dL Creatinine 1.79 H 1.84 H (0.50-1.00) mg/dL Calcium 8.6 8.1 L (8.5-10.1) mg/dL AST 25 18 (15-37) U/L ALT 29 26 (10-53) U/L Alkaline Phosphatase 105 93 (45-117) U/L Total Protein 6.3 L 5.7 L D (6.4-8.2) g/dL Albumin 2.9 L 2.4 L (3.4-5.0) g/dL Intake and Output 11/27/17 11/28/17 11/28/17 22:59 06:59 14:59 Intake Total 950 / 950 960 / 960 Output Total 650 / 650 600 / 600 Balance 300 / 300 360 / 360 Intake: IV 250 / 250 Heparin/D5W 25,000 U/250 mL 25, 250 / 250 000 unit In 250 ml @ Per Protocol IV.CONT TITRATE PRN Rx #:[id number] Oral 700 / 700 960 / 960 Output: Urine 650 / 650 600 / 600 Other: # Bowel Movements 0 Weight 153 lb - Imaging and Cardiology Imaging: Impressions Venous Doppler Study 11/26/17 00:00 CONCLUSION: No venous thrombosis of either lower extremity. Chest X-Ray 11/26/17 15:56 CONCLUSION: Cardiomegaly with increase in pulmonary vascularity. Chest CTA 11/26/17 17:00 CONCLUSION: 1. Small bilateral pulmonary emboli. 2. Enlarged left ventricle and left atrium. Mild acute congestive heart failure present. Assessment and Plan - Plan 52-year-old female with a long history of severe cardiomyopathy and valvular heart disease who presented with 2 days of shortness of breath after running out of her medications, found to have small bilateral pulmonary embolism and mild congestive failure. Acute exacerbation of chronic systolic CHF: Continue diuresis, will change Lasix to IV until creatinine bumps and then transition back to oral. Monitor I' s and O's, electrolytes, and renal function. Cardiomyopathy: AICD in place. Systolic blood pressures down in the 90s overnight. Patient did have 5 beats of NSVT noted on telemetry overnight, would recommend starting low-dose carvedilol as BP allows. Elevated troponin: Minimally elevated and likely demand mediated, possibly due to known CHF or acute PE. Reported normal coronary arteries earlier this year on catheterization. Valvular heart disease: The patient would need treatment for PE as well as be free from substance abuse both for likely 3-6 months prior to consideration of any kind of surgical intervention. Strongly encouraged patient to establish with cardiology as outpatient, and I did give her the names of local art historian (Dr. Mcintyre) who take her insurance, at her request. Discussed Condition With: Patient, RN, Dr. Llanos - Attending Attestation patient seen and examined. agree with above.
[2017-11-28] MEDS: Sertraline 50 MG Tablet PO SCH (09:57)
[2017-11-28] MEDS: Senna/Docusate Sodium 8.6/50 MG Tablet PO SCH ×2 (09:57→21:32)
[2017-11-28] MEDS: Heparin Drip 25,000 UNIT/250 ML BAG IV.CONT PRN (13:09)
--- NOTE | 2017-11-28 18:22 | P.PNIM ---
Subjective Interval history: Patient complains of some shortness of breath. She does not have any other complaints. No chest pain. Physical Exam Vital signs: Vital Signs 11/27/17 18:39 11/27/17 19:00 11/27/17 19:30 Temperature Pulse Rate 107 H 94 H 89 Respiratory Rate Blood Pressure 157/105 H 133/81 122/80 Pulse Oximetry 79 L 96 100 11/27/17 20:00 11/27/17 20:30 11/27/17 21:00 Temperature 98.4 F Pulse Rate 83 96 H 90 Respiratory Rate 16 Blood Pressure 120/86 127/90 Pulse Oximetry 95 99 100 11/27/17 21:01 11/27/17 21:30 11/27/17 22:00 Temperature Pulse Rate 89 83 81 Respiratory Rate Blood Pressure 132/81 128/103 H 119/82 Pulse Oximetry 100 100 100 11/27/17 22:30 11/27/17 23:00 11/27/17 23:31 Temperature Pulse Rate 102 H 75 73 Respiratory Rate 7 L Blood Pressure 130/93 H 102/70 110/84 Pulse Oximetry 100 100 99 11/28/17 00:00 11/28/17 00:30 11/28/17 01:00 Temperature 98.6 F Pulse Rate 77 81 67 Respiratory Rate 0 L 18 0 L Blood Pressure 117/81 113/78 106/74 Pulse Oximetry 100 100 100 11/28/17 01:30 11/28/17 02:00 11/28/17 02:30 Temperature Pulse Rate 65 85 66 Respiratory Rate 0 L 0 L 0 L Blood Pressure 107/76 135/87 107/74 Pulse Oximetry 100 100 98 11/28/17 03:00 11/28/17 03:01 11/28/17 03:30 Temperature Pulse Rate 85 69 101 H Respiratory Rate Blood Pressure 138/94 H 142/110 H Pulse Oximetry 99 100 99 11/28/17 04:00 11/28/17 04:30 11/28/17 05:00 Temperature 98.8 F Pulse Rate 68 75 73 Respiratory Rate 16 Blood Pressure 113/80 96/59 L 97/63 L Pulse Oximetry 100 98 99 11/28/17 05:30 11/28/17 06:00 11/28/17 07:00 Temperature Pulse Rate 76 84 64 Respiratory Rate Blood Pressure 127/81 105/71 103/78 Pulse Oximetry 98 98 100 11/28/17 07:31 11/28/17 08:00 11/28/17 08:30 Temperature Pulse Rate 75 87 66 Respiratory Rate Blood Pressure 129/84 128/87 99/72 L Pulse Oximetry 98 98 100 11/28/17 09:00 11/28/17 09:48 11/28/17 10:00 Temperature Pulse Rate 86 86 75 Respiratory Rate Blood Pressure 121/87 128/89 119/82 Pulse Oximetry 99 99 98 11/28/17 10:31 11/28/17 11:00 11/28/17 11:30 Temperature Pulse Rate 71 70 66 Respiratory Rate Blood Pressure 85/54 L 85/54 L 90/64 L Pulse Oximetry 96 97 98 11/28/17 12:00 11/28/17 12:01 11/28/17 12:30 Temperature Pulse Rate 71 77 72 Respiratory Rate 18 Blood Pressure 93/72 L 92/64 L Pulse Oximetry 96 95 100 11/28/17 13:00 11/28/17 13:30 11/28/17 14:00 Temperature Pulse Rate 85 75 79 Respiratory Rate Blood Pressure 102/72 94/65 L Pulse Oximetry 99 96 96 11/28/17 14:31 11/28/17 15:00 11/28/17 15:31 Temperature Pulse Rate 72 74 79 Respiratory Rate Blood Pressure 99/64 L 93/62 L 117/79 Pulse Oximetry 98 100 98 11/28/17 16:00 11/28/17 16:01 11/28/17 16:31 Temperature Pulse Rate 84 79 100 H Respiratory Rate Blood Pressure 122/83 126/87 Pulse Oximetry 100 99 100 11/28/17 17:00 Temperature Pulse Rate 92 H Respiratory Rate Blood Pressure 117/85 Pulse Oximetry 98 Intake & Output 11/27/17 11/28/17 11/28/17 18:59 06:59 18:59 Intake Total 950 / 950 960 / 960 250 / 250 Output Total 650 / 650 600 / 600 Balance 300 / 300 360 / 360 250 / 250 Weight 69.4 kg Intake: IV 250 / 250 250 / 250 Heparin/D5W 25,000 U/250 mL 25, 250 / 250 250 / 250 000 unit In 250 ml @ Per Protocol IV.CONT TITRATE PRN Rx #:[id number] Oral 700 / 700 960 / 960 Output: Urine 650 / 650 600 / 600 Other: # Bowel Movements 0 Narrative: General patient in no acute distress, no complaints of chest pain. HEENT extraocular movements are intact, clear oropharyngeal mucosa, no JVD Cardiovascular S1-S2 audible Respiratory poor respiratory effort. Bibasilar crackles auscultated. Abdomen soft, nontender, nondistended, normal bowel sounds Extremities 1+ pitting edema bilateral lower extremities. Neuro cranial patient moves all 4 extremities sensation is intact bilaterally Results - Labs CBC & Chem 7: 11/28/17 06:40 11/28/17 06:40 Laboratory Results - last 24 hr 11/27/17 11/27/17 11/28/17 19:45 23:23 05:49 Hgb Hct APTT Sodium Potassium Chloride Carbon Dioxide Anion Gap BUN Creatinine Estimated GFR POC Glucose 136 H 90 Random Glucose Calcium Magnesium Total Creatine Kinase 94 Troponin I 0.05 11/28/17 11/28/17 11/28/17 06:40 06:40 06:40 Hgb 13.8 Hct 43.4 APTT 83.0 H D Sodium 143 Potassium 4.2 D Chloride 105 Carbon Dioxide 29.5 Anion Gap 9 BUN 19 H Creatinine 1.68 H Estimated GFR 39 L POC Glucose Random Glucose 104 Calcium 8.2 L Magnesium 1.8 Total Creatine Kinase Troponin I 11/28/17 13:27 Hgb Hct APTT 71.0 H Sodium Potassium Chloride Carbon Dioxide Anion Gap BUN Creatinine Estimated GFR POC Glucose Random Glucose Calcium Magnesium Total Creatine Kinase Troponin I Assessment and Plan - Plan This patient is a 52-year-old female with a diagnosis of systolic CHF ejection fraction 10-15%, history of polysubstance abuse, moderate to severe tricuspid and mitral regurg. The patient presented with complaints of shortness of breath and was found to have pulmonary embolus on CTA of the chest. She also admits to using cocaine, last use was a few days ago. 1. Elevated troponin possibly secondary to a pulmonary embolus. 2. Systolic CHF exacerbation with ejection fraction 10-15% The patient did have an elevation in her serum troponin of 0.11. EKG was done which shows normal sinus rhythm left axis deviation with no ST or T wave changes on my evaluation. CTA of the chest shows small bilateral upper and lower pulmonary embolus. She was subsequently started on heparin drip. Cardiology was consulted to evaluate the patient for the troponin elevation, and the severe mitral and tricuspid regurgitation. Another set of cardiac enzymes and troponins will be ordered. As per documentation the patient had a cardiac catheterization done approximate 1 year ago which showed clean coronaries. Cardiology agrees that the patient's elevation in troponins is likely due to the poor heart function and possibly because of the pulmonary embolus. She will be bridged over to Coumadin. Continue aspirin, cardiology is recommending that we start the patient on a beta -eleni given the patient's NSVT noted on telemetry. She will be started on a low-dose beta-eleni. IV Lasix was started by the cardiology team. Continue supplemental oxygen as needed. The patient also has valvular heart disease as per documentation from cardiology the patient will need treatment for PE as well as be substance abuse free for 3-6 months prior to consideration of any kind of surgical intervention. 3. Chronic kidney disease stage III a We will continue to monitor the patient's serum creatinine. Avoid nephrotoxic agents. The patient will need follow-up with nephrology outpatient after she has been stabilized and discharged. If there is a significant change in the patient's kidney function nephrology will be consulted while in-house. 4. Schizoaffective disorder and crack cocaine use She will be continued on her home medications of trazodone and Risperdal as well as sertraline. Pain medication will be given as needed. The patient was counseled on the dangers of using crack cocaine. She states that she does not want to use any longer and is seeking help. 5. 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 The patient should also be started on a statin. DVT prophylaxis: patient on heparin drip currently
[2017-11-28] MEDS: traZODone 100 MG Tablet PO SCH (21:32)
[2017-11-28] MEDS: Acetaminophen 325 MG Tablet PO PRN (21:51)
[2017-11-29] MEDS: Insulin NovoLOG Aspart Correctional Sugar Inj SQ SCH ×4 (03:33→17:21)
[2017-11-29] MEDS: Chlorhexidine Gluconate 2% 1 Pack (2 Cloths) TOPICAL SCH (04:53)
[2017-11-29 06:42] LABS: INR 1.1 Ratio; Prothrombin Time 11.3 sec (9.8-11.6)
--- NOTE | 2017-11-29 07:58 | P.PNCA ---
Subjective Interval history: Good diuresis overnight with change to IV diuresis, 4000 now. Patient reports good urine output and feels breathing may be a little better. No chest pain. 3 beats of NSVT noted on telemetry overnight. Medications and Allergies Allergies Allergy/AdvReac Type Severity Reaction Status Date / Time No Known Allergies Allergy Unverified 11/26/17 15:39 Active Medications: Active Medications Acetaminophen (Tylenol) 650 mg PO Q6H PRN PRN Reason: FEVER >101F Last Admin: 11/28/17 21:51 Dose: 650 mg Hydrocodone Bitart/Acetaminophen (Jay Em 5/325) 1 tab PO Q4H PRN PRN Reason: PAIN SCALE 1 TO 5 Al Hydroxide/Mg Hydroxide (Milk Of Magnigor Liq) 30 ml PO Q12H PRN PRN Reason: Mild Constipation Albuterol (Albuterol Neb (Prn)) 2.5 mg NEB Q2HR NEB PRN PRN Reason: SHORTNESS OF BREATH/WHEEZING Aspirin (Aspirin Chew) 81 mg PO DAILY [facility] Last Admin: 11/28/17 09:58 Dose: 81 mg Bisacodyl (Dulcolax Supp) 10 mg RECTAL DAILY PRN PRN Reason: SEVERE CONSITIPATION Chlorhexidine Gluconate (Chlorhexidine 2% Cloth) 3 pack TOPICAL DAILY@0400 [facility] Stop: 12/02/17 03:59 Last Admin: 11/29/17 04:53 Dose: 3 pack Chlorhexidine Gluconate (Chlorhexidine 2% Cloth) 3 pack TOPICAL DAILY@0400 PRN PRN Reason: Extra cloth needed Stop: 12/02/17 03:59 Dextrose (D50w Vial) 50 ml IV.PUSH UNSCH PRN PRN Reason: PER HYPOGLYCEMIA PROTOCOL Furosemide (Lasix Inj) 40 mg IV.PUSH DAILY [facility] Last Admin: 11/28/17 09:57 Dose: 40 mg Glucagon (Glucagon Inj) 1 mg OTHER PRN PRN PRN Reason: for Hypoglycemia Protocol Heparin Sodium/Dextrose (Heparin/D5w 25,000 U/250 Ml) 25,000 unit in 250 mls @ 0 mls/hr IV.CONT TITRATE PRN; Protocol PRN Reason: Per Protocol Last Titration: 11/28/17 14:11 Dose: 1,100 units/hr, 11 mls/hr Insulin Aspart (Novolog Insulin Correctional Sugar Inj) 0 unit SQ Q6HR [facility]; Protocol Last Admin: 11/29/17 06:10 Dose: Not Given Lactulose (Lactulose Liq) 30 ml PO DAILY PRN PRN Reason: SEVERE CONSITIPATION Morphine Sulfate (Morphine Inj) 2 mg IV.PUSH Q2H PRN PRN Reason: PAIN SCALE 6 TO 10 Nitroglycerin (Nitro-Bid 2% Oint) 2 inch TOPICAL Q6HR PRN PRN Reason: SBP>160, DBP>90 Ondansetron HCl (Zofran Inj) 4 mg IV.PUSH Q6H PRN PRN Reason: NAUSEA OR VOMITING Pantoprazole Sodium (Protonix) 40 mg PO DAILY [facility] Last Admin: 11/28/17 09:58 Dose: 40 mg Patient Medication Teaching (Coumadin Booklet) 1 each OTHER ONCE ONE Stop: 11/29/17 16:01 Risperidone (Risperdal) 1 mg PO DAILY [facility] Last Admin: 11/28/17 09:58 Dose: 1 mg Senna/Docusate Sodium (Jacquelyn-Colace) 1 tab PO BID [facility] Last Admin: 11/28/17 21:32 Dose: 1 tab Sennosides (Senokot) 17.2 mg PO Q12H PRN PRN Reason: Moderate Constipation Sertraline HCl (Zoloft) 25 mg PO DAILY [facility] Last Admin: 11/28/17 09:57 Dose: 25 mg Sodium Chloride (Ns Flush) 2 ml IV.FLUSH BID [facility] Last Admin: 11/28/17 21:32 Dose: 2 ml Sodium Chloride (Ns Flush) 2 ml IV.FLUSH PRN PRN PRN Reason: FLUSH AFTER USING IV ACCESS Trazodone HCl (Desyrel) 100 mg PO [facility] Last Admin: 11/28/17 21:32 Dose: 100 mg Warfarin Sodium (Coumadin) 3 mg PO DAILY@1600 [facility] Physical Exam Vital signs: Vital Signs 11/28/17 08:00 11/28/17 08:30 11/28/17 09:00 Temperature Pulse Rate 87 66 86 Respiratory Rate Blood Pressure 128/87 99/72 L 121/87 Pulse Oximetry 98 100 99 11/28/17 09:48 11/28/17 10:00 11/28/17 10:31 Temperature Pulse Rate 86 75 71 Respiratory Rate Blood Pressure 128/89 119/82 85/54 L Pulse Oximetry 99 98 96 11/28/17 11:00 10/03/18 11:30 11/28/17 12:00 Temperature Pulse Rate 70 66 71 Respiratory Rate 18 Blood Pressure 85/54 L 90/64 L Pulse Oximetry 97 98 96 11/28/17 12:01 11/28/17 12:30 11/28/17 13:00 Temperature Pulse Rate 77 72 85 Respiratory Rate Blood Pressure 93/72 L 92/64 L 102/72 Pulse Oximetry 95 100 99 11/28/17 13:30 11/28/17 14:00 11/28/17 14:31 Temperature Pulse Rate 75 79 72 Respiratory Rate Blood Pressure 94/65 L 99/64 L Pulse Oximetry 96 96 98 11/28/17 15:00 11/28/17 15:31 11/28/17 16:00 Temperature Pulse Rate 74 79 84 Respiratory Rate Blood Pressure 93/62 L 117/79 Pulse Oximetry 100 98 100 11/28/17 16:01 11/28/17 16:31 11/28/17 17:00 Temperature Pulse Rate 79 100 H 92 H Respiratory Rate Blood Pressure 122/83 126/87 117/85 Pulse Oximetry 99 100 98 11/28/17 17:30 11/28/17 18:00 11/28/17 18:30 Temperature Pulse Rate 87 77 95 H Respiratory Rate Blood Pressure 121/69 109/67 131/89 Pulse Oximetry 99 93 L 97 11/28/17 19:00 11/28/17 20:00 11/28/17 21:00 Temperature 98.1 F 98.1 F 98.1 F Pulse Rate 87 76 85 Respiratory Rate 16 16 16 Blood Pressure 118/79 112/73 118/87 Pulse Oximetry 97 97 97 11/28/17 21:21 11/28/17 22:00 11/28/17 23:00 Temperature 98.1 F 98.1 F Pulse Rate 100 H 84 Respiratory Rate 16 16 Blood Pressure 112/80 113/77 Pulse Oximetry 99 97 97 11/28/17 23:04 11/29/17 00:00 11/29/17 02:00 Temperature 97.9 F Pulse Rate 84 88 Respiratory Rate 16 16 Blood Pressure 122/88 Pulse Oximetry 97 11/29/17 04:00 11/29/17 06:00 Temperature 98 F Pulse Rate 80 82 Respiratory Rate 18 Blood Pressure 110/70 Pulse Oximetry 97 Intake & Output 11/28/17 11/29/17 11/29/17 18:59 06:59 18:59 Intake Total 250 / 250 200 / 200 Output Total 3150 / 3150 1000 / 1000 Balance -2900 / -2900 -800 / -800 Weight 152 lb 1.903 oz Intake: IV 250 / 250 Heparin/D5W 25,000 U/250 mL 25, 250 / 250 000 unit In 250 ml @ Per Protocol IV.CONT TITRATE PRN Rx #:[id number] Oral 200 / 200 Output: Urine 3150 / 3150 1000 / 1000 Other: # Bowel Movements 0 Narrative: GENERAL: Well-developed well-nourished. In no acute distress. NECK: No carotid bruits. No JVD. CARDIOVASCULAR: Regular rate and rhythm. No murmur appreciated. RESPIRATORY: No accessory muscle use. Diminished breath sounds in the bases. MUSCULOSKELETAL: No clubbing or cyanosis. No edema. NEUROLOGICAL: Awake and alert. Normal speech. Results 11/28/17 06:40 11/28/17 06:40 Cardiac Enzymes 11/27/17 Range/Units 19:45 Troponin I 0.05 (0.02-0.05) ng/mL Coagulation 11/27/17 11/28/17 11/28/17 Range/Units 07:26 06:40 13:27 PT (9.8-11.6) sec APTT 57.4 H 83.0 H D 71.0 H (24.3-30.1) sec 11/28/17 11/29/17 Range/Units 19:15 06:20 PT 11.3 (9.8-11.6) sec APTT 51.4 H D (24.3-30.1) sec CBC 11/28/17 Range/Units 06:40 Hgb 13.8 (11.6-15.3) gm/dL Hct 43.4 (35.0-46.0) % Comprehensive Metabolic Panel 11/28/17 Range/Units 06:40 Sodium 143 (136-145) meq/L Potassium 4.2 D (3.5-5.1) meq/L Chloride 105 (98-107) meq/L Carbon Dioxide 29.5 (21.0-32.0) meq/L BUN 19 H (7-18) mg/dL Creatinine 1.68 H (0.50-1.00) mg/dL Calcium 8.2 L (8.5-10.1) mg/dL Intake and Output 11/28/17 11/29/17 11/29/17 22:59 06:59 14:59 Intake Total 200 / 200 Output Total 3150 / 3150 1000 / 1000 Balance -3150 / -3150 -800 / -800 Intake: Oral 200 / 200 Output: Urine 3150 / 3150 1000 / 1000 Other: # Bowel Movements 0 Weight 152 lb 1.903 oz Assessment and Plan - Plan 52-year-old female with a long history of severe cardiomyopathy and valvular heart disease who presented with 2 days of shortness of breath after running out of her medications, found to have small bilateral pulmonary embolism and mild congestive failure. Acute exacerbation of chronic systolic CHF: Continue IV diuresis until creatinine bumps and then transition back to oral. Monitor I's and O's, electrolytes, and renal function. Cardiomyopathy: Chronic, severe. AICD in place. BP is improving with clonidine DC'd, will start low-dose carvedilol for comanagement of cardiomyopathy and NSVT, titrate up as BP allows. Elevated troponin: Minimally elevated and likely demand mediated, possibly due to known CHF or acute PE. Reported normal coronary arteries earlier this year on catheterization. Valvular heart disease: The patient would need treatment for PE as well as be free from substance abuse both for likely 3-6 months prior to consideration of any kind of surgical intervention. Strongly encouraged patient to establish with cardiology as outpatient, patient given the name of local mechanical engineering director ( Dr. Mcintyre) who take her insurance, at her request. Bilateral pulmonary emboli: Anticoagulation per primary team. Not much more to add from a cardiology perspective at this time. Will sign off. Please feel free to call with any questions. Discussed Condition With: Patient, RN, Dr. Llanos - Attending Attestation Patient seen and examined and agree with above.
[2017-11-29] MEDS: Sertraline 50 MG Tablet PO SCH (08:24)
[2017-11-29] MEDS: Senna/Docusate Sodium 8.6/50 MG Tablet PO SCH ×3 (08:25→21:19)
[2017-11-29] MEDS: Carvedilol 6.25 MG Tablet PO SCH ×2 (10:50→21:07)
[2017-11-29] MEDS: Acetaminophen 325 MG Tablet PO PRN (13:28)
[2017-11-29] MEDS: Heparin Drip 25,000 UNIT/250 ML BAG IV.CONT PRN (13:28)
--- NOTE | 2017-11-29 20:42 | P.PNIM ---
Subjective Interval history: Patient states that she feels much better than admission day. She is tolerating a diet. She does not have any other complaints. No chest pain, no shortness of breath. Physical Exam Vital signs: Vital Signs 11/28/17 21:00 11/28/17 21:21 11/28/17 21:31 Temperature 98.1 F Pulse Rate 85 104 H Respiratory Rate 16 Blood Pressure 118/87 140/76 Pulse Oximetry 100 99 99 11/28/17 22:00 11/28/17 22:25 11/28/17 23:00 Temperature 98.1 F 98.1 F Pulse Rate 100 H 78 84 Respiratory Rate 16 16 Blood Pressure 112/80 112/80 113/77 Pulse Oximetry 99 97 97 11/28/17 23:04 11/29/17 00:00 11/29/17 01:00 Temperature 97.9 F Pulse Rate 84 80 Respiratory Rate 16 16 Blood Pressure 122/88 110/76 Pulse Oximetry 97 98 11/29/17 02:00 11/29/17 03:00 11/29/17 04:00 Temperature 98 F Pulse Rate 88 94 H 80 Respiratory Rate 18 Blood Pressure 131/89 116/91 H 110/70 Pulse Oximetry 95 98 97 11/29/17 05:00 11/29/17 05:05 11/29/17 06:00 Temperature Pulse Rate 82 88 82 Respiratory Rate Blood Pressure 143/93 H Pulse Oximetry 99 100 100 11/29/17 06:01 11/29/17 07:00 11/29/17 07:13 Temperature Pulse Rate 78 90 79 Respiratory Rate Blood Pressure 105/81 127/93 H Pulse Oximetry 100 99 99 11/29/17 08:00 11/29/17 09:00 11/29/17 10:00 Temperature Pulse Rate 90 78 78 Respiratory Rate 15 15 Blood Pressure 128/98 H 127/93 H 112/77 Pulse Oximetry 99 100 93 L 11/29/17 11:00 11/29/17 12:00 11/29/17 13:00 Temperature Pulse Rate 74 89 71 Respiratory Rate Blood Pressure 114/81 123/86 114/81 Pulse Oximetry 100 99 11/29/17 14:00 11/29/17 15:00 11/29/17 16:00 Temperature 98.2 F Pulse Rate 74 80 79 Respiratory Rate Blood Pressure 117/80 122/83 Pulse Oximetry 11/29/17 18:00 Temperature Pulse Rate 79 Respiratory Rate Blood Pressure Pulse Oximetry Intake & Output 11/29/17 11/29/17 11/30/17 06:59 18:59 06:59 Intake Total 200 / 200 1200 / 1200 Output Total 1000 / 1000 1800 / 1800 Balance -800 / -800 -600 / -600 Weight 69 kg Intake: IV 250 / 250 Heparin/D5W 25,000 U/250 mL 25, 250 / 250 000 unit In 250 ml @ Per Protocol IV.CONT TITRATE PRN Rx #:[id number] Oral 200 / 200 950 / 950 Output: Urine 1000 / 1000 1800 / 1800 Other: # Bowel Movements 0 Narrative: General patient in no acute distress, no complaints of chest pain. HEENT extraocular movements are intact, clear oropharyngeal mucosa, no JVD Cardiovascular S1-S2 audible Respiratory poor respiratory effort. Bibasilar crackles auscultated. Abdomen soft, nontender, nondistended, normal bowel sounds Extremities 1+ pitting edema bilateral lower extremities. Neuro cranial patient moves all 4 extremities sensation is intact bilaterally Results - Labs CBC & Chem 7: 11/28/17 06:40 11/28/17 06:40 Laboratory Results - last 24 hr 11/28/17 11/29/17 11/29/17 21:35 03:27 05:04 PT INR APTT POC Glucose 132 H 113 H 85 11/29/17 11/29/17 11/29/17 06:20 06:20 12:16 PT 11.3 INR 1.1 APTT 49.5 H POC Glucose 75 11/29/17 16:13 PT INR APTT POC Glucose 92 Assessment and Plan - Plan This patient is a 52-year-old female with a diagnosis of systolic CHF ejection fraction 10-15%, history of polysubstance abuse, moderate to severe tricuspid and mitral regurg. The patient presented with complaints of shortness of breath and was found to have pulmonary embolus on CTA of the chest. She also admits to using cocaine, last use was a few days ago. 1. Elevated troponin possibly secondary to a pulmonary embolus. 2. Systolic CHF exacerbation with ejection fraction 10-15% Continue IV Lasix for diuresis. Continue aspirin, Coreg. Continue to monitor on telemetry. Patient's elevation in troponin is likely due to the pulmonary embolus and systolic CHF with very poor ejection fraction. Patient is on a heparin drip as well as Coumadin. We will follow-up in a.m. PT/ INR. I discussed the patient's case with her family who is at bedside today. Her son left his phone number and his mother placed in a drug rehab center if possible. The risks and benefits of being on anticoagulation were discussed with the patient as well as the family members at bedside. She agrees to be on antiplatelet agent. Cardiology agrees that the patient's elevation in troponins is likely due to the poor heart function and possibly because of the pulmonary embolus. She will be bridged over to Coumadin. Continue aspirin, cardiology is recommending that we start the patient on a beta -eleni given the patient's NSVT noted on telemetry. She will be started on a low-dose beta-eleni. IV Lasix was started by the cardiology team. Continue supplemental oxygen as needed. The patient also has valvular heart disease as per documentation from cardiology the patient will need treatment for PE as well as be substance abuse free for 3-6 months prior to consideration of any kind of surgical intervention. 3. Chronic kidney disease stage III a We will continue to monitor the patient's serum creatinine. Avoid nephrotoxic agents. The patient will need follow-up with nephrology outpatient after she has been stabilized and discharged. If there is a significant change in the patient's kidney function nephrology will be consulted while in-house. 4. Schizoaffective disorder and crack cocaine use She will be continued on her home medications of trazodone and Risperdal as well as sertraline. Pain medication will be given as needed. The patient was counseled on the dangers of using crack cocaine. She states that she does not want to use any longer and is seeking help. 5. Documented history of right [employer] CVA Continue aspirin. The patient should also be started on a statin. DVT prophylaxis: patient on heparin drip and Coumadin currently
[2017-11-29] MEDS: traZODone 100 MG Tablet PO SCH (21:07)
[2017-11-30] MEDS: Insulin NovoLOG Aspart Correctional Sugar Inj SQ SCH ×4 (00:35→17:39)
[2017-11-30] MEDS: Chlorhexidine Gluconate 2% 1 Pack (2 Cloths) TOPICAL SCH (04:34)
[2017-11-30 06:26] LABS: INR 1.1 Ratio
[2017-11-30] MEDS ORDERED: Warfarin Consult Pharmacy OTHER PRN (10:04)
--- NOTE | 2017-11-30 10:06 | P.PNIM ---
Subjective Interval history: Patient does not have any complaints of chest pain. She states that she gets short of breath when ambulating. She does not have any other complaints. Physical Exam Vital signs: Vital Signs 11/29/17 11:00 11/29/17 12:00 11/29/17 13:00 Temperature Pulse Rate 74 89 71 Respiratory Rate Blood Pressure 114/81 123/86 114/81 Pulse Oximetry 100 99 11/29/17 14:00 11/29/17 15:00 11/29/17 16:00 Temperature 98.2 F Pulse Rate 74 80 79 Respiratory Rate Blood Pressure 117/80 122/83 Pulse Oximetry 11/29/17 18:00 11/29/17 20:00 11/29/17 22:00 Temperature 98 F Pulse Rate 79 86 77 Respiratory Rate 16 Blood Pressure 124/88 Pulse Oximetry 96 11/29/17 22:12 11/30/17 00:00 11/30/17 02:00 Temperature 98.1 F Pulse Rate 85 71 Respiratory Rate 18 Blood Pressure 105/71 Pulse Oximetry 98 96 11/30/17 04:00 11/30/17 06:00 11/30/17 08:00 Temperature 98 F Pulse Rate 81 89 89 Respiratory Rate 17 Blood Pressure 134/93 H Pulse Oximetry 98 98 Intake & Output 11/29/17 11/30/17 11/30/17 18:59 06:59 18:59 Intake Total 1200 / 1200 240 / 240 Output Total 1800 / 1800 900 / 900 Balance -600 / -600 -660 / -660 Weight 67.5 kg Intake: IV 250 / 250 Heparin/D5W 25,000 U/250 mL 25, 250 / 250 000 unit In 250 ml @ Per Protocol IV.CONT TITRATE PRN Rx #:[id number] Oral 950 / 950 240 / 240 Output: Urine 1800 / 1800 900 / 900 Other: Date of Last Bowel Movement 11/30/17 # Bowel Movements 1 Narrative: General patient in no acute distress, no complaints of chest pain. She has some shortness of breath on ambulation. HEENT extraocular movements are intact, clear oropharyngeal mucosa, no JVD Cardiovascular S1-S2 audible Respiratory poor respiratory effort. Bibasilar crackles auscultated. Abdomen soft, nontender, nondistended, normal bowel sounds Extremities 1+ pitting edema bilateral lower extremities. 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 The patient presented with complaints of shortness of breath and was found to have pulmonary embolus on CTA of the chest. She also admits to using cocaine, last use was a few days ago. 1. Elevated troponin possibly secondary to a pulmonary embolus. 2. Systolic CHF exacerbation with ejection fraction 10-15% 3. NSVT Continue IV Lasix for diuresis. Follow-up a.m. labs. Continue aspirin, Coreg. Continue to monitor on telemetry. Patient's elevation in troponin is likely due to the pulmonary embolus and systolic CHF with very poor ejection fraction. Patient is on a heparin drip as well as Coumadin. PT/INR is 1.1 today. Coumadin consult with pharmacy placed. Telemetry shows a few short runs of NSVT. We will continue to monitor electrolytes and replace them as needed. Continue Coreg. I discussed the patient's case with her family who was at bedside yesterday her son left his phone number and his mother placed in a drug rehab center if possible. The risks and benefits of being on anticoagulation were discussed with the patient as well as the family members at bedside. She agrees to be on antiplatelet agent. Cardiology agrees that the patient's elevation in troponins is likely due to the poor heart function and possibly because of the pulmonary embolus. She will be bridged over to Coumadin. Continue supplemental oxygen as needed. Patient will be transferred to a Med[facility] floor with telemetry. The patient also has valvular heart disease as per documentation from cardiology the patient will need treatment for PE as well as be substance abuse free for 3-6 months prior to consideration of any kind of surgical intervention. 4. Chronic kidney disease stage III a We will continue to monitor the patient's serum creatinine. Avoid nephrotoxic agents. The patient will need follow-up with nephrology outpatient after she has been stabilized and discharged. If there is a significant change in the patient's kidney function nephrology will be consulted while in-house. 5. Schizoaffective disorder and crack cocaine use She will be continued on her home medications of trazodone and Risperdal as well as sertraline. Pain medication will be given as needed. The patient was counseled on the dangers of using crack cocaine. She states that she does not want to use any longer and is seeking help. 6. 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 The patient should also be started on a statin. DVT prophylaxis: patient on heparin drip and Coumadin currently
[2017-11-30] MEDS: Sertraline 50 MG Tablet PO SCH (10:11)
[2017-11-30] MEDS: Carvedilol 6.25 MG Tablet PO SCH ×2 (10:11→20:01)
[2017-11-30] MEDS: Senna/Docusate Sodium 8.6/50 MG Tablet PO SCH ×2 (10:12→20:03)
[2017-11-30 11:01] LABS: Baso % (Auto) 0.6 % (0.0-2.0); Eos # (Auto) 0.2 th/mm3 (0.0-0.4); Eos % (Auto) 4.5 % (0.0-4.0); Hematocrit 47.1 % (35.0-46.0); Lymph # (Auto) 1.3 th/mm3 (1.0-4.8); Lymph % (Auto) 25.6 % (9.0-44.0); Mean Corpuscular HGB Conc 31.8 % (32.0-36.0); Mean Corpuscular Hemoglobin 28.7 pg (27.0-34.0); Mean Corpuscular Volume 90.1 fL (80.0-100.0); Mean Platelet Volume 8.8 fL (7.0-11.0); Mono # (Auto) 0.7 th/mm3 (0.0-0.9); Mono % (Auto) 14.1 % (0.0-8.0); Neut # (Auto) 2.8 th/mm3 (1.8-7.7); Neut % (Auto) 55.2 % (16.0-70.0); Platelet Count 209 th/mm3 (150-450); Red Blood Count 5.22 mil/mm3 (4.00-5.30); Red Cell Distribution Width 17.3 % (11.6-17.2); White Blood Count 5.1 th/mm3 (4.0-11.0)
--- NOTE | 2017-11-30 11:06 | CT ---
EXAM DATE: 11/30/2017 10:43 AM EDT AGE/SEX: 52 years / Female INDICATIONS: Stroke alert. Right sided weakness with slurred speech. CLINICAL DATA: This is the patient's subsequent encounter. Patient reports that signs and symptoms h ave been present for 1 day and indicates a pain score of 0/10. MEDICAL/SURGICAL HISTORY: Myocardial infarction. Congestive heart failure. Chronic renal disease Defibrillator. RADIATION DOSE: 27.15 CTDI (mGy) COMPARISON: [facility] – [place], [place], CT BRAIN W/O CONTRAST, 04/20/2017. . TECHNIQUE: CT of the head without contrast. Using automated exposure control and adjustment of the mA and/or kV according to patient size, radiation dose was kept as low as reasonably achievable to ob tain optimal diagnostic quality images. DICOM format image data is available electronically for revi ew and comparison. FINDINGS: Cerebrum: The ventricles are normal for age. No evidence of midline shift, mass lesion, hemorrhage or acute infarction. No extraaxial fluid collections are seen. There is an old infarct involving the right medial occipital lobe. Posterior Fossa: The cerebellum and brainstem are intact. The 4th ventricle is midline. The cerebe llopontine angle is unremarkable. Extracranial: The visualized portion of the orbits is intact. Skull: The calvaria is intact. No evidence of skull fracture. CONCLUSION: 1. No acute infarct, acute hemorrhage, midline shift or extra axial fluid collections. 2. Old infarct involving the right medial occipital lobe. Report was called by Dr. Mercedes to Dr. Ornelas at 11:00 AM on 11/30/2017. Electronically signed by: Anthony Mercedes MD 11/30/2017 11:05 AM EDT
[2017-11-30 11:11] LABS: Activated Partial Thrombo Time 47.2 sec (24.3-30.1); INR 1.1 Ratio; Prothrombin Time 10.9 sec (9.8-11.6)
[2017-11-30 11:24] LABS: Troponin I 0.03 ng/mL (0.02-0.05)
[2017-11-30 11:26] LABS: Calcium 8.9 mg/dL (8.5-10.1); Carbon Dioxide 25.8 meq/L (21.0-32.0); Potassium 4.4 meq/L (3.5-5.1)
--- NOTE | 2017-11-30 11:29 | CT ---
EXAM DATE: 11/30/2017 10:47 AM EDT AGE/SEX: 52 years / Female INDICATIONS: Stroke alert, left sided weakness and slurred speech. CLINICAL DATA: This is the patient's subsequent encounter. Patient reports that signs and symptoms h ave been present for 1 day and indicates a pain score of 0/10. MEDICAL/SURGICAL HISTORY: Myocardial infarction. Hypertension. Congestive heart failure. Chronic renal failure Defibrillator. Defibrillator. RADIATION DOSE: 25.91 CTDI (mGy) ; Combined studies COMPARISON: [facility] – [place], [place] HEAD W/O CONTRAST, 11/30/2017. [facility] – [place], CT CEREBRAL PERF W CONTRAST W 3D, 2017. . TECHNIQUE: Volumetric scanning was performed using a multi-row detector CT scanner during bolus infu michael of 60 ml Visipaque 320 (iodixanol) nonionic water-soluble contrast as a cumulative dose for mul tiple exams. The data was post processed with a variety of visualization algorithms including full volume maximum intensity projection, multi-planar sliding thin slab reformation, curved planar reform ation, and surface rendering techniques. Using automated exposure control and adjustment of the mA a nd/or kV according to patient size, radiation dose was kept as low as reasonably achievable to obtain optimal diagnostic quality images. DICOM format image data is available electronically for review a nd comparison. FINDINGS: There is excellent visualization of the major intracranial arteries out to the second-order branch ve ssels. There is no evidence for aneurysm, vessel truncation or stenosis, and no evidence for vascula r malformation. CONCLUSION: 1. Negative CTA Head. Electronically signed by: Anthony Mercedes MD 11/30/2017 11:27 AM EDT
--- NOTE | 2017-11-30 11:46 | CT ---
EXAM DATE: 11/30/2017 10:47 AM EDT AGE/SEX: 52 years / Female INDICATIONS: Stroke alert, left sided weakness with slurred speech CLINICAL DATA: This is the patient's subsequent encounter. Patient reports that signs and symptoms h ave been present for 1 day and indicates a pain score of 0/10. MEDICAL/SURGICAL HISTORY: Myocardial infarction. Hypertension. Congestive heart failure. Chronic renal disease Defibrillator. Tubal ligation. RADIATION DOSE: 25.91 CTDI (mGy) ; Combined studies COMPARISON: No prior exams available for comparison. TECHNIQUE: Volumetric scanning was performed using a multirow detector CT scanner during bolus infus ion of 60 ml Visipaque 320 (iodixanol) nonionic water-soluble contrast as a cumulative dose for mult iple exams. The data was postprocessed with a variety of visualization algorithms including full-vo lume maximum intensity projection, multiplanar sliding thin-slab reformation, curved-planar reformati on, and surface-rendering techniques. Using automated exposure control and adjustment of the mA and/ or kV according to patient size, radiation dose was kept as low as reasonably achievable to obtain op timal diagnostic quality images. DICOM format image data is available electronically for review and comparison. FINDINGS: Aortic Arch: There is a three-vessel origin of the great vessels from the aorta. No evidence of ost ial narrowing Right Carotid: The common carotid artery is intact. The carotid bulb has a normal configuration wit hout ulceration or narrowing. The internal carotid artery lumen is smooth without stenosis. The ext ernal carotid artery is intact. Left Carotid: The common carotid artery is intact. The carotid bulb has a normal configuration with out ulceration or narrowing. The internal carotid artery lumen is smooth without stenosis. The exte rnal carotid artery is intact. Vertebrals: The vertebral arteries have a symmetric diameter. No stenotic lesions are seen. Percent stenosis is calculated using the diameter of the stenotic region over the diameter of the nor mal distal internal carotid artery. CONCLUSION: 1. Negative CTA Carotid. Electronically signed by: Anthony Mercedes MD 11/30/2017 11:45 AM EDT
--- NOTE | 2017-11-30 12:22 | MB ---
cc: Hadley Ornelas MD, PhD DATE: 11/30/2017 REASON FOR CONSULTATION: Stroke alert. HISTORY OF PRESENT ILLNESS: Ms. Llanos is a 52-year-old female who was admitted for pulmonary embolus and hypertension. This morning around 10:30, she acutely developed weakness involving the left arm and left leg with significant slurring of her speech. Stroke alert was called. NIH stroke scale initially was 2. She is on IV heparin because of PE, therefore not an IV TPA candidate. PAST MEDICAL HISTORY: History of chronic systolic heart failure with an EF of 10%-50%, polysubstance abuse including cocaine, severe TR and MR, hypertension, history of stroke in the past, schizoaffective disorder, recent crack cocaine use, congestive heart failure. She has a history of ICD placement, tubal ligation surgery. PHYSICAL EXAMINATION: VITAL SIGNS: Her blood pressure is 134/93, pulse is 89. She is in sinus rhythm, respirations 16. NEUROLOGIC: Higher cortical function alert, mildly dysarthric. According to the nursing staff, speech is much improved. Cranial nerves show some mild left facial droop. Other cranial nerves are normal. Motor exam: She is 4/5 in strength left arm and left leg, but this is improving. She has normal strength on the right. Reflexes are 2+ symmetric. IMAGING STUDIES: CT scan of the head, no acute changes identified. There is an old infarct in the right medial occipital lobe. No hemorrhage is identified. CTA of the head, no evidence of any large vessel occlusion. CTA neck pending. A CT perfusion official reading is pending, but no gross deficits identified on initial review of the CT perfusion. LABORATORY DATA: The white count 5100, hemoglobin 15, hematocrit 47%. Her serum glucose at the time of the stroke alert was 114. Sodium is 138, potassium 4.2, BUN is 20, creatinine 1.65, GFR is 40. APTT is 47.2 on IV heparin. PT 10.9, INR 1.12. IMPRESSION: Right hemisphere stroke versus transient ischemic attack, which seems to be improving. RECOMMENDATIONS: Continue IV heparin. Continue head of bed flat status until the morning. We will followup on the CTA neck results to be sure there is no carotid stenosis. Her cocaine screen was positive on admission. This could be related to that versus cardiomyopathy, if she were to have a cardioembolic source. Therefore, I would recommend considering long-term anticoagulation in this patient if she is a candidate. Continue IV fluids as well. We will monitor her renal function since she was emergently given contrast to evaluate her stroke. Hadley Ornelas MD, PhD ZOILA/erin , 11:48 AM , 11:56 AM
[2017-11-30] MEDS: Heparin Drip 25,000 UNIT/250 ML BAG IV.CONT PRN (13:52)
[2017-11-30] MEDS: Sod Chloride 0.9% Inj 1,000 ML IV.SIG SCH (13:53)
[2017-11-30] MEDS: traZODone 100 MG Tablet PO SCH (20:03)
[2017-12-01] MEDS: Sod Chloride 0.9% Inj 1,000 ML IV.SIG SCH ×2 (00:36→15:50)
[2017-12-01] MEDS: Insulin NovoLOG Aspart Correctional Sugar Inj SQ SCH ×5 (00:40→23:53)
[2017-12-01 05:44] LABS: Carbon Dioxide 29.7 meq/L (21.0-32.0)
[2017-12-01] MEDS: Chlorhexidine Gluconate 2% 1 Pack (2 Cloths) TOPICAL SCH (08:04)
[2017-12-01] MEDS: Sertraline 50 MG Tablet PO SCH (08:04)
[2017-12-01] MEDS: Carvedilol 6.25 MG Tablet PO SCH (08:04)
[2017-12-01] MEDS: Senna/Docusate Sodium 8.6/50 MG Tablet PO SCH ×2 (08:05→20:55)
[2017-12-01 08:10] LABS: INR 1.1 Ratio; Prothrombin Time 11.5 sec (9.8-11.6)
--- NOTE | 2017-12-01 09:16 | P.PNIM ---
Subjective Interval history: Patient states she feels well this morning. She is requesting food. She does not have any complaints. Patient is smiling and appears to be comfortable. Physical Exam Vital signs: Vital Signs 11/30/17 10:00 11/30/17 10:47 11/30/17 11:00 Temperature Pulse Rate 79 92 H 92 H Respiratory Rate 29 H 19 28 H Blood Pressure 127/87 149/86 H 134/89 Pulse Oximetry 96 11/30/17 11:37 11/30/17 12:00 11/30/17 13:00 Temperature Pulse Rate 92 H 76 76 Respiratory Rate 22 19 14 Blood Pressure 139/97 H 125/89 126/88 Pulse Oximetry 95 11/30/17 14:00 11/30/17 15:00 11/30/17 15:01 Temperature Pulse Rate 79 87 87 Respiratory Rate 16 20 21 Blood Pressure 152/108 H 147/106 H Pulse Oximetry 98 98 11/30/17 16:00 11/30/17 17:00 11/30/17 19:33 Temperature Pulse Rate 93 H 86 Respiratory Rate 30 H 18 Blood Pressure 151/99 H 152/110 H Pulse Oximetry 97 100 98 11/30/17 20:00 11/30/17 22:00 12/01/17 00:00 Temperature 97.9 F 97.9 F Pulse Rate 88 79 83 Respiratory Rate 19 15 Blood Pressure 144/102 H 142/96 H Pulse Oximetry 96 96 12/01/17 02:00 12/01/17 04:00 12/01/17 06:00 Temperature 97.9 F Pulse Rate 93 H 87 88 Respiratory Rate 21 Blood Pressure 140/92 H Pulse Oximetry 96 12/01/17 07:47 Temperature Pulse Rate Respiratory Rate Blood Pressure Pulse Oximetry 95 Intake & Output 11/30/17 12/01/17 12/01/17 18:59 06:59 18:59 Intake Total 250 / 250 1000 / 1000 Output Total 650 / 650 Balance 250 / 250 350 / 350 Weight 71 kg Intake: IV 250 / 250 1000 / 1000 Heparin/D5W 25,000 U/250 mL 25, 250 / 250 000 unit In 250 ml @ Per Protocol IV.CONT TITRATE PRN Rx #:[id number] NS Inj 1,000 ML @ 70 mls/hr IV. 1000 / 1000 SIG .[id number] WALLACE Rx#:[id number] Oral 0 / 0 Output: Urine 650 / 650 Stool 0 / 0 Urine/Stool Mix 0 / 0 Other: # Voids 9 Date of Last Bowel Movement 11/30/17 11/30/17 # Bowel Movements 0 # Incontinent Bowel Movements 0 Narrative: General patient in no acute distress, no complaints of chest pain. She has some shortness of breath on ambulation. HEENT extraocular movements are intact, clear oropharyngeal mucosa, no JVD Cardiovascular S1-S2 audible Respiratory poor respiratory effort. Bibasilar crackles auscultated. Abdomen soft, nontender, nondistended, normal bowel sounds Extremities 1+ pitting edema bilateral lower extremities. Neuro no facial droop, patient moves all 4 extremities, strength is intact, sensation is intact bilaterally. Cerebellar signs are intact. There are no obvious neurological deficits. Results - Labs CBC & Chem 7: 11/30/17 10:46 12/01/17 04:58 Laboratory Results - last 24 hr 11/30/17 11/30/17 11/30/17 10:28 10:46 10:46 WBC 5.1 RBC 5.22 Hgb 15.0 POC Hgb (Calc) Hct 47.1 H POC Hct MCV 90.1 MCH 28.7 MCHC 31.8 L RDW 17.3 H Plt Count 209 MPV 8.8 Neut % (Auto) 55.2 Lymph % (Auto) 25.6 [place] % (Auto) 14.1 H Eos % (Auto) 4.5 H Baso % (Auto) 0.6 Neut # (Auto) 2.8 Lymph # (Auto) 1.3 [place] # (Auto) 0.7 Eos # (Auto) 0.2 Baso # (Auto) 0.0 WBC Differential . Differential Comment Auto diff final PT INR APTT Fibrinogen POC Sodium Sodium Cancelled POC Potassium Potassium Cancelled POC Chloride Chloride Cancelled Carbon Dioxide Cancelled Anion Gap Cancelled POC BUN BUN Cancelled Creatinine Cancelled POC Creatinine Estimated GFR Cancelled POC Glucose 114 H Random Glucose Cancelled Calcium Cancelled Magnesium Cancelled Total Creatine Kinase Troponin I Blood Type Blood Type Recheck Antibody Screen 11/30/17 11/30/17 11/30/17 10:46 10:46 10:46 WBC RBC Hgb POC Hgb (Calc) 16.0 H Hct POC Hct 47.0 H MCV MCH MCHC RDW Plt Count MPV Neut % (Auto) Lymph % (Auto) [place] % (Auto) Eos % (Auto) Baso % (Auto) Neut # (Auto) Lymph # (Auto) [place] # (Auto) Eos # (Auto) Baso # (Auto) WBC Differential Differential Comment PT 10.9 INR 1.1 APTT 47.2 H Fibrinogen 401 H POC Sodium 138 Sodium 138 POC Potassium 4.2 Potassium 4.4 POC Chloride 100 L Chloride 103 Carbon Dioxide 25.8 Anion Gap 9 POC BUN 18 BUN 20 H Creatinine 1.65 H POC Creatinine 1.5 H Estimated GFR 40 L POC Glucose 77 Random Glucose 75 Calcium 8.9 Magnesium 2.0 Total Creatine Kinase 107 Troponin I 0.03 Blood Type B Positive Blood Type Recheck Required Antibody Screen Negative 11/30/17 12/01/17 12/01/17 10:46 00:39 04:58 WBC RBC Hgb POC Hgb (Calc) Cancelled Hct POC Hct Cancelled MCV MCH MCHC RDW Plt Count MPV Neut % (Auto) Lymph % (Auto) [place] % (Auto) Eos % (Auto) Baso % (Auto) Neut # (Auto) Lymph # (Auto) [place] # (Auto) Eos # (Auto) Baso # (Auto) WBC Differential Differential Comment PT INR APTT Fibrinogen POC Sodium Cancelled Sodium 143 POC Potassium Cancelled Potassium 4.0 POC Chloride Cancelled Chloride 103 Carbon Dioxide 29.7 Anion Gap 10 POC BUN Cancelled BUN 17 Creatinine 1.40 H POC Creatinine Cancelled Estimated GFR 48 L POC Glucose Cancelled 88 Random Glucose 93 Calcium 9.0 Magnesium Total Creatine Kinase Troponin I Blood Type Blood Type Recheck Antibody Screen 12/01/17 12/01/17 12/01/17 06:45 07:05 07:30 WBC RBC Hgb POC Hgb (Calc) Hct POC Hct MCV MCH MCHC RDW Plt Count MPV Neut % (Auto) Lymph % (Auto) [place] % (Auto) Eos % (Auto) Baso % (Auto) Neut # (Auto) Lymph # (Auto) [place] # (Auto) Eos # (Auto) Baso # (Auto) WBC Differential Differential Comment PT 11.5 INR 1.1 APTT Fibrinogen POC Sodium Sodium POC Potassium Potassium POC Chloride Chloride Carbon Dioxide Anion Gap POC BUN BUN Creatinine POC Creatinine Estimated GFR POC Glucose 106 93 Random Glucose Calcium Magnesium Total Creatine Kinase Troponin I Blood Type Blood Type Recheck Antibody Screen - Imaging Impressions Head CT 11/30/17 10:37 CONCLUSION: 1. No acute infarct, acute hemorrhage, midline shift or extra axial fluid collections. 2. Old infarct involving the right medial occipital lobe. Report was called by Dr. Mercedes to Dr. Ornelas at 11:00 AM on 11/30/2017. Head CTA 11/30/17 10:45 CONCLUSION: 1. Negative CTA Head. Neck CTA 11/30/17 10:45 CONCLUSION: 1. Negative CTA Carotid. Assessment and Plan - Plan This patient is a 52-year-old female with a diagnosis of systolic CHF ejection fraction 10-15%, history of polysubstance abuse, moderate to severe tricuspid and mitral regurg. The patient presented with complaints of shortness of breath and was found to have pulmonary embolus on CTA of the chest. She also admits to using cocaine, last use was a few days ago. TIA It appears that the patient had a TIA yesterday. Stroke alert was called. Patient evaluated by neurology recommends continuing aspirin, and heparin drip/ Coumadin. Statin started today. No MRI brain as the patient has a defibrillator and the patient's symptoms have completely resolved. On my evaluation today the patient is at her baseline. A bedside swallow evaluation was done and the patient is able to swallow without any difficulties. I evaluated her this morning and she is eating food without any difficulties and swallowing. Her speech is back to baseline. She will be started on a cardiac diet. Cardiology was also consulted for a possible NOE however the patient is already on a heparin drip and Coumadin and this would not change the management. They do not recommend any other specific interventions at this time. She will now be transferred to the [facility] unit. Continue to monitor on telemetry. 1. Elevated troponin possibly secondary to a pulmonary embolus. 2. Systolic CHF exacerbation with ejection fraction 10-15% 3. NSVT Continue IV Lasix for diuresis. Will start to try to treat the patient off of supplemental oxygen. Follow-up a.m. labs. Continue aspirin, statin, Coreg. Continue to monitor on telemetry. Patient's elevation in troponin is likely due to the pulmonary embolus and systolic CHF with very poor ejection fraction. Patient is on a heparin drip as well as Coumadin. PT/INR is 1.1 today. Coumadin consult with pharmacy placed. Telemetry shows a few short runs of NSVT. We will continue to monitor electrolytes and replace them as needed. Continue Coreg. I discussed the patient's case with her family who was at bedside yesterday her son left his phone number and his mother placed in a drug rehab center if possible. The risks and benefits of being on anticoagulation were discussed with the patient as well as the family members at bedside. She agrees to be on antiplatelet agent. The patient also has valvular heart disease as per documentation from cardiology the patient will need treatment for PE as well as be substance abuse free for 3-6 months prior to consideration of any kind of surgical intervention. 4. Chronic kidney disease stage III a We will continue to monitor the patient's serum creatinine. Avoid nephrotoxic agents. The patient will need follow-up with nephrology outpatient after she has been stabilized and discharged. 5. Schizoaffective disorder and crack cocaine use She will be continued on her home medications of trazodone and Risperdal as well as sertraline. Pain medication will be given as needed. The patient was counseled on the dangers of using crack cocaine. She states that she does not want to use any longer and is seeking help. 6. 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 The patient should also be started on a statin. DVT prophylaxis: patient on heparin drip and Coumadin currently
--- NOTE | 2017-12-01 10:25 | P.CONCA ---
History of Present Illness Service: cardiology Consult date: 12/01/17 Reason for Consult: NOE evaluation Primary Care Provider: Tony Goldstein DO Chief Complaint: Shortness of breath History of Present Illness: 52 yo woman, admitted for pulmonary embolism currently on IV Heparin and Coumadin Developed possible TIA yesterday, negative CT head, symptoms resolved. Review of Systems All other systems reviewed negative except as stated in HPI [facility] - History History Provided By: Patient, Medical Record - Medical History Medical History: Medical History (Last Reviewed 11/29/17 @ 08:35 by Frank Carias, PT) CHF (congestive heart failure) Chronic kidney disease (CKD) stage G2/A2, mildly decreased glomerular filtration rate (GFR) between 60-89 mL/min/1.73 square meter and albuminuria creatinine ratio between 30-299 mg/g History of CVA in adulthood History of crack cocaine use Hx of myocardial infarction Hypertension Schizoaffective disorder Tobacco abuse - Surgical History Surgical History: Surgical History (Last Reviewed 11/29/17 @ 08:35 by Frank Carias, PT) History of implantable cardioverter-defibrillator (ICD) placement History of tubal ligation - Family History Family History: Family History (Last Updated 11/26/17 @ 20:07 by Khai Chapa MD) Father Kidney disease - Tobacco History Second Hand Smoke Exposure: Yes Tobacco Use In Past 30 Days: Yes Smoking Status: Current every day smoker Tobacco Type: Cigarettes - Alcohol History How Often Do You Have a Drink Containing Alcohol: 4 or more times a week - Substance Use History Substance History: Active Abuse - Substance Use Type Crack/Cocaine Status: Active Route Used: Inhalation - Travel History Recent Travel in the [place] Within the Last 8 Weeks: No Recent Travel Out of the Country Within the Last 8 Weeks: No - Immunization History Tetanus Immunization: <5 Years Hx Influenza Vaccine This Season: No Medications and Allergies Active Medications: Active Medications Acetaminophen (Tylenol) 650 mg PO Q6H PRN PRN Reason: FEVER >101F Last Admin: 11/29/17 13:28 Dose: 650 mg Hydrocodone Bitart/Acetaminophen ([place] 5/325) 1 tab PO Q4H PRN PRN Reason: PAIN SCALE 1 TO 5 Al Hydroxide/Mg Hydroxide (Milk Of Magnesia Liq) 30 ml PO Q12H PRN PRN Reason: Mild Constipation Albuterol (Albuterol Neb (Prn)) 2.5 mg NEB Q2HR NEB PRN PRN Reason: SHORTNESS OF BREATH/WHEEZING Aspirin (Aspirin Chew) 81 mg PO DAILY [facility] Last Admin: 12/01/17 08:11 Dose: 81 mg Atorvastatin Calcium (Lipitor) 40 mg PO HS [facility] Bisacodyl (Dulcolax Supp) 10 mg RECTAL DAILY PRN PRN Reason: SEVERE CONSITIPATION Carvedilol (Coreg) 6.25 mg PO BID [facility] Last Admin: 12/01/17 08:04 Dose: 6.25 mg Chlorhexidine Gluconate (Chlorhexidine 2% Cloth) 3 pack TOPICAL DAILY@0400 [facility] Stop: 12/02/17 03:59 Last Admin: 12/01/17 08:04 Dose: 3 pack Chlorhexidine Gluconate (Chlorhexidine 2% Cloth) 3 pack TOPICAL DAILY@0400 PRN PRN Reason: Extra cloth needed Stop: 12/02/17 03:59 Dextrose (D50w Vial) 50 ml IV.PUSH UNSCH PRN PRN Reason: PER HYPOGLYCEMIA PROTOCOL Furosemide (Lasix Inj) 40 mg IV.PUSH DAILY [facility] Last Admin: 12/01/17 08:04 Dose: 40 mg Glucagon (Glucagon Inj) 1 mg OTHER PRN PRN PRN Reason: for Hypoglycemia Protocol Heparin Sodium/Dextrose (Heparin/D5w 25,000 U/250 Ml) 25,000 unit in 250 mls @ 0 mls/hr IV.CONT TITRATE PRN; Protocol PRN Reason: Per Protocol Last Admin: 11/30/17 13:52 Dose: 1,100 units/hr, 11 mls/hr Sodium Chloride (Ns Inj) 1,000 mls @ 70 mls/hr IV.SIG .[id number] [facility] Last Admin: 12/01/17 00:36 Dose: 70 mls/hr Insulin Aspart (Novolog Insulin Correctional Sugar Inj) 0 unit SQ Q6HR [facility]; Protocol Last Admin: 12/01/17 08:04 Dose: Not Given Lactulose (Lactulose Liq) 30 ml PO DAILY PRN PRN Reason: SEVERE CONSITIPATION Morphine Sulfate (Morphine Inj) 2 mg IV.PUSH Q2H PRN PRN Reason: PAIN SCALE 6 TO 10 Nitroglycerin (Nitro-Bid 2% Oint) 2 inch TOPICAL Q6HR PRN PRN Reason: SBP>160, DBP>90 Last Admin: 11/30/17 19:43 Dose: 2 inch Ondansetron HCl (Zofran Inj) 4 mg IV.PUSH Q6H PRN PRN Reason: NAUSEA OR VOMITING Pantoprazole Sodium (Protonix) 40 mg PO DAILY [facility] Last Admin: 12/01/17 08:04 Dose: 40 mg Pharmacy Profile Note (Coumadin Consult Pharmacy) 1 each OTHER UNSCH PRN PRN Reason: PHARMACY DOCUMENTATION Risperidone (Risperdal) 1 mg PO DAILY [facility] Last Admin: 12/01/17 08:04 Dose: 1 mg Senna/Docusate Sodium (Jacquelyn-Colace) 1 tab PO BID [facility] Last Admin: 12/01/17 08:05 Dose: Not Given Sennosides (Senokot) 17.2 mg PO Q12H PRN PRN Reason: Moderate Constipation Sertraline HCl (Zoloft) 25 mg PO DAILY [facility] Last Admin: 12/01/17 08:04 Dose: 25 mg Sodium Chloride (Ns Flush) 2 ml IV.FLUSH BID [facility] Last Admin: 12/01/17 08:05 Dose: Not Given Sodium Chloride (Ns Flush) 2 ml IV.FLUSH PRN PRN PRN Reason: FLUSH AFTER USING IV ACCESS Trazodone HCl (Desyrel) 100 mg PO HS [facility] Last Admin: 11/30/17 20:03 Dose: Not Given Warfarin Sodium (Coumadin) 5 mg PO DAILY@1600 [facility] Allergies Allergy/AdvReac Type Severity Reaction Status Date / Time No Known Allergies Allergy Unverified 11/26/17 15:39 Exam Vital signs: Vital Signs 11/30/17 10:47 11/30/17 11:00 11/30/17 11:37 Temperature Pulse Rate 92 H 92 H 92 H Respiratory Rate 19 28 H 22 Blood Pressure 149/86 H 134/89 139/97 H Pulse Oximetry 11/30/17 12:00 11/30/17 13:00 11/30/17 14:00 Temperature Pulse Rate 76 76 79 Respiratory Rate 19 14 16 Blood Pressure 125/89 126/88 152/108 H Pulse Oximetry 95 11/30/17 15:00 11/30/17 15:01 11/30/17 16:00 Temperature Pulse Rate 87 87 93 H Respiratory Rate 20 21 30 H Blood Pressure 147/106 H 151/99 H Pulse Oximetry 98 98 97 11/30/17 17:00 11/30/17 18:00 11/30/17 19:00 Temperature Pulse Rate 86 85 94 H Respiratory Rate 18 23 18 Blood Pressure 152/110 H 151/112 H 145/101 H Pulse Oximetry 100 96 99 11/30/17 19:33 11/30/17 20:00 11/30/17 20:54 Temperature 97.9 F Pulse Rate 86 88 81 Respiratory Rate 26 H 19 22 Blood Pressure 154/106 H 144/102 H 140/103 H Pulse Oximetry 95 96 95 11/30/17 21:00 11/30/17 21:01 11/30/17 22:00 Temperature Pulse Rate 85 83 79 Respiratory Rate 22 16 23 Blood Pressure 150/106 H 146/97 H Pulse Oximetry 98 96 97 11/30/17 23:00 12/01/17 00:00 12/01/17 01:00 Temperature 97.9 F Pulse Rate 87 83 84 Respiratory Rate 19 15 21 Blood Pressure 142/102 H 142/96 H 145/97 H Pulse Oximetry 96 96 97 12/01/17 02:00 12/01/17 03:00 12/01/17 03:01 Temperature Pulse Rate 93 H 87 87 Respiratory Rate 26 H 17 13 Blood Pressure 146/104 H 155/111 H Pulse Oximetry 97 99 98 12/01/17 04:00 12/01/17 05:00 12/01/17 05:01 Temperature 97.9 F Pulse Rate 87 90 87 Respiratory Rate 21 16 15 Blood Pressure 140/92 H 154/109 H Pulse Oximetry 95 98 97 12/01/17 06:00 12/01/17 07:00 12/01/17 07:23 Temperature Pulse Rate 88 91 H 89 Respiratory Rate 20 16 26 H Blood Pressure 151/99 H 158/110 H 159/111 H Pulse Oximetry 97 96 98 12/01/17 07:47 12/01/17 08:00 12/01/17 08:10 Temperature 98.7 F Pulse Rate 99 H 84 Respiratory Rate 38 H 24 Blood Pressure 134/100 H Pulse Oximetry 95 96 97 12/01/17 08:51 12/01/17 09:00 12/01/17 09:01 Temperature Pulse Rate 85 73 78 Respiratory Rate 32 H 17 12 Blood Pressure 82/62 L 76/55 L Pulse Oximetry 96 96 95 12/01/17 09:04 10/06/18 09:07 Temperature Pulse Rate 82 82 Respiratory Rate 25 H 24 Blood Pressure 87/57 L 95/64 L Pulse Oximetry 96 94 L Intake & Output 11/30/17 12/01/17 12/01/17 18:59 06:59 18:59 Intake Total 250 / 250 1000 / 1000 Output Total 650 / 650 Balance 250 / 250 350 / 350 Weight 71 kg Intake: IV 250 / 250 1000 / 1000 Heparin/D5W 25,000 U/250 mL 25, 250 / 250 000 unit In 250 ml @ Per Protocol IV.CONT TITRATE PRN Rx #:[id number] NS Inj 1,000 ML @ 70 mls/hr IV. 1000 / 1000 SIG .[id number] [facility] Rx#:[id number] Oral 0 / 0 Output: Urine 650 / 650 Stool 0 / 0 Urine/Stool Mix 0 / 0 Other: # Voids 9 Date of Last Bowel Movement 11/30/17 11/30/17 11/30/17 # Bowel Movements 0 # Incontinent Bowel Movements 0 - Constitutional no acute distress, chronically ill appearing - Routine HEENT Exam Head: Present: normocephalic, atraumatic - Routine Neck Exam Present: full ROM, JVD. Absent: carotid bruit - Routine Chest/Breast/Axilla Exam Chest wall: Absent: tenderness - Routine Respiratory Exam Present: CTA bilaterally - Routine Cardiovascular Exam Present: RRR, S1, S2, murmur (apical 2/6 systoli ), S3, S4 - Routine Abdominal Exam Present: soft, normoactive bowel sounds - Routine Extremities Exam Absent: edema - Routine Skin Exam Present: intact - Routine Neurological Exam Present: alert, oriented X3, CN II-XII intact Results 11/30/17 10:46 12/01/17 04:58 Cardiac Enzymes 11/30/17 Range/Units 10:46 Troponin I 0.03 (0.02-0.05) ng/mL Coagulation 11/29/17 11/30/17 11/30/17 Range/Units 06:20 03:59 10:46 PT 11.0 10.9 (9.8-11.6) sec APTT 49.5 H 47.2 H (24.3-30.1) sec 12/01/17 Range/Units 07:05 PT 11.5 (9.8-11.6) sec APTT (24.3-30.1) sec CBC 11/30/17 Range/Units 10:46 WBC 5.1 (4.0-11.0) th/mm3 RBC 5.22 (4.00-5.30) mil/mm3 Hgb 15.0 (11.6-15.3) gm/dL Hct 47.1 H (35.0-46.0) % Plt Count 209 (150-450) th/mm3 Neut # (Auto) 2.8 (1.8-7.7) th/mm3 Lymph # (Auto) 1.3 (1.0-4.8) th/mm3 [place] # (Auto) 0.7 (0.0-0.9) th/mm3 Eos # (Auto) 0.2 (0.0-0.4) th/mm3 Baso # (Auto) 0.0 (0.0-0.2) th/mm3 Comprehensive Metabolic Panel 11/30/17 11/30/17 12/01/17 Range/Units 10:46 10:46 04:58 Sodium Cancelled 138 143 Potassium Cancelled 4.4 4.0 Chloride Cancelled 103 103 Carbon Dioxide Cancelled 25.8 29.7 BUN Cancelled 20 H 17 Creatinine Cancelled 1.65 H 1.40 H Calcium Cancelled 8.9 9.0 Intake and Output 11/30/17 12/01/17 12/01/17 22:59 06:59 14:59 Intake Total 1000 / 1000 Output Total 650 / 650 Balance 350 / 350 Intake: IV 1000 / 1000 NS Inj 1,000 ML @ 70 mls/hr IV. 1000 / 1000 SIG .[id number] [facility] Rx#:[id number] Oral 0 / 0 Output: Urine 650 / 650 Stool 0 / 0 Urine/Stool Mix 0 / 0 Other: # Voids 9 Date of Last Bowel Movement 11/30/17 11/30/17 11/30/17 # Bowel Movements 0 # Incontinent Bowel Movements 0 Weight 71 kg - Imaging and Cardiology Imaging: Impressions Head CT 11/30/17 10:37 CONCLUSION: 1. No acute infarct, acute hemorrhage, midline shift or extra axial fluid collections. 2. Old infarct involving the right medial occipital lobe. Report was called by Dr. Mercedes to Dr. Ornelas at 11:00 AM on 11/30/2017. Head CTA 11/30/17 10:45 CONCLUSION: 1. Negative CTA Head. Neck CTA 11/30/17 10:45 CONCLUSION: 1. Negative CTA Carotid. Assessment and Plan - Assessment (1) TIA (transient ischemic attack) Code(s): G45.9 - Transient cerebral ischemic attack, unspecified Status: Acute (2) Cardiomyopathy Code(s): I42.9 - Cardiomyopathy, unspecified Status: Acute (3) AICD (automatic cardioverter/defibrillator) present Code(s): Z95.810 - Presence of automatic (implantable) cardiac defibrillator Status: Acute (4) Pulmonary embolism Code(s): I26.99 - Other pulmonary embolism without acute cor pulmonale Status : Acute - Plan 52-year-old female with a long history of severe cardiomyopathy and valvular heart disease who presented with 2 days of shortness of breath after running out of her medications, found to have small bilateral pulmonary embolism and mild congestive failure. Acute exacerbation of chronic systolic CHF: Continue IV diuresis until creatinine bumps and then transition back to oral. Monitor I's and O's, electrolytes, and renal function. Cardiomyopathy: Chronic, severe. AICD in place. BP is improving with clonidine DC'd, will start low-dose carvedilol for comanagement of cardiomyopathy and NSVT, titrate up as BP allows. Elevated troponin: Minimally elevated and likely demand mediated, possibly due to known CHF or acute PE. Reported normal coronary arteries earlier this year on catheterization. Valvular heart disease: The patient would need treatment for PE as well as be free from substance abuse both for likely 3-6 months prior to consideration of any kind of surgical intervention. Strongly encouraged patient to establish with cardiology as outpatient, patient given the name of local steam tunnel feeder ( Dr. Mcintyre) who take her insurance, at her request. Bilateral pulmonary emboli: Anticoagulation per primary team. New onset TIA 11/30/17 continue anticoagulation as plan no new recommendation. Will sign off.
--- NOTE | 2017-12-01 13:28 | ECG ---
Date Performed: 11/30/2017 Time Performed: 10:39:35 PTAGE: 52 years EKG: Sinus rhythm LEFT ATRIAL ENLARGEMENT ST DEVIATION AND MODERATE T-WAVE ABNORMALITY, CONSIDER LATERAL ISCHEMIA ABNO RMAL ECG INTERPRETATION BASED ON A DEFAULT AGE OF 40 YEARS NO PREVIOUS TRACING DOCTOR: Judi Gale Interpretating Date/Time 12/01/2017 13:17:31
[2017-12-01] MEDS: Heparin Drip 25,000 UNIT/250 ML BAG IV.CONT PRN (16:38)
[2017-12-01] MEDS: traZODone 100 MG Tablet PO SCH (20:54)
[2017-12-02] MEDS: Insulin NovoLOG Aspart Correctional Sugar Inj SQ SCH ×3 (05:39→18:06)
[2017-12-02 06:46] LABS: Activated Partial Thrombo Time 59.7 sec (24.3-30.1); INR 1.2 Ratio; Prothrombin Time 12.1 sec (9.8-11.6)
[2017-12-02] MEDS: Senna/Docusate Sodium 8.6/50 MG Tablet PO SCH ×2 (08:32→20:59)
[2017-12-02] MEDS: Sertraline 50 MG Tablet PO SCH (08:33)
[2017-12-02] MEDS: Heparin Drip 25,000 UNIT/250 ML BAG IV.CONT PRN (11:15)
--- NOTE | 2017-12-02 16:00 | P.PNCA ---
Subjective Interval history: NO new event, Medications and Allergies Active Medications: Active Medications Acetaminophen (Tylenol) 650 mg PO Q6H PRN PRN Reason: FEVER >101F Last Admin: 11/29/17 13:28 Dose: 650 mg Hydrocodone Bitart/Acetaminophen ([place] 5/325) 1 tab PO Q4H PRN PRN Reason: PAIN SCALE 1 TO 5 Al Hydroxide/Mg Hydroxide (Milk Of Magnesia Liq) 30 ml PO Q12H PRN PRN Reason: Mild Constipation Albuterol (Albuterol Neb (Prn)) 2.5 mg NEB Q2HR NEB PRN PRN Reason: SHORTNESS OF BREATH/WHEEZING Aspirin (Aspirin Chew) 81 mg PO DAILY [facility] Last Admin: 12/02/17 08:32 Dose: 81 mg Atorvastatin Calcium (Lipitor) 40 mg PO HS [facility] Last Admin: 12/01/17 20:54 Dose: 40 mg Bisacodyl (Dulcolax Supp) 10 mg RECTAL DAILY PRN PRN Reason: SEVERE CONSITIPATION Carvedilol (Coreg) 3.125 mg PO BID [facility] Last Admin: 12/02/17 08:33 Dose: 3.125 mg Dextrose (D50w Vial) 50 ml IV.PUSH UNSCH PRN PRN Reason: PER HYPOGLYCEMIA PROTOCOL Furosemide (Lasix Inj) 40 mg IV.PUSH DAILY [facility] Last Admin: 12/02/17 08:32 Dose: 40 mg Glucagon (Glucagon Inj) 1 mg OTHER PRN PRN PRN Reason: for Hypoglycemia Protocol Heparin Sodium/Dextrose (Heparin/D5w 25,000 U/250 Ml) 25,000 unit in 250 mls @ 0 mls/hr IV.CONT TITRATE PRN; Protocol PRN Reason: Per Protocol Last Admin: 12/02/17 11:15 Dose: 1,100 units/hr, 11 mls/hr Insulin Aspart (Novolog Insulin Correctional Sugar Inj) 0 unit SQ Q6HR [facility]; Protocol Last Admin: 12/02/17 15:16 Dose: Not Given Lactulose (Lactulose Liq) 30 ml PO DAILY PRN PRN Reason: SEVERE CONSITIPATION Morphine Sulfate (Morphine Inj) 2 mg IV.PUSH Q2H PRN PRN Reason: PAIN SCALE 6 TO 10 Nitroglycerin (Nitro-Bid 2% Oint) 2 inch TOPICAL Q6HR PRN PRN Reason: SBP>160, DBP>90 Last Admin: 11/30/17 19:43 Dose: 2 inch Ondansetron HCl (Zofran Inj) 4 mg IV.PUSH Q6H PRN PRN Reason: NAUSEA OR VOMITING Pantoprazole Sodium (Protonix) 40 mg PO DAILY [facility] Last Admin: 12/02/17 08:33 Dose: 40 mg Pharmacy Profile Note (Coumadin Consult Pharmacy) 1 each OTHER UNSCH PRN PRN Reason: PHARMACY DOCUMENTATION Risperidone (Risperdal) 1 mg PO DAILY [facility] Last Admin: 12/02/17 08:33 Dose: 1 mg Senna/Docusate Sodium (Jacquelyn-Colace) 1 tab PO BID [facility] Last Admin: 12/02/17 08:32 Dose: 1 tab Sennosides (Senokot) 17.2 mg PO Q12H PRN PRN Reason: Moderate Constipation Sertraline HCl (Zoloft) 25 mg PO DAILY [facility] Last Admin: 12/02/17 08:33 Dose: 25 mg Sodium Chloride (Ns Flush) 2 ml IV.FLUSH BID [facility] Last Admin: 12/02/17 08:33 Dose: Not Given Sodium Chloride (Ns Flush) 2 ml IV.FLUSH PRN PRN PRN Reason: FLUSH AFTER USING IV ACCESS Trazodone HCl (Desyrel) 100 mg PO HS [facility] Last Admin: 12/01/17 20:54 Dose: 100 mg Warfarin Sodium (Coumadin) 6 mg PO DAILY@1600 [facility] Last Admin: 12/02/17 15:30 Dose: 6 mg Allergies Allergy/AdvReac Type Severity Reaction Status Date / Time No Known Allergies Allergy Unverified 11/26/17 15:39 Physical Exam Vital signs: Vital Signs 12/01/17 16:00 12/01/17 17:45 12/01/17 20:00 Temperature 97.8 F 98.6 F 98.4 F Pulse Rate 80 84 82 Respiratory Rate 22 20 18 Blood Pressure 107/72 134/86 119/81 Pulse Oximetry 95 95 98 12/02/17 00:00 12/02/17 04:00 12/02/17 08:00 Temperature 97.7 F 97.9 F 97.7 F Pulse Rate 84 73 87 Respiratory Rate 18 18 20 Blood Pressure 117/60 129/77 133/99 H Pulse Oximetry 96 100 98 12/02/17 12:00 Temperature 97.7 F Pulse Rate 78 Respiratory Rate 20 Blood Pressure 112/75 Pulse Oximetry 98 Intake & Output 12/01/17 12/02/17 12/02/17 18:59 06:59 18:59 Intake Total 1450 / 1450 250 / 250 Output Total 1800 / 1800 Balance -350 / -350 250 / 250 Weight 68.5 kg 68 kg Intake: IV 250 / 250 250 / 250 Heparin/D5W 25,000 U/250 mL 25, 250 / 250 250 / 250 000 unit In 250 ml @ Per Protocol IV.CONT TITRATE PRN Rx #:[id number] NS Inj 1,000 ML @ 70 mls/hr IV. 0 / 0 SIG .[id number] [facility] Rx#:[id number] Oral 1200 / 1200 Output: Urine 1800 / 1800 Other: # Voids 3 Date of Last Bowel Movement 12/01/17 12/01/17 12/01/17 # Bowel Movements 1 - Constitutional no acute distress, chronically ill appearing - Routine HEENT Exam Head: Present: normocephalic, atraumatic - Routine Neck Exam Present: supple, full ROM, JVD. Absent: carotid bruit - Routine Respiratory Exam Present: CTA bilaterally - Routine Cardiovascular Exam Present: RRR, S1, S2 - Routine Abdominal Exam Present: soft, normoactive bowel sounds - Routine Extremities Exam Present: normal capillary refill. Absent: edema - Routine Neurological Exam Present: alert, oriented X3 Results 11/30/17 10:46 12/01/17 04:58 Coagulation 12/01/17 12/01/17 12/02/17 Range/Units 07:05 12:30 06:15 PT 11.5 12.1 H (9.8-11.6) sec APTT 58.5 H D 59.7 H (24.3-30.1) sec Comprehensive Metabolic Panel 12/01/17 Range/Units 04:58 Sodium 143 (136-145) meq/L Potassium 4.0 (3.5-5.1) meq/L Chloride 103 (98-107) meq/L Carbon Dioxide 29.7 (21.0-32.0) meq/L BUN 17 (7-18) mg/dL Creatinine 1.40 H (0.50-1.00) mg/dL Calcium 9.0 (8.5-10.1) mg/dL Intake and Output 1012/02/17 12/02/17 06:59 14:59 22:59 Intake Total 250 / 250 Balance 250 / 250 Intake: IV 250 / 250 Heparin/D5W 25,000 U/250 mL 25, 250 / 250 000 unit In 250 ml @ Per Protocol IV.CONT TITRATE PRN Rx #:[id number] Other: # Voids 3 Date of Last Bowel Movement 12/01/17 Weight 68 kg Assessment and Plan - Assessment (1) TIA (transient ischemic attack) Code(s): G45.9 - Transient cerebral ischemic attack, unspecified Status: Acute (2) Cardiomyopathy Code(s): I42.9 - Cardiomyopathy, unspecified Status: Acute (3) AICD (automatic cardioverter/defibrillator) present Code(s): Z95.810 - Presence of automatic (implantable) cardiac defibrillator Status: Acute (4) Pulmonary embolism Code(s): I26.99 - Other pulmonary embolism without acute cor pulmonale Status : Acute - Plan 52-year-old female with a long history of severe cardiomyopathy and valvular heart disease who presented with 2 days of shortness of breath after running out of her medications, found to have small bilateral pulmonary embolism and mild congestive failure. Acute exacerbation of chronic systolic CHF: Stable, continue current treatment. Cardiomyopathy: Chronic, severe. AICD in place. BP is improving with clonidine DC'd, will start low-dose carvedilol for comanagement of cardiomyopathy and NSVT, titrate up as BP allows. Elevated troponin: Minimally elevated and likely demand mediated, possibly due to known CHF or acute PE. Reported normal coronary arteries earlier this year on catheterization. Valvular heart disease: The patient would need treatment for PE as well as be free from substance abuse both for likely 3-6 months prior to consideration of any kind of surgical intervention. Strongly encouraged patient to establish with cardiology as outpatient, patient given the name of local process improvement engineer ( Dr. Mcintyre) who take her insurance, at her request. Bilateral pulmonary emboli: Anticoagulation per primary team. New onset TIA 11/30/17 continue anticoagulation as plan no new recommendation. Will sign off.
--- NOTE | 2017-12-02 16:01 | P.PNIM ---
Subjective Interval history: Follow-up shortness of breath/PE, CHF ejection fraction 10-15%, history of polysubstance abuse, moderate to severe tricuspid and mitral regurg. Patient seen and examined sitting in her bed, stated feeling a lot better, breathing better. Patient stated she was going out riding the bus to see her son however she felt short of breath and the boss called 911. Patient stated the swelling in her leg is a lot better. Patient denies any pain chest pain, or shortness of breath. Patient denies any headache or dizziness, denies any abdominal pain , nausea or vomiting, diarrhea or constipation. Patient denies any fever or chills. Physical Exam Vital signs: Vital Signs 12/01/17 16:00 12/01/17 17:45 12/01/17 20:00 Temperature 97.8 F 98.6 F 98.4 F Pulse Rate 80 84 82 Respiratory Rate 22 20 18 Blood Pressure 107/72 134/86 119/81 Pulse Oximetry 95 95 98 12/02/17 00:00 12/02/17 04:00 12/02/17 08:00 Temperature 97.7 F 97.9 F 97.7 F Pulse Rate 84 73 87 Respiratory Rate 18 18 20 Blood Pressure 117/60 129/77 133/99 H Pulse Oximetry 96 100 98 12/02/17 12:00 Temperature 97.7 F Pulse Rate 78 Respiratory Rate 20 Blood Pressure 112/75 Pulse Oximetry 98 Intake & Output 12/01/17 12/02/17 12/02/17 18:59 06:59 18:59 Intake Total 1450 / 1450 250 / 250 Output Total 1800 / 1800 Balance -350 / -350 250 / 250 Weight 68.5 kg 68 kg Intake: IV 250 / 250 250 / 250 Heparin/D5W 25,000 U/250 mL 25, 250 / 250 250 / 250 000 unit In 250 ml @ Per Protocol IV.CONT TITRATE PRN Rx #:[id number] NS Inj 1,000 ML @ 70 mls/hr IV. 0 / 0 SIG .[id number] WALLACE Rx#:[id number] Oral 1200 / 1200 Output: Urine 1800 / 1800 Other: # Voids 3 Date of Last Bowel Movement 12/01/17 12/01/17 # Bowel Movements 1 Narrative: GENERAL: Well-developed, thin appearing -[place] female, alert and oriented x3, in no apparent distress SKIN: Warm and dry. HEAD: Atraumatic. Normocephalic. EYES: Pupils equal and round. No scleral icterus. No injection or drainage. ENT: No nasal bleeding or discharge. Mucous membranes pink and moist. NECK: Trachea midline. No JVD. CARDIOVASCULAR: Regular rate and rhythm. No edema. Left upper chest pacemaker site intact RESPIRATORY: No accessory muscle use. Clear to auscultation, diminished. Breath sounds equal bilaterally. GASTROINTESTINAL: Abdomen flat soft, non-tender, nondistended. Hepatic and splenic margins not palpable. MUSCULOSKELETAL: Extremities without clubbing, cyanosis, or edema. No obvious deformities. NEUROLOGICAL: Awake and alert. No obvious cranial nerve deficits. Motor grossly within normal limits. Generalized weakness, moving all explained extremities. Normal speech. PSYCHIATRIC: Appropriate mood and affect; insight and judgment appropriate. Results - Labs CBC & Chem 7: 11/30/17 10:46 12/01/17 04:58 Laboratory Results - last 24 hr 12/02/17 12/02/17 06:15 13:39 PT 12.1 H INR 1.2 APTT 59.7 H POC Glucose 94 Assessment and Plan - Assessment (1) TIA (transient ischemic attack) Code(s): G45.9 - Transient cerebral ischemic attack, unspecified Status: Acute (2) Cardiomyopathy Code(s): I42.9 - Cardiomyopathy, unspecified Status: Acute (3) AICD (automatic cardioverter/defibrillator) present Code(s): Z95.810 - Presence of automatic (implantable) cardiac defibrillator Status: Acute (4) Pulmonary embolism Code(s): I26.99 - Other pulmonary embolism without acute cor pulmonale Status : Acute - Plan This patient is a 52-year-old female with a diagnosis of systolic CHF ejection fraction 10-15%, history of polysubstance abuse, moderate to severe tricuspid and mitral regurg. The patient presented with complaints of shortness of breath and was found to have pulmonary embolus on CTA of the chest. She also admits to using cocaine, last use was a few days ago. 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 The left ventricular systolic function is severely reduced with an estimated ejection fraction less than 10 - 15%.there is diffuse global hypokinesis with distinct regional wall motion abnormalities. [id number] mitral valve regurgitation. moderate to severe tricuspid valve regurgitation. -LVEF 10-15%,, AICD in place, BNP 2827 -Cardiology following, recommended to follow-up with Dr. Mcintyre as van outpatient -Elevated troponin possibly secondary to PE and CHF with very poor ejection fraction -The patient also has valvular heart disease as per documentation from cardiology the patient will need treatment for PE as well as be substance abuse free for 3-6 months prior to consideration of any kind of surgical intervention. -Continue IV Lasix for diuresis, monitor BMP -Telemetry monitoring -Monitor electrolytes and replace as needed -Continue coreg Pulmonary embolus -Continue heparin drip until therapeutic and Coumadin -Pharmacy consult for Coumadin dosing Chronic kidney disease stage III -continue to monitor the patient's serum creatinine. -Avoid nephrotoxic agents. -Creatinine improving back to baseline 1.40 today, 1.79 on admission, - follow-up with nephrology outpatient after she has been stabilized and discharged. Schizoaffective disorder/ crack cocaine use -continued on home medications of sertraline, trazodone and Risperdal -Pain medication will be given as needed. - counseled on the dangers of using crack cocaine. DVT prophylaxis: patient on heparin drip and Coumadin currently Code Status: Full code Discussed Condition With: Patient and nursing Discharge Planning: community support worker for plan for discharge planning and rehab, patient will need a long-term treatment for for PE as well as substance abuse free for 3-6 months prior to consideration of any kind of surgical intervention. Strongly encouraged patient to establish with cardiology as outpatient, patient given the name of local gelatin powder mixer (Dr. Mcintyre) who take her insurance, at her request.
[2017-12-02] MEDS: Acetaminophen 325 MG Tablet PO PRN (16:44)
[2017-12-02] MEDS: traZODone 100 MG Tablet PO SCH (20:59)
[2017-12-03] MEDS: Insulin NovoLOG Aspart Correctional Sugar Inj SQ SCH ×4 (00:42→17:57)
[2017-12-03 07:08] LABS: INR 1.5 Ratio; Prothrombin Time 15.2 sec (9.8-11.6)
[2017-12-03] MEDS: Senna/Docusate Sodium 8.6/50 MG Tablet PO SCH ×2 (08:39→21:22)
[2017-12-03] MEDS: Sertraline 50 MG Tablet PO SCH (08:41)
[2017-12-03] MEDS: Heparin Drip 25,000 UNIT/250 ML BAG IV.CONT PRN (09:03)
--- NOTE | 2017-12-03 15:08 | P.PNIM ---
Subjective Interval history: Is a 52-year-old AA female. Date of admission 11/26/2017. Past medical history includes chronic systolic heart failure ejection of 10-50%. Polysubstance abuse including cocaine at least since 2005, severe TR and MR. 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 Patient presents to [facility] with multiple somatic complaint including a swollen left leg which she attributes to sleeping on a table for 2 days, recent crack cocaine use , and shortness of breath and dyspnea. She was [facility] She is run out of her medications. She does not know which medication she currently takes. She states that she came to [facility] to "get my son to help me out." Baseline vitals revealed sinus tachycardia and hypertension. Initial troponin was 0.08. BNP is elevated. Creatinine was slightly elevated from baseline of 1.5 at 1.7. Sodium was 140. Potassium 3.3. CT pulmonary revealed bilateral small upper and lower pulmonary was not. Patient started heparin drip. Patient received aspirin and was started on Nitropaste 1 inch x1. We are asked to admit the patient. She is currently medically stable. Denies chest pain or shortness of breath currently. 10-2 Patient complains of shortness of breath when she is active. She denies any chest pain. She is speaking in full sentences. 10-3 Patient complains of some shortness of breath. She does not have any other complaints. No chest pain. 10-4 Patient states that she feels much better than admission day. She is tolerating a diet. She does not have any other complaints. No chest pain, no shortness of breath. 10-5 Patient does not have any complaints of chest pain. She states that she gets short of breath when ambulating. She does not have any other complaints. Stroke alert was called this afternoon. The patient was found to have slurred speech and a drooped face. The patient was sent down for a CT scan of the head as well as CTA of the head and. All CT scans came back negative for any acute findings. Given the patient's poor systolic heart function there was a concern that the patient may have a LV thrombus. She is currently on a heparin drip as well as p.o. Coumadin for pulmonary embolus. A cardiology consult was placed to have the patient reevaluated for possible NOE. I had a discussion with Dr. Ornelas from neurology who evaluated the patient and believes the patient likely had a TIA and does not recommend getting an MRI since the patient's symptoms improved and she also since she has a defibrillator. We will continue to monitor the patient in the intensive care unit. Continue aspirin, continue heparin, continue warfarin. 10-6 Patient states she feels well this morning. She is requesting food. She does not have any complaints. Patient is smiling and appears to be comfortable. 10-7 Follow-up shortness of breath/PE, CHF ejection fraction 10-15%, history of polysubstance abuse, moderate to severe tricuspid and mitral regurg. Patient seen and examined sitting in her bed, stated feeling a lot better, breathing better. Patient stated she was going out riding the bus to see her son however she felt short of breath and the boss called 911. Patient stated the swelling in her leg is a lot better. Patient denies any pain chest pain, or shortness of breath. Patient denies any headache or dizziness, denies any abdominal pain, nausea or vomiting, diarrhea or constipation. Patient denies any fever or chills. 10-8 ALERTED BY RN THAT PATIENT HAVING RECTAL BLEEDING- HOLD HEPARIN AND COUMADIN- CONSULT GI FOR COLONOSCOPY TOMORROW AM LABS DW RN AND PT AND GI AND CM Physical Exam Vital signs: Vital Signs 12/02/17 16:00 12/02/17 20:00 12/02/17 23:45 Temperature 98.3 F 98.1 F Pulse Rate 82 91 H 73 Respiratory Rate 20 18 Blood Pressure 99/73 L 118/77 Pulse Oximetry 98 98 12/03/17 00:00 12/03/17 04:00 12/03/17 04:02 Temperature 97.9 F 98.1 F Pulse Rate 73 67 69 Respiratory Rate 18 18 Blood Pressure 129/83 111/80 Pulse Oximetry 99 97 12/03/17 08:00 12/03/17 12:00 Temperature 97.9 F 97.6 F Pulse Rate 82 77 Respiratory Rate 18 17 Blood Pressure 130/100 H 111/69 Pulse Oximetry 97 97 Intake & Output 12/02/17 12/03/17 12/03/17 18:59 06:59 18:59 Intake Total 610 / 610 250 / 250 Balance 610 / 610 250 / 250 Weight 68.7 kg Intake: IV 250 / 250 250 / 250 Heparin/D5W 25,000 U/250 mL 25, 250 / 250 250 / 250 000 unit In 250 ml @ Per Protocol IV.CONT TITRATE PRN Rx #:[id number] Oral 360 / 360 Other: # Voids 5 5 Date of Last Bowel Movement 12/01/17 12/03/17 # Bowel Movements 0 1 Narrative: GENERAL: Well-developed, thin appearing -[place]alese female, alert and oriented x3, in no apparent distress SKIN: Warm and dry. HEAD: Atraumatic. Normocephalic. EYES: Pupils equal and round. No scleral icterus. No injection or drainage. ENT: No nasal bleeding or discharge. Mucous membranes pink and moist. NECK: Trachea midline. No JVD. CARDIOVASCULAR: Regular rate and rhythm. No edema. Left upper chest pacemaker site intact RESPIRATORY: No accessory muscle use. Clear to auscultation, diminished. Breath sounds equal bilaterally. GASTROINTESTINAL: Abdomen flat soft, non-tender, nondistended. Hepatic and splenic margins not palpable. MUSCULOSKELETAL: Extremities without clubbing, cyanosis, or edema. No obvious deformities. NEUROLOGICAL: Awake and alert. No obvious cranial nerve deficits. Motor grossly within normal limits. Generalized weakness, moving all explained extremities. Normal speech. PSYCHIATRIC: Appropriate mood and affect; insight and judgment appropriate. Results - Labs CBC & Chem 7: 11/30/17 10:46 12/01/17 04:58 Laboratory Results - last 24 hr 12/02/17 12/03/17 12/03/17 16:43 05:20 05:43 PT 15.2 H INR 1.5 APTT POC Glucose 89 84 12/03/17 12/03/17 05:43 12:44 PT INR APTT 59.5 H POC Glucose 93 - Imaging ITS Impressions Venous Doppler Study 11/26/17 00:00 CONCLUSION: No venous thrombosis of either lower extremity. Chest X-Ray 11/26/17 15:56 CONCLUSION: Cardiomegaly with increase in pulmonary vascularity. Chest CTA 11/26/17 17:00 CONCLUSION: 1. Small bilateral pulmonary emboli. 2. Enlarged left ventricle and left atrium. Mild acute congestive heart failure present. Head CT 11/30/17 10:37 CONCLUSION: 1. No acute infarct, acute hemorrhage, midline shift or extra axial fluid collections. 2. Old infarct involving the right medial occipital lobe. Report was called by Dr. Mercedes to Dr. Ornelas at 11:00 AM on 11/30/2017. Head CTA 11/30/17 10:45 CONCLUSION: 1. Negative CTA Head. Neck CTA 11/30/17 10:45 CONCLUSION: 1. Negative CTA Carotid. Assessment and Plan - Assessment (1) TIA (transient ischemic attack) Code(s): G45.9 - Transient cerebral ischemic attack, unspecified Status: Acute (2) Cardiomyopathy Code(s): I42.9 - Cardiomyopathy, unspecified Status: Acute (3) AICD (automatic cardioverter/defibrillator) present Code(s): Z95.810 - Presence of automatic (implantable) cardiac defibrillator Status: Acute (4) Pulmonary embolism Code(s): I26.99 - Other pulmonary embolism without acute cor pulmonale Status : Acute - Plan This patient is a 52-year-old female with a diagnosis of systolic CHF ejection fraction 10-15%, history of polysubstance abuse, moderate to severe tricuspid and mitral regurg. The patient presented with complaints of shortness of breath and was found to have pulmonary embolus on CTA of the chest. She also admits to using cocaine, last use was a few days ago. 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 The left ventricular systolic function is severely reduced with an estimated ejection fraction less than 10 - 15%.there is diffuse global hypokinesis with distinct regional wall motion abnormalities. [id number] mitral valve regurgitation. moderate to severe tricuspid valve regurgitation. -LVEF 10-15%,, AICD in place, BNP 2827 -Cardiology following, recommended to follow-up with Dr. Mcintyre as van outpatient -Elevated troponin possibly secondary to PE and CHF with very poor ejection fraction -The patient also has valvular heart disease as per documentation from cardiology the patient will need treatment for PE as well as be substance abuse free for 3-6 months prior to consideration of any kind of surgical intervention. -Continue IV Lasix for diuresis, monitor BMP -Telemetry monitoring -Monitor electrolytes and replace as needed -Continue coreg Pulmonary embolus -Continue heparin drip until therapeutic and Coumadin -Pharmacy consult for Coumadin dosing Chronic kidney disease stage III -continue to monitor the patient's serum creatinine. -Avoid nephrotoxic agents. -Creatinine improving back to baseline 1.40 today, 1.79 on admission, - follow-up with nephrology outpatient after she has been stabilized and discharged. Schizoaffective disorder/ crack cocaine use -continued on home medications of sertraline, trazodone and Risperdal -Pain medication will be given as needed. - counseled on the dangers of using crack cocaine. DVT prophylaxis: patient on heparin drip and Coumadin currently---ON HOLD DUE TO RECTAL BLEEDING FOR COLONOSCOPY ON 12-04 DW RN AND PT AND CM Code Status: FULL CODE Discussed Condition With: RN AND PT AND CM AND GI Discharge Planning: NEEDS ANTICOAGULATION FOR PULM EMBOLI AND SUBSTANCE ABUSE
--- NOTE | 2017-12-03 15:13 | P.CONGI ---
History of Present Illness Consult date: 12/04/07 Consult reason: Rectal bleeding Chief complaint: PE, hypertension History of Present Illness: This is a 52-year-old female who came into the hospital on 11/26/2017. Initially had symptoms of shortness of breath uncontrolled and small pulmonary emboli were found and treated. Patient also has severe cardiomyopathy with valvular heart disease, TR and MR, congestive heart failure; ICD in place. Cardiology was consulted and has followed patient throughout this hospital stay but is signed off to her medical management for now which will include coagulation. Patient has been on heparin drip and was initiated for Coumadin therapy on 11/30/2017. Patient noted bright red rectal bleeding with bowel movement and straining within the past 24 hours and also notes that she has had problems with some mild rectal bleeding with defecation over the past 2-3 months , also with straining. Currently patient denies any nausea or vomiting no dyspepsia or dysphasia and no abdominal pain or hematemesis. Gastroenterology has been consulted to assist with her symptom management and plan of care concerning her rectal bleeding. Patient denies any previous EGD or colonoscopy. Patient does note positive family history for maternal cousin in his 50s with colon cancer. According to the record patient does have a recent polysubstance abuse including crack cocaine, history of schizoaffective disorder , and is noncompliant with her medications according to the record. Currently patient appears to be resting quietly no obvious shortness of breath and is answering simple questions appropriately. No overt anxiety noted. <Courtney Montes - Last Filed: 12/03/17 14:55> Review of Systems All other systems reviewed negative except as stated in HPI <Courtney Montes - Last Filed: 12/03/17 14:55> PMFSH - History History Provided By: Patient, Medical Record - Medical History Medical History: Medical History (Last Reviewed 12/03/17 @ 08:48 by Olga De Los Santos) CHF (congestive heart failure) Chronic kidney disease (CKD) stage G2/A2, mildly decreased glomerular filtration rate (GFR) between 60-89 mL/min/1.73 square meter and albuminuria creatinine ratio between 30-299 mg/g History of CVA in adulthood History of crack cocaine use Hx of myocardial infarction Hypertension Schizoaffective disorder Tobacco abuse - Surgical History Surgical History: Surgical History (Last Reviewed 12/03/17 @ 08:48 by Olga De Los Santos) History of implantable cardioverter-defibrillator (ICD) placement History of tubal ligation - Family History Family History: Family History (Last Updated 11/26/17 @ 20:07 by Khai Chapa MD) Father Kidney disease - Tobacco History Second Hand Smoke Exposure: Yes Tobacco Use In Past 30 Days: Yes Smoking Status: Current every day smoker Tobacco Type: Cigarettes - Alcohol History How Often Do You Have a Drink Containing Alcohol: 4 or more times a week - Substance Use History Substance History: Active Abuse - Substance Use Type Crack/Cocaine Status: Active Route Used: Inhalation - Travel History Recent Travel in the [place] Within the Last 8 Weeks: No Recent Travel Out of the Country Within the Last 8 Weeks: No - Immunization History Tetanus Immunization: Unsure Hx Influenza Vaccine This Season: No <Courtney Montes - Last Filed: 12/03/17 14:55> - Medical History Medical History: Medical History (Last Reviewed 12/03/17 @ 08:48 by Olga De Los Santos) CHF (congestive heart failure) Chronic kidney disease (CKD) stage G2/A2, mildly decreased glomerular filtration rate (GFR) between 60-89 mL/min/1.73 square meter and albuminuria creatinine ratio between 30-299 mg/g History of CVA in adulthood History of crack cocaine use Hx of myocardial infarction Hypertension Schizoaffective disorder Tobacco abuse - Surgical History Surgical History: Surgical History (Last Reviewed 12/03/17 @ 08:48 by Olga De Los Santos) History of implantable cardioverter-defibrillator (ICD) placement History of tubal ligation - Family History Family History: Family History (Last Updated 11/26/17 @ 20:07 by Khai Chapa MD) Father Kidney disease <Haritha Ramos - Last Filed: 12/03/17 16:36> Medications and Allergies Active Medications: Active Medications Acetaminophen (Tylenol) 650 mg PO Q6H PRN PRN Reason: FEVER >101F Last Admin: 12/02/17 16:44 Dose: 650 mg Hydrocodone Bitart/Acetaminophen ([place] 5/325) 1 tab PO Q4H PRN PRN Reason: PAIN SCALE 1 TO 5 Al Hydroxide/Mg Hydroxide (Milk Of Magnesia Liq) 30 ml PO Q12H PRN PRN Reason: Mild Constipation Albuterol (Albuterol Neb (Prn)) 2.5 mg NEB Q2HR NEB PRN PRN Reason: SHORTNESS OF BREATH/WHEEZING Aspirin (Aspirin Chew) 81 mg PO DAILY [facility] Last Admin: 12/03/17 08:40 Dose: 81 mg Atorvastatin Calcium (Lipitor) 40 mg PO HS [facility] Last Admin: 12/02/17 21:00 Dose: 40 mg Bisacodyl (Dulcolax Supp) 10 mg RECTAL DAILY PRN PRN Reason: SEVERE CONSITIPATION Carvedilol (Coreg) 3.125 mg PO BID [facility] Last Admin: 12/03/17 08:44 Dose: 3.125 mg Dextrose (D50w Vial) 50 ml IV.PUSH UNSCH PRN PRN Reason: PER HYPOGLYCEMIA PROTOCOL Furosemide (Lasix Inj) 40 mg IV.PUSH DAILY [facility] Last Admin: 12/03/17 08:44 Dose: 40 mg Glucagon (Glucagon Inj) 1 mg OTHER PRN PRN PRN Reason: for Hypoglycemia Protocol Heparin Sodium/Dextrose (Heparin/D5w 25,000 U/250 Ml) 25,000 unit in 250 mls @ 0 mls/hr IV.CONT TITRATE PRN; Protocol PRN Reason: Per Protocol Last Admin: 12/03/17 09:03 Dose: 1,100 units/hr, 11 mls/hr Insulin Aspart (Novolog Insulin Correctional Sugar Inj) 0 unit SQ Q6HR [facility]; Protocol Last Admin: 12/03/17 13:08 Dose: Not Given Lactulose (Lactulose Liq) 30 ml PO DAILY PRN PRN Reason: SEVERE CONSITIPATION Morphine Sulfate (Morphine Inj) 2 mg IV.PUSH Q2H PRN PRN Reason: PAIN SCALE 6 TO 10 Nitroglycerin (Nitro-Bid 2% Oint) 2 inch TOPICAL Q6HR PRN PRN Reason: SBP>160, DBP>90 Last Admin: 11/30/17 19:43 Dose: 2 inch Ondansetron HCl (Zofran Inj) 4 mg IV.PUSH Q6H PRN PRN Reason: NAUSEA OR VOMITING Pantoprazole Sodium (Protonix) 40 mg PO DAILY [facility] Last Admin: 12/03/17 08:40 Dose: 40 mg Pharmacy Profile Note (Coumadin Consult Pharmacy) 1 each OTHER UNSCH PRN PRN Reason: PHARMACY DOCUMENTATION Risperidone (Risperdal) 1 mg PO DAILY [facility] Last Admin: 10/08/18 08:41 Dose: 1 mg Senna/Docusate Sodium (Jacquelyn-Colace) 1 tab PO BID [facility] Last Admin: 12/03/17 08:39 Dose: Not Given Sennosides (Senokot) 17.2 mg PO Q12H PRN PRN Reason: Moderate Constipation Sertraline HCl (Zoloft) 25 mg PO DAILY [facility] Last Admin: 12/03/17 08:41 Dose: 25 mg Sodium Chloride (Ns Flush) 2 ml IV.FLUSH BID [facility] Last Admin: 12/03/17 10:22 Dose: 2 ml Sodium Chloride (Ns Flush) 2 ml IV.FLUSH PRN PRN PRN Reason: FLUSH AFTER USING IV ACCESS Trazodone HCl (Desyrel) 100 mg PO [facility] Last Admin: 12/02/17 20:59 Dose: 100 mg Warfarin Sodium (Coumadin) 6 mg PO DAILY@1600 [facility] Last Admin: 12/02/17 15:30 Dose: 6 mg <Courtney Montes M - Last Filed: 12/03/17 14:55> Active Medications: Active Medications Acetaminophen (Tylenol) 650 mg PO Q6H PRN PRN Reason: FEVER >101F Last Admin: 12/02/17 16:44 Dose: 650 mg Hydrocodone Bitart/Acetaminophen ([place] 5/325) 1 tab PO Q4H PRN PRN Reason: PAIN SCALE 1 TO 5 Al Hydroxide/Mg Hydroxide (Milk Of Magnesia Liq) 30 ml PO Q12H PRN PRN Reason: Mild Constipation Albuterol (Albuterol Neb (Prn)) 2.5 mg NEB Q2HR NEB PRN PRN Reason: SHORTNESS OF BREATH/WHEEZING Aspirin (Aspirin Chew) 81 mg PO DAILY [facility] Last Admin: 12/03/17 08:40 Dose: 81 mg Atorvastatin Calcium (Lipitor) 40 mg PO [facility] Last Admin: 12/02/17 21:00 Dose: 40 mg Bisacodyl (Dulcolax Supp) 10 mg RECTAL DAILY PRN PRN Reason: SEVERE CONSITIPATION Carvedilol (Coreg) 3.125 mg PO BID [facility] Last Admin: 12/03/17 08:44 Dose: 3.125 mg Dextrose (D50w Vial) 50 ml IV.PUSH UNSCH PRN PRN Reason: PER HYPOGLYCEMIA PROTOCOL Furosemide (Lasix Inj) 40 mg IV.PUSH DAILY [facility] Last Admin: 12/03/17 08:44 Dose: 40 mg Glucagon (Glucagon Inj) 1 mg OTHER PRN PRN PRN Reason: for Hypoglycemia Protocol Heparin Sodium/Dextrose (Heparin/D5w 25,000 U/250 Ml) 25,000 unit in 250 mls @ 0 mls/hr IV.CONT TITRATE PRN; Protocol PRN Reason: Per Protocol Last Titration: 12/03/17 12:09 Dose: Infused Insulin Aspart (Novolog Insulin Correctional Sugar Inj) 0 unit SQ Q6HR [facility]; Protocol Last Admin: 12/03/17 13:08 Dose: Not Given Lactulose (Lactulose Liq) 30 ml PO DAILY PRN PRN Reason: SEVERE CONSITIPATION Morphine Sulfate (Morphine Inj) 2 mg IV.PUSH Q2H PRN PRN Reason: PAIN SCALE 6 TO 10 Nitroglycerin (Nitro-Bid 2% Oint) 2 inch TOPICAL Q6HR PRN PRN Reason: SBP>160, DBP>90 Last Admin: 11/30/17 19:43 Dose: 2 inch Ondansetron HCl (Zofran Inj) 4 mg IV.PUSH Q6H PRN PRN Reason: NAUSEA OR VOMITING Pantoprazole Sodium (Protonix) 40 mg PO DAILY [facility] Last Admin: 12/03/17 08:40 Dose: 40 mg Pharmacy Profile Note (Coumadin Consult Pharmacy) 1 each OTHER UNSCH PRN PRN Reason: PHARMACY DOCUMENTATION Risperidone (Risperdal) 1 mg PO DAILY [facility] Last Admin: 12/03/17 08:41 Dose: 1 mg Senna/Docusate Sodium (Jacquelny-Colace) 1 tab PO BID [facility] Last Admin: 12/03/17 08:39 Dose: Not Given Sennosides (Senokot) 17.2 mg PO Q12H PRN PRN Reason: Moderate Constipation Sertraline HCl (Zoloft) 25 mg PO DAILY [facility] Last Admin: 12/03/17 08:41 Dose: 25 mg Sodium Chloride (Ns Flush) 2 ml IV.FLUSH BID [facility] Last Admin: 12/03/17 10:22 Dose: 2 ml Sodium Chloride (Ns Flush) 2 ml IV.FLUSH PRN PRN PRN Reason: FLUSH AFTER USING IV ACCESS Trazodone HCl (Desyrel) 100 mg PO [facility] Last Admin: 10/07/18 20:59 Dose: 100 mg Warfarin Sodium (Coumadin) 6 mg PO DAILY@1600 [facility] Last Admin: 12/02/17 15:30 Dose: 6 mg <Haritha Ramos - Last Filed: 12/03/17 16:36> Allergies Allergy/AdvReac Type Severity Reaction Status Date / Time No Known Allergies Allergy Unverified 11/26/17 15:39 Exam Vital signs: Vital Signs 12/02/17 16:00 12/02/17 20:00 12/02/17 23:45 Temperature 98.3 F 98.1 F Pulse Rate 82 91 H 73 Respiratory Rate 20 18 Blood Pressure 99/73 L 118/77 Pulse Oximetry 98 98 12/03/17 00:00 12/03/17 04:00 12/03/17 04:02 Temperature 97.9 F 98.1 F Pulse Rate 73 67 69 Respiratory Rate 18 18 Blood Pressure 129/83 111/80 Pulse Oximetry 99 97 12/03/17 08:00 12/03/17 12:00 Temperature 97.9 F 97.6 F Pulse Rate 82 77 Respiratory Rate 18 17 Blood Pressure 130/100 H 111/69 Pulse Oximetry 97 97 Intake & Output 12/02/17 12/03/17 12/03/17 18:59 06:59 18:59 Intake Total 610 / 610 250 / 250 Balance 610 / 610 250 / 250 Weight 68.7 kg Intake: IV 250 / 250 250 / 250 Heparin/D5W 25,000 U/250 mL 25, 250 / 250 250 / 250 000 unit In 250 ml @ Per Protocol IV.CONT TITRATE PRN Rx #:[id number] Oral 360 / 360 Other: # Voids 5 5 Date of Last Bowel Movement 12/01/17 12/03/17 # Bowel Movements 0 1 - Constitutional no acute distress, thin - Routine HEENT Exam ENT: Present: mucous membranes dry (Abnormal dentition upper teeth multiple are missing) - Routine Neck Exam Present: supple - Routine Respiratory Exam Present: accessory muscle use - Routine Cardiovascular Exam Present: S1, S2, murmur - Routine Abdominal Exam Present: soft, normoactive bowel sounds (No obvious abdominal pain or tenderness ) - Routine Skin Exam Present: intact, dry - Routine Neurological Exam Present: alert (Answering simple questions appropriate) <Courtney Montes - Last Filed: 12/03/17 14:55> Vital signs: Vital Signs 12/02/17 20:00 12/02/17 23:45 12/03/17 00:00 Temperature 98.1 F 97.9 F Pulse Rate 91 H 73 73 Respiratory Rate 18 18 Blood Pressure 118/77 129/83 Pulse Oximetry 98 99 12/03/17 04:00 12/03/17 04:02 12/03/17 08:00 Temperature 98.1 F 97.9 F Pulse Rate 67 69 82 Respiratory Rate 18 18 Blood Pressure 111/80 130/100 H Pulse Oximetry 97 97 12/03/17 12:00 Temperature 97.6 F Pulse Rate 77 Respiratory Rate 17 Blood Pressure 111/69 Pulse Oximetry 97 Intake & Output 12/02/17 12/03/17 12/03/17 18:59 06:59 18:59 Intake Total 610 / 610 283 / 283 Balance 610 / 610 283 / 283 Weight 68.7 kg Intake: IV 250 / 250 283 / 283 Heparin/D5W 25,000 U/250 mL 25, 250 / 250 250 / 250 000 unit In 250 ml @ Per Protocol IV.CONT TITRATE PRN Rx #:[id number] Oral 360 / 360 Other: # Voids 5 5 Date of Last Bowel Movement 12/01/17 12/03/17 # Bowel Movements 0 1 <Haritha Ramos - Last Filed: 12/03/17 16:36> Results - Labs CBC & Chem 7: 11/30/17 10:46 12/01/17 04:58 Labs: Laboratory Results - last 24 hr 12/02/17 12/03/17 12/03/17 16:43 05:20 05:43 PT 15.2 H INR 1.5 APTT POC Glucose 89 84 12/03/17 12/03/17 05:43 12:44 PT INR APTT 59.5 H POC Glucose 93 <Courtney Montes - Last Filed: 12/03/17 14:55> - Labs CBC & Chem 7: 11/30/17 10:46 12/01/17 04:58 Labs: Laboratory Results - last 24 hr 12/02/17 12/03/17 12/03/17 16:43 05:20 05:43 PT 15.2 H INR 1.5 APTT POC Glucose 89 84 12/03/17 12/03/17 05:43 12:44 PT INR APTT 59.5 H POC Glucose 93 <Haritha Ramos - Last Filed: 12/03/17 16:36> Assessment and Plan - Plan 52-year-old female who came into the hospital on 11/26/2017. Initially had symptoms of shortness of breath uncontrolled and small pulmonary emboli were found and treated. Patient also has severe cardiomyopathy with valvular heart disease, TR and MR, congestive heart failure; ICD in place. Cardiology was consulted and has followed patient throughout this hospital stay but is signed off to her medical management for now which will include coagulation. Patient has been on heparin drip and was initiated for Coumadin therapy on 11/30/2017. Patient noted bright red rectal bleeding with bowel movement and straining within the past 24 hours and also notes that she has had problems with some mild rectal bleeding with defecation over the past 2-3 months, also with straining. Currently patient denies any nausea or vomiting no dyspepsia or dysphasia and no abdominal pain or hematemesis. Gastroenterology has been consulted to assist with her symptom management and plan of care concerning her rectal bleeding. Patient denies any previous EGD or colonoscopy. Patient does note positive family history for maternal cousin in his 50s with colon cancer. According to the record patient does have a recent polysubstance abuse including crack cocaine, history of schizoaffective disorder, and is noncompliant with her medications according to the record. Currently patient appears to be resting quietly no obvious shortness of breath and is answering simple questions appropriately. No overt anxiety noted Bright red rectal bleeding history of constipation with straining. Onset approximately 2-3 months ago with every bowel movement. Positive family history of maternal cousin colon cancer, no previous EGD or colonoscopy No current abdominal pain no diarrhea, no nausea no vomiting no dyspepsia no anemia History of schizoaffective disorder as well as severe cardiomyopathy with valvular heart disease and CHF, ICD in place History of small pulmonary emboli this admission with heparin drip and now being placed on Coumadin therapy. Shellfish Grower has been involved in her case but is now signed off for medical management. Plan Diet changed to clear liquids today Consent for colonoscopy in a.m. Kristina prep this p.m. N.p.o. at midnight Monitor labs Continue to hold heparin and Coumadin Check INR in the morning if greater than 1.5 consider FFP Supportive care Patient was seen per myself and Dr. Ramos, note was written on his behalf <Courtney Montes - Last Filed: 12/03/17 14:55> - Plan Seen and examined with ELECTRICAL DESIGNER DRAFTER, colonoscopy planned for tomorrow. Golytle prep. Monitor labs. Discussed with pt. Thank you The exam, history, and the medical decision-making described in the above note were completed with the assistance of the mid-level provider. I reviewed and agree with the findings presented. I attest that I had a [id number] encounter with the patient on the same day, and personally performed and documented my assessment and findings in the medical record. <Haritha Ramos - Last Filed: 12/03/17 16:36>
[2017-12-03] MEDS ORDERED: PEG 3350/E-Lyte Soln 4000 ML Bottle PO ONE (16:00)
--- NOTE | 2017-12-03 20:02 | P.PNNEU ---
Subjective Subjective Comments: pt feels left sided strength back to normal Active Medications: Active Medications Acetaminophen (Tylenol) 650 mg PO Q6H PRN PRN Reason: FEVER >101F Last Admin: 12/02/17 16:44 Dose: 650 mg Hydrocodone Bitart/Acetaminophen ([place] 5/325) 1 tab PO Q4H PRN PRN Reason: PAIN SCALE 1 TO 5 Al Hydroxide/Mg Hydroxide (Milk Of Magnesia Liq) 30 ml PO Q12H PRN PRN Reason: Mild Constipation Albuterol (Albuterol Neb (Prn)) 2.5 mg NEB Q2HR NEB PRN PRN Reason: SHORTNESS OF BREATH/WHEEZING Aspirin (Aspirin Chew) 81 mg PO DAILY [facility] Last Admin: 12/03/17 08:40 Dose: 81 mg Atorvastatin Calcium (Lipitor) 40 mg PO HS [facility] Last Admin: 12/02/17 21:00 Dose: 40 mg Bisacodyl (Dulcolax Supp) 10 mg RECTAL DAILY PRN PRN Reason: SEVERE CONSITIPATION Carvedilol (Coreg) 3.125 mg PO BID [facility] Last Admin: 12/03/17 08:44 Dose: 3.125 mg Dextrose (D50w Vial) 50 ml IV.PUSH UNSCH PRN PRN Reason: PER HYPOGLYCEMIA PROTOCOL Furosemide (Lasix Inj) 40 mg IV.PUSH DAILY [facility] Last Admin: 12/03/17 08:44 Dose: 40 mg Glucagon (Glucagon Inj) 1 mg OTHER PRN PRN PRN Reason: for Hypoglycemia Protocol Heparin Sodium/Dextrose (Heparin/D5w 25,000 U/250 Ml) 25,000 unit in 250 mls @ 0 mls/hr IV.CONT TITRATE PRN; Protocol PRN Reason: Per Protocol Last Titration: 12/03/17 12:09 Dose: Infused Insulin Aspart (Novolog Insulin Correctional Sugar Inj) 0 unit SQ Q6HR [facility]; Protocol Last Admin: 12/03/17 17:57 Dose: Not Given Lactulose (Lactulose Liq) 30 ml PO DAILY PRN PRN Reason: SEVERE CONSITIPATION Morphine Sulfate (Morphine Inj) 2 mg IV.PUSH Q2H PRN PRN Reason: PAIN SCALE 6 TO 10 Nitroglycerin (Nitro-Bid 2% Oint) 2 inch TOPICAL Q6HR PRN PRN Reason: SBP>160, DBP>90 Last Admin: 11/30/17 19:43 Dose: 2 inch Ondansetron HCl (Zofran Inj) 4 mg IV.PUSH Q6H PRN PRN Reason: NAUSEA OR VOMITING Pantoprazole Sodium (Protonix) 40 mg PO DAILY [facility] Last Admin: 12/03/17 08:40 Dose: 40 mg Pharmacy Profile Note (Coumadin Consult Pharmacy) 1 each OTHER UNSCH PRN PRN Reason: PHARMACY DOCUMENTATION Risperidone (Risperdal) 1 mg PO DAILY [facility] Last Admin: 12/03/17 08:41 Dose: 1 mg Senna/Docusate Sodium (Jacquelyn-Colace) 1 tab PO BID [facility] Last Admin: 12/03/17 08:39 Dose: Not Given Sennosides (Senokot) 17.2 mg PO Q12H PRN PRN Reason: Moderate Constipation Sertraline HCl (Zoloft) 25 mg PO DAILY [facility] Last Admin: 12/03/17 08:41 Dose: 25 mg Sodium Chloride (Ns Flush) 2 ml IV.FLUSH BID [facility] Last Admin: 12/03/17 10:22 Dose: 2 ml Sodium Chloride (Ns Flush) 2 ml IV.FLUSH PRN PRN PRN Reason: FLUSH AFTER USING IV ACCESS Trazodone HCl (Desyrel) 100 mg PO HS [facility] Last Admin: 12/02/17 20:59 Dose: 100 mg Warfarin Sodium (Coumadin) 6 mg PO DAILY@1600 [facility] Last Admin: 12/02/17 15:30 Dose: 6 mg Allergies/Adverse Reactions: Allergies Allergy/AdvReac Type Severity Reaction Status Date / Time No Known Allergies Allergy Unverified 11/26/17 15:39 Physical Exam Vital signs: Vital Signs 12/02/17 23:45 12/03/17 00:00 12/03/17 04:00 Temperature 97.9 F 98.1 F Pulse Rate 73 73 67 Respiratory Rate 18 18 Blood Pressure 129/83 111/80 Pulse Oximetry 99 97 12/03/17 04:02 12/03/17 08:00 12/03/17 12:00 Temperature 97.9 F 97.6 F Pulse Rate 69 82 77 Respiratory Rate 18 17 Blood Pressure 130/100 H 111/69 Pulse Oximetry 97 97 12/03/17 16:00 Temperature 98.2 F Pulse Rate 81 Respiratory Rate 17 Blood Pressure 107/68 Pulse Oximetry 97 Intake & Output 1012/03/17 12/04/17 06:59 18:59 06:59 Intake Total 1243 / 1243 Balance 1243 / 1243 Weight 68.7 kg Intake: IV 283 / 283 Heparin/D5W 25,000 U/250 mL 25, 250 / 250 000 unit In 250 ml @ Per Protocol IV.CONT TITRATE PRN Rx #:[id number] Oral 960 / 960 Other: # Voids 5 1 Date of Last Bowel Movement 12/03/17 # Bowel Movements 1 1 - Routine Neurological Exam alert, speech normal; CN intact MOTOR 5/5 BUE Objective Laboratory Results - last 24 hr 12/03/17 12/03/17 12/03/17 05:20 05:43 05:43 PT 15.2 H INR 1.5 APTT 59.5 H POC Glucose 84 12/03/17 12/03/17 12:44 16:56 PT INR APTT POC Glucose 93 87 Review/Management - Diagnosis (1) TIA (transient ischemic attack) Code(s): G45.9 - Transient cerebral ischemic attack, unspecified Status: Acute Current Visit: Yes - Review/Management Plan: probably cardioembolic TIA from cardiomyopathy.--recommend usp anticoagulation
[2017-12-03] MEDS: traZODone 100 MG Tablet PO SCH (21:22)
[2017-12-04] MEDS: Insulin NovoLOG Aspart Correctional Sugar Inj SQ SCH ×4 (01:50→17:43)
[2017-12-04] MEDS ORDERED: Chlorhexidine Gluconate 2% 1 Pack (2 Cloths) TOPICAL ONE (04:19)
[2017-12-04] MEDS ORDERED: Sodium Chlor 0.9% Inj 500 ML IV.SIG SCH (05:00)
[2017-12-04 06:53] LABS: INR 1.5 Ratio; Prothrombin Time 15.3 sec (9.8-11.6)
[2017-12-04] MEDS: Sertraline 50 MG Tablet PO SCH (08:47)
[2017-12-04] MEDS: Senna/Docusate Sodium 8.6/50 MG Tablet PO SCH ×2 (08:47→22:46)
[2017-12-04 11:01] LABS: Baso % (Auto) 1.3 % (0.0-2.0); Eos # (Auto) 0.2 th/mm3 (0.0-0.4); Eos % (Auto) 6.7 % (0.0-4.0); Hematocrit 45.5 % (35.0-46.0); Hemoglobin 14.9 gm/dL (11.6-15.3); Lymph # (Auto) 1.1 th/mm3 (1.0-4.8); Lymph % (Auto) 31.9 % (9.0-44.0); Mean Corpuscular HGB Conc 32.7 % (32.0-36.0); Mean Corpuscular Hemoglobin 28.6 pg (27.0-34.0); Mean Corpuscular Volume 87.4 fL (80.0-100.0); Mean Platelet Volume 8.2 fL (7.0-11.0); Mono # (Auto) 0.4 th/mm3 (0.0-0.9); Mono % (Auto) 11.4 % (0.0-8.0); Neut # (Auto) 1.8 th/mm3 (1.8-7.7); Neut % (Auto) 48.7 % (16.0-70.0); Platelet Count 211 th/mm3 (150-450); Red Blood Count 5.21 mil/mm3 (4.00-5.30); Red Cell Distribution Width 17.1 % (11.6-17.2); White Blood Count 3.6 th/mm3 (4.0-11.0)
[2017-12-04 11:17] LABS: Albumin 2.9 g/dL (3.4-5.0); Anion Gap 8 meq/L (5-15); Aspartate Aminotransferase 25 U/L (15-37); Blood Urea Nitrogen 15 mg/dL (7-18); Calcium 9.6 mg/dL (8.5-10.1); Chloride 102 meq/L (98-107); Glomerular Filtration Rate 49 mL/min (>89); Glucose,Random 79 mg/dL (74-106); Potassium 4.3 meq/L (3.5-5.1); Sodium 140 meq/L (136-145)
[2017-12-04 11:18] LABS: Alanine Aminotransferase 31 U/L (10-53); Phosphorus 3.9 mg/dL (2.5-4.9)
[2017-12-04 11:21] LABS: Alkaline Phosphatase 88 U/L (45-117); Total Protein 6.8 g/dL (6.4-8.2)
[2017-12-04] MEDS ORDERED: Lidocaine PF 1% Inj 5 ML Syringe OTHER ONE ×2 (12:45)
[2017-12-04] MEDS ORDERED: Ketamine Inj 50 MG/5 ML Syringe IV.PUSH ONE (12:58)
--- NOTE | 2017-12-04 13:13 | GIPROC ---
[facility] [address] [facility] [place], [address] COLONOSCOPY PROCEDURE REPORT EXAM DATE: 12/04/2017 PATIENT NAME: Helen Llanos MR #: [id number] BIRTHDATE: 1965 ENDOSCOPIST: Haritha Ramos MD ORDER #: [id number] ACTUARIAL SCIENCE TEACHER: Joselyn Oliver and Dennise Gutierres STATUS: inpatient INDICATIONS: The patient is a 52 yr old female here for a colonoscopy due to hematochezia PROCEDURE PERFORMED: Colonoscopy, diagnostic MEDICATIONS: None and Per Anesthesia. PREP QUALITY: The Walters Bowel Prep Score was Right colon 2, Mid colon 3, and Left colon 3. Total = 8. PREP TYPE:GoLytely ESTIMATED BLOOD LOSS: None CONSENT: The patient understands the risks and benefits of the procedure and understands that these risks include, but are not limited to: sedation, allergic reaction, infection, perforation and/or bleeding. Alternative means of evaluation and treatment include, among others: physical exam, x-rays, and/or surgical intervention. The patient elects to proceed with this endoscopic procedure. medical equipment was checked for proper function. Hand hygiene and appropriate measures for infection prevention was taken. After the risks, benefits and alternatives of the procedure were thoroughly explained, Informed consent was verified, confirmed and timeout was successfully executed by the treatment team. A digital exam revealed external hemorrhoids The Pentax [id number] endoscope was introduced through the anus and advanced to the cecum, which was identified by both the appendix and ileocecal valve. The instrument was then slowly withdrawn as the colon was fully examined. COLON FINDINGS: A medium sized patch of colitis was found in the rectum. The mucosa was erythematous. Retroflexed views revealed internal hemorrhoids and Retroflexed views revealed medium internal hemorrhoids The scope was then completely withdrawn from the patient and the procedure terminated. PROCEDURE WITHDRAWAL TIME:6minutes ADVERSE EVENTS: There were no complications. IMPRESSIONS: 1. Medium sized colitis was found in the rectum; The mucosa was erythematous 2. Retroflexed views revealed internal hemorrhoids 3. Retroflexed views revealed medium internal hemorrhoids 4. Revealed external hemorrhoids RECOMMENDATIONS: 1. Continue surveillance 2. High fiber diet 3. Yearly hemoccult RECALL: Return 5 years Colonoscopy Haritha Ramos MD eSigned: Haritha Ramos MD 12/04/2017 1:13 PM cc: PATIENT NAME: Helen Llanos MR#: [id number]
[2017-12-04 14:30] LABS: INR 1.5 Ratio; Prothrombin Time 14.9 sec (9.8-11.6)
--- NOTE | 2017-12-04 15:22 | P.PNIM ---
Subjective Interval history: Is a 52-year-old AA female. Date of admission 11/26/2017. Past medical history includes chronic systolic heart failure ejection of 10-50%. Polysubstance abuse including cocaine at least since 2005, severe TR and MR. Hypertension, history of right LINER REROLL TENDER CVA, schizoaffective disorder. Patient presents to [facility] with multiple somatic complaint including a swollen left leg which she attributes to sleeping on a table for 2 days, recent crack cocaine use , and shortness of breath and dyspnea. She was [facility] from [facility] She is run out of her medications. She does not know which medication she currently takes. She states that she came to [facility] to "get my son to help me out." Baseline vitals revealed sinus tachycardia and hypertension. Initial troponin was 0.08. BNP is elevated. Creatinine was slightly elevated from baseline of 1.5 at 1.7. Sodium was 140. Potassium 3.3. CT pulmonary revealed bilateral small upper and lower pulmonary was not. Patient started heparin drip. Patient received aspirin and was started on Nitropaste 1 inch x1. We are asked to admit the patient. She is currently medically stable. Denies chest pain or shortness of breath currently. 10-2 Patient complains of shortness of breath when she is active. She denies any chest pain. She is speaking in full sentences. 10-3 Patient complains of some shortness of breath. She does not have any other complaints. No chest pain. 10-4 Patient states that she feels much better than admission day. She is tolerating a diet. She does not have any other complaints. No chest pain, no shortness of breath. 10-5 Patient does not have any complaints of chest pain. She states that she gets short of breath when ambulating. She does not have any other complaints. Stroke alert was called this afternoon. The patient was found to have slurred speech and a drooped face. The patient was sent down for a CT scan of the head as well as CTA of the head and. All CT scans came back negative for any acute findings. Given the patient's poor systolic heart function there was a concern that the patient may have a LV thrombus. She is currently on a heparin drip as well as p.o. Coumadin for pulmonary embolus. A cardiology consult was placed to have the patient reevaluated for possible NOE. I had a discussion with Dr. Ornelas from neurology who evaluated the patient and believes the patient likely had a TIA and does not recommend getting an MRI since the patient's symptoms improved and she also since she has a defibrillator. We will continue to monitor the patient in the intensive care unit. Continue aspirin, continue heparin, continue warfarin. 10-6 Patient states she feels well this morning. She is requesting food. She does not have any complaints. Patient is smiling and appears to be comfortable. 10-7 Follow-up shortness of breath/PE, CHF ejection fraction 10-15%, history of polysubstance abuse, moderate to severe tricuspid and mitral regurg. Patient seen and examined sitting in her bed, stated feeling a lot better, breathing better. Patient stated she was going out riding the bus to see her son however she felt short of breath and the boss called 911. Patient stated the swelling in her leg is a lot better. Patient denies any pain chest pain, or shortness of breath. Patient denies any headache or dizziness, denies any abdominal pain, nausea or vomiting, diarrhea or constipation. Patient denies any fever or chills. 10-8 ALERTED BY RN THAT PATIENT HAVING RECTAL BLEEDING- HOLD HEPARIN AND COUMADIN- CONSULT GI FOR COLONOSCOPY TOMORROW AM LABS DW RN AND PT AND GI AND CM 10-9 HAD COLONOSCOPY HAD COLITIS AND HEMORRHOIDS INTERNAL AND EXTERNAL RESTART COUMADIN AND HEPARIN DW RN AND PT PATIENT DID WELL WITH PREP LAST NIGHT Physical Exam Vital signs: Vital Signs 12/03/17 16:00 12/03/17 20:00 12/04/17 00:00 Temperature 98.2 F 97.3 F L 97.9 F Pulse Rate 81 92 H 82 Respiratory Rate 17 21 18 Blood Pressure 107/68 148/77 H 111/71 Pulse Oximetry 97 100 96 12/04/17 04:00 12/04/17 08:00 12/04/17 13:16 Temperature 97.7 F 97.5 F L 97.4 F L Pulse Rate 69 72 81 Respiratory Rate 18 22 15 Blood Pressure 116/71 124/87 121/82 Pulse Oximetry 97 99 100 12/04/17 13:30 Temperature 97.5 F L Pulse Rate 75 Respiratory Rate 19 Blood Pressure 122/81 Pulse Oximetry 100 Intake & Output 12/03/17 12/04/17 12/04/17 18:59 06:59 18:59 Intake Total 1243 / 1243 Balance 1243 / 1243 Weight 68 kg Intake: IV 283 / 283 Heparin/D5W 25,000 U/250 mL 25, 250 / 250 000 unit In 250 ml @ Per Protocol IV.CONT TITRATE PRN Rx #:[id number] Oral 960 / 960 Other: # Voids 1 6 Date of Last Bowel Movement 12/03/17 # Bowel Movements 1 6 Narrative: GENERAL: Well-developed, thin appearing -[place] female, alert and oriented x3, in no apparent distress SKIN: Warm and dry. HEAD: Atraumatic. Normocephalic. EYES: Pupils equal and round. No scleral icterus. No injection or drainage. ENT: No nasal bleeding or discharge. Mucous membranes pink and moist. NECK: Trachea midline. No JVD. CARDIOVASCULAR: Regular rate and rhythm. No edema. Left upper chest pacemaker site intact RESPIRATORY: No accessory muscle use. Clear to auscultation, diminished. Breath sounds equal bilaterally. GASTROINTESTINAL: Abdomen flat soft, non-tender, nondistended. Hepatic and splenic margins not palpable. MUSCULOSKELETAL: Extremities without clubbing, cyanosis, or edema. No obvious deformities. NEUROLOGICAL: Awake and alert. No obvious cranial nerve deficits. Motor grossly within normal limits. Generalized weakness, moving all explained extremities. Normal speech. PSYCHIATRIC: Appropriate mood and affect; insight and judgment appropriate. Results - Labs CBC & Chem 7: 12/04/17 10:23 12/04/17 10:23 Laboratory Results - last 24 hr 12/03/17 12/04/17 12/04/17 16:56 05:20 07:40 WBC RBC Hgb Hct MCV MCH MCHC RDW Plt Count MPV Neut % (Auto) Lymph % (Auto) [place] % (Auto) Eos % (Auto) Baso % (Auto) Neut # (Auto) Lymph # (Auto) [place] # (Auto) Eos # (Auto) Baso # (Auto) WBC Differential Differential Comment PT 15.3 H INR 1.5 Sodium Potassium Chloride Carbon Dioxide Anion Gap BUN Creatinine Estimated GFR POC Glucose 87 76 Random Glucose Calcium Phosphorus Magnesium Total Bilirubin AST ALT Alkaline Phosphatase Total Protein Albumin 12/04/17 12/04/17 12/04/17 10:23 10:23 11:21 WBC 3.6 L RBC 5.21 Hgb 14.9 Hct 45.5 MCV 87.4 MCH 28.6 MCHC 32.7 RDW 17.1 Plt Count 211 MPV 8.2 Neut % (Auto) 48.7 Lymph % (Auto) 31.9 [place] % (Auto) 11.4 H Eos % (Auto) 6.7 H Baso % (Auto) 1.3 Neut # (Auto) 1.8 Lymph # (Auto) 1.1 [place] # (Auto) 0.4 Eos # (Auto) 0.2 Baso # (Auto) 0.0 WBC Differential . Differential Comment Auto diff final PT INR Sodium 140 Potassium 4.3 Chloride 102 Carbon Dioxide 30.0 Anion Gap 8 BUN 15 Creatinine 1.37 H Estimated GFR 49 L POC Glucose 80 Random Glucose 79 Calcium 9.6 Phosphorus 3.9 Magnesium 2.0 Total Bilirubin 0.4 AST 25 ALT 31 Alkaline Phosphatase 88 Total Protein 6.8 Albumin 2.9 L 12/04/17 14:07 WBC RBC Hgb Hct MCV MCH MCHC RDW Plt Count MPV Neut % (Auto) Lymph % (Auto) [place] % (Auto) Eos % (Auto) Baso % (Auto) Neut # (Auto) Lymph # (Auto) [place] # (Auto) Eos # (Auto) Baso # (Auto) WBC Differential Differential Comment PT 14.9 H INR 1.5 Sodium Potassium Chloride Carbon Dioxide Anion Gap BUN Creatinine Estimated GFR POC Glucose Random Glucose Calcium Phosphorus Magnesium Total Bilirubin AST ALT Alkaline Phosphatase Total Protein Albumin - Procedures COLONOSCOPY PROCEDURE REPORT EXAM DATE: 12/04/2017 PATIENT NAME: Helen Llanos MR #: [id number] BIRTHDATE: 1965 ENDOSCOPIST: Haritha Ramos MD ORDER #: [id number] COMMUNICATIONS ANALYST: Joselyn Oliver and Dennise Gutierres STATUS: inpatient INDICATIONS: The patient is a 52 yr old female here for a colonoscopy due to hematochezia PROCEDURE PERFORMED: Colonoscopy, diagnostic MEDICATIONS: None and Per Anesthesia. PREP QUALITY: [facility] [place] Bowel Prep Score was Right colon 2, Mid colon 3, and Left colon 3. Total = 8. PREP TYPE:Go[place] ESTIMATED BLOOD LOSS: None CONSENT: The patient understands the risks and benefits of the procedure and understands that these risks include, but are not limited to: sedation, allergic reaction, infection, perforation and/or bleeding. Alternative means of evaluation and treatment include, among others: physical exam, x-rays, and/or surgical intervention. The patient elects to proceed with this endoscopic procedure. medical equipment was checked for proper function. Hand hygiene and appropriate measures for infection prevention was taken. After the risks, benefits and alternatives of the procedure were thoroughly explained, Informed consent was verified, confirmed and timeout was successfully executed by the treatment team. A digital exam revealed external hemorrhoids The Pentax [id number] endoscope was introduced through the anus and advanced to the cecum, which was identified by both the appendix and ileocecal valve. The instrument was then slowly withdrawn as the colon was fully examined. COLON FINDINGS: A medium sized patch of colitis was found in the rectum. The mucosa was erythematous. Retroflexed views revealed internal hemorrhoids and Retroflexed views revealed medium internal hemorrhoids The scope was then completely withdrawn from the patient and the procedure terminated. PROCEDURE WITHDRAWAL TIME:6minutes ADVERSE EVENTS: There were no complications. IMPRESSIONS: 1. Medium sized colitis was found in the rectum; The mucosa was erythematous 2. Retroflexed views revealed internal hemorrhoids 3. Retroflexed views revealed medium internal hemorrhoids 4. Revealed external hemorrhoids RECOMMENDATIONS: 1. Continue surveillance 2. High fiber diet 3. Yearly hemoccult RECALL: Return 5 years Colonoscopy Haritha Ramos MD eSigned: Haritha Ramos MD 12/04/2017 1:13 PM Assessment and Plan - Assessment (1) TIA (transient ischemic attack) Code(s): G45.9 - Transient cerebral ischemic attack, unspecified Status: Acute (2) Cardiomyopathy Code(s): I42.9 - Cardiomyopathy, unspecified Status: Acute (3) AICD (automatic cardioverter/defibrillator) present Code(s): Z95.810 - Presence of automatic (implantable) cardiac defibrillator Status: Acute (4) Pulmonary embolism Code(s): I26.99 - Other pulmonary embolism without acute cor pulmonale Status : Acute - Plan This patient is a 52-year-old female with a diagnosis of systolic CHF ejection fraction 10-15%, history of polysubstance abuse, moderate to severe tricuspid and mitral regurg. The patient presented with complaints of shortness of breath and was found to have pulmonary embolus on CTA of the chest. She also admits to using cocaine, last use was a few days ago. RECTAL BLEEDING -HOLD HEPARIN AND COUMADIN -FOR COLONOSCOPY ON 12-04 SHOWED SOME COLITIS AND HEMORRHOIDS INTERNAL AND EXTERNAL RESTART HEPARIN AND COUMADIN TIA/history of right LINER REROLL TENDER CVA -Neurology following -Continue aspirin, heparin drip with, Coumadin per neurology recommendation -Continue statin -No MRI of the brain was done due to the presence of defibrillator defibrillator defibrillator, patient's symptoms have completely resolved NEEDS COUMADIN CHF, Systolic/NSVT 2d Echo :Severely dilated left ventricle. The left ventricular systolic function is severely reduced with an estimated ejection fraction less than 10 - 15%.there is diffuse global hypokinesis with distinct regional wall motion abnormalities. [id number] mitral valve regurgitation. moderate to severe tricuspid valve regurgitation. -LVEF 10-15%,, AICD in place, BNP 2827 -Cardiology following, recommended to follow-up with Dr. Mcintyre as van outpatient -Elevated troponin possibly secondary to PE and CHF with very poor ejection fraction -The patient also has valvular heart disease as per documentation from cardiology the patient will need treatment for PE as well as be substance abuse free for 3-6 months prior to consideration of any kind of surgical intervention. -Continue IV Lasix for diuresis, monitor BMP -Telemetry monitoring -Monitor electrolytes and replace as needed -Continue coreg Pulmonary embolus -Continue heparin drip until therapeutic and Coumadin -Pharmacy consult for Coumadin dosing Chronic kidney disease stage III -continue to monitor the patient's serum creatinine. -Avoid nephrotoxic agents. -Creatinine improving back to baseline 1.40 today, 1.79 on admission, - follow-up with nephrology outpatient after she has been stabilized and discharged. Schizoaffective disorder/ crack cocaine use -continued on home medications of sertraline, trazodone and Risperdal -Pain medication will be given as needed. - counseled on the dangers of using crack cocaine. DVT prophylaxis: patient on heparin drip and Coumadin currently---ON HOLD DUE TO RECTAL BLEEDING FOR COLONOSCOPY ON 12-04 LUIS MANUEL RN AND PT AND CM Code Status: FULL CODE Discussed Condition With: RN AND PT AND CM Discharge Planning: NEEDS ANTICOAGULATION FOR PULM EMBOLI AND SUBSTANCE ABUSE
[2017-12-04] MEDS: traZODone 100 MG Tablet PO SCH (22:45)
[2017-12-04] MEDS: Psyllium Husk SF 3.4 GM in 5.8 GM Packet PO SCH (22:46)
[2017-12-05] MEDS: Insulin NovoLOG Aspart Correctional Sugar Inj SQ SCH ×4 (04:17→17:01)
[2017-12-05 07:40] LABS: INR 1.5 Ratio; Prothrombin Time 15.2 sec (9.8-11.6)
[2017-12-05 07:49] LABS: Baso # (Auto) 0.1 th/mm3 (0.0-0.2); Baso % (Auto) 1.3 % (0.0-2.0); Eos # (Auto) 0.2 th/mm3 (0.0-0.4); Eos % (Auto) 4.7 % (0.0-4.0); Hematocrit 44.7 % (35.0-46.0); Hemoglobin 14.6 gm/dL (11.6-15.3); Lymph # (Auto) 1.3 th/mm3 (1.0-4.8); Lymph % (Auto) 34.8 % (9.0-44.0); Mean Corpuscular HGB Conc 32.6 % (32.0-36.0); Mean Corpuscular Hemoglobin 28.8 pg (27.0-34.0); Mean Corpuscular Volume 88.4 fL (80.0-100.0); Mean Platelet Volume 8.7 fL (7.0-11.0); Mono # (Auto) 0.5 th/mm3 (0.0-0.9); Mono % (Auto) 13.6 % (0.0-8.0); Neut # (Auto) 1.8 th/mm3 (1.8-7.7); Neut % (Auto) 45.6 % (16.0-70.0); Platelet Count 197 th/mm3 (150-450); Red Blood Count 5.06 mil/mm3 (4.00-5.30); Red Cell Distribution Width 17.2 % (11.6-17.2); White Blood Count 3.9 th/mm3 (4.0-11.0)
[2017-12-05 08:09] LABS: Albumin 2.6 g/dL (3.4-5.0); Anion Gap 13 meq/L (5-15); Aspartate Aminotransferase 25 U/L (15-37); Blood Urea Nitrogen 18 mg/dL (7-18); Calcium 8.8 mg/dL (8.5-10.1); Carbon Dioxide 28.9 meq/L (21.0-32.0); Chloride 100 meq/L (98-107); Glomerular Filtration Rate 42 mL/min (>89); Glucose,Random 78 mg/dL (74-106); Potassium 4.2 meq/L (3.5-5.1); Sodium 142 meq/L (136-145)
[2017-12-05 08:12] LABS: Alanine Aminotransferase 30 U/L (10-53); Alkaline Phosphatase 87 U/L (45-117); Phosphorus 4.5 mg/dL (2.5-4.9); Total Protein 6.5 g/dL (6.4-8.2)
[2017-12-05] MEDS: Senna/Docusate Sodium 8.6/50 MG Tablet PO SCH ×2 (08:39→22:01)
[2017-12-05] MEDS: Sertraline 50 MG Tablet PO SCH (08:39)
[2017-12-05] MEDS: Psyllium Husk SF 3.4 GM in 5.8 GM Packet PO SCH ×2 (09:13→22:01)
--- NOTE | 2017-12-05 10:00 | P.PNGI ---
Subjective Interval history: Patient ambulating in alex. Return to treatment room, denies any nausea or vomiting or abdominal pain. States tolerating diet well. <Cherry Virgen - Last Filed: 12/05/17 09:52> Physical Exam Vital signs: Vital Signs 12/04/17 12:00 12/04/17 13:16 12/04/17 13:30 Temperature 97.4 F L 97.5 F L Pulse Rate 83 81 75 Respiratory Rate 15 19 Blood Pressure 121/82 122/81 Pulse Oximetry 100 100 12/04/17 16:00 12/04/17 20:00 12/05/17 00:00 Temperature 97.9 F 97.6 F 98.2 F Pulse Rate 84 79 74 Respiratory Rate 22 18 18 Blood Pressure 130/82 111/75 114/71 Pulse Oximetry 100 97 98 12/05/17 04:00 12/05/17 08:00 Temperature 98 F 98.5 F Pulse Rate 68 80 Respiratory Rate 18 18 Blood Pressure 112/73 135/94 H Pulse Oximetry 96 99 Intake & Output 12/04/17 12/05/17 12/05/17 18:59 06:59 18:59 Intake Total 460 / 460 0 / 0 Balance 460 / 460 0 / 0 Weight 66.4 kg Intake: Oral 460 / 460 0 / 0 Other: # Voids 4 3 Date of Last Bowel Movement 12/04/17 # Bowel Movements 0 - Constitutional no acute distress - Routine HEENT Exam Head: Present: normocephalic - Routine Neck Exam Present: supple - Routine Respiratory Exam Present: CTA bilaterally. Absent: accessory muscle use - Routine Cardiovascular Exam Present: RRR - Routine Abdominal Exam Present: soft, normoactive bowel sounds. Absent: tenderness, distended, guarding, firm - Routine Extremities Exam Present: edema, full ROM - Routine Skin Exam Present: dry, warm - Routine Neurological Exam Present: alert, oriented X3 - Detailed Neurological Exam: Coma Scale Eye Opening: Spontaneous Verbal Response: Oriented Motor Response: Obey commands Gerber Coma Scale Total: 15 - Routine Psychiatric Exam Present: normal affect, cooperative <Cherry Virgen - Last Filed: 12/05/17 09:52> Vital signs: Vital Signs 12/04/17 16:00 12/04/17 20:00 12/05/17 00:00 Temperature 97.9 F 97.6 F 98.2 F Pulse Rate 84 79 74 Respiratory Rate 22 18 18 Blood Pressure 130/82 111/75 114/71 Pulse Oximetry 100 97 98 12/05/17 04:00 12/05/17 08:00 Temperature 98 F 98.5 F Pulse Rate 68 80 Respiratory Rate 18 16 Blood Pressure 112/73 135/96 H Pulse Oximetry 96 96 Intake & Output 12/04/17 12/05/17 12/05/17 18:59 06:59 18:59 Intake Total 460 / 460 0 / 0 Balance 460 / 460 0 / 0 Weight 66.4 kg Intake: Oral 460 / 460 0 / 0 Other: # Voids 4 3 Date of Last Bowel Movement 12/04/17 # Bowel Movements 0 <Haritha Ramos - Last Filed: 12/05/17 13:54> Results - Labs CBC & Chem 7: 12/05/17 06:58 12/05/17 06:58 Laboratory Results - last 24 hr 12/04/17 12/04/17 12/04/17 10:23 10:23 11:21 WBC 3.6 L RBC 5.21 Hgb 14.9 Hct 45.5 MCV 87.4 MCH 28.6 MCHC 32.7 RDW 17.1 Plt Count 211 MPV 8.2 Neut % (Auto) 48.7 Lymph % (Auto) 31.9 Mercer % (Auto) 11.4 H Eos % (Auto) 6.7 H Baso % (Auto) 1.3 Neut # (Auto) 1.8 Lymph # (Auto) 1.1 Mercer # (Auto) 0.4 Eos # (Auto) 0.2 Baso # (Auto) 0.0 WBC Differential . Differential Comment Auto diff final PT INR Sodium 140 Potassium 4.3 Chloride 102 Carbon Dioxide 30.0 Anion Gap 8 BUN 15 Creatinine 1.37 H Estimated GFR 49 L POC Glucose 80 Random Glucose 79 Calcium 9.6 Phosphorus 3.9 Magnesium 2.0 Total Bilirubin 0.4 AST 25 ALT 31 Alkaline Phosphatase 88 Total Protein 6.8 Albumin 2.9 L 12/04/17 12/04/17 12/05/17 14:07 22:52 06:58 WBC RBC Hgb Hct MCV MCH MCHC RDW Plt Count MPV Neut % (Auto) Lymph % (Auto) Mercer % (Auto) Eos % (Auto) Baso % (Auto) Neut # (Auto) Lymph # (Auto) Mercer # (Auto) Eos # (Auto) Baso # (Auto) WBC Differential Differential Comment PT 14.9 H 15.2 H INR 1.5 1.5 Sodium Potassium Chloride Carbon Dioxide Anion Gap BUN Creatinine Estimated GFR POC Glucose 78 Random Glucose Calcium Phosphorus Magnesium Total Bilirubin AST ALT Alkaline Phosphatase Total Protein Albumin 12/05/17 12/05/17 06:58 06:58 WBC 3.9 L RBC 5.06 Hgb 14.6 Hct 44.7 MCV 88.4 MCH 28.8 MCHC 32.6 RDW 17.2 Plt Count 197 MPV 8.7 Neut % (Auto) 45.6 Lymph % (Auto) 34.8 Mercer % (Auto) 13.6 H Eos % (Auto) 4.7 H Baso % (Auto) 1.3 Neut # (Auto) 1.8 Lymph # (Auto) 1.3 Mercer # (Auto) 0.5 Eos # (Auto) 0.2 Baso # (Auto) 0.1 WBC Differential . Differential Comment Auto diff final PT INR Sodium 142 Potassium 4.2 Chloride 100 Carbon Dioxide 28.9 Anion Gap 13 BUN 18 Creatinine 1.57 H Estimated GFR 42 L POC Glucose Random Glucose 78 Calcium 8.8 D Phosphorus 4.5 Magnesium 2.0 Total Bilirubin 0.5 AST 25 ALT 30 Alkaline Phosphatase 87 Total Protein 6.5 Albumin 2.6 L - Procedures COLONOSCOPY PROCEDURE REPORT EXAM DATE: 12/04/2017 PATIENT NAME: Helen Llanos MR #: [id number] BIRTHDATE: 1965 ENDOSCOPIST: Haritah Ramos MD ORDER #: [id number] EXTRUDER TENDER: Joselyn Oliver and Dennise Gutierres STATUS: inpatient INDICATIONS: The patient is a 52 yr old female here for a colonoscopy due to hematochezia PROCEDURE PERFORMED: Colonoscopy, diagnostic MEDICATIONS: None and Per Anesthesia. PREP QUALITY: The [place] Bowel Prep Score was Right colon 2, Mid colon 3, and Left colon 3. Total = 8. PREP TYPE:GoLytely ESTIMATED BLOOD LOSS: None CONSENT: The patient understands the risks and benefits of the procedure and understands that these risks include, but are not limited to: sedation, allergic reaction, infection, perforation and/or bleeding. Alternative means of evaluation and treatment include, among others: physical exam, x-rays, and/or surgical intervention. The patient elects to proceed with this endoscopic procedure. medical equipment was checked for proper function. Hand hygiene and appropriate measures for infection prevention was taken. After the risks, benefits and alternatives of the procedure were thoroughly explained, Informed consent was verified, confirmed and timeout was successfully executed by the treatment team. A digital exam revealed external hemorrhoids The Pentax [id number] endoscope was introduced through the anus and advanced to the cecum, which was identified by both the appendix and ileocecal valve. The instrument was then slowly withdrawn as the colon was fully examined. COLON FINDINGS: A medium sized patch of colitis was found in the rectum. The mucosa was erythematous. Retroflexed views revealed internal hemorrhoids and Retroflexed views revealed medium internal hemorrhoids The scope was then completely withdrawn from the patient and the procedure terminated. PROCEDURE WITHDRAWAL TIME:6minutes ADVERSE EVENTS: There were no complications. IMPRESSIONS: 1. Medium sized colitis was found in the rectum; The mucosa was erythematous 2. Retroflexed views revealed internal hemorrhoids 3. Retroflexed views revealed medium internal hemorrhoids 4. Revealed external hemorrhoids RECOMMENDATIONS: 1. Continue surveillance 2. High fiber diet 3. Yearly hemoccult RECALL: Return 5 years Colonoscopy Haritha Ramos MD eSigned: Haritha Ramos MD 12/04/2017 1:13 PM <Cherry Virgen - Last Filed: 12/05/17 09:52> - Labs CBC & Chem 7: 12/05/17 06:58 12/05/17 06:58 Laboratory Results - last 24 hr 12/04/17 12/04/17 12/05/17 14:07 22:52 06:58 WBC RBC Hgb Hct MCV MCH MCHC RDW Plt Count MPV Neut % (Auto) Lymph % (Auto) Mercer % (Auto) Eos % (Auto) Baso % (Auto) Neut # (Auto) Lymph # (Auto) Mercer # (Auto) Eos # (Auto) Baso # (Auto) WBC Differential Differential Comment PT 14.9 H 15.2 H INR 1.5 1.5 Sodium Potassium Chloride Carbon Dioxide Anion Gap BUN Creatinine Estimated GFR POC Glucose 78 Random Glucose Calcium Phosphorus Magnesium Total Bilirubin AST ALT Alkaline Phosphatase Total Protein Albumin 10/10/18 10/10/18 10/10/18 06:58 06:58 12:26 WBC 3.9 L RBC 5.06 Hgb 14.6 Hct 44.7 MCV 88.4 MCH 28.8 MCHC 32.6 RDW 17.2 Plt Count 197 MPV 8.7 Neut % (Auto) 45.6 Lymph % (Auto) 34.8 Mercer % (Auto) 13.6 H Eos % (Auto) 4.7 H Baso % (Auto) 1.3 Neut # (Auto) 1.8 Lymph # (Auto) 1.3 Mercer # (Auto) 0.5 Eos # (Auto) 0.2 Baso # (Auto) 0.1 WBC Differential . Differential Comment Auto diff final PT INR Sodium 142 Potassium 4.2 Chloride 100 Carbon Dioxide 28.9 Anion Gap 13 BUN 18 Creatinine 1.57 H Estimated GFR 42 L POC Glucose 80 Random Glucose 78 Calcium 8.8 D Phosphorus 4.5 Magnesium 2.0 Total Bilirubin 0.5 AST 25 ALT 30 Alkaline Phosphatase 87 Total Protein 6.5 Albumin 2.6 L <Haritha Ramos - Last Filed: 12/05/17 13:54> Assessment and Plan - Plan 52-year-old female who came into the hospital on 11/26/2017. Initially had symptoms of shortness of breath uncontrolled and small pulmonary emboli were found and treated. Patient also has severe cardiomyopathy with valvular heart disease, TR and MR, congestive heart failure; ICD in place. Cardiology was consulted and has followed patient throughout this hospital stay but is signed off to her medical management for now which will include coagulation. Patient has been on heparin drip and was initiated for Coumadin therapy on 11/30/2017. Patient noted bright red rectal bleeding with bowel movement and straining within the past 24 hours and also notes that she has had problems with some mild rectal bleeding with defecation over the past 2-3 months, also with straining. Currently patient denies any nausea or vomiting no dyspepsia or dysphasia and no abdominal pain or hematemesis. Gastroenterology has been consulted to assist with her symptom management and plan of care concerning her rectal bleeding. Patient denies any previous EGD or colonoscopy. Patient does note positive family history for maternal cousin in his 50s with colon cancer. According to the record patient does have a recent polysubstance abuse including crack cocaine, history of schizoaffective disorder, and is noncompliant with her medications according to the record. Currently patient appears to be resting quietly no obvious shortness of breath and is answering simple questions appropriately. No overt anxiety noted Bright red rectal bleeding history of constipation with straining. Onset approximately 2-3 months ago with every bowel movement. Positive family history of maternal cousin colon cancer, no previous EGD or colonoscopy No current abdominal pain no diarrhea, no nausea no vomiting no dyspepsia no anemia History of schizoaffective disorder as well as severe cardiomyopathy with valvular heart disease and CHF, ICD in place History of small pulmonary emboli this admission with heparin drip and now being placed on Coumadin therapy. Enrollment Advisor has been involved in her case but is now signed off for medical management. 12/05/17 Rectal bleeding-patient denies any noted rectal bleeding this a.m. Tolerating diet well and denies any discomfort. Hemoglobin 14.6 hematocrit 44.7 platelet count 197. Patient post colonoscopy on 12/04/2017, findings as follows--- A medium sized patch of colitis was found in the rectum. The mucosa was erythematous. Retroflexed views revealed internal hemorrhoids and Retroflexed views revealed medium internal hemorrhoids. Plan -Diet as tolerated -High-fiber -Yearly Hemoccult -Continue surveillance-repeat colonoscopy in 5 years -Patient agrees to follow-up with GI post discharge -GI will sign off at this time This patient has been seen by myself and Dr. Ramos and this note is written on his behalf - Attending Attestation Dr. Ramos <Cherry Virgen - Last Filed: 12/05/17 09:52> - Plan Seen and examined with CONTENT MANAGEMENT CONSULTANT, no bleeding. s/p colonoscopy yesterday. Biopsies - p. Gi fu upon dc. Thank you <Haritha Ramos - Last Filed: 12/05/17 13:54>
--- NOTE | 2017-12-05 14:33 | P.PNIM ---
Subjective Interval history: Is a 52-year-old AA female. Date of admission 11/26/2017. Past medical history includes chronic systolic heart failure ejection of 10-50%. Polysubstance abuse including cocaine at least since 2005, severe TR and MR. Hypertension, history of right PUMPER GAGER CVA, schizoaffective disorder. Patient presents to [facility] with multiple somatic complaint including a swollen left leg which she attributes to sleeping on a table for 2 days, recent crack cocaine use , and shortness of breath and dyspnea. She was discharged from [facility] She is run out of her medications. She does not know which medication she currently takes. She states that she came to [facility] to "get my son to help me out." Baseline vitals revealed sinus tachycardia and hypertension. Initial troponin was 0.08. BNP is elevated. Creatinine was slightly elevated from baseline of 1.5 at 1.7. Sodium was 140. Potassium 3.3. CT pulmonary revealed bilateral small upper and lower pulmonary was not. Patient started heparin drip. Patient received aspirin and was started on Nitropaste 1 inch x1. We are asked to admit the patient. She is currently medically stable. Denies chest pain or shortness of breath currently. 10-2 Patient complains of shortness of breath when she is active. She denies any chest pain. She is speaking in full sentences. 10-3 Patient complains of some shortness of breath. She does not have any other complaints. No chest pain. 10-4 Patient states that she feels much better than admission day. She is tolerating a diet. She does not have any other complaints. No chest pain, no shortness of breath. 10-5 Patient does not have any complaints of chest pain. She states that she gets short of breath when ambulating. She does not have any other complaints. Stroke alert was called this afternoon. The patient was found to have slurred speech and a drooped face. The patient was sent down for a CT scan of the head as well as CTA of the head and. All CT scans came back negative for any acute findings. Given the patient's poor systolic heart function there was a concern that the patient may have a LV thrombus. She is currently on a heparin drip as well as p.o. Coumadin for pulmonary embolus. A cardiology consult was placed to have the patient reevaluated for possible NOE. I had a discussion with Dr. Ornelas from neurology who evaluated the patient and believes the patient likely had a TIA and does not recommend getting an MRI since the patient's symptoms improved and she also since she has a defibrillator. We will continue to monitor the patient in the intensive care unit. Continue aspirin, continue heparin, continue warfarin. 10-6 Patient states she feels well this morning. She is requesting food. She does not have any complaints. Patient is smiling and appears to be comfortable. 10-7 Follow-up shortness of breath/PE, CHF ejection fraction 10-15%, history of polysubstance abuse, moderate to severe tricuspid and mitral regurg. Patient seen and examined sitting in her bed, stated feeling a lot better, breathing better. Patient stated she was going out riding the bus to see her son however she felt short of breath and the boss called 911. Patient stated the swelling in her leg is a lot better. Patient denies any pain chest pain, or shortness of breath. Patient denies any headache or dizziness, denies any abdominal pain, nausea or vomiting, diarrhea or constipation. Patient denies any fever or chills. 10-8 ALERTED BY RN THAT PATIENT HAVING RECTAL BLEEDING- HOLD HEPARIN AND COUMADIN- CONSULT GI FOR COLONOSCOPY TOMORROW AM LABS DW RN AND PT AND GI AND CM 10- HAD COLONOSCOPY HAD COLITIS AND HEMORRHOIDS INTERNAL AND EXTERNAL RESTART COUMADIN AND HEPARIN DW RN AND PT PATIENT DID WELL WITH PREP LAST NIGHT 10-10 RELOAD COUMADIN AND CONTINUE HEPARIN DRIP DW RN AND PT AND CM AM LABS INCREASE COUMADIN TO 7.5MG PO DAILY Physical Exam Vital signs: Vital Signs 12/04/17 16:00 12/04/17 20:00 12/05/17 00:00 Temperature 97.9 F 97.6 F 98.2 F Pulse Rate 84 79 74 Respiratory Rate 22 18 18 Blood Pressure 130/82 111/75 114/71 Pulse Oximetry 100 97 98 12/05/17 04:00 12/05/17 08:00 Temperature 98 F 98.5 F Pulse Rate 68 80 Respiratory Rate 18 16 Blood Pressure 112/73 135/96 H Pulse Oximetry 96 96 Intake & Output 12/04/17 12/05/17 12/05/17 18:59 06:59 18:59 Intake Total 460 / 460 0 / 0 Balance 460 / 460 0 / 0 Weight 66.4 kg Intake: Oral 460 / 460 0 / 0 Other: # Voids 4 3 Date of Last Bowel Movement 12/04/17 # Bowel Movements 0 Narrative: GENERAL: Well-developed, thin appearing -[place] female, alert and oriented x3, in no apparent distress SKIN: Warm and dry. HEAD: Atraumatic. Normocephalic. EYES: Pupils equal and round. No scleral icterus. No injection or drainage. ENT: No nasal bleeding or discharge. Mucous membranes pink and moist. NECK: Trachea midline. No JVD. CARDIOVASCULAR: Regular rate and rhythm. No edema. Left upper chest pacemaker site intact RESPIRATORY: No accessory muscle use. Clear to auscultation, diminished. Breath sounds equal bilaterally. GASTROINTESTINAL: Abdomen flat soft, non-tender, nondistended. Hepatic and splenic margins not palpable. MUSCULOSKELETAL: Extremities without clubbing, cyanosis, or edema. No obvious deformities. NEUROLOGICAL: Awake and alert. No obvious cranial nerve deficits. Motor grossly within normal limits. Generalized weakness, moving all explained extremities. Normal speech. PSYCHIATRIC: Appropriate mood and affect; insight and judgment appropriate. Results - Labs CBC & Chem 7: 12/05/17 06:58 12/05/17 06:58 Laboratory Results - last 24 hr 12/04/17 12/04/17 12/05/17 14:07 22:52 06:58 WBC RBC Hgb Hct MCV MCH MCHC RDW Plt Count MPV Neut % (Auto) Lymph % (Auto) Lipscomb % (Auto) Eos % (Auto) Baso % (Auto) Neut # (Auto) Lymph # (Auto) [place]comb # (Auto) Eos # (Auto) Baso # (Auto) WBC Differential Differential Comment PT 14.9 H 15.2 H INR 1.5 1.5 Sodium Potassium Chloride Carbon Dioxide Anion Gap BUN Creatinine Estimated GFR POC Glucose 78 Random Glucose Calcium Phosphorus Magnesium Total Bilirubin AST ALT Alkaline Phosphatase Total Protein Albumin 12/05/17 12/05/17 12/05/17 06:58 06:58 12:26 WBC 3.9 L RBC 5.06 Hgb 14.6 Hct 44.7 MCV 88.4 MCH 28.8 MCHC 32.6 RDW 17.2 Plt Count 197 MPV 8.7 Neut % (Auto) 45.6 Lymph % (Auto) 34.8 Lipscomb % (Auto) 13.6 H Eos % (Auto) 4.7 H Baso % (Auto) 1.3 Neut # (Auto) 1.8 Lymph # (Auto) 1.3 Lipscomb # (Auto) 0.5 Eos # (Auto) 0.2 Baso # (Auto) 0.1 WBC Differential . Differential Comment Auto diff final PT INR Sodium 142 Potassium 4.2 Chloride 100 Carbon Dioxide 28.9 Anion Gap 13 BUN 18 Creatinine 1.57 H Estimated GFR 42 L POC Glucose 80 Random Glucose 78 Calcium 8.8 D Phosphorus 4.5 Magnesium 2.0 Total Bilirubin 0.5 AST 25 ALT 30 Alkaline Phosphatase 87 Total Protein 6.5 Albumin 2.6 L - Procedures COLONOSCOPY PROCEDURE REPORT EXAM DATE: 12/04/2017 PATIENT NAME: Helen Llanos MR #: [id number] BIRTHDATE: 1965 ENDOSCOPIST: Haritha Ramos MD ORDER #: [id number] ASSISTANT BOILER OPERATOR: Joselyn Oliver and Dennise Gutierres STATUS: inpatient INDICATIONS: The patient is a 52 yr old female here for a colonoscopy due to hematochezia PROCEDURE PERFORMED: Colonoscopy, diagnostic MEDICATIONS: None and Per Anesthesia. PREP QUALITY: The [place] Bowel Prep Score was Right colon 2, Mid colon 3, and Left colon 3. Total = 8. PREP TYPE:GoLytely ESTIMATED BLOOD LOSS: None CONSENT: The patient understands the risks and benefits of the procedure and understands that these risks include, but are not limited to: sedation, allergic reaction, infection, perforation and/or bleeding. Alternative means of evaluation and treatment include, among others: physical exam, x-rays, and/or surgical intervention. The patient elects to proceed with this endoscopic procedure. medical equipment was checked for proper function. Hand hygiene and appropriate measures for infection prevention was taken. After the risks, benefits and alternatives of the procedure were thoroughly explained, Informed consent was verified, confirmed and timeout was successfully executed by the treatment team. A digital exam revealed external hemorrhoids The Pentax [id number] endoscope was introduced through the anus and advanced to the cecum, which was identified by both the appendix and ileocecal valve. The instrument was then slowly withdrawn as the colon was fully examined. COLON FINDINGS: A medium sized patch of colitis was found in the rectum. The mucosa was erythematous. Retroflexed views revealed internal hemorrhoids and Retroflexed views revealed medium internal hemorrhoids The scope was then completely withdrawn from the patient and the procedure terminated. PROCEDURE WITHDRAWAL TIME:6minutes ADVERSE EVENTS: There were no complications. IMPRESSIONS: 1. Medium sized colitis was found in the rectum; The mucosa was erythematous 2. Retroflexed views revealed internal hemorrhoids 3. Retroflexed views revealed medium internal hemorrhoids 4. Revealed external hemorrhoids RECOMMENDATIONS: 1. Continue surveillance 2. High fiber diet 3. Yearly hemoccult RECALL: Return 5 years Colonoscopy Haritha Ramos MD eSigned: Haritha Ramos MD 12/04/2017 1:13 PM Assessment and Plan - Assessment (1) TIA (transient ischemic attack) Code(s): G45.9 - Transient cerebral ischemic attack, unspecified Status: Acute (2) Cardiomyopathy Code(s): I42.9 - Cardiomyopathy, unspecified Status: Acute (3) AICD (automatic cardioverter/defibrillator) present Code(s): Z95.810 - Presence of automatic (implantable) cardiac defibrillator Status: Acute (4) Pulmonary embolism Code(s): I26.99 - Other pulmonary embolism without acute cor pulmonale Status : Acute - Plan This patient is a 52-year-old female with a diagnosis of systolic CHF ejection fraction 10-15%, history of polysubstance abuse, moderate to severe tricuspid and mitral regurg. The patient presented with complaints of shortness of breath and was found to have pulmonary embolus on CTA of the chest. She also admits to using cocaine, last use was a few days ago. RECTAL BLEEDING -HOLD HEPARIN AND COUMADIN -FOR COLONOSCOPY ON 12-04 SHOWED SOME COLITIS AND HEMORRHOIDS INTERNAL AND EXTERNAL RESTART HEPARIN AND COUMADIN TIA/history of right PUMPER GAGER CVA -Neurology following -Continue aspirin, heparin drip with, Coumadin per neurology recommendation -Continue statin -No MRI of the brain was done due to the presence of defibrillator defibrillator defibrillator, patient's symptoms have completely resolved NEEDS COUMADIN CHF, Systolic/NSVT 2d Echo :Severely dilated left ventricle. The left ventricular systolic function is severely reduced with an estimated ejection fraction less than 10 - 15%.there is diffuse global hypokinesis with distinct regional wall motion abnormalities. [id number] mitral valve regurgitation. moderate to severe tricuspid valve regurgitation. -LVEF 10-15%,, AICD in place, BNP 2827 -Cardiology following, recommended to follow-up with Dr. Mcintyre as van outpatient -Elevated troponin possibly secondary to PE and CHF with very poor ejection fraction -The patient also has valvular heart disease as per documentation from cardiology the patient will need treatment for PE as well as be substance abuse free for 3-6 months prior to consideration of any kind of surgical intervention. -Continue IV Lasix for diuresis, monitor BMP -Telemetry monitoring -Monitor electrolytes and replace as needed -Continue coreg Pulmonary embolus -Continue heparin drip until therapeutic and Coumadin -Pharmacy consult for Coumadin dosing INCREASE COUMADIN 7.5MG PO DAILY Chronic kidney disease stage III -continue to monitor the patient's serum creatinine. -Avoid nephrotoxic agents. -Creatinine improving back to baseline 1.40 today, 1.79 on admission, - follow-up with nephrology outpatient after she has been stabilized and discharged. Schizoaffective disorder/ crack cocaine use -continued on home medications of sertraline, trazodone and Risperdal -Pain medication will be given as needed. - counseled on the dangers of using crack cocaine. DVT prophylaxis: patient on heparin drip and Coumadin currently---ON HOLD DUE TO RECTAL BLEEDING FOR COLONOSCOPY ON 12-04 DW RN AND PT AND CM Code Status: FULL CODE Discussed Condition With: RN AND PT AND CM Discharge Planning: NEEDS ANTICOAGULATION FOR PULM EMBOLI AND SUBSTANCE ABUSE AND TIA GOAL INR 2.0 TO 3.0
[2017-12-05] MEDS: traZODone 100 MG Tablet PO SCH (22:00)
[2017-12-06] MEDS: Insulin NovoLOG Aspart Correctional Sugar Inj SQ SCH ×3 (00:09→11:55)
[2017-12-06] MEDS: Senna/Docusate Sodium 8.6/50 MG Tablet PO SCH (08:25)
[2017-12-06] MEDS: Psyllium Husk SF 3.4 GM in 5.8 GM Packet PO SCH (08:25)
[2017-12-06] MEDS: Sertraline 50 MG Tablet PO SCH (08:26)
[2017-12-06 08:46] LABS: Baso # (Auto) 0.1 th/mm3 (0.0-0.2); Baso % (Auto) 1.3 % (0.0-2.0); Eos # (Auto) 0.2 th/mm3 (0.0-0.4); Eos % (Auto) 5.6 % (0.0-4.0); Hematocrit 44.7 % (35.0-46.0); Hemoglobin 14.4 gm/dL (11.6-15.3); Lymph # (Auto) 1.4 th/mm3 (1.0-4.8); Lymph % (Auto) 34.9 % (9.0-44.0); Mean Corpuscular HGB Conc 32.3 % (32.0-36.0); Mean Corpuscular Hemoglobin 28.7 pg (27.0-34.0); Mean Corpuscular Volume 88.9 fL (80.0-100.0); Mono # (Auto) 0.5 th/mm3 (0.0-0.9); Mono % (Auto) 12.8 % (0.0-8.0); Neut # (Auto) 1.8 th/mm3 (1.8-7.7); Neut % (Auto) 45.4 % (16.0-70.0); Platelet Count 216 th/mm3 (150-450); Red Blood Count 5.03 mil/mm3 (4.00-5.30); Red Cell Distribution Width 17.1 % (11.6-17.2)
[2017-12-06 08:53] LABS: INR 2.4 Ratio; Prothrombin Time 23.8 sec (9.8-11.6)
[2017-12-06 09:02] VITALS: BP 119/84; RESP 16; TEMP 97.9; O2SAT 95
[2017-12-06 09:16] VITALS: PULSE 57
[2017-12-06 09:20] LABS: Albumin 2.9 g/dL (3.4-5.0); Anion Gap 9 meq/L (5-15); Aspartate Aminotransferase 25 U/L (15-37); Blood Urea Nitrogen 18 mg/dL (7-18); Calcium 9.5 mg/dL (8.5-10.1); Carbon Dioxide 28.7 meq/L (21.0-32.0); Chloride 100 meq/L (98-107); Glomerular Filtration Rate 45 mL/min (>89); Glucose,Random 80 mg/dL (74-106); Magnesium 2.2 mg/dL (1.5-2.5); Potassium 3.8 meq/L (3.5-5.1); Sodium 138 meq/L (136-145)
[2017-12-06 09:25] LABS: Alanine Aminotransferase 31 U/L (10-53); Alkaline Phosphatase 86 U/L (45-117); Phosphorus 4.3 mg/dL (2.5-4.9); Total Protein 6.9 g/dL (6.4-8.2)
--- NOTE | 2017-12-06 10:39 | P.PNIM ---
Subjective Interval history: Is a 52-year-old AA female. Date of admission 11/26/2017. Past medical history includes chronic systolic heart failure ejection of 10-50%. Polysubstance abuse including cocaine at least since 2005, severe TR and MR. 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 Patient presents to [facility] with multiple somatic complaint including a swollen left leg which she attributes to sleeping on a table for 2 days, recent crack cocaine use , and shortness of breath and dyspnea. She was discharged from [facility] She is run out of her medications. She does not know which medication she currently takes. She states that she came to [facility] to "get my son to help me out." Baseline vitals revealed sinus tachycardia and hypertension. Initial troponin was 0.08. BNP is elevated. Creatinine was slightly elevated from baseline of 1.5 at 1.7. Sodium was 140. Potassium 3.3. CT pulmonary revealed bilateral small upper and lower pulmonary was not. Patient started heparin drip. Patient received aspirin and was started on Nitropaste 1 inch x1. We are asked to admit the patient. She is currently medically stable. Denies chest pain or shortness of breath currently. 10-2 Patient complains of shortness of breath when she is active. She denies any chest pain. She is speaking in full sentences. 10-3 Patient complains of some shortness of breath. She does not have any other complaints. No chest pain. 10-4 Patient states that she feels much better than admission day. She is tolerating a diet. She does not have any other complaints. No chest pain, no shortness of breath. 10-5 Patient does not have any complaints of chest pain. She states that she gets short of breath when ambulating. She does not have any other complaints. Stroke alert was called this afternoon. The patient was found to have slurred speech and a drooped face. The patient was sent down for a CT scan of the head as well as CTA of the head and. All CT scans came back negative for any acute findings. Given the patient's poor systolic heart function there was a concern that the patient may have a LV thrombus. She is currently on a heparin drip as well as p.o. Coumadin for pulmonary embolus. A cardiology consult was placed to have the patient reevaluated for possible NOE. I had a discussion with Dr. Ornelas from neurology who evaluated the patient and believes the patient likely had a TIA and does not recommend getting an MRI since the patient's symptoms improved and she also since she has a defibrillator. We will continue to monitor the patient in the intensive care unit. Continue aspirin, continue heparin, continue warfarin. 10-6 Patient states she feels well this morning. She is requesting food. She does not have any complaints. Patient is smiling and appears to be comfortable. 10-7 Follow-up shortness of breath/PE, CHF ejection fraction 10-15%, history of polysubstance abuse, moderate to severe tricuspid and mitral regurg. Patient seen and examined sitting in her bed, stated feeling a lot better, breathing better. Patient stated she was going out riding the bus to see her son however she felt short of breath and the boss called 911. Patient stated the swelling in her leg is a lot better. Patient denies any pain chest pain, or shortness of breath. Patient denies any headache or dizziness, denies any abdominal pain, nausea or vomiting, diarrhea or constipation. Patient denies any fever or chills. 10-8 ALERTED BY RN THAT PATIENT HAVING RECTAL BLEEDING- HOLD HEPARIN AND COUMADIN- CONSULT GI FOR COLONOSCOPY TOMORROW AM LABS DW RN AND PT AND GI AND CM 10- HAD COLONOSCOPY HAD COLITIS AND HEMORRHOIDS INTERNAL AND EXTERNAL RESTART COUMADIN AND HEPARIN DW RN AND PT PATIENT DID WELL WITH PREP LAST NIGHT 10-10 RELOAD COUMADIN AND CONTINUE HEPARIN DRIP DW RN AND PT AND CM AM LABS INCREASE COUMADIN TO 7.5MG PO DAILY 10- DC TO HOME TODAY INR IS THERAPEUTIC DW RN AND PT AND CM NEEDS FOLLOW UP WITH GI AND PCP CONTINUE COUMADIN Physical Exam Vital signs: Vital Signs 12/05/17 12:00 12/05/17 14:42 12/05/17 16:00 Temperature 98.6 F 98.1 F Pulse Rate 67 68 Respiratory Rate 16 18 Blood Pressure 132/80 134/76 Pulse Oximetry 96 95 97 12/05/17 20:00 12/05/17 22:17 12/05/17 23:18 Temperature 97.9 F Pulse Rate 77 Respiratory Rate 16 18 Blood Pressure 105/76 Pulse Oximetry 97 97 12/06/17 00:00 12/06/17 01:45 12/06/17 04:00 Temperature 98 F 97.8 F Pulse Rate 71 70 73 Respiratory Rate 18 17 Blood Pressure 97/74 L 98/68 L Pulse Oximetry 97 97 12/06/17 08:00 Temperature 97.9 F Pulse Rate 57 L Respiratory Rate 16 Blood Pressure 119/84 Pulse Oximetry 95 Intake & Output 12/05/17 12/06/17 12/06/17 18:59 06:59 18:59 Intake Total 420 / 420 Balance 420 / 420 Weight 66.6 kg Intake: Oral 420 / 420 Other: # Voids 5 Date of Last Bowel Movement 12/04/17 # Bowel Movements 1 Narrative: GENERAL: Well-developed, thin appearing -Greek female, alert and oriented x3, in no apparent distress SKIN: Warm and dry. HEAD: Atraumatic. Normocephalic. EYES: Pupils equal and round. No scleral icterus. No injection or drainage. ENT: No nasal bleeding or discharge. Mucous membranes pink and moist. NECK: Trachea midline. No JVD. CARDIOVASCULAR: Regular rate and rhythm. No edema. Left upper chest pacemaker site intact RESPIRATORY: No accessory muscle use. Clear to auscultation, diminished. Breath sounds equal bilaterally. GASTROINTESTINAL: Abdomen flat soft, non-tender, nondistended. Hepatic and splenic margins not palpable. MUSCULOSKELETAL: Extremities without clubbing, cyanosis, or edema. No obvious deformities. NEUROLOGICAL: Awake and alert. No obvious cranial nerve deficits. Motor grossly within normal limits. Generalized weakness, moving all explained extremities. Normal speech. PSYCHIATRIC: Appropriate mood and affect; insight and judgment appropriate. Results - Labs CBC & Chem 7: 12/06/17 06:50 12/06/17 06:50 Laboratory Results - last 24 hr 12/05/17 12/05/17 12/06/17 12:26 16:25 06:50 WBC 4.0 RBC 5.03 Hgb 14.4 Hct 44.7 MCV 88.9 MCH 28.7 MCHC 32.3 RDW 17.1 Plt Count 216 MPV 9.0 Neut % (Auto) 45.4 Lymph % (Auto) 34.9 [place] % (Auto) 12.8 H Eos % (Auto) 5.6 H Baso % (Auto) 1.3 Neut # (Auto) 1.8 Lymph # (Auto) 1.4 Alpine # (Auto) 0.5 Eos # (Auto) 0.2 Baso # (Auto) 0.1 WBC Differential . Differential Comment Auto diff final PT INR Sodium Potassium Chloride Carbon Dioxide Anion Gap BUN Creatinine Estimated GFR POC Glucose 80 109 Random Glucose Calcium Phosphorus Magnesium Total Bilirubin AST ALT Alkaline Phosphatase Total Protein Albumin 12/06/17 12/06/17 06:50 06:50 WBC RBC Hgb Hct MCV MCH MCHC RDW Plt Count MPV Neut % (Auto) Lymph % (Auto) Alpine % (Auto) Eos % (Auto) Baso % (Auto) Neut # (Auto) Lymph # (Auto) Alpine # (Auto) Eos # (Auto) Baso # (Auto) WBC Differential Differential Comment PT 23.8 H INR 2.4 Sodium 138 Potassium 3.8 Chloride 100 Carbon Dioxide 28.7 Anion Gap 9 BUN 18 Creatinine 1.49 H Estimated GFR 45 L POC Glucose Random Glucose 80 Calcium 9.5 Phosphorus 4.3 Magnesium 2.2 Total Bilirubin 0.3 AST 25 ALT 31 Alkaline Phosphatase 86 Total Protein 6.9 Albumin 2.9 L - Imaging ITS Impressions Venous Doppler Study 11/26/17 00:00 CONCLUSION: No venous thrombosis of either lower extremity. Chest X-Ray 11/26/17 15:56 CONCLUSION: Cardiomegaly with increase in pulmonary vascularity. Chest CTA 11/26/17 17:00 CONCLUSION: 1. Small bilateral pulmonary emboli. 2. Enlarged left ventricle and left atrium. Mild acute congestive heart failure present. Head CT 11/30/17 10:37 CONCLUSION: 1. No acute infarct, acute hemorrhage, midline shift or extra axial fluid collections. 2. Old infarct involving the right medial occipital lobe. Report was called by Dr. Mercedes to Dr. Ornelas at 11:00 AM on 11/30/2017. Head CTA 11/30/17 10:45 CONCLUSION: 1. Negative CTA Head. Neck CTA 11/30/17 10:45 CONCLUSION: 1. Negative CTA Carotid. - Procedures COLONOSCOPY PROCEDURE REPORT EXAM DATE: 12/04/2017 PATIENT NAME: Helen Llanos MR #: [id number] BIRTHDATE: 1965 ENDOSCOPIST: Haritha Ramos MD ORDER #: [id number] SENIOR INSTRUCTOR: Jsoelyn Oliver and Dennise Gutierres STATUS: inpatient INDICATIONS: The patient is a 52 yr old female here for a colonoscopy due to hematochezia PROCEDURE PERFORMED: Colonoscopy, diagnostic MEDICATIONS: None and Per Anesthesia. PREP QUALITY: The [place] Bowel Prep Score was Right colon 2, Mid colon 3, and Left colon 3. Total = 8. PREP TYPE:GoLytely ESTIMATED BLOOD LOSS: None CONSENT: The patient understands the risks and benefits of the procedure and understands that these risks include, but are not limited to: sedation, allergic reaction, infection, perforation and/or bleeding. Alternative means of evaluation and treatment include, among others: physical exam, x-rays, and/or surgical intervention. The patient elects to proceed with this endoscopic procedure. medical equipment was checked for proper function. Hand hygiene and appropriate measures for infection prevention was taken. After the risks, benefits and alternatives of the procedure were thoroughly explained, Informed consent was verified, confirmed and timeout was successfully executed by the treatment team. A digital exam revealed external hemorrhoids The Pentax [id number] endoscope was introduced through the anus and advanced to the cecum, which was identified by both the appendix and ileocecal valve. The instrument was then slowly withdrawn as the colon was fully examined. COLON FINDINGS: A medium sized patch of colitis was found in the rectum. The mucosa was erythematous. Retroflexed views revealed internal hemorrhoids and Retroflexed views revealed medium internal hemorrhoids The scope was then completely withdrawn from the patient and the procedure terminated. PROCEDURE WITHDRAWAL TIME:6minutes ADVERSE EVENTS: There were no complications. IMPRESSIONS: 1. Medium sized colitis was found in the rectum; The mucosa was erythematous 2. Retroflexed views revealed internal hemorrhoids 3. Retroflexed views revealed medium internal hemorrhoids 4. Revealed external hemorrhoids RECOMMENDATIONS: 1. Continue surveillance 2. High fiber diet 3. Yearly hemoccult RECALL: Return 5 years Colonoscopy Haritha Ramos MD eSigned: Haritha Ramos MD 12/04/2017 1:13 PM Assessment and Plan - Assessment (1) TIA (transient ischemic attack) Code(s): G45.9 - Transient cerebral ischemic attack, unspecified Status: Acute (2) Cardiomyopathy Code(s): I42.9 - Cardiomyopathy, unspecified Status: Acute (3) AICD (automatic cardioverter/defibrillator) present Code(s): Z95.810 - Presence of automatic (implantable) cardiac defibrillator Status: Acute (4) Pulmonary embolism Code(s): I26.99 - Other pulmonary embolism without acute cor pulmonale Status : Acute - Plan This patient is a 52-year-old female with a diagnosis of systolic CHF ejection fraction 10-15%, history of polysubstance abuse, moderate to severe tricuspid and mitral regurg. The patient presented with complaints of shortness of breath and was found to have pulmonary embolus on CTA of the chest. She also admits to using cocaine, last use was a few days ago. 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 The left ventricular systolic function is severely reduced with an estimated ejection fraction less than 10 - 15%.there is diffuse global hypokinesis with distinct regional wall motion abnormalities. [id number] mitral valve regurgitation. moderate to severe tricuspid valve regurgitation. -LVEF 10-15%,, AICD in place, BNP 2827 -Cardiology following, recommended to follow-up with Dr. Mcintyre as van outpatient -Elevated troponin possibly secondary to PE and CHF with very poor ejection fraction -The patient also has valvular heart disease as per documentation from cardiology the patient will need treatment for PE as well as be substance abuse free for 3-6 months prior to consideration of any kind of surgical intervention. -Continue IV Lasix for diuresis, monitor BMP -Telemetry monitoring -Monitor electrolytes and replace as needed -Continue coreg Pulmonary embolus -Continue heparin drip until therapeutic and Coumadin -Pharmacy consult for Coumadin dosing INCREASE COUMADIN 7.5MG PO DAILY Chronic kidney disease stage III -continue to monitor the patient's serum creatinine. -Avoid nephrotoxic agents. -Creatinine improving back to baseline 1.40 today, 1.79 on admission, - follow-up with nephrology outpatient after she has been stabilized and discharged. Schizoaffective disorder/ crack cocaine use -continued on home medications of sertraline, trazodone and Risperdal -Pain medication will be given as needed. - counseled on the dangers of using crack cocaine. DVT prophylaxis: RECTAL BLEEDING FOR COLONOSCOPY ON 12-04 BACK ON COUMADIN THERAPEUTIC DC TO HOME TODAY DW RN AND PT AND CM Code Status: FULL CODE Discussed Condition With: RN AND PT AND CM Discharge Planning: IN NOW AT GOAL INR GOAL INR 2.0 TO 3.0
--- NOTE | 2017-12-06 10:50 | P.DS ---
Date of admission: 11/26/17 19:44 Primary care physician: Tony Goldstein DO Attending physician on discharge: Valentin Salcido Anticipated date of discharge: 12/06/17 Brief History from admission: Is a 52-year-old AA female. Date of admission 11/26/2017. Past medical history includes chronic systolic heart failure ejection of 10-50%. Polysubstance abuse including cocaine at least since 2005, severe TR and MR. 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 Patient presents to [facility] with multiple somatic complaint including a swollen left leg which she attributes to sleeping on a table for 2 days, recent crack cocaine use , and shortness of breath and dyspnea. She was discharged from [facility]". She is run out of her medications. She does not know which medication she currently takes. She states that she came to [facility] to "get my son to help me out." Baseline vitals revealed sinus tachycardia and hypertension. Initial troponin was 0.08. BNP is elevated. Creatinine was slightly elevated from baseline of 1.5 at 1.7. Sodium was 140. Potassium 3.3. CT pulmonary revealed bilateral small upper and lower pulmonary was not. Patient started heparin drip. Patient received aspirin and was started on Nitropaste 1 inch x1. We are asked to admit the patient. She is currently medically stable. Denies chest pain or shortness of breath currently. Patient update on day of discharge: Is a 52-year-old AA female. Date of admission 11/26/2017. Past medical history includes chronic systolic heart failure ejection of 10-50%. Polysubstance abuse including cocaine at least since 2005, severe TR and MR. 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 Patient presents to [facility] with multiple somatic complaint including a swollen left leg which she attributes to sleeping on a table for 2 days, recent crack cocaine use , and shortness of breath and dyspnea. She was discharged from [facility]". She is run out of her medications. She does not know which medication she currently takes. She states that she came to [facility] to "get my son to help me out." Baseline vitals revealed sinus tachycardia and hypertension. Initial troponin was 0.08. BNP is elevated. Creatinine was slightly elevated from baseline of 1.5 at 1.7. Sodium was 140. Potassium 3.3. CT pulmonary revealed bilateral small upper and lower pulmonary was not. Patient started heparin drip. Patient received aspirin and was started on Nitropaste 1 inch x1. We are asked to admit the patient. She is currently medically stable. Denies chest pain or shortness of breath currently. 10-2 Patient complains of shortness of breath when she is active. She denies any chest pain. She is speaking in full sentences. 10-3 Patient complains of some shortness of breath. She does not have any other complaints. No chest pain. 10-4 Patient states that she feels much better than admission day. She is tolerating a diet. She does not have any other complaints. No chest pain, no shortness of breath. 10-5 Patient does not have any complaints of chest pain. She states that she gets short of breath when ambulating. She does not have any other complaints. Stroke alert was called this afternoon. The patient was found to have slurred speech and a drooped face. The patient was sent down for a CT scan of the head as well as CTA of the head and. All CT scans came back negative for any acute findings. Given the patient's poor systolic heart function there was a concern that the patient may have a LV thrombus. She is currently on a heparin drip as well as p.o. Coumadin for pulmonary embolus. A cardiology consult was placed to have the patient reevaluated for possible NOE. I had a discussion with Dr. Ornelas from neurology who evaluated the patient and believes the patient likely had a TIA and does not recommend getting an MRI since the patient's symptoms improved and she also since she has a defibrillator. We will continue to monitor the patient in the intensive care unit. Continue aspirin, continue heparin, continue warfarin. 10-6 Patient states she feels well this morning. She is requesting food. She does not have any complaints. Patient is smiling and appears to be comfortable. 10-7 Follow-up shortness of breath/PE, CHF ejection fraction 10-15%, history of polysubstance abuse, moderate to severe tricuspid and mitral regurg. Patient seen and examined sitting in her bed, stated feeling a lot better, breathing better. Patient stated she was going out riding the bus to see her son however she felt short of breath and the boss called 911. Patient stated the swelling in her leg is a lot better. Patient denies any pain chest pain, or shortness of breath. Patient denies any headache or dizziness, denies any abdominal pain, nausea or vomiting, diarrhea or constipation. Patient denies any fever or chills. 12-03 ALERTED BY RN THAT PATIENT HAVING RECTAL BLEEDING- HOLD HEPARIN AND COUMADIN- CONSULT GI FOR COLONOSCOPY TOMORROW AM LABS DW RN AND PT AND GI AND CM 12-04 HAD COLONOSCOPY HAD COLITIS AND HEMORRHOIDS INTERNAL AND EXTERNAL RESTART COUMADIN AND HEPARIN DW RN AND PT PATIENT DID WELL WITH PREP LAST NIGHT 12-05 RELOAD COUMADIN AND CONTINUE HEPARIN DRIP DW RN AND PT AND CM AM LABS INCREASE COUMADIN TO 7.5MG PO DAILY 12-06 DC TO HOME TODAY INR IS THERAPEUTIC DW RN AND PT AND CM NEEDS FOLLOW UP WITH GI AND PCP CONTINUE COUMADIN DS: Diagnosis - Discharge Diagnosis (1) TIA (transient ischemic attack) Status: Acute (2) Cardiomyopathy Status: Chronic (3) AICD (automatic cardioverter/defibrillator) present Status: Chronic (4) Pulmonary embolism Status: Acute DS: Medications - Discharge Medications Prescriptions: aspirin 81 mg PO DAILY #30 tab atorvastatin 40 mg PO HS #30 tab carvedilol [Coreg] 3.125 mg PO BID #60 tab furosemide [Lasix] 40 mg PO DAILY #30 tab hydrocodone-acetaminophen 1 tab PO Q4H PRN #40 tab PRN Reason: Pain pantoprazole 40 mg PO BID #60 tab potassium chloride [Klor-Con M20] 20 meq PO DAILY #30 tab psyllium husk (aspartame) [Metamucil Fiber Singles] 1 pack PO BID #60 ea risperidone [Risperdal] 1 mg PO DAILY #30 tab sennosides-docusate sodium [Senna Plus] 1 tab PO BID #60 tab sertraline [Zoloft] 25 mg PO DAILY #30 tab trazodone 100 mg PO HS #30 tab warfarin [Coumadin] 6 mg PO DAILY@1600 #30 tab DS: Summary Hospital Course: Is a 52-year-old AA female. Date of admission 11/26/2017. Past medical history includes chronic systolic heart failure ejection of 10-50%. Polysubstance abuse including cocaine at least since 2005, severe TR and MR. 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 Patient presents to [facility] with multiple somatic complaint including a swollen left leg which she attributes to sleeping on a table for 2 days, recent crack cocaine use , and shortness of breath and dyspnea. She was discharged from [facility]". She is run out of her medications. She does not know which medication she currently takes. She states that she came to [facility] to "get my son to help me out." Baseline vitals revealed sinus tachycardia and hypertension. Initial troponin was 0.08. BNP is elevated. Creatinine was slightly elevated from baseline of 1.5 at 1.7. Sodium was 140. Potassium 3.3. CT pulmonary revealed bilateral small upper and lower pulmonary was not. Patient started heparin drip. Patient received aspirin and was started on Nitropaste 1 inch x1. We are asked to admit the patient. She is currently medically stable. Denies chest pain or shortness of breath currently. 10-2 Patient complains of shortness of breath when she is active. She denies any chest pain. She is speaking in full sentences. 10-3 Patient complains of some shortness of breath. She does not have any other complaints. No chest pain. 10-4 Patient states that she feels much better than admission day. She is tolerating a diet. She does not have any other complaints. No chest pain, no shortness of breath. 10-5 Patient does not have any complaints of chest pain. She states that she gets short of breath when ambulating. She does not have any other complaints. Stroke alert was called this afternoon. The patient was found to have slurred speech and a drooped face. The patient was sent down for a CT scan of the head as well as CTA of the head and. All CT scans came back negative for any acute findings. Given the patient's poor systolic heart function there was a concern that the patient may have a LV thrombus. She is currently on a heparin drip as well as p.o. Coumadin for pulmonary embolus. A cardiology consult was placed to have the patient reevaluated for possible NOE. I had a discussion with Dr. Ornelas from neurology who evaluated the patient and believes the patient likely had a TIA and does not recommend getting an MRI since the patient's symptoms improved and she also since she has a defibrillator. We will continue to monitor the patient in the intensive care unit. Continue aspirin, continue heparin, continue warfarin. 10-6 Patient states she feels well this morning. She is requesting food. She does not have any complaints. Patient is smiling and appears to be comfortable. 10-7 Follow-up shortness of breath/PE, CHF ejection fraction 10-15%, history of polysubstance abuse, moderate to severe tricuspid and mitral regurg. Patient seen and examined sitting in her bed, stated feeling a lot better, breathing better. Patient stated she was going out riding the bus to see her son however she felt short of breath and the boss called 911. Patient stated the swelling in her leg is a lot better. Patient denies any pain chest pain, or shortness of breath. Patient denies any headache or dizziness, denies any abdominal pain, nausea or vomiting, diarrhea or constipation. Patient denies any fever or chills. 10-8 ALERTED BY RN THAT PATIENT HAVING RECTAL BLEEDING- HOLD HEPARIN AND COUMADIN- CONSULT GI FOR COLONOSCOPY TOMORROW AM LABS DW RN AND PT AND GI AND CM 10 HAD COLONOSCOPY HAD COLITIS AND HEMORRHOIDS INTERNAL AND EXTERNAL RESTART COUMADIN AND HEPARIN DW RN AND PT PATIENT DID WELL WITH PREP LAST NIGHT 10- RELOAD COUMADIN AND CONTINUE HEPARIN DRIP DW RN AND PT AND CM AM LABS INCREASE COUMADIN TO 7.5MG PO DAILY 10- DC TO HOME TODAY INR IS THERAPEUTIC DW RN AND PT AND CM NEEDS FOLLOW UP WITH GI AND PCP CONTINUE COUMADIN - Time Spent with Patient Total time spent providing and/or coordinating discharge services: Greater than 30 minutes - Quality: VTE Deep Vein Thrombosis/Pulmonary Embolism Present on Admission: Yes Exam Vital signs: Vital Signs 12/05/17 12:00 12/05/17 14:42 12/05/17 16:00 Temperature 98.6 F 98.1 F Pulse Rate 67 68 Respiratory Rate 16 18 Blood Pressure 132/80 134/76 Pulse Oximetry 96 95 97 12/05/17 20:00 12/05/17 22:17 12/05/17 23:18 Temperature 97.9 F Pulse Rate 77 Respiratory Rate 16 18 Blood Pressure 105/76 Pulse Oximetry 97 97 12/06/17 00:00 12/06/17 01:45 12/06/17 04:00 Temperature 98 F 97.8 F Pulse Rate 71 70 73 Respiratory Rate 18 17 Blood Pressure 97/74 L 98/68 L Pulse Oximetry 97 97 12/06/17 08:00 Temperature 97.9 F Pulse Rate 57 L Respiratory Rate 16 Blood Pressure 119/84 Pulse Oximetry 95 Intake & Output 12/05/17 12/06/17 12/06/17 18:59 06:59 18:59 Intake Total 420 / 420 Balance 420 / 420 Weight 66.6 kg Intake: Oral 420 / 420 Other: # Voids 5 Date of Last Bowel Movement 12/04/17 # Bowel Movements 1 Narrative: GENERAL: Well-developed, thin appearing -[place] female, alert and oriented x3, in no apparent distress SKIN: Warm and dry. HEAD: Atraumatic. Normocephalic. EYES: Pupils equal and round. No scleral icterus. No injection or drainage. ENT: No nasal bleeding or discharge. Mucous membranes pink and moist. NECK: Trachea midline. No JVD. CARDIOVASCULAR: Regular rate and rhythm. No edema. Left upper chest pacemaker site intact RESPIRATORY: No accessory muscle use. Clear to auscultation, diminished. Breath sounds equal bilaterally. GASTROINTESTINAL: Abdomen flat soft, non-tender, nondistended. Hepatic and splenic margins not palpable. MUSCULOSKELETAL: Extremities without clubbing, cyanosis, or edema. No obvious deformities. NEUROLOGICAL: Awake and alert. No obvious cranial nerve deficits. Motor grossly within normal limits. Generalized weakness, moving all explained extremities. Normal speech. PSYCHIATRIC: Appropriate mood and affect; insight and judgment appropriate. Results Procedures completed during hospitalization: COLONOSCOPY PROCEDURE REPORT EXAM DATE: 12/04/2017 PATIENT NAME: Helen Llanos MR #: [id number] BIRTHDATE: 1965 ENDOSCOPIST: Haritha Ramos MD ORDER #: [id number] GERONTOLOGY AIDE: Joselyn Oliver and Dennise Gutierres STATUS: inpatient INDICATIONS: The patient is a 52 yr old female here for a colonoscopy due to hematochezia PROCEDURE PERFORMED: Colonoscopy, diagnostic MEDICATIONS: None and Per Anesthesia. PREP QUALITY: The [place] Bowel Prep Score was Right colon 2, Mid colon 3, and Left colon 3. Total = 8. PREP TYPE:GoLytely ESTIMATED BLOOD LOSS: None CONSENT: The patient understands the risks and benefits of the procedure and understands that these risks include, but are not limited to: sedation, allergic reaction, infection, perforation and/or bleeding. Alternative means of evaluation and treatment include, among others: physical exam, x-rays, and/or surgical intervention. The patient elects to proceed with this endoscopic procedure. medical equipment was checked for proper function. Hand hygiene and appropriate measures for infection prevention was taken. After the risks, benefits and alternatives of the procedure were thoroughly explained, Informed consent was verified, confirmed and timeout was successfully executed by the treatment team. A digital exam revealed external hemorrhoids The Pentax [id number] endoscope was introduced through the anus and advanced to the cecum, which was identified by both the appendix and ileocecal valve. The instrument was then slowly withdrawn as the colon was fully examined. COLON FINDINGS: A medium sized patch of colitis was found in the rectum. The mucosa was erythematous. Retroflexed views revealed internal hemorrhoids and Retroflexed views revealed medium internal hemorrhoids The scope was then completely withdrawn from the patient and the procedure terminated. PROCEDURE WITHDRAWAL TIME:6minutes ADVERSE EVENTS: There were no complications. IMPRESSIONS: 1. Medium sized colitis was found in the rectum; The mucosa was erythematous 2. Retroflexed views revealed internal hemorrhoids 3. Retroflexed views revealed medium internal hemorrhoids 4. Revealed external hemorrhoids RECOMMENDATIONS: 1. Continue surveillance 2. High fiber diet 3. Yearly hemoccult RECALL: Return 5 years Colonoscopy Haritha Ramos MD eSigned: Haritha Ramos MD 12/04/2017 1:13 PM Completed studies during hospitalization: ITS Impressions Venous Doppler Study 11/26/17 00:00 CONCLUSION: No venous thrombosis of either lower extremity. Chest X-Ray 11/26/17 15:56 CONCLUSION: Cardiomegaly with increase in pulmonary vascularity. Chest CTA 11/26/17 17:00 CONCLUSION: 1. Small bilateral pulmonary emboli. 2. Enlarged left ventricle and left atrium. Mild acute congestive heart failure present. Head CT 11/30/17 10:37 CONCLUSION: 1. No acute infarct, acute hemorrhage, midline shift or extra axial fluid collections. 2. Old infarct involving the right medial occipital lobe. Report was called by Dr. Mercedes to Dr. Ornelas at 11:00 AM on 11/30/2017. Head CTA 11/30/17 10:45 CONCLUSION: 1. Negative CTA Head. Neck CTA 11/30/17 10:45 CONCLUSION: 1. Negative CTA Carotid. Labs on day of discharge: Labs from last 24 hours 12/06/17 12/06/17 12/06/17 06:50 06:50 06:50 WBC 4.0 RBC 5.03 Hgb 14.4 Hct 44.7 MCV 88.9 MCH 28.7 MCHC 32.3 RDW 17.1 Plt Count 216 MPV 9.0 Neut % (Auto) 45.4 Lymph % (Auto) 34.9 [place] % (Auto) 12.8 H Eos % (Auto) 5.6 H Baso % (Auto) 1.3 Neut # (Auto) 1.8 Lymph # (Auto) 1.4 [place] # (Auto) 0.5 Eos # (Auto) 0.2 Baso # (Auto) 0.1 WBC Differential . Differential Comment Auto diff final PT 23.8 H INR 2.4 Sodium 138 Potassium 3.8 Chloride 100 Carbon Dioxide 28.7 Anion Gap 9 BUN 18 Creatinine 1.49 H Estimated GFR 45 L POC Glucose Random Glucose 80 Calcium 9.5 Phosphorus 4.3 Magnesium 2.2 Total Bilirubin 0.3 AST 25 ALT 31 Alkaline Phosphatase 86 Total Protein 6.9 Albumin 2.9 L 12/05/17 12/05/17 16:25 12:26 WBC RBC Hgb Hct MCV MCH MCHC RDW Plt Count MPV Neut % (Auto) Lymph % (Auto) [place] % (Auto) Eos % (Auto) Baso % (Auto) Neut # (Auto) Lymph # (Auto) [place] # (Auto) Eos # (Auto) Baso # (Auto) WBC Differential Differential Comment PT INR Sodium Potassium Chloride Carbon Dioxide Anion Gap BUN Creatinine Estimated GFR POC Glucose 109 80 Random Glucose Calcium Phosphorus Magnesium Total Bilirubin AST ALT Alkaline Phosphatase Total Protein Albumin - Impressions ITS Impressions Venous Doppler Study 11/26/17 00:00 CONCLUSION: No venous thrombosis of either lower extremity. Chest X-Ray 11/26/17 15:56 CONCLUSION: Cardiomegaly with increase in pulmonary vascularity. Chest CTA 11/26/17 17:00 CONCLUSION: 1. Small bilateral pulmonary emboli. 2. Enlarged left ventricle and left atrium. Mild acute congestive heart failure present. Head CT 11/30/17 10:37 CONCLUSION: 1. No acute infarct, acute hemorrhage, midline shift or extra axial fluid collections. 2. Old infarct involving the right medial occipital lobe. Report was called by Dr. Mercedes to Dr. Ornelas at 11:00 AM on 11/30/2017. Head CTA 11/30/17 10:45 CONCLUSION: 1. Negative CTA Head. Neck CTA 11/30/17 10:45 CONCLUSION: 1. Negative CTA Carotid. Discharge Plan - Discharge Disposition Patient Disposition: 01 Discharge Home - Discharge Condition Condition: Good - Discharge Order Discharge Orders: Discharge Order (Routine); Ordered 12/06/17 Ordered By: Valentin Salcido - Discharge Details Anticipated Discharge Date: 12/06/17 Discharge Comment: dc to home today - Physicians Team Primary Care Provider: Tony Goldstein Attending Provider: Valentin Salcido Other Providers: [employer] ; Darryn Llanos, DO ; Hadley Ornelas MD, PhD ; Wing Lida Wesley MD ; Haritha Ramos MD
== END 2017-12-06 12:02 | disposition home or self-care (01) ==
LOC: NEPE 15:15 → NEDA 19:44 → HIMC 21:35 → N04 12-01 17:40
PROVIDERS: ADMIT Hospitalist; ATTEND Hospitalist
PROC: COLONOS (2017-12-04 12:45)